=== PATIENT | male | born 1940 | race Caucasian/White ===

== ENCOUNTER → 2016-11-01 | Outpatient (CLI) | payer OTHER ==
[~2016-11-01] MED LIST: ALBUAER19 INH; ARC5 PO; CLON2TAB3 PO; DILT-115 PO; GLIM2TAB2 PO; LISI10TA PO; LPT/40 PO; OMEP20CA59 PO; VTMD PO
== END | disposition home or self-care (01) ==
LOC: C.RDSM 10:35
PROVIDERS: ATTEND Family Medicine Sports Medicine
DX: M25.561 Pain in right knee (principal)

== ENCOUNTER 2019-10-01 16:27 | Inpatient (IN) ==
[2019-10-01] MEDS ORDERED: OPTIRAY 320 125ml IV PRN (16:38)
--- NOTE | 2019-10-01 16:47 | CT Scan Report ---
CT head/brain wo con CT DOSE: HISTORY: Mental status change Stroke evaluation TECHNIQUE: Multiaxial CT images of the head were performed without the use of intravenous contrast. A dose lowering technique was utilized adhering to the principles of ALARA. Comparison: 01/19/2012 Findings: The paranasal sinuses and mastoid air cells are clear. The calvarium and skull base are int act. The ventricles and sulci are within normal limits. There is no mass, hematoma, midline shift, or acute infarct. Impression: No acute intracranial abnormality. Mild age-related atrophy and chronic small vessel change ACT 112: Negative or not required by law. The above report was generated using voice recognition software. It may contain grammatical, syntax or spelling errors. Electronically signed by: Carson Woody M.D. 10/01/2019 4:46 PM
[2019-10-01 16:52] LABS: Basophils # (auto) 0.02 K/uL (0-0.2); Basophils % (auto) 0.2 %; Eosinophils # (auto) 0.03 K/uL (0-0.5); Eosinophils % (auto) 0.3 %; Hematocrit (blood only) 35.5 % (42-52); Hemoglobin 11.4 g/dL (14.0-18.0); Immature Granulocytes # (auto) 0.04 K/uL (0.00-0.02); Immature Granulocytes % (auto) 0.4 %; Mean Corpuscular Hemoglobin 33.9 pg (25-34); Mean Corpuscular Hgb Conc 32.1 g/dL (32-36); Mean Corpuscular Volume 105.7 fL (80-100); Mean Platelet Volume 9.8 fL (7.4-10.4); Monocytes # (auto) 0.35 K/uL (0.11-0.59); Monocytes % (auto) 3.2 %; Neutrophils # (auto) 9.06 K/uL (1.4-6.5); Neutrophils % (auto) 83.9 %; Platelet Count 244 K/uL (130-400); RDW Standard Deviation 57.6 fL (36.4-46.3); Red Blood Count 3.36 M/uL (4.7-6.1)
--- NOTE | 2019-10-01 16:56 | CT Scan Report ---
CT angio neck with con HISTORY: R sided weakness and facial droop, slurred TECHNIQUE: Multiaxial CT angiography of the neck was performed IV contrast: 100 cc nonionic All genaro urements were calculated based on NASCET criteria. Maximum intensity projection images were also obt ained. A dose lowering technique was utilized adhering to the principles of ALARA. COMPARISON STUDY: None. FINDINGS: The aortic arch and proximal great vessels are widely patent. 50% narrowing right internal carotid artery at its origin. 30% narrowing left internal carotid artery at its origin. No evidence for high grade or critical stenosis. Minimal plaque formation at the carotid siphons. The vertebral basilar systems are unremarkable. IMPRESSION: 1. 50% narrowing right internal carotid artery at its origin. 2. 30% narrowing origin left internal carotid artery. 3. Normal vertebral basilar system. ACT 112: Negative or not required by law. The above report was generated using voice recognition software. It may contain grammatical, syntax or spelling errors. Electronically signed by: Carson Woody M.D. 10/01/2019 4:55 PM
--- NOTE | 2019-10-01 16:58 | CT Scan Report ---
CT angio head w con HISTORY: R sided weakness and facial droop, slurred TECHNIQUE: Multiaxial CT angiography of the head was performed IV contrast: 100 cc nonionic Maximu m intensity projection images were also obtained. A dose lowering technique was utilized adhering to the principles of ALARA. COMPARISON: None. FINDINGS: There is no mass, hematoma, midline shift, or acute infarct. Visualized intracranial management internship al carotid arteries, distal vertebral arteries, and basilar artery are widely patent. There is no sig nificant stenosis, occlusion, or aneurysm seen within the bilateral ACAs, MCAs, or wireless network engineer. Moderate trevor nosis at the carotid siphons IMPRESSION: Moderate stenosis at the carotid siphons. No significant intracranial arterial stenosis. ACT 112: Negative or not required by law. The above report was generated using voice recognition software. It may contain grammatical, syntax or spelling errors. Electronically signed by: Carson Woody M.D. 10/01/2019 4:56 PM
[2019-10-01 17:03] LABS: INR 1.1 (0.9-1.1); Partial Thromboplastin Ratio 0.9; Partial Thromboplastin Time 24.2 Seconds (21.0-31.0); Prothrombin Time 10.9 Seconds (9.0-12.0)
[2019-10-01 17:10] LABS: Alanine Aminotransferase 18 U/L (12-78); Albumin Level 3.5 gm/dl (3.4-5.0); Aspartate Aminotransferase 17 U/L (15-37); Bilirubin,Total 0.5 mg/dl (0.2-1); Blood Urea Nitrogen 26 mg/dl (7-18); Carbon Dioxide 21 mmol/L (21-32); Chloride 111 mmol/L (98-107); Est GFR (African American) 35.6; Est GFR (Non-African American) 30.7; Glucose 130 mg/dl (70-99); Magnesium 2.1 mg/dl (1.8-2.4); Potassium 4.9 mmol/L (3.5-5.1); Sodium 141 mmol/L (136-145)
[2019-10-01 17:13] LABS: Albumin Globulin Ratio 0.7 (0.9-2); Alkaline Phosphatase 95 U/L (45-117); Globulin 4.8 gm/dl (2.5-4.0); Total Protein 8.3 gm/dl (6.4-8.2); Troponin I 0.035 ng/ml (0-0.045)
[2019-10-01] MEDS ORDERED: ASPIRIN 81 MG CHEW ONE (17:29)
[2019-10-01] MEDS ORDERED: SODIUM CHLORIDE 0.9% 1000ML 1,000 ML IV ONE (17:49)
[2019-10-01] MEDS ORDERED: ASPIRIN CHEW 324 MG PO STA (19:28)
--- NOTE | 2019-10-01 19:44 | Magnetic Resonance Report ---
MR brain wo con HISTORY: Mental status change LUE weakness TECHNIQUE: Multiplanar multisequence MRI of the brain was performed without the use of contrast. COMPARISON STUDY: 09/05/2014 FINDINGS: Multiple foci of increased signal on diffusion images of the right periventricular and righ t peripheral cerebral hemisphere regions. This appears to represent a watershed type infarct scenario . Study otherwise shows moderate chronic small vessel change. Age-related atrophy is present. There is no deviation of the midline structures. IMPRESSION: 1. Multiple small punctate infarcts of the right cerebral hemisphere consistent with a watershed type scenario involving the internal cerebral arterial distribution. 2. Chronic and age-related change. 3. No midline shift or mass effect. ACT 112: Negative or not required by law. The above report was generated using voice recognition software. It may contain grammatical, syntax or spelling errors. Electronically signed by: Carson Woody M.D. 10/01/2019 7:43 PM
[2019-10-01] MEDS ORDERED: ASPIRIN CHEW 324 MG ONE (19:49)
--- NOTE | 2019-10-01 21:17 | History & Physical Report ---
Date of Service October 01, 2019 Assessment & Plan (1) Acute cardioembolic stroke: Stroke most likely caused by Lou [place]on's Patient was previously on warfarin which he stopped due to occasional bleeding mostly cutaneous. Admit to telemetry Follow-up stroke pathway without TPA Case discussed with at [facility] and he recommended to start aspirin 325 mg now And continue with 81 daily. He recommended to consult neurology at [facility] and follow patient closely next few days to determine when patient is going to be safe to start anticoagulation with possibly Eliquis. Physical and Occupational Therapy Monitor and replenish electrolytes DVT prophylaxis SCDs and teds TTE pending Neurology consult placed Full code Present on Admission?: Yes (2) TABATHA (acute kidney injury): Patient creatinine is 2.03. It is not clear if this is acute on chronic or chronic kidney insufficiency stage III. GFR is 30.7 Avoid nephrotoxic agents Gentle IV fluid hydration with normal saline. Monitor creatinine. Present on Admission?: Yes (3) Weakness of left upper extremity: Patient definitely needs to start in physical and Occupational Therapy. He lives by himself at home and we discussed with his ex- and son that patient will need placement in the future. Present on Admission?: Yes (4) Afib: Patient is not at this point on any anticoagulation even though previously he was on warfarin. Discussed with neurologist when would be appropriate time to start anticoagulation. Present on Admission?: Yes (5) Hypertension: Acute blood pressure with permissible hypertension. Continue home medicine furosemide 20 mg p.o. daily, diltiazem 240 mg p.o. daily, aspirin 81 mg p.o. daily, lisinopril 10 mg p.o. daily. Present on Admission?: Yes (6) Diabetes: Hold oral agents while patient is in the hospital to prevent hypoglycemia and possible kidney injury. Accu-Cheks before meals and at bedtime. Recommended sliding scale insulin while in the hospital. Glycemic control per pharmacy. Present on Admission?: Yes (7) Coronary artery disease: Continue aspirin 81 mg p.o. daily, continue diltiazem 240 mg p.o. daily, continue lisinopril 10 mg p.o. daily. Started atorvastatin 40 mg p.o. daily while lipid panel is pending. (8) Asthma: Asthma versus COPD. Patient does not appear to be in acute exacerbation. States that he smokes occasionally. He refused nicotine patch as not needed at this time. Continue Combivent Respimat 1 puff 4 times daily. Present on Admission?: Yes (9) Gout: Stable at this time. Continue allopurinol 100 mg p.o. twice daily as needed Present on Admission?: Yes (10) Hyperlipidemia: Lipid panel pending. Started atorvastatin 40mg nightly. Present on Admission?: Yes (11) Mood disorder: Continue escitalopram 10 mg p.o. daily. Present on Admission?: Yes History of Present Illness Chief Complaint: Left side weakness, left sided face droop Primary Care Provider: NO PCP Patient is a 79 years old male with past medical history of atrial fibrillation not on anticoagulation, asthma, depression, diabetes mellitus type 2, coronary artery disease, hypertension who was brought by EMS to the emergency room by his ex- and son who stated that they found patient on the floor this morning and he was not able to walk due to left-sided weakness. Patient said that last well was last night and that he started to have problems with ambulating around 4:30 AM this morning and that the time when he was not steady on his left leg, and noticed that his left arm is weaker than his right arm. Family noticed that patient has a left-sided face droop and that his speech is marbled. Patient social history includes drinking or more than several occasions per his family and also smoking on occasions. Patient denies alcohol abuse. EKG: Atrial fibrillation's with premature ventricular or aberrantly conducted complexes. Labs are reviewed: WBC is 10.8, hemoglobin 11.4, hematocrit 35.5, platelets 244, PT 10.9, INR 1.1, APTT 24.2, sodium 141, potassium 4.9, chloride 111, BUN 26, creatinine 2.03(we do not have another creatinine for comparison) GFR 30.7, magnesium 2.1, AST 17, ALT 18, troponin 0.[address] head without contrast CTA of head and neck were negative for stroke MRI of the brain showed multiple small punctuate infarcts of the right cerebral hemisphere consistent with a watershed type scenario involving the internal cerebral artery distribution. Chronic and age-related changes. No midline shift or mass affect. Decision was made to admit patient to telemetry for stroke without TPA and further management and treatment. Allergies Allergy/AdvReac Type Severity Reaction Status Date / Time Penicillins Allergy Unknown RASH Verified 10/01/19 20:15 Home Medications Home Medications Medication Instructions Recorded Confirmed Type allopurinol 100 mg PO BID PRN 10/01/19 10/01/19 History aspirin [Aspir-81] 81 mg PO DAILY 10/01/19 10/01/19 History diltiazem HCl 240 mg PO DAILY 10/01/19 10/01/19 History escitalopram oxalate [Lexapro] 10 mg PO DAILY 10/01/19 10/01/19 History furosemide [Lasix] 20 mg PO DAILY 10/01/19 10/01/19 History glimepiride [Amaryl] 2 mg PO QAM 10/01/19 10/01/19 History ipratropium-albuterol [Combivent 1 puff INHALATION QID 10/01/19 10/01/19 History Respimat] lisinopril 10 mg PO DAILY 10/01/19 10/01/19 History loperamide 2 mg PO Q3H PRN 10/01/19 10/01/19 History meloxicam [Mobic] 15 mg PO DAILY 10/01/19 10/01/19 History omeprazole 20 mg PO DAILY 10/01/19 10/01/19 History Past Med/Surg History Medical History Asthma (Chronic) Atrial fibrillation (Chronic) Coronary artery disease (Chronic) CVA (cerebral vascular accident) Diabetes (Chronic) Gout Heart disease (Chronic) Hypertension (Chronic) Mood disorder (Acute) Pneumonia (Acute) Surgical History History of hernia repair (Resolved) Social History Feels Safe at Home: Yes Smoking Status: Unknown if ever smoked Review of Systems Review of Systems: All systems reviewed & are unremarkable except as noted in HPI & below Physical Exam Constitutional: WD/WN, vitals as above well developed and + obese Eyes: PERRL, conjunctivae normal, anicteric sclerae ENMT: external ear and nose normal, oropharynx normal Left-sided face droop Neck: trachea midline, no thyromegaly Respiratory: normal respiratory effort, lungs clear to auscultation Cardiovascular: Rate/Rhythm: + irregularly irregular Heart Sounds: normal S1 and normal S2 Vessels: dorsalis pedis pulses present Gastrointestinal (Abdomen): normal bowel sounds, soft, nontender, no hepatosplenomegaly Musculoskeletal: no cyanosis or clubbing, extremities motor strength 5/5 Skin: no rashes, warm and dry Neurologic: Left-sided face droop, 3 of 5 weakness in the left upper extremity, 3 of 5 weakness and left lower extremity. Garbled speech. Ataxia, hemiparesis on the left. Psychiatric: A+Ox3, euthymic affect Lymphatic: no cervical or axillary lymphadenopathy Results & Data Vital Signs (Past 12 Hours) Vital Signs Temp Pulse Pulse Resp BP BP Pulse Ox 10/01/19 19:42 87 L 10/01/19 19:41 149/117 H 93 10/01/19 19:00 98 H 22 10/01/19 18:33 89 29 H 10/01/19 18:32 86 25 H 139/91 92 10/01/19 18:30 84 29 H 10/01/19 18:01 91 H 25 H 88 L 10/01/19 18:00 87 26 H 175/97 H 89 L 10/01/19 17:42 92 H 92 10/01/19 17:41 97 H 170/123 H 92 10/01/19 17:40 84 24 170/123 H 10/01/19 17:25 86 28 H 187/131 H 96 10/01/19 17:22 68 22 185/155 H 97 10/01/19 17:00 90 24 185/155 H 96 10/01/19 16:35 36.6 C 102 H 24 192/126 H 94 Code Status & VTE Plan Code Status Full code VTE Prophylaxis Plan VTE Prophylaxis will be ordered: Yes PG Care Time/CCT Total # of Minutes Spent Total Time Spent with Patient: Total time spent is greater than 50% in coordination of care (as documented) at patient's floor/unit and/or counseling patient:
[2019-10-01] MEDS ORDERED: MAGNESIUM HYDROXIDE SUSP 30 ML UDC PO PRN (22:12)
[2019-10-01] MEDS ORDERED: allopurinoL 100 MG TAB PO PRN (22:12)
[2019-10-01] MEDS ORDERED: CARBOHYDRATES FOR HYPOGLYCEMIA PO PRN (22:12)
[2019-10-01] MEDS ORDERED: PHARMACIST DISCHARGE MED REC CONSULT PRN (22:12)
[2019-10-01] MEDS ORDERED: DEXTROSE 50% 50 ML SYRINGE IV PRN (22:12)
[2019-10-01] MEDS ORDERED: POLYETHYLENE (MIRALAX) 17 GM PACK PO PRN (22:12)
[2019-10-01] MEDS ORDERED: GLUCOSE 10 TABS/TUBE PO PRN (22:12)
[2019-10-01] MEDS ORDERED: ATORVASTATIN 40 MG TAB PO SCH (22:12)
[2019-10-01] MEDS ORDERED: GLUCAGON FOR INJ 1 MG VIAL SQ PRN (22:12)
[2019-10-01] MEDS ORDERED: GLUCOSE 40% GEL 15 GM TUBE PO PRN (22:12)
[2019-10-01] MEDS ORDERED: ACETAMINOPHEN 325 MG TAB PO PRN (22:12)
[2019-10-01] MEDS ORDERED: ALUMINUM/MAGNESIUM SUSP 30 ML UDC PO PRN (22:12)
--- NOTE | 2019-10-01 22:22 | Emergency Department Note ---
Entered by Jami Joyner acting as a scribe for History of Present Illness General Chief complaint: Stroke Alert Stated complaint: STROKE ALERT Time Seen by Provider: 10/01/19 16:32 History of Present Illness Provider complaint: stroke-like symptoms Onset (ago): hour(s) (12) Pain Consistency: + constant Quality: + other (stroke-like symptoms) Relieved By: + none Associated symptoms: + other (pain and weakness all over but worse on the leftt, cannot move or walk, facial droop upon EMS arrival ) The patient is a 79 year old white male w/ PMHx of CVA, Afib, diabetes, CAD, HTN, and heart disease who presents to the ED w/ CC of constant stroke-like symptoms beginning 12 hours ago. The patient states that his symptoms started at 0430 this morning when he woke up to use the bathroom. The patient states that he has pain and weakness all over, but it is worse on the left. The patient states that it feels like he cannot move or walk. The patient states that nothing is helping to relieve him of these symptoms. Per EMS, the patient had facial droop upon arrival. Per EMS, the patient was found by his ex- who informed them that the patient takes Aspirin daily. Home Medications Home Medications Medication Instructions Recorded Confirmed Type allopurinol 100 mg PO BID PRN 10/01/19 10/01/19 History aspirin [Aspir-81] 81 mg PO DAILY 10/01/19 10/01/19 History diltiazem HCl 240 mg PO DAILY 10/01/19 10/01/19 History escitalopram oxalate [Lexapro] 10 mg PO DAILY 10/01/19 10/01/19 History furosemide [Lasix] 20 mg PO DAILY 10/01/19 10/01/19 History glimepiride [Amaryl] 2 mg PO QAM 10/01/19 10/01/19 History ipratropium-albuterol [Combivent 1 puff INHALATION QID 10/01/19 10/01/19 History Respimat] lisinopril 10 mg PO DAILY 10/01/19 10/01/19 History loperamide 2 mg PO Q3H PRN 10/01/19 10/01/19 History meloxicam [Mobic] 15 mg PO DAILY 01/07/20 01/07/20 History omeprazole 20 mg PO DAILY 10/01/19 10/01/19 History Allergies Allergy/AdvReac Type Severity Reaction Status Date / Time Penicillins Allergy Unknown RASH Verified 10/01/19 20:15 Past Med/Surg History Medical History Asthma (Chronic) Atrial fibrillation (Chronic) Coronary artery disease (Chronic) CVA (cerebral vascular accident) Diabetes (Chronic) Gout Heart disease (Chronic) Hypertension (Chronic) Mood disorder (Acute) Pneumonia (Acute) Surgical History History of hernia repair (Resolved) Social History Feels Safe at Home: Yes Smoking Status: Unknown if ever smoked Review of Systems See HPI for pertinent positives & negatives. and A total of 10 systems reviewed and were otherwise negative Physical Exam Vital Signs Vital Signs - 24 hr 10/01/19 16:35 10/01/19 17:00 10/01/19 17:22 Temperature 36.6 C Temperature Source Oral Pulse Rate 102 H Pulse Rate [Right Finger] 90 68 Pulse Rate from SpO2 Sensor Pulse Rhythm Regular Respiratory Rate 24 24 22 Respiratory Effort / Characteristics Non-Labored Respiratory Depth Normal Blood Pressure 192/126 H Blood Pressure [Right Arm] 185/155 H 185/155 H Blood Pressure Mean 148 Blood Pressure Mean [Right Arm] 165 165 Pulse Oximetry 94 96 97 Oxygen Delivery Method Room Air Room Air Room Air Sepsis Recent Fever Within 48 Hours No Sepsis Action Taken by Nursing No Action Required 10/01/19 17:25 10/01/19 17:40 10/01/19 17:41 Temperature Temperature Source Pulse Rate 97 H Pulse Rate [Right Finger] 86 84 Pulse Rate from SpO2 Sensor 99 H Pulse Rhythm Respiratory Rate 28 H 24 Respiratory Effort / Characteristics Respiratory Depth Blood Pressure 170/123 H Blood Pressure [Right Arm] 187/131 H 170/123 H Blood Pressure Mean 146 Blood Pressure Mean [Right Arm] 149 138 Pulse Oximetry 96 92 Oxygen Delivery Method Room Air Room Air Sepsis Recent Fever Within 48 Hours Sepsis Action Taken by Nursing 10/01/19 17:42 10/01/19 18:00 10/01/19 18:01 Temperature Temperature Source Pulse Rate 92 H 87 91 H Pulse Rate [Right Finger] Pulse Rate from SpO2 Sensor 90 135 H 98 H Pulse Rhythm Respiratory Rate 26 H 25 H Respiratory Effort / Characteristics Respiratory Depth Blood Pressure 175/97 H Blood Pressure [Right Arm] Blood Pressure Mean 102 Blood Pressure Mean [Right Arm] Pulse Oximetry 92 89 L 88 L Oxygen Delivery Method Sepsis Recent Fever Within 48 Hours Sepsis Action Taken by Nursing 10/01/19 18:30 10/01/19 18:32 10/01/19 18:33 Temperature Temperature Source Pulse Rate 84 86 89 Pulse Rate [Right Finger] Pulse Rate from SpO2 Sensor 84 Pulse Rhythm Respiratory Rate 29 H 25 H 29 H Respiratory Effort / Characteristics Respiratory Depth Blood Pressure 139/91 Blood Pressure [Right Arm] Blood Pressure Mean 121 Blood Pressure Mean [Right Arm] Pulse Oximetry 92 Oxygen Delivery Method Sepsis Recent Fever Within 48 Hours Sepsis Action Taken by Nursing 10/01/19 19:00 10/01/19 19:01 10/01/19 19:41 Temperature Temperature Source Pulse Rate 98 H Pulse Rate [Right Finger] Pulse Rate from SpO2 Sensor 99 H Pulse Rhythm Respiratory Rate 22 Respiratory Effort / Characteristics Respiratory Depth Blood Pressure 149/117 H Blood Pressure [Right Arm] Blood Pressure Mean 117 129 Blood Pressure Mean [Right Arm] Pulse Oximetry 93 Oxygen Delivery Method Sepsis Recent Fever Within 48 Hours Sepsis Action Taken by Nursing 10/01/19 19:42 Temperature Temperature Source Pulse Rate Pulse Rate [Right Finger] Pulse Rate from SpO2 Sensor 87 Pulse Rhythm Respiratory Rate Respiratory Effort / Characteristics Respiratory Depth Blood Pressure Blood Pressure [Right Arm] Blood Pressure Mean Blood Pressure Mean [Right Arm] Pulse Oximetry 87 L Oxygen Delivery Method Sepsis Recent Fever Within 48 Hours Sepsis Action Taken by Nursing GENERAL: Well nourished, non-toxic. EYE EXAM: Normal conjunctiva. PERRL, no anisocoria and EOM's grossly intact w/o pain. OROPHARYNX: Moist mucous membranes. Edentulous. NECK: Supple, no nuchal rigidity, no adenopathy, non-tender. No signs of meningismus. LUNGS: Clear to auscultation. Normal chest wall mechanics. HEART: Tachycardic rate, regular rhythm, no MRG. ABDOMEN: Abdomen soft, non-tender, normo-active bowel sounds, no masses, no rebound or guarding. BACK: No CVA TTP. SKIN: No rashes and no bruising. UPPER EXTREMITIES: Upper extremities are grossly normal. LOWER EXTREMITIES: No pitting edema. No calf pain. NEURO EXAM: Awake and alert, follow commands, decreased left upper extremity strength compared to the right, poor finger to nose left upper extremity, slurred speech, no sensory deficits. Course Course 1622: EMS called me at this time. They informed me that the patient has a history of stroke and currently has right sided arm and leg weakness as well as facial droop and slurred speech. Per EMS, the patient does not take blood thinners, but he does take Aspirin. The patient's last known well was 0430 this morning. The patient was found by his ex-. Per EMS, the patient's blood glucose was in the 170s. 1625: I paged [facility] at this time. 1632: I discussed the patient's case with Nenita Benson. He states that he will go over the case with me. He notes that the patient is not a TPA candidate given that his symptoms started 12 hours ago. We will call him back when we have results. 1638: I walked the patient to CT at this time. He got up to use the bathroom at 0430 this morning which is when he started to develop symptoms. The patient denies blood thinner use. 1649: Past medical records reviewed. The patient was evaluated in room B01. A complete history and physical exam was performed. 1651: Upon presentation, the spinner frame states that he meant to say the patient has left sided deficits, not right sided like he originally said. 1655: The patient was put on a desk monitor at this time. 1658: I discussed the patient's case with Nenita Benson. He states recommends getting an MRI and admitting the patient to medicine. He also states that there needs to be a discussion in regard to anticoagulation therapy given the patient's history of Afib. 1727 I updated the family at bedside and I explained the CT results to them. The patient will be getting a baby Aspirin now since he told me he did not take any today. 1757: I discussed the patient's case with Dr. Smith- [facility] Hospitalist. She will evaluate the patient for further management. Consultations Consultation #1: I discussed the patient's case with Nenita Benson. He states that he will go over the case with me. He notes that the patient is not a TPA candidate given that his symptoms started 12 hours ago. We will call him back when we have results. Time: 16:32 Consultation #2: I discussed the patient's case with Dr. Woods- [facility] [place]. He states recommends getting an MRI and admitting the patient to medicine. He also states that there needs to be a discussion in regard to anticoagulation therapy given the patient's history of Afib. Time: 16:58 Consultation #3: I discussed the patient's case with Dr. Smith- [facility] Hospitalist. She will evaluate the patient for further management. Time: 17:57 Administered Medications Discontinued Medications Aspirin (Aspirin Chew) Confirm Administered Dose 81 mg .ROUTE .STK-MED ONE Stop: 10/01/19 17:30 Last Admin: 10/01/19 17:31 Dose: 81 mg Documented by: [id number] Aspirin (Aspirin) Confirm Administered Dose 324 mg .ROUTE .STK-MED ONE Stop: 10/01/19 19:50 Last Admin: 10/01/19 19:51 Dose: 324 mg Documented by: [id number] Sodium Chloride (Nss 1000ml) 1,000 mls @ 999 mls/hr IV .Q1H1M ONE Stop: 10/01/19 18:49 Last Infusion: 10/01/19 18:53 Dose: 0 mls/hr Documented by: [id number] Admin: 10/01/19 17:57 Dose: 999 mls/hr Documented by: [id number] Ioversol (Optiray 320 125ml) 118 ml IV ONCE PRN PRN Reason: Interaction Checking Stop: 10/05/19 16:37 Last Admin: 10/01/19 16:48 Dose: 118 ml Documented by: [id number] Medical Decision Making Differential Diagnosis Differential Diagnosis includes but is not limited to ischemic Stroke, hemorrhagic stroke, bells palsy, mass, neoplasm, migraine headache, seizure, subarachnoid hemorrhage, TIA, and transient global amnesia. Medical Records Attestation: I reviewed the patient's medical records. Home Medications Current Medication List: was personally reviewed by me Laboratory Data Attestation: I reviewed the patient's lab results. Result diagrams: 10/01/19 16:12 10/01/19 16:12 Lab Results 01/07/20 01/07/20 01/07/20 Range/Units 16:12 16:12 16:12 WBC 10.80 (4.8-10.8) K/uL RBC 3.36 L (4.7-6.1) M/uL Hgb 11.4 L (14.0-18.0) g/dL Hct 35.5 L (42-52) % MCV 105.7 H (80-100) fL MCH 33.9 (25-34) pg MCHC 32.1 (32-36) g/dL RDW Std Deviation 57.6 H (36.4-46.3) fL RDW Coeff of Dwain 15.0 H (11.5-14.5) % Plt Count 244 (130-400) K/uL MPV 9.8 (7.4-10.4) fL Immature Gran % (Auto) 0.4 % Neut % (Auto) 83.9 % Lymph % (Auto) 12.0 % Ector % (Auto) 3.2 % Eos % (Auto) 0.3 % Baso % (Auto) 0.2 % Immature Gran # (Auto) 0.04 H (0.00-0.02) K/uL Neut # (Auto) 9.06 H (1.4-6.5) K/uL Lymph # (Auto) 1.30 (1.2-3.4) K/uL Ector # (Auto) 0.35 (0.11-0.59) K/uL Eos # (Auto) 0.03 (0-0.5) K/uL Baso # (Auto) 0.02 (0-0.2) K/uL PT 10.9 (9.0-12.0) Seconds INR 1.1 (0.9-1.1) APTT 24.2 (21.0-31.0) Seconds PTT Ratio 0.9 Sodium 141 (136-145) mmol/L Potassium 4.9 (3.5-5.1) mmol/L Chloride 111 H (98-107) mmol/L Carbon Dioxide 21 (21-32) mmol/L Anion Gap 9.0 (3-11) BUN 26 H (7-18) mg/dl Creatinine 2.03 H (0.6-1.4) mg/dl Est Cr Clr Drug Dosing Not Reportable Est GFR ( Amer) 35.6 Est GFR (Non-Af Amer) 30.7 BUN/Creatinine Ratio 13.0 (10-20) Glucose 130 H (70-99) mg/dl POC Glucose (70-99) Calcium 10.0 (8.5-10.1) mg/dl Magnesium 2.1 (1.8-2.4) mg/dl Total Bilirubin 0.5 (0.2-1) mg/dl AST 17 (15-37) U/L ALT 18 (12-78) U/L Alkaline Phosphatase 95 (45-117) U/L Troponin I 0.035 (0-0.045) ng/ml Total Protein 8.3 H (6.4-8.2) gm/dl Albumin 3.5 (3.4-5.0) gm/dl Globulin 4.8 H (2.5-4.0) gm/dl Albumin/Globulin Ratio 0.7 L (0.9-2) 10/01/19 Range/Units 16:52 WBC (4.8-10.8) K/uL RBC (4.7-6.1) M/uL Hgb (14.0-18.0) g/dL Hct (42-52) % MCV (80-100) fL MCH (25-34) pg MCHC (32-36) g/dL RDW Std Deviation (36.4-46.3) fL RDW Coeff of Dwain (11.5-14.5) % Plt Count (130-400) K/uL MPV (7.4-10.4) fL Immature Gran % (Auto) % Neut % (Auto) % Lymph % (Auto) % Ector % (Auto) % Eos % (Auto) % Baso % (Auto) % Immature Gran # (Auto) (0.00-0.02) K/uL Neut # (Auto) (1.4-6.5) K/uL Lymph # (Auto) (1.2-3.4) K/uL Ector # (Auto) (0.11-0.59) K/uL Eos # (Auto) (0-0.5) K/uL Baso # (Auto) (0-0.2) K/uL PT (9.0-12.0) Seconds INR (0.9-1.1) APTT (21.0-31.0) Seconds PTT Ratio Sodium (136-145) mmol/L Potassium (3.5-5.1) mmol/L Chloride (98-107) mmol/L Carbon Dioxide (21-32) mmol/L Anion Gap (3-11) BUN (7-18) mg/dl Creatinine (0.6-1.4) mg/dl Est Cr Clr Drug Dosing Est GFR ( Amer) Est GFR (Non-Af Amer) BUN/Creatinine Ratio (10-20) Glucose (70-99) mg/dl POC Glucose 138 H (70-99) Calcium (8.5-10.1) mg/dl Magnesium (1.8-2.4) mg/dl Total Bilirubin (0.2-1) mg/dl AST (15-37) U/L ALT (12-78) U/L Alkaline Phosphatase (45-117) U/L Troponin I (0-0.045) ng/ml Total Protein (6.4-8.2) gm/dl Albumin (3.4-5.0) gm/dl Globulin (2.5-4.0) gm/dl Albumin/Globulin Ratio (0.9-2) Imaging Data Radiologist's Impression: Radiology results as stated below per my review and the radiologist's interpretation: CT head/brain wo con CT DOSE: HISTORY: Mental status change Stroke evaluation TECHNIQUE: Multiaxial CT images of the head were performed without the use of intravenous contrast. A dose lowering technique was utilized adhering to the principles of ALARA. Comparison: 01/19/2012 Findings: The paranasal sinuses and mastoid air cells are clear. The calvarium and skull base are intact. The ventricles and sulci are within normal limits. There is no mass, hematoma, midline shift, or acute infarct. Impression: No acute intracranial abnormality. Mild age-related atrophy and chronic small vessel change ACT 112: Negative or not required by law. The above report was generated using voice recognition software. It may contain grammatical, syntax or spelling errors. Electronically signed by: Carson Woody M.D. 10/01/2019 4:[address] angio head w con HISTORY: R sided weakness and facial droop, slurred TECHNIQUE: Multiaxial CT angiography of the head was performed IV contrast: 100 cc nonionic Maximum intensity projection images were also obtained. A dose lowering technique was utilized adhering to the principles of ALARA. COMPARISON: None. FINDINGS: There is no mass, hematoma, midline shift, or acute infarct. Visualized intracranial internal carotid arteries, distal vertebral arteries, and basilar artery are widely patent. There is no significant stenosis, occlusion, or aneurysm seen within the bilateral ACAs, MCAs, or journalists and other writers. Moderate stenosis at the carotid siphons IMPRESSION: Moderate stenosis at the carotid siphons. No significant intracranial arterial stenosis. ACT 112: Negative or not required by law. The above report was generated using voice recognition software. It may contain grammatical, syntax or spelling errors. Electronically signed by: Carson Woody M.D. 10/01/2019 4:[address] angio neck with con HISTORY: R sided weakness and facial droop, slurred TECHNIQUE: Multiaxial CT angiography of the neck was performed IV contrast: 100 cc nonionic All measurements were calculated based on NASCET criteria. Maximum intensity projection images were also obtained. A dose lowering technique was utilized adhering to the principles of ALARA. COMPARISON STUDY: None. FINDINGS: The aortic arch and proximal great vessels are widely patent. 50% narrowing right internal carotid artery at its origin. 30% narrowing left internal carotid artery at its origin. No evidence for high grade or critical stenosis. Minimal plaque formation at the carotid siphons. The vertebral basilar systems are unremarkable. IMPRESSION: 1. 50% narrowing right internal carotid artery at its origin. 2. 30% narrowing origin left internal carotid artery. 3. Normal vertebral basilar system. ACT 112: Negative or not required by law. The above report was generated using voice recognition software. It may contain grammatical, syntax or spelling errors. Electronically signed by: Carson Woody M.D. 10/01/2019 4:55 PM MR brain wo con HISTORY: Mental status change LUE weakness TECHNIQUE: Multiplanar multisequence MRI of the brain was performed without the use of contrast. COMPARISON STUDY: 09/05/2014 FINDINGS: Multiple foci of increased signal on diffusion images of the right periventricular and right peripheral cerebral hemisphere regions. This appears to represent a watershed type infarct scenario. Study otherwise shows moderate chronic small vessel change. Age-related atrophy is present. There is no deviation of the midline structures. IMPRESSION: 1. Multiple small punctate infarcts of the right cerebral hemisphere consistent with a watershed type scenario involving the internal cerebral arterial distribution. 2. Chronic and age-related change. 3. No midline shift or mass effect. ACT 112: Negative or not required by law. ECG Data Attestation: I personally reviewed and interpreted this ECG as follows: Indication: + weakness Rate (beats per minute): 89 Rhythm: + atrial fibrillation ECG Intervals/blocks: + Normal QRS ECG [place]: + Normal ECG ST segments: no ST depression and no ST elevation ECG Findings: + PVCs Comparison ECG Date: from (12/07/2014) Change: the following changes noted (Afib is still present) Blood Pressure Blood Pressure Findings: Elevated blood pressure Blood Pressure Disposition: further management by hospitalist MDM Narrative The patient is a 79 year old white male w/ PMHx of CVA, Afib, diabetes, CAD, HTN, and heart disease who presents to the ED w/ CC of constant stroke-like symptoms beginning 12 hours ago. Patient was seen and evaluated the bedside. I did receive a medical command call due to concern for acute onset of strokelike symptoms. The patient's last known well was around 430 this morning. The patient had gotten up to use the restroom and had sudden onset of left-sided weakness. The patient does have a prior history of CVA as well as MN per the medic team. The patient does take a baby aspirin. The patient did immediately go to get a CT of the head and CT angios of the head and neck. I did initiate a code stroke given that the patient did have significant deficits per EMS. Upon my evaluation after CT scan the patient does have left upper extremity weakness but the bilateral lower extremities appear well. EMS does relate the patient has had improved speech in route. The patient did have a blood sugar in the 170s and was not overly hypertensive. The patient was reported to be somewhat hypoxic in the 80s and was started on oxygen but here in the resuscitation bay the patient has had normal saturations in the lower 90s. Given the patient's time course 12 stroke was not recommending TPA but did recommend further inpatient work-up and treatment. The patient was given a baby aspirin and I discussed that the patient may have an element of thromboembolic stroke given that the patient is currently not on any further blood thinning agent and does have a history of A. fib and is further confirmed on his EKG. MRI was ordered and the patient was subsequently admitted to the medicine service. Impression & Plan Stroke-like symptoms, Afib, Weakness of left upper extremity, TABATHA (acute kidney injury) Discharge Plan Visit Data Chief Complaint: Stroke Alert Stated Complaint: STROKE ALERT ED Provider: Charlie Dodge Discharge Problem: Stroke-like symptoms, Afib, Weakness of left upper extremity, TABATHA (acute kidney injury) Patient Disposition: Being Evaluated by Hospitalist Discharge Instructions Interventions: ED Discharge Assessment Last Done: 10/01/19 21:40 The scribe's documentation has been prepared under my direction and personally reviewed by me in its entirety. I confirm that the note above accurately reflects all work, treatment, procedures, and medical decision making performed by me.
[2019-10-01 22:54] LABS: INR 1.1 (0.9-1.1); Partial Thromboplastin Ratio 0.9; Partial Thromboplastin Time 24.2 Seconds (21.0-31.0); Prothrombin Time 10.9 Seconds (9.0-12.0)
[2019-10-01] MEDS ORDERED: LOPERAMIDE HCL 2 MG CAP PO PRN (23:14)
[2019-10-01] MEDS ORDERED: PHARMACY GLYCEMIC MGMT CONSULT PRN (23:15)
[2019-10-01] MEDS ORDERED: PATIENT'S HEIGHT AND/OR WEIGHT NEEDED SCH (23:45)
[2019-10-01] MEDS: IPRATROPIUM BROMIDE/ALBUTEROL respimat INH INH SCH (23:58)
[2019-10-01] MEDS: SODIUM CHLORIDE 0.9% 1000ML 1,000 ML IV SCH (23:58)
[2019-10-02 04:44] LABS: Basophils # (auto) 0.03 K/uL (0-0.2); Basophils % (auto) 0.4 %; Eosinophils # (auto) 0.09 K/uL (0-0.5); Eosinophils % (auto) 1.1 %; Hematocrit (blood only) 34.5 % (42-52); Hemoglobin 10.7 g/dL (14.0-18.0); Immature Granulocytes # (auto) 0.01 K/uL (0.00-0.02); Immature Granulocytes % (auto) 0.1 %; Lymphocytes # (auto) 1.71 K/uL (1.2-3.4); Lymphocytes % (auto) 20.1 %; Mean Corpuscular Volume 106.5 fL (80-100); Mean Platelet Volume 9.6 fL (7.4-10.4); Monocytes # (auto) 0.46 K/uL (0.11-0.59); Monocytes % (auto) 5.4 %; Neutrophils # (auto) 6.21 K/uL (1.4-6.5); Neutrophils % (auto) 72.9 %; Platelet Count 191 K/uL (130-400); RDW Coefficient of Variation 15.1 % (11.5-14.5); RDW Standard Deviation 58.6 fL (36.4-46.3); Red Blood Count 3.24 M/uL (4.7-6.1); White Blood Count 8.51 K/uL (4.8-10.8)
[2019-10-02 05:04] LABS: BUN Creatinine Ratio 14.8 (10-20); Calcium 9.4 mg/dl (8.5-10.1); Creatinine Clr Calc Pharmacy 35.8 ml/min; Est GFR (African American) 40.9; Est GFR (Non-African American) 35.3; Potassium 4.5 mmol/L (3.5-5.1)
[2019-10-02 05:28] LABS: Troponin I 0.057 ng/ml (0-0.045)
[2019-10-02] MEDS: IPRATROPIUM BROMIDE/ALBUTEROL respimat INH INH SCH (08:06)
[2019-10-02] MEDS: dilTIAZem HCL 240 MG CAPCR PO SCH (08:07)
[2019-10-02] MEDS: ASPIRIN 81 MG ECTAB PO SCH (08:08)
[2019-10-02] MEDS: FUROSEMIDE 20 MG TAB PO SCH (08:08)
[2019-10-02] MEDS: ESCITALOPRAM OXALATE 10 MG TAB PO SCH (08:09)
[2019-10-02] MEDS: PANTOprazole 40 MG TAB PO SCH (08:09)
[2019-10-02] MEDS ORDERED: Nursing to Pharmacy Communication ONE (08:12)
[2019-10-02 08:13] LABS: Estimated Average Glucose 148 mg/dl; Hemoglobin A1C 6.8 % (4.5-5.6)
[2019-10-02] MEDS ORDERED: ASPIRIN 81 MG ECTAB PO SCH (09:00)
[2019-10-02] MEDS ORDERED: MELOXICAM 7.5 MG TAB PO SCH (09:00)
[2019-10-02] MEDS ORDERED: lisinopriL 10 MG TAB PO SCH (09:00)
--- NOTE | 2019-10-02 09:10 | Hospitalist Progress Note ---
Date of Service October 02, 2019 Assessment & Plan (1) Acute cardioembolic stroke: #Acute cardioembolic stroke Etiology A. fib versus carotid artery, most recent carotid ultrasound demonstrated 50% narrowing of the right internal carotid artery, and 30% the left. Patient has a longstanding history of A. fib was previously anticoagulated with warfarin which was stopped due to occasionally cutaneous bleeding. He reports having history of a prior stroke however did not have a treated do not have records. Head CT was negative for acute process. Brain MRI from admission demonstrated multiple small punctate infarcts of the right cerebral hemisphere consistent with a watershed type scenario involving the internal cerebral artery distribution, neck CTA was consistent with prior ultrasound findings, head CTA demonstrated moderate stenosis of the carotid siphons. EKG on presentation demonstrated atrial fibrillation. The admitting physician discussed the case with at [facility], he recommended thoroughly 325 mg of aspirin to be administered stat, followed by 81 mg daily. Hospitalist service was consulted for admission for stroke pathway without TPA. -Holding home antihypertensives and Lasix, to allow for permissive hypertension -Neurology consulted following recommendations -Heparin GTT for intraluminal thrombus in right R ICA -Consulted vascular surgery -Increase atorvastatin 80 mg -BP parameters: SBP CAP 180, restart home anti-hypertensives with goal normotension over next 3-4 days -Follow-up in the neurology clinic in 6 to 8 weeks -PT OT consulted -Speech consulted -TTE pending -Patient currently lives alone, this is likely not the best living situation for him. Will need case management assistance on discharge #Weakness of the left upper and lower extremity Likely secondary to above. PT and OT consulted. Request case management assistance in discharge planning. #Atrial fibrillation Patient presented to the emergency department in atrial fibrillation this likely chronic in nature. This could be the source of his current presentation. Patient appears to be on diltiazem 240 mg daily at home for rate control. Patient was previously anticoagulated with warfarin, stopped secondary to cutaneous bleeding. Will need anticoagulation on discharge. -Appreciate neurology recommendations regarding resumption of anticoagulation -Continue diltiazem 240 mg daily #Carotid artery stenosis Patient with echo and CTA evidence of bilateral carotid artery stenosis, right 50%, left 30%. Given that the majority of his symptoms are on the left side involving the involving the right cerebellar hemisphere/internal capsule I am suspicious that his stroke may be secondary to carotid artery stenosis. -Started on atorvastatin 40 mg daily -To consider vascular evaluation while inpatient if not recommended as an outpatient #TABATHA Patient's creatinine on presentation was 2.13 GFR was 30.7, came down to 1.81 this morning. Unclear what the patient's baseline is per review of records, will attempt to obtain through conversation with the patient and family. Most recent creatinine per our records was 2016 and 1.3 -Trend daily BMP -Holding lisinopril in the setting of TABATHA -Holding furosemide in the setting of TABATHA -Holding meloxicam in the setting of TABATHA -Avoid nephrotoxic medications #Hypertension Holding home antihypertensives to allow for permissive hypertension in the setting of stroke. Holding furosemide 20 mg daily Holding lisinopril 20 mg daily #Diabetes Oral agents held on admission. Most recent A1c 6.8 indicating good blood sugar control. Glycemic consult placed Blood sugar checks before meals at bedtime #Coronary artery disease History of, continue home meds. Lipid panel consistent with hyperlipidemia, LDL on admission was 116, triglycerides 155, cholesterol 190. -Started on atorvastatin 40 mg daily #COPD Patient carries a diagnosis of asthma, this most likely represents COPD. Patient has a long smoking history, previously quit and is currently been smoking more than ever per report. -Continue home Combivent -DuoNebs every 4 times daily scheduled -Albuterol 2 puffs as needed every 6 hours for wheezing #Dementia Patient alert and oriented x4, per conversation with his daughter she reports increasing forgetfulness, not remembering to take medications, not keeping appointments, decreased social interactions. Collectively these likely represent the early stages of dementia. - precautions #Gout History of, stable at present -Continue allopurinol 100 mg p.o. twice daily #Depression Continue escitalopram 10 mg p.o. daily FENa: Heart healthy diabetic type II diet moist and minced until somebody brings his teeth Code Status: Full code DVT PPX: Contraindicated in the setting of recent stroke, SCDs PT/OT: Ordered Dispo: MedSurg with telemetry Anand Miller MD PGY 2, FCM This chart was completed utilizing [employer] voice recognition software. Grammatical errors, random word insertions, pronoun errors, and in complete sentences are an occasional consequence of the system. Any questions or concerns about the content, text, or information contained within the body of this dictation should be addressed directly to the physician for clarification. (2) Afib: (3) Weakness of left upper extremity: (4) Weakness of left lower extremity: (5) Mood disorder: (6) Hyperlipidemia: (7) Gout: (8) TABATHA (acute kidney injury): (9) Mood disorder: (10) Coronary artery disease: (11) Hypertension: Supervising Physician Co-Signing Physician Notes I personally examined the patient and verified all adams points of history and exam, discussed case, and agree with decision making with Dr Miller. Ongoing left-sided weakness. No new complaints otherwise. Electronic Equipment Installer input appreciated. Updated family and patient and answered questions to the best of my ability. Vitals noted, in general he is awake and alert no distress. HEENT normocephalic atraumatic mucous membranes moist. Breathing is unlabored no accessory muscle use good effort. Skin shows no rashes no pallor or icterus. Neuro shows very dense left-sided weakness of the arm with maybe 1 out of 5 strength but barely that, leg is probably 1+ out of 5 strength. Sensation seems reasonably intact to light touch CVAcarotid embolic versus less likely cardioembolic. Med management, secondary risk reduction, vascular surgery evaluation. Almost certainly will need rehab, discussed this with patient and family frankly. Elevated troponinmore than likely demand ischemia, await echo but without any regional wall motion abnormalities probably no further work-up would be needed at this time Bradycardiaseems to occur more when he is sleeping raising the concern of undia gnosed sleep apnea. At the same time he is on a reasonable dose of a cardiac calcium channel robel and it may simply be more than he needs, otherwise as above Subjective Patient lying in bed this morning in no acute distress. Patient reports difficulty breathing, physical exam his lungs sounded wheezy, will provide DuoNeb's. Otherwise patient is doing well, no complaints or concerns. This morning was alerted that he was choking on his food, speech and swallow evaluated however felt that secondary to him not having his teeth. Overall patient symptoms are resolving, left-sided weakness is improving. Acute concerns at present relate to PT/OT evaluation and subsequent placement. All questions answered. I was paged by nursing this morning and requested to contact the patient's daughter she can be reached at . She reports a complicated family history. Her father was previously to her mother who a number of years ago when the daughter was 5 years old. He subsequently remarried (Pushpa) and had a son through that marriage (brother). Per conversation with the daughter they are unsure of who is the medical power of criminal attorney, this will need to be clarified. Daughter was very frazzled, reporting her son is being deployed to [place], she has a number of other social issues going on, and her father is in the hospital. I reviewed the case with her, explained that he is very stable currently. Likely the most difficult aspect of this admission will be related to placement. I explained to her that we have case management social worker to assist with this, and that one should be in contact with her after reviewing the case with her father. Patient stated that if her brother asked for her phone number we can provide it. From what I was able to ascertain from this conversation it sounds as if there is a very complicated family situation which will need to be negotiated cautiously in preparation for discharge. Physical Exam Physical Exam: General: Elderly gentleman lying in bed in no acute distress HEENT: Normocephalic atraumatic Neck: Normal to visual inspection Cardiac: Irregularly irregular rhythm, regular rate, I did not appreciate significant murmurs rubs or gallops, normal S1, normal S2. Negative pedal edema, negative calf tenderness Respiratory: Wheezes throughout all lung leiva, otherwise clear to auscultation bilaterally without significant rales or rhonchi. Symmetrical chest expansion GI: Bowel sounds present, soft, nontender, nondistended Neuro: CN II through XII grossly intact, with the exception of the facial nerve and left-sided facial droop. Sensory function intact bilaterally, 3 out of 5 weakness in the left upper extremity, 3 out of 5 weakness of the left lower extremity. Strength intact in the right upper and lower extremity. Was unable to assess gait, or balance. Psych: Calm, cooperative, participated in the interview Results & Data Vital Signs (Past 12 Hours) Vital Signs Temp Pulse Pulse Resp BP BP Pulse Ox 10/02/19 07:22 93 10/02/19 07:18 36.8 C 83 18 175/86 H 10/02/19 03:33 36.8 C 75 22 127/83 95 10/02/19 02:29 86 10/02/19 00:00 36.9 C 52 L 22 198/68 H 96 10/01/19 22:37 36.9 C 84 16 190/82 H 94 10/01/19 21:40 72 20 141/109 H 94 Laboratory Results 10/02/19 10/02/19 10/02/19 Range/Units 07:53 04:15 04:15 WBC (4.8-10.8) K/uL RBC (4.7-6.1) M/uL Hgb (14.0-18.0) g/dL Hct (42-52) % MCV (80-100) fL MCH (25-34) pg MCHC (32-36) g/dL RDW Std Deviation (36.4-46.3) fL RDW Coeff of Dwain (11.5-14.5) % Plt Count (130-400) K/uL MPV (7.4-10.4) fL Immature Gran % (Auto) % Neut % (Auto) % Lymph % (Auto) % [place] % (Auto) % Eos % (Auto) % Baso % (Auto) % Immature Gran # (Auto) (0.00-0.02) K/uL Neut # (Auto) (1.4-6.5) K/uL Lymph # (Auto) (1.2-3.4) K/uL [place] # (Auto) (0.11-0.59) K/uL Eos # (Auto) (0-0.5) K/uL Baso # (Auto) (0-0.2) K/uL PT (9.0-12.0) Seconds INR (0.9-1.1) APTT (21.0-31.0) Seconds PTT Ratio Sodium 141 (136-145) mmol/L Potassium 4.5 (3.5-5.1) mmol/L Chloride 113 H (98-107) mmol/L Carbon Dioxide 24 (21-32) mmol/L Anion Gap 4.0 (3-11) BUN 27 H (7-18) mg/dl Creatinine 1.81 H (0.6-1.4) mg/dl Est Cr Clr Drug Dosing 35.8 Est GFR ( Amer) 40.9 Est GFR (Non-Af Amer) 35.3 BUN/Creatinine Ratio 14.8 (10-20) Glucose 107 H (70-99) mg/dl POC Glucose 114 H (70-99) Estimat Average Glucose 148 mg/dl Hemoglobin A1c 6.8 H (4.5-5.6) % Calcium 9.4 (8.5-10.1) mg/dl Magnesium (1.8-2.4) mg/dl Total Bilirubin (0.2-1) mg/dl AST (15-37) U/L ALT (12-78) U/L Alkaline Phosphatase (45-117) U/L Troponin I 0.057 H* (0-0.045) ng/ml Total Protein (6.4-8.2) gm/dl Albumin (3.4-5.0) gm/dl Globulin (2.5-4.0) gm/dl Albumin/Globulin Ratio (0.9-2) Triglycerides 155 H (0-150) mg/dl Cholesterol 190 (0-200) mg/dl LDL Cholesterol, Calc 116 mg/dl VLDL Cholesterol, Calc 31 mg/dl HDL Cholesterol 43 mg/dl Cholesterol/HDL Ratio 4 10/02/19 10/01/19 10/01/19 Range/Units 04:15 23:16 22:26 WBC 8.51 (4.8-10.8) K/uL RBC 3.24 L (4.7-6.1) M/uL Hgb 10.7 L (14.0-18.0) g/dL Hct 34.5 L (42-52) % MCV 106.5 H (80-100) fL MCH 33.0 (25-34) pg MCHC 31.0 L (32-36) g/dL RDW Std Deviation 58.6 H (36.4-46.3) fL RDW Coeff of Dwain 15.1 H (11.5-14.5) % Plt Count 191 (130-400) K/uL MPV 9.6 (7.4-10.4) fL Immature Gran % (Auto) 0.1 % Neut % (Auto) 72.9 % Lymph % (Auto) 20.1 % [place] % (Auto) 5.4 % Eos % (Auto) 1.1 % Baso % (Auto) 0.4 % Immature Gran # (Auto) 0.01 (0.00-0.02) K/uL Neut # (Auto) 6.21 (1.4-6.5) K/uL Lymph # (Auto) 1.71 (1.2-3.4) K/uL [place] # (Auto) 0.46 (0.11-0.59) K/uL Eos # (Auto) 0.09 (0-0.5) K/uL Baso # (Auto) 0.03 (0-0.2) K/uL PT 10.9 (9.0-12.0) Seconds INR 1.1 (0.9-1.1) APTT 24.2 (21.0-31.0) Seconds PTT Ratio 0.9 Sodium (136-145) mmol/L Potassium (3.5-5.1) mmol/L Chloride (98-107) mmol/L Carbon Dioxide (21-32) mmol/L Anion Gap (3-11) BUN (7-18) mg/dl Creatinine (0.6-1.4) mg/dl Est Cr Clr Drug Dosing Est GFR ( Amer) Est GFR (Non-Af Amer) BUN/Creatinine Ratio (10-20) Glucose (70-99) mg/dl POC Glucose (70-99) Estimat Average Glucose mg/dl Hemoglobin A1c (4.5-5.6) % Calcium (8.5-10.1) mg/dl Magnesium (1.8-2.4) mg/dl Total Bilirubin (0.2-1) mg/dl AST (15-37) U/L ALT (12-78) U/L Alkaline Phosphatase (45-117) U/L Troponin I 0.048 H* (0-0.045) ng/ml Total Protein (6.4-8.2) gm/dl Albumin (3.4-5.0) gm/dl Globulin (2.5-4.0) gm/dl Albumin/Globulin Ratio (0.9-2) Triglycerides (0-150) mg/dl Cholesterol (0-200) mg/dl LDL Cholesterol, Calc mg/dl VLDL Cholesterol, Calc mg/dl HDL Cholesterol mg/dl Cholesterol/HDL Ratio 10/01/19 10/01/19 10/01/19 Range/Units 16:52 16:12 16:12 WBC (4.8-10.8) K/uL RBC (4.7-6.1) M/uL Hgb (14.0-18.0) g/dL Hct (42-52) % MCV (80-100) fL MCH (25-34) pg MCHC (32-36) g/dL RDW Std Deviation (36.4-46.3) fL RDW Coeff of Dwain (11.5-14.5) % Plt Count (130-400) K/uL MPV (7.4-10.4) fL Immature Gran % (Auto) % Neut % (Auto) % Lymph % (Auto) % [place] % (Auto) % Eos % (Auto) % Baso % (Auto) % Immature Gran # (Auto) (0.00-0.02) K/uL Neut # (Auto) (1.4-6.5) K/uL Lymph # (Auto) (1.2-3.4) K/uL [place] # (Auto) (0.11-0.59) K/uL Eos # (Auto) (0-0.5) K/uL Baso # (Auto) (0-0.2) K/uL PT 10.9 (9.0-12.0) Seconds INR 1.1 (0.9-1.1) APTT 24.2 (21.0-31.0) Seconds PTT Ratio 0.9 Sodium 141 (136-145) mmol/L Potassium 4.9 (3.5-5.1) mmol/L Chloride 111 H (98-107) mmol/L Carbon Dioxide 21 (21-32) mmol/L Anion Gap 9.0 (3-11) BUN 26 H (7-18) mg/dl Creatinine 2.03 H (0.6-1.4) mg/dl Est Cr Clr Drug Dosing Not Reportable Est GFR ( Amer) 35.6 Est GFR (Non-Af Amer) 30.7 BUN/Creatinine Ratio 13.0 (10-20) Glucose 130 H (70-99) mg/dl POC Glucose 138 H (70-99) Estimat Average Glucose mg/dl Hemoglobin A1c (4.5-5.6) % Calcium 10.0 (8.5-10.1) mg/dl Magnesium 2.1 (1.8-2.4) mg/dl Total Bilirubin 0.5 (0.2-1) mg/dl AST 17 (15-37) U/L ALT 18 (12-78) U/L Alkaline Phosphatase 95 (45-117) U/L Troponin I 0.035 (0-0.045) ng/ml Total Protein 8.3 H (6.4-8.2) gm/dl Albumin 3.5 (3.4-5.0) gm/dl Globulin 4.8 H (2.5-4.0) gm/dl Albumin/Globulin Ratio 0.7 L (0.9-2) Triglycerides (0-150) mg/dl Cholesterol (0-200) mg/dl LDL Cholesterol, Calc mg/dl VLDL Cholesterol, Calc mg/dl HDL Cholesterol mg/dl Cholesterol/HDL Ratio 10/01/19 Range/Units 16:12 WBC 10.80 (4.8-10.8) K/uL RBC 3.36 L (4.7-6.1) M/uL Hgb 11.4 L (14.0-18.0) g/dL Hct 35.5 L (42-52) % MCV 105.7 H (80-100) fL MCH 33.9 (25-34) pg MCHC 32.1 (32-36) g/dL RDW Std Deviation 57.6 H (36.4-46.3) fL RDW Coeff of Dwain 15.0 H (11.5-14.5) % Plt Count 244 (130-400) K/uL MPV 9.8 (7.4-10.4) fL Immature Gran % (Auto) 0.4 % Neut % (Auto) 83.9 % Lymph % (Auto) 12.0 % [place] % (Auto) 3.2 % Eos % (Auto) 0.3 % Baso % (Auto) 0.2 % Immature Gran # (Auto) 0.04 H (0.00-0.02) K/uL Neut # (Auto) 9.06 H (1.4-6.5) K/uL Lymph # (Auto) 1.30 (1.2-3.4) K/uL [place] # (Auto) 0.35 (0.11-0.59) K/uL Eos # (Auto) 0.03 (0-0.5) K/uL Baso # (Auto) 0.02 (0-0.2) K/uL PT (9.0-12.0) Seconds INR (0.9-1.1) APTT (21.0-31.0) Seconds PTT Ratio Sodium (136-145) mmol/L Potassium (3.5-5.1) mmol/L Chloride (98-107) mmol/L Carbon Dioxide (21-32) mmol/L Anion Gap (3-11) BUN (7-18) mg/dl Creatinine (0.6-1.4) mg/dl Est Cr Clr Drug Dosing Est GFR ( Amer) Est GFR (Non-Af Amer) BUN/Creatinine Ratio (10-20) Glucose (70-99) mg/dl POC Glucose (70-99) Estimat Average Glucose mg/dl Hemoglobin A1c (4.5-5.6) % Calcium (8.5-10.1) mg/dl Magnesium (1.8-2.4) mg/dl Total Bilirubin (0.2-1) mg/dl AST (15-37) U/L ALT (12-78) U/L Alkaline Phosphatase (45-117) U/L Troponin I (0-0.045) ng/ml Total Protein (6.4-8.2) gm/dl Albumin (3.4-5.0) gm/dl Globulin (2.5-4.0) gm/dl Albumin/Globulin Ratio (0.9-2) Triglycerides (0-150) mg/dl Cholesterol (0-200) mg/dl LDL Cholesterol, Calc mg/dl VLDL Cholesterol, Calc mg/dl HDL Cholesterol mg/dl Cholesterol/HDL Ratio Medications Administered Current Inpatient Medications Acetaminophen (Tylenol) 650 mg PO Q4H PRN PRN Reason: Pain or Fever Stop: 10/31/19 22:11 Al Hydrox/Mg Hydrox/Simethicone (Maalox) 15 ml PO Q4H PRN PRN Reason: Dyspepsia Stop: 10/31/19 22:11 Albuterol (Combivent Respimat) 1 puffs INH QID [facility] Stop: 10/31/19 22:11 Last Admin: 10/02/19 08:06 Dose: 1 puffs Documented by: Allopurinol (Zyloprim) 100 mg PO BID PRN PRN Reason: gout Stop: 10/31/19 22:11 Aspirin (Ecotrin Ectab) 81 mg PO QAM [facility] Stop: 11/01/19 08:59 Last Admin: 10/02/19 08:08 Dose: 81 mg Documented by: Atorvastatin Calcium (Lipitor) 40 mg PO HS MARIA D Stop: 10/31/19 22:11 Last Admin: 10/01/19 23:59 Dose: 40 mg Documented by: Dextrose (Dextrose 50%) 25 - 50 ml IV UD PRN; Protocol PRN Reason: Hypoglycemia Protocol Stop: 10/31/19 22:11 Diltiazem HCl (Cardizem Cd) 240 mg PO DAILY MARIA D Stop: 11/01/19 08:59 Last Admin: 10/02/19 08:07 Dose: 240 mg Documented by: Escitalopram Oxalate (Lexapro Tab) 10 mg PO DAILY MARIA D Stop: 11/01/19 08:59 Last Admin: 10/02/19 08:09 Dose: 10 mg Documented by: Furosemide (Lasix) 20 mg PO DAILY MARIA D Stop: 11/01/19 08:59 Last Admin: 10/02/19 08:08 Dose: 20 mg Documented by: Glucagon (Glucagen) 1 mg SQ UD PRN; Protocol PRN Reason: Hypoglycemia Protocol Stop: 10/31/19 22:11 Glucose (Dex4 Glucose) 4 - 8 tabs PO UD PRN; Protocol PRN Reason: Hypoglycemia Protocol Stop: 10/31/19 22:11 Glucose (Glucose 40%) 15 - 30 gm PO UD PRN; Protocol PRN Reason: Hypoglycemia Protocol Stop: 10/31/19 22:11 Sodium Chloride (Nss 1000ml) 1,000 mls @ 80 mls/hr IV .[id number] MARIA D Stop: 10/31/19 22:11 Last Admin: 10/01/19 23:58 Dose: 80 mls/hr Documented by: Insulin Aspart (Novolog Flexpen) 0 units SC ACHS MARIA D Stop: 11/01/19 08:59 Lisinopril (Zestril) 10 mg PO DAILY MARIA D Stop: 11/01/19 08:59 Last Admin: 10/02/19 08:10 Dose: 10 mg Documented by: Loperamide HCl (Imodium) 2 mg PO Q3H PRN PRN Reason: Diarrhea Stop: 10/31/19 23:13 Magnesium Hydroxide (Milk Of Magnesia) 30 ml PO Q12H PRN PRN Reason: Constipation Stop: 10/31/19 22:11 Meloxicam (Mobic) 15 mg PO DAILY MARIA D Stop: 11/01/19 08:59 Last Admin: 10/02/19 08:09 Dose: 15 mg Documented by: Miscellaneous (Carbohydrates For Hypoglycemia) 15 - 30 gm PO UD PRN PRN Reason: Hypoglycemia Protocol Stop: 10/31/19 22:11 Miscellaneous Information (Consult Glycemic Management Pharmacy) 1 ea N/A UD PRN; Protocol PRN Reason: Consult Stop: 10/31/19 23:14 Miscellaneous Information (Pharmacist Discharge Med Rec Consult) 1 ea N/A UD PRN PRN Reason: Consult Stop: 10/31/19 22:11 Pantoprazole Sodium (Protonix) 40 mg PO DAILY MARIA D Stop: 11/01/19 08:59 Last Admin: 10/02/19 08:09 Dose: 40 mg Documented by: Polyethylene Glycol (Miralax Powder Packet) 17 gm PO DAILY PRN PRN Reason: Constipation Stop: 10/31/19 22:11 Resident Activity Tracking Resident Involvement: Resident Care Provided Care Provided: Adult Hospital Medicine
--- NOTE | 2019-10-02 09:15 | Pharmacy Report ---
Glycemic Control Consultation - Date of Service October 02, 2019 - Scope Scope: Glycemic Pharmacist consulted by Dr Smith on 10/01/2019 for glycemic control and to write orders per [facility] inpatient glycemic control protocol - Objective Weight: 82.3 kg Accuchecks BSG (last 24hrs): 10/01/19 10/01/19 10/02/19 16:12 16:52 04:15 Glucose 130 H 107 H POC Glucose 138 H 10/02/19 07:53 Glucose POC Glucose 114 H Laboratory Data (last 24hrs): 10/01/19 10/02/19 16:12 04:15 Potassium 4.9 4.5 Carbon Dioxide 21 24 Anion Gap 9.0 4.0 Creatinine 2.03 H 1.81 H Est Cr Clr Drug Dosing Not Reportable 35.8 HbA1c: Hemoglobin A1c 6.8 % (4.5-5.6) H 10/02/19 04:15 - Recent Pertinent Medications Outpatient Anti-diabetic Regimen: * Amaryl 2 mg PO qAM * A1c = 6.8 % 10/02/2019 Risk Factors for Insulin Resistance: * Diet: T2DM - Assessment & Plan Assessment & Plan: ASSESSMENT: * Mr Dunn is a 79 y/o M with a PMH of T2DM well controlled on one oral medication who presents with an acute stroke. * Fasting this morning was 107 mg/dL. Hold off on Lantus at this time. * For Novolog will utilize weight-based stress of 2. * Hold Amaryl at this time due to inpatient status. PLAN FOR INPATIENT GLYCEMIC CONTROL: * Holding outpatient oral diabetes medications * Bolus insulin * NovoLog per scale ACHS or Q6hrs while NPO * Goal Range: Low 110 mg/dL - High 140 mg/dL * Correction Factor: 30 mg/dL/unit * Nutritional / Prandial insulin per carb ratio of 1 unit per 10 grams CHO consumed Outpatient Recommendation * Patient on Amaryl as an outpatient. This is on the Beers Criteria as NOT preferred in the elderly; it is not preferred in renal dysfunction. * If patient must be discharged on oral option, could consider glipizide instead. A DDP-4 inhibitor such as Tradjenta may also work as patient's HbA1C is well controlled. * Since patient has a h/o ASCVD, strongly recommend an injectable GLP-1 Agonist such as Victoza , Ozempic, or Trulicity Thank you.
--- NOTE | 2019-10-02 10:06 | Electrocardiogram Report ---
Test Reason : Blood Pressure : / mmHG Vent. Rate : 089 BPM Atrial Rate : 094 BPM P-R Int : 000 ms QRS Dur : 082 ms QT Int : 348 ms P-R-T Axes : 000 074 047 degrees QTc Int : 423 ms Poor data quality, interpretation may be adversely affected Atrial fibrillation with premature ventricular or aberrantly conducted complexes Abnormal ECG When compared with ECG of 07-DEC-2014 00:13, Vent. rate has increased BY 29 BPM Confirmed by Geovani Wilson ([id number]) on 10/02/2019 10:05:48 AM Referred By: REFERRED SELF Confirmed By:Geovani Wilson
[2019-10-02] MEDS: INSULIN ASPART 100 UNITS/ML 3 ML PEN SC SCH ×4 (10:22→20:38)
[2019-10-02] MEDS: ALBUT/IPRATROP 3MG/0.5MG NEB 3 ML VIAL NEB SCH ×3 (11:21→19:17)
[2019-10-02] MEDS ORDERED: INSULIN ASPART 100 UNITS/ML 3 ML PEN SC SCH (12:00)
[2019-10-02] MEDS ORDERED: ALBUTEROL HFA 8 GM INHALER INH PRN (12:54)
[2019-10-02] MEDS: SODIUM CHLORIDE 0.9% 1000ML 1,000 ML IV SCH ×2 (13:07→23:46)
--- NOTE | 2019-10-02 15:14 | Neurology Consultation ---
Date of Consultation October 02, 2019 Assessment & Plan (1) Afib: (2) Stroke: Nathaniel Dunn is a 79 yo man w/ PMH of HTN, CAD, asthma, Afib on aspirin, DM, mood disorder, gout and prior stroke with no clear residual deficits who p/t [facility] after acute onset of L-sided weakness (face/arm/leg) and dysarthria Symptom localization: R MCA territory Stroke mechanism: vessel to vessel embolus vs cardioembolic Stroke WorkUp: - CT head: CTH shows generalized atrophy with ex vacuo dilation, hypodensities in the right parietal and left cerebellar lobes, no hemorrhage and SVID. - CTA head/neck: atherosclerosis of the aortic arch and common carotids, moderate stenosis at the R ICA bifurcation with ?filling defect in the proximal R ICA (appears to be a luminal thrombus associated with ulcerated plaque), mild stenosis of the L ICA, R INTERACTIVE ART DIRECTOR - MRI brain: acute infarcts in the watershed regions between the JESSICA/MCA and MCA/INTERACTIVE ART DIRECTOR, as well as the right insula and right anterior temporal lobe; there were chronic infarcts noted in the left cerebellum and right parietal lobe. - TTE: pending - Telemetry: Afib - A1c: 6.8 - FLP: 116 - Troponin, TSH: last troponin 0.057, TSH pending Stroke Management: - Acute treatment: ASA - Continuous cardiac monitoring - Vitals, Neurochecks, NIHSS per unit routine - BP parameters: SBP CAP 180, restart home anti-hypertensives with goal normotension over next 3-4 days - Complete ischemic stroke workup with TTE without bubble, TSH - Consult speech, PT, OT for supportive management - Will financial health counselor concerning stroke education, smoking cessation, healthy diet, physical activity, weight loss - Follow up with PCP for assistance with outpatient goals (BP <135/85, LDL <70, A1c <7) - Follow up in neurology clinic in 6-8 weeks Secondary Stroke Prevention: - Antiplatelet: ASA 81mg po daily - Anticoagulation: Recommend starting heparin gtt given intraluminal thrombus in R ICA, continue aspirin 81mg daily. Would also contact vascular surgery to consider possible early revascularization (CEA vs stent) given symptomatic carotid. Would strongly consider starting apixaban for stroke prevention prior to discharge to rehab. - Statin: Atorvastatin 80mg daily HTN: - BP parameters, as above - Restart home medications with goal of lowering BP to normotension over next 3- 4 days FEN/GI: - Diet: NPO until cleared by Speech evaluation - Monitor lytes and replete PRN Glucose Control: - Sliding scale insulin and accuchecks per primary team to avoid hyperglycemia Memory issues: suspect B12 +/- thiamine deficiency given h/o ethoh abuse and elevated MCV - would start thiamine/folate/MV (thiamine 500mg IV daily x5 days, then 250mg PO daily thereafter) - would send B12, thiamine, folate levels and replete B12 prn Thank you for this interesting consult. Plan of care was discussed with primary team. Please call with any questions. (3) Stenosis of right internal carotid artery with cerebral infarction: History of Present Illness Attending Physician: Ean Hernández, DO History of Present Illness Nathaniel Dunn is a 79 yo man w/ PMH of HTN, CAD, asthma, Afib on aspirin, DM, mood disorder, gout and prior stroke with no clear residual deficits who p/t [facility] after acute onset of L-sided weakness (face/arm/leg) and dysarthria. 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 Found by ex- and son on 10/01/19 on the ground with generalized weakness (worst on the left-side) and inability to ambulate. On arrival to the ED, he was afebrile, HR 102, RR 24, BP 192/126, 94% on room air. Labs showed WBC 10.8, Hb 11.4 with MCV 105.7, Plts 244, Na 141, K 4.9, BUN 26, Cr 2.03, glucose 130, INR 1.1, Ca 10.0, Mg 2.1, LFTs WNL. Initial troponin negative but subsequent trops have been mildly elevated. Independent review of CTH shows generalized atrophy with ex vacuo dilation, hypodensities in the right parietal and left cerebellar lobes, no hemorrhage and +SVID. CTA H&N showed athe rosclerosis of the aortic arch and common carotids, moderate stenosis at the R ICA bifurcation with ?filling defect in the proximal R ICA (appears to be a luminal thrombus associated with ulcerated plaque), mild stenosis of the L ICA, R INTERACTIVE ART DIRECTOR. MRI brain showed acute infarcts in the watershed regions between the JESSICA/MCA and MCA/INTERACTIVE ART DIRECTOR, as well as the right insula and right anterior temporal lobe; there were chronic infarcts noted in the left cerebellum and right parietal lobe. On examination today, he was unable to tell me why he was in the hospital. Is a poor historian and only able to tell me that his arm stopped working, he was eating dinner and he thought that we were still in his trailer at home. Stroke Workflow: Where patient arrived from: home CT ASPECT: 9 Time IV tpa is given: No tPA bolus: NA tPA dose: NA If tpa not given, why not: Outside of time window, Uncontrolled hypertension >185 systolic or >110 diastolic If delay >60min after hospital arrival, why: n/a If no IA therapy, why not: No LVO on CTA Patient Features: Admission NIHSS: 10 Admission Modified Pitt Scale: 1 Time patient last seen well: evening of 09/30/19 Wake up stroke: Yes Intubation status: Not intubated Stroke Risk Factors: Hypertension: Y Hyperlipidemia: N Atrial Fib: Y Tobacco: Y N Diabetes: Y Taking NOAC or warfarin: N Allergies Allergy/AdvReac Type Severity Reaction Status Date / Time Penicillins Allergy Unknown RASH Verified 10/01/19 20:15 Home Medications Home Medications Medication Instructions Recorded Confirmed Type allopurinol 100 mg PO BID PRN 10/01/19 10/01/19 History aspirin [Aspir-81] 81 mg PO DAILY 10/01/19 10/01/19 History diltiazem HCl 240 mg PO DAILY 10/01/19 10/01/19 History escitalopram oxalate [Lexapro] 10 mg PO DAILY 10/01/19 10/01/19 History furosemide [Lasix] 20 mg PO DAILY 10/01/19 10/01/19 History glimepiride [Amaryl] 2 mg PO QAM 10/01/19 10/01/19 History ipratropium-albuterol [Combivent 1 puff INHALATION QID 10/01/19 10/01/19 History Respimat] lisinopril 10 mg PO DAILY 10/01/19 10/01/19 History loperamide 2 mg PO Q3H PRN 10/01/19 10/01/19 History meloxicam [Mobic] 15 mg PO DAILY 10/01/19 10/01/19 History omeprazole 20 mg PO DAILY 10/01/19 10/01/19 History Patient History Medical History Asthma (Chronic) Atrial fibrillation (Chronic) Coronary artery disease (Chronic) CVA (cerebral vascular accident) Diabetes (Chronic) Gout Heart disease (Chronic) Hypertension (Chronic) Mood disorder (Acute) Pneumonia (Acute) Surgical History History of hernia repair (Resolved) Social History Preferred Language: Slovak 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: Effective Engineering Agent Required: No Beliefs That Will Affect Care: None Current Living Situation: Alone Feels Safe at Home: Yes Smoking Status: Current every day smoker Tobacco Type: cigarettes ; Cigarettes Per Day: 10 ; Hx Alcohol Use: Yes Alcohol type: beer Hx Substance Use: No Review of Systems Review of Systems: 14 point review of systems completed and negative except as in HPI. Physical Exam Physical Exam: General Exam: GEN: NAD, sitting/lying down in examination bed. CV: Irregularly irregular, no significant edema. PULM: Nonlabored respirations on room air. Neuro Exam: MS: Awake and Alert. Oriented to person but not place or date. Speech fluent and appropriate with mild dysarthria, no paraphasic errors. Language intact including naming, comprehension, repetition. Cognition and memory not intact. Inattentive. + neglect of left side. CN: Visual alejandra full, + blink to threat bilaterally. No extinction to double simultaneous stimuli. Would not participate in fundoscopic exam. PERRLA OU. EOMI without nystagmus. Facial sensation intact to LT. Left facial droop. Hearing intact to conversation. Uvula midline with symmetric palatal elevation. Shoulder shrug normal in the right, unable to elevate left shoulder. Tongue midline. MOTOR: Normal bulk and tone. No pronator drift in RUE. RUE strength 5/5 at deltoids, biceps, triceps, wrist flexors and extensors, and hand grasp. LUE flaccid with inability to hold antigravity and minimal movement of his hand/fingers. RLE strength 5/5 at iliopsoas, hamstrings, quadriceps, tibialis anterior, and gastrocnemius. LLE strength 4/5 at iliopsoas, 5-/5 hamstrings, 5- /5 quadriceps, 5/5 tibialis anterior, and 5/5 gastrocnemius. REFLEXES: Trace at biceps, triceps, brachioradialis, absent patella and absent Achilles bilaterally. Flexor plantar responses bilaterally. SENSORY: Intact to LT throughout, no extinction to double simultaneous stimuli. Intact to temperature and vibration throughout. COORDINATION: No dysmetria or ataxia on [id number] bilaterally. Normal Luiz bilaterally. GAIT: Deferred due to physical status. NIH STROKE SCALE 1A. Level of Consciousness (0-3) = 0 1B. LOC Questions (0-2) = 1 1C. LOC Commands (0-2) = 0 2. Best Horizontal Gaze (0-2) = 0 3. Visual Alejandra (0-3) = 0 4. Facial Palsy (0-3) = 2 5. Motor Arm Right (0-4) = 0 Left (0-4) = 4 6. Motor Leg Right (0-4) = 0 Left (0-4) = 1 7. Limb Ataxia (0-2) = 0 8. Sensory (0-2) = 0 9. Best Language (0-3) = 0 10. Dysarthria (0-2) = 1 11. Extinction and Inattention (0-2) = 1 NIHSS TOTAL = 10 Results & Data Vital Signs (Past 12 Hours) Vital Signs Temp Pulse Resp BP Pulse Ox 10/02/19 14:58 49 L 18 96 10/02/19 14:54 36.7 C 61 18 151/56 H 98 10/02/19 11:21 64 18 97 10/02/19 07:22 93 10/02/19 07:18 36.8 C 83 18 175/86 H 10/02/19 03:33 36.8 C 75 22 127/83 95 PG Care Time/CCT Total # of Minutes Spent Total Time Spent with Patient: Total time spent is greater than 50% in coordination of care (as documented) at patient's floor/unit and/or counseling patient:
[2019-10-02] MEDS ORDERED: Heparin IV Standard *NO* Bolus IV SCH (16:11)
[2019-10-02] MEDS: HEPARIN SODIUM/DEXTROSE 25,000 UNITS/500 ML BAG IV SCH (17:23)
[2019-10-02 17:25] LABS: Basophils # (auto) 0.02 K/uL (0-0.2); Basophils % (auto) 0.2 %; Eosinophils # (auto) 0.08 K/uL (0-0.5); Eosinophils % (auto) 0.9 %; Hematocrit (blood only) 33.9 % (42-52); Hemoglobin 10.7 g/dL (14.0-18.0); Immature Granulocytes # (auto) 0.02 K/uL (0.00-0.02); Immature Granulocytes % (auto) 0.2 %; Lymphocytes # (auto) 1.89 K/uL (1.2-3.4); Lymphocytes % (auto) 21.8 %; Mean Corpuscular Hemoglobin 33.1 pg (25-34); Mean Platelet Volume 9.5 fL (7.4-10.4); Monocytes # (auto) 0.38 K/uL (0.11-0.59); Monocytes % (auto) 4.4 %; Neutrophils # (auto) 6.28 K/uL (1.4-6.5); Neutrophils % (auto) 72.5 %; Platelet Count 192 K/uL (130-400); RDW Coefficient of Variation 15.2 % (11.5-14.5); RDW Standard Deviation 57.4 fL (36.4-46.3); Red Blood Count 3.23 M/uL (4.7-6.1); White Blood Count 8.67 K/uL (4.8-10.8)
[2019-10-02 17:33] LABS: Mean Corpuscular Hgb Conc 31.6 g/dL (32-36)
[2019-10-02 17:38] LABS: INR 1.1 (0.9-1.1); Partial Thromboplastin Time 27.6 Seconds (21.0-31.0); Prothrombin Time 11.3 Seconds (9.0-12.0)
--- NOTE | 2019-10-02 17:58 | Billing Data ---
Date of Service October 02, 2019 Coding Level of Care Code 73843 Subseq Hosp Care Lvl 3
[2019-10-02] MEDS: ATORVASTATIN 40 MG TAB PO SCH (19:57)
[2019-10-02 23:59] LABS: Partial Thromboplastin Ratio 1.4; Partial Thromboplastin Time 39.2 Seconds (21.0-31.0)
[2019-10-03] MEDS ORDERED: HEPARIN IV BOLUS 6,000 UNITS in SYRINGE 0 ML IV ONE (00:18)
[2019-10-03 07:02] LABS: Basophils # (auto) 0.01 K/uL (0-0.2); Basophils % (auto) 0.1 %; Eosinophils # (auto) 0.09 K/uL (0-0.5); Eosinophils % (auto) 1.3 %; Hematocrit (blood only) 32.2 % (42-52); Hemoglobin 10.2 g/dL (14.0-18.0); Immature Granulocytes # (auto) 0.02 K/uL (0.00-0.02); Immature Granulocytes % (auto) 0.3 %; Lymphocytes # (auto) 1.75 K/uL (1.2-3.4); Lymphocytes % (auto) 25.3 %; Mean Corpuscular Hgb Conc 31.7 g/dL (32-36); Mean Corpuscular Volume 104.2 fL (80-100); Mean Platelet Volume 9.4 fL (7.4-10.4); Monocytes # (auto) 0.33 K/uL (0.11-0.59); Monocytes % (auto) 4.8 %; Neutrophils # (auto) 4.72 K/uL (1.4-6.5); Neutrophils % (auto) 68.2 %; Platelet Count 150 K/uL (130-400); RDW Coefficient of Variation 15.4 % (11.5-14.5); RDW Standard Deviation 58.6 fL (36.4-46.3); Red Blood Count 3.09 M/uL (4.7-6.1); White Blood Count 6.92 K/uL (4.8-10.8)
[2019-10-03] MEDS: ALBUT/IPRATROP 3MG/0.5MG NEB 3 ML VIAL NEB SCH (07:05)
[2019-10-03 07:21] LABS: Partial Thromboplastin Ratio 4.2
[2019-10-03 07:29] LABS: Partial Thromboplastin Time 113.2 Seconds (21.0-31.0)
[2019-10-03 07:31] LABS: BUN Creatinine Ratio 13.8 (10-20); Calcium 8.9 mg/dl (8.5-10.1); Creatinine Clr Calc Pharmacy 30.2 ml/min; Est GFR (African American) 36.7; Est GFR (Non-African American) 31.6; Potassium 4.3 mmol/L (3.5-5.1)
[2019-10-03] MEDS: dilTIAZem HCL 240 MG CAPCR PO SCH (08:44)
[2019-10-03] MEDS: ESCITALOPRAM OXALATE 10 MG TAB PO SCH (08:44)
[2019-10-03] MEDS: ASPIRIN 81 MG ECTAB PO SCH (08:44)
[2019-10-03] MEDS: PANTOprazole 40 MG TAB PO SCH (08:45)
[2019-10-03] MEDS: INSULIN ASPART 100 UNITS/ML 3 ML PEN SC SCH ×4 (08:47→20:38)
[2019-10-03] MEDS ORDERED: HydrALAZINE HCL 20 MG/ML VIAL IV PRN (09:05)
--- NOTE | 2019-10-03 09:07 | Hospitalist Progress Note ---
Date of Service October 03, 2019 Assessment & Plan (1) Acute cardioembolic stroke: #Acute cardioembolic stroke Etiology A. fib versus carotid artery, most recent carotid ultrasound demonstrated 50% narrowing of the right internal carotid artery, and 30% the left. Patient has a longstanding history of A. fib was previously anticoagulated with warfarin which was stopped due to occasionally cutaneous bleeding. He reports having history of a prior stroke however did not have a treated do not have records. Head CT was negative for acute process. Brain MRI from admission demonstrated multiple small punctate infarcts of the right cerebral hemisphere consistent with a watershed type scenario involving the internal cerebral artery distribution, neck CTA was consistent with prior ultrasound findings, head CTA demonstrated moderate stenosis of the carotid siphons. EKG on presentation demonstrated atrial fibrillation. The admitting physician discussed the case with at [facility], he recommended thoroughly 325 mg of aspirin to be administered stat, followed by 81 mg daily. Neurology was consulted and recommended starting a heparin drip for intraluminal thrombus in the right RCA, vascular surgery was consulted, the patient was started on atorvastatin 80 mg, BP parameters with systolic BP At 180, with a goal to restart home antihypertensives. Patient is to follow-up in the neurology clinic in 6 to 8 weeks. Hospitalist service was consulted for admission for stroke pathway without TPA. -Holding home antihypertensives, to allow for permissive hypertension -Echo 10/02/2019: Normal LV systolic function, no regional wall motion abnormalities, mild concentric LVH, EF 55-60%, mild MR, negative for intra- atrial shunt -PT OT consulted -Recommend rehab on discharge -Speech consulted -Passed dysphagia screen -Minced diet until patient's obtains his dentures -Patient currently lives alone, this is likely not the best living situation for him. Will need case management assistance on discharge #Weakness of the left upper and lower extremity Likely secondary to above. PT and OT consulted. Request case management assistance in discharge planning. #Atrial fibrillation Patient presented to the emergency department in atrial fibrillation this likely chronic in nature. This could be the source of his current presentation. Patient appears to be on diltiazem 240 mg daily at home for rate control. Patient was previously anticoagulated with warfarin, stopped secondary to cutaneous bleeding. Will need anticoagulation on discharge. -Appreciate neurology recommendations regarding resumption of anticoagulation -Continue diltiazem 240 mg daily -DC'd heparin drip started #Carotid artery stenosis Patient with echo and CTA evidence of bilateral carotid artery stenosis, right 50%, left 30%. Given that the majority of his symptoms are on the left side involving the involving the right cerebellar hemisphere/internal capsule I am suspicious that his stroke may be secondary to carotid artery stenosis. -Started on atorvastatin 80 mg daily -Consulted vascular surgery appreciate recommendations #TABATHA Patient's creatinine on presentation was 2.13 GFR was 30.7, came down to 1.81 this morning. Unclear what the patient's baseline is per review of records, will attempt to obtain through conversation with the patient and family. Most recent creatinine per our records was 2016 and 1.3 -Trend daily BMP -CR:2.13->1.81->1.98 -Holding lisinopril in the setting of TABATHA -Holding meloxicam in the setting of TABATHA -holding allopurinol in the setting of TABATHA -Avoid nephrotoxic medications #Hypertension Systolic blood pressure goal less than 180 Holding lisinopril 20 mg daily PRN hydralazine for systolic greater than 180 #Diabetes Oral agents held on admission. Most recent A1c 6.8 indicating good blood sugar control. Glycemic consult placed Blood sugar checks before meals at bedtime #Coronary artery disease History of, continue home meds. Lipid panel consistent with hyperlipidemia, LDL on admission was 116, triglycerides 155, cholesterol 190. -Increase atorvastatin to 80 mg mg daily #COPD Patient carries a diagnosis of asthma, this most likely represents COPD. Patient has a long smoking history, previously quit and is currently been smoking more than ever per report. -Continue home Combivent -DuoNebs every 4 times daily scheduled -Albuterol 2 puffs as needed every 6 hours for wheezing #Dementia Patient alert and oriented x4, per conversation with his daughter she reports increasing forgetfulness, not remembering to take medications, not keeping appointments, decreased social interactions. Collectively these likely represent the early stages of dementia. - precautions #Gout History of, stable at present -holding allopurinol 100 mg p.o. twice daily #Depression Continue escitalopram 10 mg p.o. daily FENa: Heart healthy diabetic type II diet moist and minced until somebody brings his teeth Code Status: Full code DVT PPX: Contraindicated in the setting of recent stroke, SCDs PT/OT: Ordered recommend rehab on discharge Dispo: MedSurg with telemetry Anand Miller MD PGY 2, FCM This chart was completed utilizing [employer] voice recognition software. Grammatical errors, random word insertions, pronoun errors, and in complete sentences are an occasional consequence of the system. Any questions or concerns about the content, text, or information contained within the body of this dictation should be addressed directly to the physician for clarification. (2) Afib: (3) Weakness of left upper extremity: (4) Weakness of left lower extremity: (5) Mood disorder: (6) Hyperlipidemia: (7) Gout: (8) TABATHA (acute kidney injury): (9) Coronary artery disease: (10) Hypertension: Supervising Physician Co-Signing Physician Notes I personally examined the patient and verified all adams points of history and exam, discussed case, and agree with decision making with Dr Miller. Ongoing left-sided weakness. Extensive discussions with patient, updated the best my ability. Medical Oncologist input appreciated discussed with neurology [id number], input greatly appreciated. Vitals noted, in general he is awake and alert no distress. HEENT normocephalic atraumatic mucous membranes moist. Breathing is unlabored no accessory muscle use good effort. Skin shows no rashes no pallor or icterus. Left arm weakness seems a bit worse than yesterday. Otherwise exam as above CVAcarotid embolic versus less likely cardioembolic. Med management, secondary risk reduction, given the worsening of his neuro deficitsrepeat CT noncontrast obtainedfortunately no bleeding. Neurology commented that his neuro deficit actually appears larger than the compromised area of brain tissue and requested we order an EEG. Further as we were discussing the case, she felt that the patient would probably benefit from an endarterectomy. Vascular surgery locally did not feel this, and we have no other vascular surgery service line from which to seek a second opinion. Because of this, and because of the fact that a significant portion of the patient's wellbeing could be drastically affected by whether or not he would benefit from an endarterectomy (especially given that neurology noted the damaged area was not as big as his deficit, my thought being that this would be giving hope that with time he may be able to have a bit more of a functional recovery than his current exam would suggest) we felt it to the patient's benefit to get an opinion from a different vascular surgeonbecause of this case was discussed with [facility], and patient accepted in transfer. We had extensive discussions with the patient about this, and he was feeling like his options were a risky surgery or of the strokewe discussed that certainly he is not low risk for the surgery but in the context of who is a candidate for an endarterectomy generally the population is not well overall, and that it would actually be unlikely for him to acutely from his current situation, but rather have a more dense paralysis with less chance of recovery and a slow decline. He expressed understanding of this. Elevated troponinmore than likely demand ischemia, await echo but without any regional wall motion abnormalities probably no further work-up would be needed at this time Bradycardiaseems to occur more when he is sleeping raising the concern of undiagnosed sleep apnea. However he is dropping fairly low with some pauses while he is asleepbecause of this reduced calcium channel robel. Daniella will remain on med telemetry until he has bed available at [facility]. We discussions with him about decision making, especially given that his ex- is who is at the bedside the most, and he has 2 adult children that right now would legally have equal decision-making power should he lose capacity. Because of this we thought it prudent for him to consider having a designated power of literature professor. He will consider this, and we asked for service excellence to follow-up on helping him with paperwork should he make a decision. If he is transferred to [facility] before he is made any type of decision, we would ask that there appropriate department follow-up on him with this as well. Time in the room approximately 550, time out of room approximately 630, later time spent with Dr. Miller in coordinating transfer. At least 40 minutes [id number], additional time thereafter. Subjective Patient lying in bed this morning in no acute distress. It appears as if the patient has had a completed stroke at this point, he is endorsing left-sided weakness which is worse than yesterday. In fact his left upper extremity is completely flaccid. Patient also endorsing difficulty breathing saturating 96% on 2 L nasal cannula. Otherwise patient is tolerating his diet, voiding, stooling, sleeping. Acute concerns at present related to breathing all questions answered. Physical Exam Physical Exam: General: Elderly gentleman lying in bed in no acute distress HEENT: Normocephalic atraumatic Neck: Normal to visual inspection Cardiac: Irregularly irregular rhythm, regular rate, I did not appreciate significant murmurs rubs or gallops, normal S1, normal S2. Negative pedal edema, negative calf tenderness Respiratory: Bibasilar rales present, otherwise clear to auscultation without significant wheezes or rhonchi. Symmetrical chest expansion. GI: Bowel sounds present, soft, nontender, nondistended Neuro: CN II through XII grossly intact, with the exception of the facial nerve and left-sided facial droop. Sensory function intact bilaterally, 0 out of 5 weakness in the left upper extremity, 4 out of 5 weakness of the left lower extremity. Strength intact in the right upper and lower extremity. Was unable to assess gait, or balance. Psych: Calm, cooperative, participated in the interview Results & Data Vital Signs (Past 12 Hours) Vital Signs Temp Pulse Resp BP Pulse Ox 10/03/19 07:45 36.4 C L 69 18 177/95 H 98 10/03/19 07:05 42 L 18 97 10/03/19 04:16 36.5 C 80 20 161/79 H 94 10/02/19 23:26 36.4 C L 66 20 161/69 H 94 Resident Activity Tracking Resident Involvement: Resident Care Provided Care Provided: Adult Hospital Medicine
[2019-10-03] MEDS ORDERED: ALBUT/IPRATROP 3MG/0.5MG NEB 3 ML VIAL NEB PRN (09:43)
[2019-10-03] MEDS: HEPARIN SODIUM/DEXTROSE 25,000 UNITS/500 ML BAG IV SCH (11:02)
[2019-10-03] MEDS: SODIUM CHLORIDE 0.9% 1000ML 1,000 ML IV SCH (11:03)
[2019-10-03] MEDS: IPRATROPIUM BROMIDE/ALBUTEROL respimat INH INH SCH ×3 (12:21→20:26)
[2019-10-03] MEDS ORDERED: FUROSEMIDE 20 MG in SYRINGE 0 ML IV ONE (12:30)
--- NOTE | 2019-10-03 16:21 | Neurology Progress Note ---
Date of Service October 03, 2019 Assessment & Plan (1) Afib: (2) Stroke: Nathaniel Dunn is a 79 yo man w/ PMH of HTN, CAD, asthma, Afib on aspirin, DM, mood disorder, gout and prior stroke with no clear residual deficits who p/t [facility] after acute onset of L-sided weakness (face/arm/leg) and dysarthria Symptom localization: R MCA territory Stroke mechanism: vessel to vessel embolus vs cardioembolic Stroke WorkUp: - CT head: CTH shows generalized atrophy with ex vacuo dilation, hypodensities in the right parietal and left cerebellar lobes, no hemorrhage and SVID. - CTA head/neck: atherosclerosis of the aortic arch and common carotids, moderate stenosis at the R ICA bifurcation with ?filling defect in the proximal R ICA (appears to be a luminal thrombus associated with ulcerated plaque), mild stenosis of the L ICA, R [employer] - MRI brain: acute infarcts in the watershed regions between the JESSICA/MCA and MCA/MO[employer]LE [employer] ARCHITECT, as well as the right insula and right anterior temporal lobe; there were chronic infarcts noted in the left cerebellum and right parietal lobe. - TTE: EF55-60%, mild LVH, mild MR, no interatrial shunt - Telemetry: Afib - A1c: 6.8 - FLP: 116 - Troponin: 0.057-> 0.035 Stroke Management: - Acute treatment: ASA - Continuous cardiac monitoring - Vitals, Neurochecks, NIHSS per unit routine - BP parameters: SBP CAP 180, restart home anti-hypertensives with goal normotension over next 3-4 days - Consult speech, PT, OT for supportive management - Will crisis intervention counselor concerning stroke education, smoking cessation, healthy diet, physical activity, weight loss - Follow up with PCP for assistance with outpatient goals (BP <135/85, LDL <70, A1c <7) - Follow up in neurology clinic in 6-8 weeks - Repeat CTH w/o to r/o hemorrhagic conversion or new large territory stroke given worsening mental status and new left lower extremity flaccidity. If hemorrhagic conversion, BP CAP 140, d/c heparin gtt and aspirin, transfer to ICU for closer neurologic monitoring. Secondary Stroke Prevention: - Antiplatelet: ASA 81mg po daily - Anticoagulation: heparin high risk gtt. Would strongly consider starting apixaban for stroke prevention prior to discharge to rehab. - Statin: Atorvastatin 80mg daily HTN: - BP parameters, as above - Restart home medications with goal of lowering BP to normotension over next 3- 4 days FEN/GI: - Diet: NPO until cleared by Speech evaluation, then cardiac/diabetic diet - Monitor lytes and replete PRN Glucose Control: - Sliding scale insulin and accuchecks per primary team to avoid hyperglycemia Memory issues: suspect B12 +/- thiamine deficiency given h/o ethoh abuse and elevated MCV - would start thiamine/folate/MV (thiamine 500mg IV daily x5 days, then 250mg PO daily thereafter) - would send B12, thiamine, folate levels and replete B12 prn Thank you for this interesting consult. Plan of care was discussed with primary team. Please call or text with any questions. (3) Stenosis of right internal carotid artery with cerebral infarction: Subjective NAEs overnight. He reports that this morning he woke up and noted that he couldn't move his LLE which is new from last night. He also reports being extremely tired this afternoon. He denies any other new numbness, tingling, weakness or headaches. His ex- is in the room and is worried that his right upper extremity has been twitching intermittently throughout the day. She reports that she thinks he only drinks a few alcoholic beverages per week but does know that he is supposed to be on B12 supplementation which she is not sure if he is taking or not. Review of Systems Review of Systems: 14 point review of systems completed and negative except as in HPI. Physical Exam Physical Exam: General Exam: GEN: NAD, lying down in examination bed. CV: Irregularly irregular, no significant edema. PULM: Nonlabored respirations on 2L NC. Neuro Exam: MS: Drowsy but arousable. Oriented to person but not place or date. Speech fluent and appropriate with mild dysarthria, no paraphasic errors. Language intact including naming, comprehension, repetition. Cognition and memory not intact. Inattentive. + neglect of left side. CN: Visual leiva full, + blink to threat bilaterally. No extinction to double simultaneous stimuli. Unable to visualize fundi on fundoscopic exam. PERRLA OU. EOMI without nystagmus. Facial sensation intact to LT. Left facial droop. Hearing intact to conversation. Uvula midline with symmetric palatal elevation. Shoulder shrug normal in the right, unable to elevate left shoulder. Tongue midline. MOTOR: Normal bulk, increased tone noted in LUE/LLE. No pronator drift in RUE. RUE strength 5/5 at deltoids, biceps, triceps, wrist flexors and extensors, and hand grasp. LUE flaccid with inability to hold antigravity and minimal movement of his hand/fingers. RLE strength 5/5 at iliopsoas, hamstrings, quadriceps, tibialis anterior, and gastrocnemius. LLE with minimal antigravity with near immediate drift to bed and minimal movements noted in his toes. REFLEXES: Trace at biceps, triceps, brachioradialis, absent patella and absent Achilles bilaterally. Right toe downgoing, left toe mute. SENSORY: Intact to LT throughout, + extinction to double simultaneous stimuli. Intact to temperature and vibration throughout. COORDINATION: No dysmetria or ataxia on [id number] in the RUE. Would not participate in MARGARETH testing as he was tired. GAIT: Deferred due to physical status. NIH STROKE SCALE 1A. Level of Consciousness (0-3) = 1 1B. LOC Questions (0-2) = 1 1C. LOC Commands (0-2) = 0 2. Best Horizontal Gaze (0-2) = 0 3. Visual Leiva (0-3) = 0 4. Facial Palsy (0-3) = 2 5. Motor Arm Right (0-4) = 0 Left (0-4) = 4 6. Motor Leg Right (0-4) = 0 Left (0-4) = 4 7. Limb Ataxia (0-2) = 0 8. Sensory (0-2) = 0 9. Best Language (0-3) = 0 10. Dysarthria (0-2) = 1 11. Extinction and Inattention (0-2) = 1 NIHSS TOTAL = 14 Results & Data Vital Signs (Past 12 Hours) Vital Signs Temp Pulse Pulse Resp BP BP Pulse Ox 10/03/19 15:55 36.5 C 65 18 160/78 H 93 10/03/19 11:27 36.0 C L 68 22 174/94 H 96 10/03/19 07:49 44 L 10/03/19 07:45 36.4 C L 69 18 177/95 H 98 10/03/19 07:05 42 L 18 97 10/03/19 06:21 71 10/03/19 04:16 36.5 C 80 20 161/79 H 94 Laboratory Results Laboratory Results - last 24 hr 10/02/19 10/02/19 10/02/19 16:23 17:08 17:08 WBC 8.67 RBC 3.23 L Hgb 10.7 L Hct 33.9 L MCV 105.0 H MCH 33.1 MCHC 31.6 L RDW Std Deviation 57.4 H RDW Coeff of Dwain 15.2 H Plt Count 192 MPV 9.5 Immature Gran % (Auto) 0.2 Neut % (Auto) 72.5 Lymph % (Auto) 21.8 [place] % (Auto) 4.4 Eos % (Auto) 0.9 Baso % (Auto) 0.2 Immature Gran # (Auto) 0.02 Neut # (Auto) 6.28 Lymph # (Auto) 1.89 [place] # (Auto) 0.38 Eos # (Auto) 0.08 Baso # (Auto) 0.02 PT 11.3 INR 1.1 APTT 27.6 PTT Ratio 1.0 Sodium Potassium Chloride Carbon Dioxide Anion Gap BUN Creatinine Est Cr Clr Drug Dosing Est GFR ( Amer) Est GFR (Non-Af Amer) BUN/Creatinine Ratio Glucose POC Glucose 111 H Calcium NT-Pro-B Natriuret Pep 10/02/19 10/02/19 10/03/19 20:31 23:36 06:43 WBC 6.92 RBC 3.09 L Hgb 10.2 L Hct 32.2 L MCV 104.2 H MCH 33.0 MCHC 31.7 L RDW Std Deviation 58.6 H RDW Coeff of Dwain 15.4 H Plt Count 150 MPV 9.4 Immature Gran % (Auto) 0.3 Neut % (Auto) 68.2 Lymph % (Auto) 25.3 [place] % (Auto) 4.8 Eos % (Auto) 1.3 Baso % (Auto) 0.1 Immature Gran # (Auto) 0.02 Neut # (Auto) 4.72 Lymph # (Auto) 1.75 [place] # (Auto) 0.33 Eos # (Auto) 0.09 Baso # (Auto) 0.01 PT INR APTT 39.2 H PTT Ratio 1.4 Sodium Potassium Chloride Carbon Dioxide Anion Gap BUN Creatinine Est Cr Clr Drug Dosing Est GFR ( Amer) Est GFR (Non-Af Amer) BUN/Creatinine Ratio Glucose POC Glucose 112 H Calcium NT-Pro-B Natriuret Pep 10/03/19 10/03/19 10/03/19 06:43 06:43 06:43 WBC RBC Hgb Hct MCV MCH MCHC RDW Std Deviation RDW Coeff of Dwain Plt Count MPV Immature Gran % (Auto) Neut % (Auto) Lymph % (Auto) [place] % (Auto) Eos % (Auto) Baso % (Auto) Immature Gran # (Auto) Neut # (Auto) Lymph # (Auto) [place] # (Auto) Eos # (Auto) Baso # (Auto) PT INR APTT 113.2 H* PTT Ratio 4.2 Sodium 140 Potassium 4.3 Chloride 112 H Carbon Dioxide 21 Anion Gap 7.0 BUN 27 H Creatinine 1.98 H Est Cr Clr Drug Dosing 30.2 Est GFR ( Amer) 36.7 Est GFR (Non-Af Amer) 31.6 BUN/Creatinine Ratio 13.8 Glucose 119 H POC Glucose Calcium 8.9 NT-Pro-B Natriuret Pep 9541 H 10/03/19 10/03/19 07:36 12:14 WBC RBC Hgb Hct MCV MCH MCHC RDW Std Deviation RDW Coeff of Dwain Plt Count MPV Immature Gran % (Auto) Neut % (Auto) Lymph % (Auto) [place] % (Auto) Eos % (Auto) Baso % (Auto) Immature Gran # (Auto) Neut # (Auto) Lymph # (Auto) [place] # (Auto) Eos # (Auto) Baso # (Auto) PT INR APTT PTT Ratio Sodium Potassium Chloride Carbon Dioxide Anion Gap BUN Creatinine Est Cr Clr Drug Dosing Est GFR ( Amer) Est GFR (Non-Af Amer) BUN/Creatinine Ratio Glucose POC Glucose 131 H 129 H Calcium NT-Pro-B Natriuret Pep PG Care Time/CCT Total # of Minutes Spent Total Time Spent with Patient: Total time spent is greater than 50% in coordination of care (as documented) at patient's floor/unit and/or counseling patient:
--- NOTE | 2019-10-03 17:06 | CT Scan Report ---
CT OF THE HEAD WITHOUT CONTRAST CLINICAL HISTORY: Stroke symptoms. COMPARISON STUDY: Head CT, CTA of the head and MRI of the brain October 01, 2019. CT DOSE: 788.63 mGycm TECHNIQUE: Helical axial images of the head were obtained without IV contrast. Automated exposure con trol was utilized for the study. A dose lowering technique was utilized adhering to the principles o f ALARA. FINDINGS: No acute intracranial hemorrhage, midline shift or mass effect is present. The ventricular system is stable. Basilar cisterns are patent. There are no extra axial collections. Hypodensity with in the right insular cortex is similar to prior exam and corresponds to foci of restricted diffusion on MRI of October 01, 2019. This suggest acute infarct. Hypodensity within the right centrum semiovale ovale is more prominent than on prior exam. This may reflect acute infarct as well. This could refle ct slight increase in extent since prior MRI although suboptimally assessed by CT. Sinus mucosal thic kening is noted. There are no significant calvarial abnormalities. IMPRESSION: 1. No acute intracranial hemorrhage or mass effect. 2. Redemonstration of small acute infarcts, as shown on MRI October 01, 2019, most evident within the right insular cortex. Hypodensity within the right centrum semiovale ovale is more prominent than on prior exam. This is suboptimally assessed by CT but may reflect increase in extent of infarct since previous MRI. ACT 112: Negative or not required by law. Electronically signed by: Brant Stone M.D. 10/03/2019 5:04 PM
[2019-10-03] MEDS ORDERED: STROKE PATIENT DISCHARGE STA (20:03)
--- NOTE | 2019-10-03 20:18 | Billing Data ---
Date of Service October 03, 2019 Coding Level of Care Code 22380 Subseq Hosp Care Lvl 3
--- NOTE | 2019-10-03 20:19 | Billing Data ---
Date of Service October 03, 2019 Coding Level of Care Code 38392 Prolonged Care (int'l)
[2019-10-03] MEDS: ATORVASTATIN 40 MG TAB PO SCH (20:27)
[2019-10-03] MEDS ORDERED: APIXABAN 5 MG TABLET PO SCH (21:00)
[2019-10-04 00:17] LABS: Partial Thromboplastin Ratio 2.3; Partial Thromboplastin Time 61.7 Seconds (21.0-31.0)
[2019-10-04] MEDS: HEPARIN SODIUM/DEXTROSE 25,000 UNITS/500 ML BAG IV SCH (03:48)
--- NOTE | 2019-10-04 07:00 | Discharge Summary ---
Date of Service October 04, 2019 Admission HPI Per Admitting Provider Patient is a 79 years old male with past medical history of atrial fibrillation not on anticoagulation, asthma, depression, diabetes mellitus type 2, coronary artery disease, hypertension who was brought by EMS to the emergency room by his ex- and son who stated that they found patient on the floor this morning and he was not able to walk due to left-sided weakness. Patient said that last well was last night and that he started to have problems with ambulating around 4:30 AM this morning and that the time when he was not steady on his left leg, and noticed that his left arm is weaker than his right arm. Family noticed that patient has a left-sided face droop and that his speech is marbled. Patient social history includes drinking or more than several occasions per his family and also smoking on occasions. Patient denies alcohol abuse. EKG: Atrial fibrillation's with premature ventricular or aberrantly conducted complexes. Labs are reviewed: WBC is 10.8, hemoglobin 11.4, hematocrit 35.5, platelets 244, PT 10.9, INR 1.1, APTT 24.2, sodium 141, potassium 4.9, chloride 111, BUN 26, creatinine 2.03(we do not have another creatinine for comparison) GFR 30.7, magnesium 2.1, AST 17, ALT 18, troponin 0.[address] head without contrast CTA of head and neck were negative for stroke MRI of the brain showed multiple small punctuate infarcts of the right cerebral hemisphere consistent with a w atershed type scenario involving the internal cerebral artery distribution. Chronic and age-related changes. No midline shift or mass affect. Decision was made to admit patient to telemetry for stroke without TPA and further management and treatment. Admission Exam Per Admitting Provider Constitutional: WD/WN, vitals as above well developed and + obese Eyes: PERRL, conjunctivae normal, anicteric sclerae ENMT: external ear and nose normal, oropharynx normal Left-sided face droop Neck: trachea midline, no thyromegaly Respiratory: normal respiratory effort, lungs clear to auscultation Cardiovascular: Rate/Rhythm: + irregularly irregular Heart Sounds: normal S1 and normal S2 Vessels: dorsalis pedis pulses present Gastrointestinal (Abdomen): normal bowel sounds, soft, nontender, no hepatosplenomegaly Musculoskeletal: no cyanosis or clubbing, extremities motor strength 5/5 Skin: no rashes, warm and dry Neurologic: Left-sided face droop, 3 of 5 weakness in the left upper extremity, 3 of 5 weakness and left lower extremity. Garbled speech. Ataxia, hemiparesis on the left. Psychiatric: A+Ox3, euthymic affect Lymphatic: no cervical or axillary lymphadenopathy Principal Diagnosis CVA Discharge Exam Constitutional WD/WN, vitals as above Eyes PERRL, conjunctivae normal, anicteric sclerae ENMT external ear and nose normal, oropharynx normal Respiratory normal respiratory effort, lungs clear to auscultation Cardiovascular Rate/Rhythm: + irregularly irregular Heart Sounds: normal S1 and normal S2 Gastrointestinal (Abdomen) normal bowel sounds, soft, nontender, no hepatosplenomegaly Neurologic + confused Left upper and lower extremity flaccidity and weakness Discharge Data Allergies Allergy/AdvReac Type Severity Reaction Status Date / Time Penicillins Allergy Unknown RASH Verified 10/01/19 20:15 Consultations 10/01/19 17:52 ED Decision to Admit Stat 10/01/19 22:12 Consult Case Management - Discharge Planning Routine Consult Neurology Routine 10/03/19 19:12 Burn CD for patient Stat 10/03/19 19:42 Consult Patient Services Routine Ordered Studies 10/01/19 16:32 CT head/brain wo con Stat 10/01/19 16:33 CT angio head w con Stat CT angio neck with con Stat 10/01/19 18:33 MR brain wo con Stat 10/03/19 15:49 CT head/brain wo con Stat Hospital Course (1) Acute cardioembolic stroke: Mr. Dunn is a 79-year-old male with a past medical history of atrial fibrillation, asthma, depression, coronary artery disease, type 2 diabetes mellitus, hypertension, and alcohol abuse who presented to [facility] due to a CVA with resultant left-sided weakness. Acute CVA Etiology A. fib versus carotid artery, most recent carotid ultrasound demonstrated 50% narrowing of the right internal carotid artery, and 30% the left. Patient has a longstanding history of A. fib was previously anticoagulated with warfarin which was stopped due to occasional cutaneous bleeding. He reports having history of a prior stroke however we do not have records of this. Head CT was negative for acute process. Brain MRI from admission demonstrated multiple small punctate infarcts of the right cerebral hemisphere consistent with a watershed type scenario involving the internal cerebral artery distribution, neck CTA was consistent with prior ultrasound findings, head CTA demonstrated moderate stenosis of the carotid siphons. EKG on presentation demonstrated atrial fibrillation. The admitting physician discussed the case with at [facility], he recommended 325 mg of aspirin to be administered stat, followed by 81 mg daily. Neurology was consulted and recommended starting a heparin drip for intraluminal thrombus in the right RCA, vascular surgery was consulted, the patient was started on atorvastatin 80 mg, BP parameters with systolic BP At 180, with a goal to restart home antihypertensives. Patient is to follow-up in the neurology clinic in 6 to 8 weeks. -Holding home antihypertensives, to allow for permissive hypertension -Echo 10/02/2019: Normal LV systolic function, no regional wall motion abnormalities, mild concentric LVH, EF 55-60%, mild MR, negative for intra- atrial shunt -Speech consulted -Passed dysphagia screen -Minced diet until patient's obtains his dentures -Patient currently lives alone, this is likely not the best living situation for him. Weakness of the left upper and lower extremity -Likely secondary to above -PT/OT recommended rehab after hospitalization Atrial fibrillation Patient presented to the emergency department in atrial fibrillation, likely chronic in nature. Patient appears to be on diltiazem 240 mg daily at home for rate control. Patient was previously anticoagulated with warfarin, stopped secondary to cutaneous bleeding. -patient has had pauses of ~3 seconds in duration whilst hospitalization, and becomes significantly bradycardic overnight, with a HR as low as the 30s. His diltiazem was decreased from 240mg daily to 120mg daily. He likely has an element of SHILA contributing to this as well -continue heparin drip (both for afib and intraluminal thrombus in R ICA) -> consider transitioning to eliquis on d/c Carotid artery stenosis -Patient with CTA evidence of bilateral carotid artery stenosis, right 50%, left 30%. -Started on atorvastatin 80 mg daily -Consulted vascular surgery due to intraluminal thrombus in the right ICA -Neurology recommends early revascularization given symptomatic carotid patient will be transferred to [facility] for this procedure TABAHTA -Patient's creatinine on presentation was 2.13 -Unclear what the patient's baseline is per review of records. Most recent creatinine per our records was 2016 and 1.3 -Suspect his baseline is approximately 1.9, given creatinine has been fluctuating around this level the past few days -Holding lisinopril in the setting of TABATHA -Discontinue home meloxicam in the setting of coronary artery disease and TABATHA -holding allopurinol in the setting of TABATHA Hypertension -Systolic blood pressure goal less than 180 Holding lisinopril 20 mg daily Diabetes Mellitus Type 2 -Oral agents held on admission. Most recent A1c 6.8 indicating good blood sugar control. Glycemic consult was placed Coronary artery disease -History of, continue home meds. Lipid panel consistent with hyperlipidemia, LDL on admission was 116, triglycerides 155, cholesterol 190. -Increased atorvastatin from 40mg daily to 80 mg mg daily COPD -Patient carries a diagnosis of asthma, this most likely represents COPD. Patient has a long smoking history, previously quit and is currently been smoking more than ever per report. -Continue home Combivent -DuoNebs every 4 times daily scheduled -Albuterol 2 puffs as needed every 6 hours for wheezing Dementia -Patient alert and oriented x4, per conversation with his daughter she reports increasing forgetfulness, not remembering to take medications, not keeping appointments, decreased social interactions. Collectively these likely repres ent the early stages of dementia. -Suspect an element of B12/thiamine deficiency given patient's history of alcohol abuse and elevated MCV -per neuro recommendations, patient was given 500mg of IV thiamine on 10/04/2019, recommend 4 more days of this, and then 250mg PO daily afterwards -recommend checking thiamine, B12 and folate levels Gout -History of, stable at present -holding allopurinol 100 mg p.o. twice daily Depression -Continue escitalopram 10 mg p.o. daily FENa: Heart healthy diabetic type II diet, moist and minced as pt does not have his teeth Code Status: Full code DVT PPX: On heparin drip Disposition: Transferred to [facility] (2) Afib: (3) Weakness of left upper extremity: (4) Weakness of left lower extremity: (5) Mood disorder: (6) Hyperlipidemia: (7) Gout: (8) TABATHA (acute kidney injury): (9) Coronary artery disease: (10) Hypertension: Total Time Total Time Spent Total Time Spent (In Minutes): <30 Discharge Plan Discharge Items Patient Disposition: Transfer Acute Care Hospital Reason For Visit: WATERSHED STROKE Discharge Diagnosis: stroke - concern on carotid Activity: Per Instructions section Activity Comment: per tertiary care Non-emergency contact: Primary Care Provider, Surgeon and Neurologist Call non-emergency contact if: you have any medication questions and your symptoms worsen Follow-up/Referrals: PCP,NO [Primary Care Provider] - Diet: Regular Addtl Attending Provider Instructions: Please see hospital MAR for true reconciliation of medications. Med rec below is only truly reflective of what was reported as his home medications prior to admission. I apologize for any confusion, but the medical record system makes it extremely difficult to have an accurate med rec of ongoing inpatient medications/IV drips/etc. Reason for transfer is stroke in a right MCA distribution, with high suspicion that carotid plaque is culprit (less likely atrial fibrillation/cardioembolic) with lesion being just tight enough to warrant vascular surgeon evaluation; only 1 vascular service present at this facility, desire further opinions on risk/benefit of surgery. Pending Studies at Discharge: No Stand-Alone Forms: My [facility] Skilled Items Patient informed of condition?: Yes DNR: No Discharge Level of Care: Other Communicable Disease: No Discharge Prognosis: Other Lines: Peripheral IV Urinary Catheter: No Medications and DC Order Prescriptions: Continued diltiazem HCl 240 mg capsule,extended release 24hr 240 mg PO DAILY RF: 0 meloxicam [Mobic] 15 mg tablet 15 mg PO DAILY RF: 0 glimepiride [Amaryl] 2 mg tablet 2 mg PO QAM RF: 0 lisinopril 10 mg tablet 10 mg PO DAILY RF: 0 omeprazole 20 mg capsule,delayed release(DR/EC) 20 mg PO DAILY RF: 0 furosemide [Lasix] 20 mg tablet 20 mg PO DAILY RF: 0 escitalopram oxalate [Lexapro] 10 mg tablet 10 mg PO DAILY RF: 0 Combivent Respimat 20-100 mcg/actuation mist 1 puff INHALATION QID RF: 0 loperamide 2 mg Tablet 2 mg PO Q3H PRN (Reason: Diarrhea) RF: 0 allopurinol 100 mg Tablet 100 mg PO BID PRN (Reason: gout) RF: 0 aspirin [Aspir-81] 81 mg Tablet,Delayed Release (Dr/Ec) 81 mg PO DAILY RF: 0 Discharge Orders: Discharge Order (Routine); Ordered 10/03/19 Ordered By: Ean Hernández Admission Data Admit Date/Time: 10/01/19 21:08 Attending Provider: Ean Hernández Admit Provider: Dasha Smith Primary Care Provider: PCP,NO Other Providers: Dasha Smith ; Meseret Raya ; [facility] Other Interventions: Discharge Summary Assessment (RN) Last Done: 10/04/19 11:23 DC Date/Time DO NOT enter until pt leaves facility: 10/04/19 12:35 Supervising Physician Co-Signing Physician Notes I personally examined the patient and verified all adams points of history and exam, discussed case, and agree with decision making with Dr Junior. No new problems. Has bed at [facility]. Ready for transfer. No new complaints. He expresses understanding of the reason for his transfer. Vitals noted, in general he is awake and alert no distress. HEENT normocephalic atraumatic mucous membranes moist. Breathing is unlabored no accessory muscle use good effort. Skin shows no rashes no pallor or icterus. Left arm weakness seems a bit worse than yesterday. Otherwise exam as above CVAcarotid embolic versus less likely cardioembolic. Med management, secondary risk reduction. Neurology commented that his neuro deficit actually appears larger than the compromised area of brain tissue and requested we order an EEG this has been done, but is pending read. Further in discussion of the patient's case, she felt that the patient would probably benefit from an endarterectomy. Vascular surgery locally did not feel this, and we have no other vascular surgery service line from which to seek a second opinion. Because of this, and because of the fact that a significant portion of the patient's well-being could be drastically affected by whether or not he would benefit from an endarterectomy (especially given that neurology noted the damaged area was not as big as his deficit, my thought being that this would be giving hope that with time he may be able to have a bit more of a functional recovery than his current exam would suggest) we felt it to the patient's benefit to get an opinion from a different vascular surgeonbecause of this case was discussed with [facility], and patient accepted in transfer. Stable for transfer for further vascular and neuro evaluations Elevated troponinmore than likely demand ischemia, no regional wall motion abnormalities on echo, probably no further work-up would be needed at this time Bradycardiaseems to occur more when he is sleeping raising the concern of undiagnosed sleep apnea. However he is dropping fairly low with some pauses while he is asleepbecause of this reduced calcium channel robel further, will need ongoing follow-up, but I suspect that he will still have a degree of bradycardia until we get ahead of presumed sleep apnea Disposition[facility] to [facility] Resident Activity Tracking Resident Involvement: Resident Care Provided Care Provided: Adult Hospital Medicine
[2019-10-04 07:56] LABS: Basophils # (auto) 0.02 K/uL (0-0.2); Basophils % (auto) 0.3 %; Eosinophils % (auto) 1.7 %; Hematocrit (blood only) 33.3 % (42-52); Hemoglobin 10.5 g/dL (14.0-18.0); Immature Granulocytes # (auto) 0.01 K/uL (0.00-0.02); Immature Granulocytes % (auto) 0.2 %; Lymphocytes # (auto) 1.45 K/uL (1.2-3.4); Lymphocytes % (auto) 24.1 %; Mean Corpuscular Hemoglobin 33.1 pg (25-34); Mean Corpuscular Hgb Conc 31.5 g/dL (32-36); Mean Platelet Volume 9.8 fL (7.4-10.4); Monocytes # (auto) 0.35 K/uL (0.11-0.59); Monocytes % (auto) 5.8 %; Neutrophils # (auto) 4.08 K/uL (1.4-6.5); Neutrophils % (auto) 67.9 %; Platelet Count 163 K/uL (130-400); RDW Standard Deviation 57.7 fL (36.4-46.3); Red Blood Count 3.17 M/uL (4.7-6.1); White Blood Count 6.01 K/uL (4.8-10.8)
[2019-10-04 08:14] LABS: Partial Thromboplastin Ratio 2.3
[2019-10-04 08:19] LABS: Partial Thromboplastin Time 61.7 Seconds (21.0-31.0)
[2019-10-04 08:26] LABS: BUN Creatinine Ratio 12.2 (10-20); Calcium 9.4 mg/dl (8.5-10.1); Creatinine Clr Calc Pharmacy 30.9 ml/min; Est GFR (African American) 37.6; Est GFR (Non-African American) 32.4
[2019-10-04] MEDS: FUROSEMIDE 20 MG TAB PO SCH (08:39)
[2019-10-04] MEDS: IPRATROPIUM BROMIDE/ALBUTEROL respimat INH INH SCH (08:39)
[2019-10-04] MEDS: ASPIRIN 81 MG ECTAB PO SCH (08:39)
[2019-10-04] MEDS: ESCITALOPRAM OXALATE 10 MG TAB PO SCH (08:39)
[2019-10-04] MEDS: PANTOprazole 40 MG TAB PO SCH (08:40)
[2019-10-04] MEDS: INSULIN ASPART 100 UNITS/ML 3 ML PEN SC SCH (08:41)
[2019-10-04] MEDS ORDERED: dilTIAZem HCL 180 MG CAPCR PO SCH (09:00)
[2019-10-04] MEDS ORDERED: THIAMINE HCL 500 MG in SODIUM CHLORIDE 0.9% 50 ML IV SCH (10:30)
[2019-10-04] MEDS ORDERED: THIAMINE HCL 500 MG in 0.9 % SODIUM CHLORIDE 100 ML IV SCH (11:00)
--- NOTE | 2019-10-04 16:21 | Billing Data ---
Date of Service October 04, 2019 Coding Level of Care Code D/C Day Management <30 mins
[2019-10-05] MEDS ORDERED: dilTIAZem HCL 120 MG CAPCR PO SCH (09:00)
--- NOTE | 2019-10-24 14:10 | Consultation ---
Date of Consultation October 24, 2019 Assessment & Plan (1) Stenosis of right internal carotid artery with cerebral infarction: There was concern when examined this patient that according to the charting he only had a weakness of his left upper extremity versus a full flaccid arm.It was concerning that this was a progression of hisThis was discussed with the neurologist who at that time said he was flaccid from the day before upon presentation.There has therefore been no significant change in his stroke symptoms since admission.Reviewing the CT scan of his neckIt appears that he has a right internal carotid artery stenosis with intraplaque hemorrhage.I cannot appreciate any free-floating thrombus within the common or internal carotid artery. At this point we recommend conservative managemen due to his high stroke risk for an acute operation. Would recommend antiplatelets at this point. If his stroke symptoms worsen then an emergent endarterectomy of the right carotid would be indicated. If his symptoms stabilize no further progression is noted, then a early endarterectomy within the first 2 weeks would be a consideration. . Thank you very much for letting us participate in the care of this patient. History of Present Illness Reason for Consultation: right hemisphere stroke with carotid stenosis Attending Physician: Ean Hernández DO History of Present Illness This patient is a 79-year-old male who presented to the emergency department the day prior to this with a right hemisphere stroke.Work-up showed narrowing of his right internal carotid artery with a possible thrombus.On questioning the patient today he says there is been no improvement in his symptomatology.He has a history of hypertension coronary artery occlusive disease, asthma, atrial fibrillation on aspirin, diabetes, gout, prior stroke, and mood disorder.He presented yesterday with acute onset of left-sided weakness face arm leg and difficulty with speech.Early September he also had an episode of generalized weakness which he says was slightly worse on the left than the right and inability to ambulate. Allergies Allergy/AdvReac Type Severity Reaction Status Date / Time Penicillins Allergy Unknown RASH Verified 10/01/19 20:15 Home Medications Home Medications Medication Instructions Recorded Confirmed Type Combivent Respimat 1 puff INHALATION QID 10/01/19 10/01/19 History allopurinol 100 mg PO BID PRN 10/01/19 10/01/19 History aspirin [Aspir-81] 81 mg PO DAILY 10/01/19 10/01/19 History diltiazem HCl 240 mg PO DAILY 10/01/19 10/01/19 History escitalopram oxalate [Lexapro] 10 mg PO DAILY 10/01/19 10/01/19 History furosemide [Lasix] 20 mg PO DAILY 10/01/19 10/01/19 History glimepiride [Amaryl] 2 mg PO QAM 10/01/19 10/01/19 History lisinopril 10 mg PO DAILY 10/01/19 10/01/19 History loperamide 2 mg PO Q3H PRN 10/01/19 10/01/19 History meloxicam [Mobic] 15 mg PO DAILY 10/01/19 10/01/19 History omeprazole 20 mg PO DAILY 10/01/19 10/01/19 History Patient History Medical History Asthma (Chronic) Atrial fibrillation (Chronic) Coronary artery disease (Chronic) CVA (cerebral vascular accident) Diabetes (Chronic) Gout Heart disease (Chronic) Hypertension (Chronic) Mood disorder (Acute) Pneumonia (Acute) Surgical History History of hernia repair (Resolved) Social History Preferred Language: Chadian 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: Effective Satellite Technician Required: No Beliefs That Will Affect Care: None Current Living Situation: Alone Feels Safe at Home: Yes Smoking Status: Current every day smoker Tobacco Type: cigarettes ; Cigarettes Per Day: 10 ; Hx Alcohol Use: Yes Alcohol type: beer Hx Substance Use: No Review of Systems Review of Systems: All systems reviewed & are unremarkable except as noted in HPI & below Physical Exam Constitutional: WD/WN, vitals as above well developed and well nourished; no acute distress Respiratory: normal respiratory effort, lungs clear to auscultation Cardiovascular: Rate/Rhythm: + irregularly irregular Vessels: + carotid bruit and femoral pulses present Gastrointestinal (Abdomen): normal bowel sounds, soft, nontender, no hepatosplenomegaly Musculoskeletal: Extremities: extremities normal to inspection and + abnormal strength Neurologic: CN's II-XI intact bilaterally Speech / Cognition: + abnormal speech Motor/Sensory: no sensory deficit His strength on the right side of the body was 5/5.The arm was flaccid.The left leg was 4/5 strength. Psychiatric: Orientation: alert and oriented x 3
== END 2019-10-04 12:35 | disposition short-term general hospital (02) | DRG 65 ==
LOC: ED 16:27 → SUATTDRO 21:08 → 2N 21:08

== ENCOUNTER 2020-01-07 17:34 | Inpatient (IN) ==
[2020-01-07 18:02] LABS: Basophils # (auto) 0.03 K/uL (0-0.2); Basophils % (auto) 0.5 %; Eosinophils # (auto) 0.13 K/uL (0-0.5); Hematocrit (blood only) 32.9 % (42-52); Hemoglobin 10.3 g/dL (14.0-18.0); Immature Granulocytes # (auto) 0.01 K/uL (0.00-0.02); Immature Granulocytes % (auto) 0.2 %; Lymphocytes # (auto) 1.52 K/uL (1.2-3.4); Lymphocytes % (auto) 23.4 %; Mean Corpuscular Hemoglobin 32.3 pg (25-34); Mean Corpuscular Hgb Conc 31.3 g/dL (32-36); Mean Corpuscular Volume 103.1 fL (80-100); Mean Platelet Volume 10.3 fL (7.4-10.4); Monocytes # (auto) 0.38 K/uL (0.11-0.59); Monocytes % (auto) 5.8 %; Neutrophils # (auto) 4.43 K/uL (1.4-6.5); Neutrophils % (auto) 68.1 %; Platelet Count 163 K/uL (130-400); RDW Coefficient of Variation 16.1 % (11.5-14.5); RDW Standard Deviation 60.5 fL (36.4-46.3); Red Blood Count 3.19 M/uL (4.7-6.1)
[2020-01-07 18:13] LABS: INR 1.2 (0.9-1.1); Partial Thromboplastin Ratio 1.2; Prothrombin Time 12.7 Seconds (9.0-12.0)
[2020-01-07 18:18] LABS: Alanine Aminotransferase 27 U/L (12-78); Albumin Level 3.4 gm/dl (3.4-5.0); Aspartate Aminotransferase 21 U/L (15-37); BUN Creatinine Ratio 21.8 (10-20); Blood Urea Nitrogen 42 mg/dl (7-18); Calcium 9.2 mg/dl (8.5-10.1); Carbon Dioxide 24 mmol/L (21-32); Chloride 114 mmol/L (98-107); Creatinine Clr Calc Pharmacy 35.3 ml/min; Est GFR (African American) 38.1; Est GFR (Non-African American) 32.8; Glucose 136 mg/dl (70-99); Magnesium 2.1 mg/dl (1.8-2.4); Potassium 4.6 mmol/L (3.5-5.1); Sodium 142 mmol/L (136-145)
--- NOTE | 2020-01-07 18:26 | XRay Report ---
XR femur LT 2V routine CLINICAL HISTORY: Left femur pain status post trauma COMPARISON: None. DISCUSSION: No acute fractures or dislocations are visualized. IMPRESSION: No fractures or dislocations identified. ACT 112: Negative or not required by law. Electronically signed by: Felipe Rivero M.D. 01/07/2020 6:24 PM
--- NOTE | 2020-01-07 18:27 | XRay Report ---
XR femur RT 2V routine CLINICAL HISTORY: Right femur pain status post trauma COMPARISON: X-ray of the knee performed October 2016 DISCUSSION: No fractures or dislocations are visualized. There is a persistent cystic lesion involvin g the central tibial plateau. This was better demonstrated on the prior knee x-ray. IMPRESSION: No fractures or dislocations identified. ACT 112: Negative or not required by law. Electronically signed by: Felipe Rivero M.D. 01/07/2020 6:26 PM
--- NOTE | 2020-01-07 18:28 | XRay Report ---
XR chest 1V portable CLINICAL HISTORY: weakness COMPARISON STUDY: February 2014 FINDINGS: The heart is enlarged. There is mild vascular prominence without evidence of overt failure. There is no focal pulmonary consolidation.[No pleural effusions are visualized. IMPRESSION: Cardiomegaly with possible mild pulmonary venous hypertension.. No evidence of focal pulm onary consolidation. ACT 112: Negative or not required by law. Electronically signed by: Felipe Rivero M.D. 01/07/2020 6:27 PM
[2020-01-07 18:29] LABS: Albumin Globulin Ratio 0.7 (0.9-2); Alkaline Phosphatase 143 U/L (45-117); Bilirubin,Total 0.4 mg/dl (0.2-1); Creatine Kinase 96 U/L (39-308); Globulin 4.6 gm/dl (2.5-4.0); NT Pro B Type Natriuretic Pept 16544 pg/ml (0-1800); Troponin I < 0.015 ng/ml (0-0.045)
[2020-01-07 18:42] LABS: T4 Free Thyroxine 0.99 ng/dl (0.8-1.6)
--- NOTE | 2020-01-07 18:47 | Emergency Department Note ---
History of Present Illness General Chief complaint: Fall Stated complaint: GROIN & HIP PAIN Time Seen by Provider: 01/07/20 17:34 History of Present Illness Maximum Pain Intensity: 7 The patient is a 79-year-old male who has a history of atrial fibrillation as well as CVA in the past who fell last Monday and has been having difficulty ambulating with generalized weakness as well as pelvic pain. The patient describes bilateral lower extremity pain as well as hip pain he also describes pelvic pain. The patient denies striking his head. He denies having any headache or fever. He has noticed an increased swelling in his legs. The patient denies having any nausea or vomiting but has been describing worsening shortness of breath especially with exertion. The patient has not been seen by his primary care physician for these complaints. He arrived via ambulance. The patient describes no neck pain. He denies having any headaches or fevers. He is had no cough or exposures to anyone with febrile illnesses at this time. Home Medications Home Medications Medication Instructions Recorded Confirmed Type Combivent Respimat 1 puff INHALATION QID 10/01/19 01/07/20 History allopurinol 100 mg PO BID 10/01/19 01/07/20 History diltiazem HCl 240 mg PO DAILY 10/01/19 01/07/20 History escitalopram oxalate [Lexapro] 10 mg PO DAILY 10/01/19 01/07/20 History lisinopril 10 mg PO DAILY 10/01/19 01/07/20 History loperamide 2 mg PO QID PRN 10/01/19 01/07/20 History meloxicam [Mobic] 15 mg PO DAILY 10/01/19 01/07/20 History omeprazole 20 mg PO DAILY 10/01/19 01/07/20 History apixaban [Eliquis] 5 mg PO BID 01/07/20 01/07/20 History atorvastatin 40 mg PO DAILY 01/07/20 01/07/20 History glimepiride 2 mg PO QAM 01/07/20 01/07/20 History metoprolol succinate 25 mg PO DAILY 01/07/20 01/07/20 History Allergies Allergy/AdvReac Type Severity Reaction Status Date / Time Penicillins Allergy Unknown RASH Verified 01/07/20 19:40 Past Med/Surg History Medical History Asthma (Chronic) Atrial fibrillation (Chronic) Coronary artery disease (Chronic) CVA (cerebral vascular accident) Diabetes (Chronic) Gout Heart disease (Chronic) Hypertension (Chronic) Mood disorder (Acute) Pneumonia (Acute) Surgical History History of hernia repair (Resolved) Family History Mother No pertinent family history Social History Preferred Language: Sinhala 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: Effective Personnel Psychologist Required: No Beliefs That Will Affect Care: None Current Living Situation: Alone Current Living Situation Comment: lives in trailer, ex can help Feels Safe at Home: Yes Safety Concerns: Feels Safe At This Time Smoking Status: Former smoker Tobacco Type: cigarettes ; Cigarettes Per Day: 8/day. Quit in September ; Hx Alcohol Use: Yes Alcohol type: beer Hx Substance Use: No Review of Systems See HPI for pertinent positives & negatives. and A total of 10 systems reviewed and were otherwise negative Additional history was obtained from the prehospital personnel. Physical Exam Vital Signs Vital Signs - 24 hr 01/07/20 17:18 01/07/20 17:39 01/07/20 17:42 Temperature 36.5 C Temperature Source Oral Pulse Rate 60 58 L 53 L Pulse Rate [Finger] Pulse Rate from SpO2 Sensor 60 57 L Pulse Rhythm Regular Pulse Rhythm [Finger] Pulse Strength Normal Pulse Strength [Finger] Respiratory Rate 20 22 22 Respiratory Effort / Characteristics Non-Labored Spontaneous Respiratory Depth Normal Respiratory Pattern Regular Blood Pressure 160/90 H 160/90 H Blood Pressure [Right Arm] Blood Pressure Mean 113 116 Blood Pressure Mean [Right Arm] Blood Pressure Position Sitting Blood Pressure Position [Right Arm] Pulse Oximetry 96 93 97 Oxygen Delivery Method Room Air Oxygen Flow Rate Sepsis Recent Fever Within 48 Hours No Sepsis New/Unexplained Change in Mental Status No Sepsis Action Taken by Nursing No Action Required 01/07/20 17:50 01/07/20 18:00 01/07/20 18:10 Temperature Temperature Source Pulse Rate 53 L 48 L 46 L Pulse Rate [Finger] Pulse Rate from SpO2 Sensor 49 L Pulse Rhythm Pulse Rhythm [Finger] Pulse Strength Pulse Strength [Finger] Respiratory Rate 20 23 23 Respiratory Effort / Characteristics Respiratory Depth Respiratory Pattern Blood Pressure Blood Pressure [Right Arm] Blood Pressure Mean Blood Pressure Mean [Right Arm] Blood Pressure Position Blood Pressure Position [Right Arm] Pulse Oximetry 95 Oxygen Delivery Method Oxygen Flow Rate Sepsis Recent Fever Within 48 Hours Sepsis New/Unexplained Change in Mental Status Sepsis Action Taken by Nursing 01/07/20 18:20 01/07/20 18:21 01/07/20 18:30 Temperature Temperature Source Pulse Rate 49 L 41 L 38 L Pulse Rate [Finger] Pulse Rate from SpO2 Sensor 45 L 36 L Pulse Rhythm Pulse Rhythm [Finger] Pulse Strength Pulse Strength [Finger] Respiratory Rate 20 23 20 Respiratory Effort / Characteristics Respiratory Depth Respiratory Pattern Blood Pressure 146/65 H 151/73 H Blood Pressure [Right Arm] Blood Pressure Mean 95 103 Blood Pressure Mean [Right Arm] Blood Pressure Position Blood Pressure Position [Right Arm] Pulse Oximetry 98 98 Oxygen Delivery Method Oxygen Flow Rate Sepsis Recent Fever Within 48 Hours Sepsis New/Unexplained Change in Mental Status Sepsis Action Taken by Nursing 01/07/20 18:31 01/07/20 18:35 01/07/20 18:40 Temperature Temperature Source Pulse Rate 41 L 36 L Pulse Rate [Finger] Pulse Rate from SpO2 Sensor 38 L 36 L Pulse Rhythm Pulse Rhythm [Finger] Pulse Strength Pulse Strength [Finger] Respiratory Rate 22 17 Respiratory Effort / Characteristics Respiratory Depth Respiratory Pattern Blood Pressure Blood Pressure [Right Arm] Blood Pressure Mean Blood Pressure Mean [Right Arm] Blood Pressure Position Blood Pressure Position [Right Arm] Pulse Oximetry 97 96 96 Oxygen Delivery Method Nasal Cannula Oxygen Flow Rate 2 Sepsis Recent Fever Within 48 Hours Sepsis New/Unexplained Change in Mental Status Sepsis Action Taken by Nursing 01/07/20 19:37 01/07/20 20:17 01/07/20 20:23 Temperature Temperature Source Pulse Rate 48 L Pulse Rate [Finger] 42 L 47 L Pulse Rate from SpO2 Sensor Pulse Rhythm Pulse Rhythm [Finger] Regular Pulse Strength Pulse Strength [Finger] Normal Respiratory Rate 18 20 16 Respiratory Effort / Characteristics Non-Labored Spontaneous Non-Labored Spontaneous Respiratory Depth Normal Normal Respiratory Pattern Regular Regular Blood Pressure 146/76 H Blood Pressure [Right Arm] 149/73 H 146/76 H Blood Pressure Mean 109 Blood Pressure Mean [Right Arm] 98 99 Blood Pressure Position Blood Pressure Position [Right Arm] Lying Lying Pulse Oximetry 100 100 Oxygen Delivery Method Nasal Cannula Nasal Cannula Oxygen Flow Rate 2 2 Sepsis Recent Fever Within 48 Hours Sepsis New/Unexplained Change in Mental Status Sepsis Action Taken by Nursing GENERAL: The patient is awake and alert. He is somewhat anxious appearing but overall comfortable. EYES: The conjunctivae are clear. The pupils are round and reactive. EARS, NOSE, MOUTH AND THROAT: The nose is without any evidence of any deformity. Mucous membranes are moist. NECK: The neck is nontender and supple. There is no point tenderness. Range of motion appears intact without pain. RESPIRATORY: Shallow respirations were noted with diminished breath sounds noted throughout. There were rales at both bases. There was significant tachypnea as well as conversational dyspnea. CARDIOVASCULAR: Bradycardic rate with regular rhythm was noted. There was no definite murmur. GASTROINTESTINAL: The abdomen was moderately distended and nontender. There is no specific guarding rigidity. BACK: No midline tenderness or or step-off noted range of motion in flexion extension as well as rotation no signs of muscle spasm noted MUSCULOSKELETAL/EXTREMITIES: There were no deformities noted. Range of motion of both hips elicits pain. SKIN: Skin was warm and dry. There is pedal edema bilaterally. Pulses are symmetric in both feet. NEUROLOGIC: Patient is awake alert and oriented x3. Patient has left-sided weakness consistent with previous CVA. The patient follows commands well. Course Administered Medications Fentanyl Citrate (Fentanyl Citrate) 25 mcg IV Q15M PRN PRN Reason: Pain Stop: 01/21/20 19:41 Last Admin: 01/07/20 20:11 Dose: 25 mcg Documented by: [id number] Discontinued Medications Furosemide (Lasix) 20 mg IV NOW STA Stop: 01/07/20 21:07 Last Admin: 01/07/20 21:18 Dose: 20 mg Documented by: [id number] Ondansetron HCl (Zofran) 4 mg IV NOW STA Stop: 01/07/20 19:43 Last Admin: 01/07/20 20:11 Dose: 4 mg Documented by: [id number] Medical Decision Making Differential Diagnosis Infection, dehydration, metabolic abnormality, hypo/hyperglycemia, electrolyte disturbance, anemia, hypoxia, cardiac sources, intracerebral event, toxicologic, neurologic, as well as other pathologies. Medical Records Attestation: I reviewed the patient's medical records. Home Medications Current Medication List: was personally reviewed by me Laboratory Data Attestation: I reviewed the patient's lab results. Result diagrams: 01/07/20 17:50 01/07/20 17:50 Lab Results 01/07/20 01/07/20 01/07/20 Range/Units 17:50 17:50 17:50 WBC 6.50 (4.8-10.8) K/uL RBC 3.19 L (4.7-6.1) M/uL Hgb 10.3 L (14.0-18.0) g/dL Hct 32.9 L (42-52) % MCV 103.1 H (80-100) fL MCH 32.3 (25-34) pg MCHC 31.3 L (32-36) g/dL RDW Std Deviation 60.5 H (36.4-46.3) fL RDW Coeff of Dwain 16.1 H (11.5-14.5) % Plt Count 163 (130-400) K/uL MPV 10.3 (7.4-10.4) fL Immature Gran % (Auto) 0.2 % Neut % (Auto) 68.1 % Lymph % (Auto) 23.4 % Apache % (Auto) 5.8 % Eos % (Auto) 2.0 % Baso % (Auto) 0.5 % Immature Gran # (Auto) 0.01 (0.00-0.02) K/uL Neut # (Auto) 4.43 (1.4-6.5) K/uL Lymph # (Auto) 1.52 (1.2-3.4) K/uL [place] # (Auto) 0.38 (0.11-0.59) K/uL Eos # (Auto) 0.13 (0-0.5) K/uL Baso # (Auto) 0.03 (0-0.2) K/uL PT 12.7 H (9.0-12.0) Seconds INR 1.2 H (0.9-1.1) APTT 33.0 H (21.0-31.0) Seconds PTT Ratio 1.2 Sodium 142 (136-145) mmol/L Potassium 4.6 (3.5-5.1) mmol/L Chloride 114 H (98-107) mmol/L Carbon Dioxide 24 (21-32) mmol/L Anion Gap 4.0 (3-11) BUN 42 H (7-18) mg/dl Creatinine 1.92 H (0.6-1.4) mg/dl Est Cr Clr Drug Dosing 35.3 ml/min Est GFR ( Amer) 38.1 Est GFR (Non-Af Amer) 32.8 BUN/Creatinine Ratio 21.8 H (10-20) Glucose 136 H (70-99) mg/dl Calcium 9.2 (8.5-10.1) mg/dl Magnesium 2.1 (1.8-2.4) mg/dl Total Bilirubin 0.4 (0.2-1) mg/dl AST 21 (15-37) U/L ALT 27 (12-78) U/L Alkaline Phosphatase 143 H (45-117) U/L Total Creatine Kinase 96 (39-308) U/L Troponin I < 0.015 (0-0.045) ng/ml NT-Pro-B Natriuret Pep 16200 H (0-1800) pg/ml Total Protein 8.0 (6.4-8.2) gm/dl Albumin 3.4 (3.4-5.0) gm/dl Globulin 4.6 H (2.5-4.0) gm/dl Albumin/Globulin Ratio 0.7 L (0.9-2) TSH 5.580 H (0.300-4.500) uIu/ml Free T4 0.99 (0.8-1.6) ng/dl Hep Bs Antigen (Neg) 01/07/20 Range/Units 17:50 WBC (4.8-10.8) K/uL RBC (4.7-6.1) M/uL Hgb (14.0-18.0) g/dL Hct (42-52) % MCV (80-100) fL MCH (25-34) pg MCHC (32-36) g/dL RDW Std Deviation (36.4-46.3) fL RDW Coeff of Dwain (11.5-14.5) % Plt Count (130-400) K/uL MPV (7.4-10.4) fL Immature Gran % (Auto) % Neut % (Auto) % Lymph % (Auto) % [place] % (Auto) % Eos % (Auto) % Baso % (Auto) % Immature Gran # (Auto) (0.00-0.02) K/uL Neut # (Auto) (1.4-6.5) K/uL Lymph # (Auto) (1.2-3.4) K/uL [place] # (Auto) (0.11-0.59) K/uL Eos # (Auto) (0-0.5) K/uL Baso # (Auto) (0-0.2) K/uL PT (9.0-12.0) Seconds INR (0.9-1.1) APTT (21.0-31.0) Seconds PTT Ratio Sodium (136-145) mmol/L Potassium (3.5-5.1) mmol/L Chloride (98-107) mmol/L Carbon Dioxide (21-32) mmol/L Anion Gap (3-11) BUN (7-18) mg/dl Creatinine (0.6-1.4) mg/dl Est Cr Clr Drug Dosing ml/min Est GFR ( Amer) Est GFR (Non-Af Amer) BUN/Creatinine Ratio (10-20) Glucose (70-99) mg/dl Calcium (8.5-10.1) mg/dl Magnesium (1.8-2.4) mg/dl Total Bilirubin (0.2-1) mg/dl AST (15-37) U/L ALT (12-78) U/L Alkaline Phosphatase (45-117) U/L Total Creatine Kinase (39-308) U/L Troponin I (0-0.045) ng/ml NT-Pro-B Natriuret Pep (0-1800) pg/ml Total Protein (6.4-8.2) gm/dl Albumin (3.4-5.0) gm/dl Globulin (2.5-4.0) gm/dl Albumin/Globulin Ratio (0.9-2) TSH (0.300-4.500) uIu/ml Free T4 (0.8-1.6) ng/dl Hep Bs Antigen Neg (Neg) Imaging Data Radiologist's Impression: CT head/brain wo con CLINICAL HISTORY: Head pain and confusion status post trauma COMPARISON STUDY: 10/03/2019 TECHNIQUE: Axial CT of the brain is performed from the vertex to the skull base. IV contrast was not administered for this examination. A dose lowering te chnique was utilized adhering to the principles of ALARA. CT DOSE: FINDINGS: No intra or extra-axial mass lesions are visualized. There is no CT evidence of acute cortical infarction. There is no evidence of midline shift. There is no acute hemorrhage. No calvarial fractures are visualized. There are patchy white matter hypodensities likely on a small vessel basis. There is an old deep white matter infarct adjacent to the body of the right lateral ventricle. There is no evidence of pathologic ventricular dilatation. There is mild ethmoid sinus mucosal disease. There is shaped nasal septal deviation. IMPRESSION: No acute intracranial findings ACT 112: Negative or not required by law. Electronically signed by: Felipe Rivero M.D. 01/07/2020 7:17 PM Dictated: 01/07/201915 Transcribed: 01/07/201915 XR femur RT 2V routine CLINICAL HISTORY: Right femur pain status post trauma COMPARISON: X-ray of the knee performed October 2016 DISCUSSION: No fractures or dislocations are visualized. There is a persistent cystic lesion involving the central tibial plateau. This was better demonstrated on the prior knee x-ray. IMPRESSION: No fractures or dislocations identified. ACT 112: Negative or not required by law. Electronically signed by: Felipe Rivero M.D. 01/07/2020 6:26 PM Dictated: 01/07/201823 Transcribed: 01/07/201823 XR femur LT 2V routine CLINICAL HISTORY: Left femur pain status post trauma COMPARISON: None. DISCUSSION: No acute fractures or dislocations are visualized. IMPRESSION: No fractures or dislocations identified. ACT 112: Negative or not required by law. Electronically signed by: Felipe Rivero M.D. 01/07/2020 6:24 PM Dictated: 01/07/201822 Transcribed: 01/07/201822 XR chest 1V portable CLINICAL HISTORY: weakness COMPARISON STUDY: February 2014 FINDINGS: The heart is enlarged. There is mild vascular prominence without evidence of overt failure. There is no focal pulmonary consolidation.[No pleural effusions are visualized. IMPRESSION: Cardiomegaly with possible mild pulmonary venous hypertension.. No evidence of focal pulmonary consolidation. ACT 112: Negative or not required by law. Electronically signed by: Felipe Rivero M.D. 01/07/2020 6:27 PM Dictated: 01/07/201825 Transcribed: 01/07/201825 CT OF THE CERVICAL SPINE CLINICAL HISTORY: Neck pain status post trauma COMPARISON STUDY: No previous studies for comparison. CT DOSE: TECHNIQUE: CT scan of the cervical spine was performed from the skull base to the thoracic inlet. Images are reviewed in the axial, sagittal, and coronal planes. IV contrast was not administered for this examination. A dose lowering technique was utilized adhering to the principles of ALARA. FINDINGS: The visualized portions of the lung apices reveal no evidence of pneumothorax. The prevertebral soft tissues are normal. No fractures or traumatic subluxations are visualized. There is incomplete posterior C1 arch, a developmental finding. There are multilevel degenerative changes IMPRESSION: No evidence of acute fracture or traumatic subluxation. ACT 112: Negative or not required by law. Electronically signed by: Felipe Rivero M.D. 01/07/2020 7:21 PM Dictated: 01/07/201917 Transcribed: 01/07/201917 CT SCAN OF THE ABDOMEN AND PELVIS WITHOUT CONTRAST CLINICAL HISTORY: Abdominal pain status post trauma COMPARISON STUDY: No previous studies for comparison. TECHNIQUE: CT scan of the abdomen and pelvis was performed from the lung bases to the proximal femurs. Images are reviewed in the axial, sagittal, and coronal planes. IV contrast was not administered for this examination. A dose lowering technique was utilized adhering to the principles of ALARA. CT DOSE: 2607.40 mGy.cm FINDINGS: Lower chest: The heart is enlarged. There are small bilateral pleural effusions. There are dependent airspace opacities, likely atelectatic. No pneumothorax is visualized. Liver: The liver has a cirrhotic morphology. Gallbladder: There is hyperdense bile/milk of calcium. Spleen: The spleen is mildly enlarged measuring 13 cm. Pancreas: Unremarkable. Adrenal glands: There is mild bilateral low density adrenal gland thickening. Kidneys: In addition to bilateral renal cysts, there is a 4.5 cm exophytic right renal mass which exceeds water attenuation. A dedicated renal CT scan or MRI is recommended in follow-up for further evaluation. In addition there is a 1 cm hyperdense left renal cyst. Bowel: There are no transition zones indicate bowel obstruction. There is colonic diverticulosis. There are no acute peridiverticular inflammatory changes. There are no findings to indicate acute appendicitis. Peritoneum: There is no intraperitoneal free air or abdominal ascites. Vasculature: The abdominal aorta is normal in course and caliber. Adenopathy: None. Pelvic viscera: The bladder, and pelvic viscera are unremarkable. Skeletal structures: There is a nondisplaced fracture of the left inferior pubic ramus. There is a nondisplaced fracture involving the anterior lip of the left acetabulum. There is a 29 mm lytic lesion involving the medial left iliac bone. IMPRESSION: 1. Acute nondisplaced fracture involving the left acetabulum 2. Nondisplaced fracture of the left inferior pubic ramus 3. No evidence of solid organ injury given the limitations of a noncontrast study 4. 29 mm lytic lesion involving the medial left iliac bone 5. Indeterminate 4.5 cm right renal mass. A dedicated renal CT scan or MRI is recommended for further evaluation. 6. Cirrhotic morphology the liver. Mild splenomegaly 7. Small bilateral pleural effusions and dependent atelectasis 8. Hyperdense bile versus milk of calcium within the gallbladder 9. Trace ascites ACT 112: Negative or not required by law. Electronically signed by: Felipe Rivero M.D. 01/07/2020 7:30 PM ECG Data Attestation: I personally reviewed and interpreted this ECG as follows: Indication: + weakness Rate (beats per minute): 41 Additional Comments: EKG was obtained in the emergency department. My interpretation is junctional rhythm at 41 bpm. There was some widened QRS complexes noted in the inferior leads. There were no definite PVCs. This tracing was compared to one from October 01, 2019. The significant difference was a decrease rate otherwise no significant change. Blood Pressure Blood Pressure Findings: Elevated blood pressure Blood Pressure Disposition: further management by hospitalist DEXTER Nayak The patient is a 79-year-old male who presented to the emergency department by ambulance for an evaluation of lower extremity pain after a fall last week. The patient has a history of stroke in the past which left him with left-sided weakness. He also has a history of atrial fibrillation. He states that he had a fall last week where he landed on his left side. The patient has been complaining of bilateral hip pain bilateral thigh pain and difficulty ambulating. He has noticed some swelling in his legs. On evaluation he was found to have bradycardia as well as difficulty breathing. I do feel overall his physical exam is consistent with CHF. I discussed the patient's laboratory and radiographic studies with him. He was found to have signs of an acetabular as well as a pelvic fracture. He was also felt to be in CHF. He had multiple episodes of bradycardia which appears to be junctional but it could be slow atrial fibrillation given the patient's history. Given the patient's multiple issues I discussed his case with the on-call [facility] hospitalist group. They have agreed to evaluate the patient in the emergency department for further management disposition. The patient was treated with IV pain medication in the emergency department. Impression & Plan CHF (congestive heart failure), Bradycardia, Acetabulum fracture, left, Fracture of inferior pubic ramus, Fall Discharge Plan Visit Data *Final* Discharge Date/Time: 01/07/20 21:30 Chief Complaint: Fall Stated Complaint: GROIN & HIP PAIN ED Provider: Geovani Wilkinson Discharge Problem: CHF (congestive heart failure), Bradycardia, Acetabulum fracture, left, Fracture of inferior pubic ramus, Fall Patient Disposition: Admitted As Inpatient Condition: Good Discharge Instructions Interventions: ED Discharge Assessment Last Done: 01/07/20 21:30 Discharge Problem: CHF (congestive heart failure) Qualifiers: Heart failure type: unspecified Heart failure chronicity: acute Qualified Code(s): I50.9 - Heart failure, unspecified Acetabulum fracture, left Qualifiers: Encounter type: initial encounter Sublocation of acetabulum: unspecified portion of acetabulum Fracture type: closed Fracture alignment: nondisplaced Qualified Code(s): S32.402A - Unspecified fracture of left acetabulum, initial encounter for closed fracture Fracture of inferior pubic ramus Qualifiers: Encounter type: initial encounter Fracture type: closed Laterality: left Qualified Code(s): S32.592A - Other specified fracture of left pubis, initial encounter for closed fracture Fall Qualifiers: Encounter type: initial encounter Qualified Code(s): W19.XXXA - Unspecified fall, initial encounter
--- NOTE | 2020-01-07 19:19 | CT Scan Report ---
CT head/brain wo con CLINICAL HISTORY: Head pain and confusion status post trauma COMPARISON STUDY: 10/03/2019 TECHNIQUE: Axial CT of the brain is performed from the vertex to the skull base. IV contrast was not administered for this examination. A dose lowering technique was utilized adhering to the principles of ALARA. CT DOSE: FINDINGS: No intra or extra-axial mass lesions are visualized. There is no CT evidence of acute cortical infarc tion. There is no evidence of midline shift. There is no acute hemorrhage. No calvarial fractures ar e visualized. There are patchy white matter hypodensities likely on a small vessel basis. There is an old deep whit e matter infarct adjacent to the body of the right lateral ventricle. There is no evidence of pathologic ventricular dilatation. There is mild ethmoid sinus mucosal disease. There is shaped nasal septal deviation. IMPRESSION: No acute intracranial findings ACT 112: Negative or not required by law. Electronically signed by: Felipe Rivero M.D. 01/07/2020 7:17 PM
--- NOTE | 2020-01-07 19:22 | CT Scan Report ---
CT OF THE CERVICAL SPINE CLINICAL HISTORY: Neck pain status post trauma COMPARISON STUDY: No previous studies for comparison. CT DOSE: TECHNIQUE: CT scan of the cervical spine was performed from the skull base to the thoracic inlet. Brenna ges are reviewed in the axial, sagittal, and coronal planes. IV contrast was not administered for thi s examination. A dose lowering technique was utilized adhering to the principles of ALARA. FINDINGS: The visualized portions of the lung apices reveal no evidence of pneumothorax. The prevertebral soft tissues are normal. No fractures or traumatic subluxations are visualized. The re is incomplete posterior C1 arch, a developmental finding. There are multilevel degenerative changes IMPRESSION: No evidence of acute fracture or traumatic subluxation. ACT 112: Negative or not required by law. Electronically signed by: Felipe Rivero M.D. 01/07/2020 7:21 PM
--- NOTE | 2020-01-07 19:32 | CT Scan Report ---
CT SCAN OF THE ABDOMEN AND PELVIS WITHOUT CONTRAST CLINICAL HISTORY: Abdominal pain status post trauma COMPARISON STUDY: No previous studies for comparison. TECHNIQUE: CT scan of the abdomen and pelvis was performed from the lung bases to the proximal femurs . Images are reviewed in the axial, sagittal, and coronal planes. IV contrast was not administered fo r this examination. A dose lowering technique was utilized adhering to the principles of ALARA. CT DOSE: 2607.40 mGy.cm FINDINGS: Lower chest: The heart is enlarged. There are small bilateral pleural effusions. There are dependent airspace opacities, likely atelectatic. No pneumothorax is visualized. Liver: The liver has a cirrhotic morphology. Gallbladder: There is hyperdense bile/milk of calcium. Spleen: The spleen is mildly enlarged measuring 13 cm. Pancreas: Unremarkable. Adrenal glands: There is mild bilateral low density adrenal gland thickening. Kidneys: In addition to bilateral renal cysts, there is a 4.5 cm exophytic right renal mass which exc eeds water attenuation. A dedicated renal CT scan or MRI is recommended in follow-up for further eval uation. In addition there is a 1 cm hyperdense left renal cyst. Bowel: There are no transition zones indicate bowel obstruction. There is colonic diverticulosis. The re are no acute peridiverticular inflammatory changes. There are no findings to indicate acute append icitis. Peritoneum: There is no intraperitoneal free air or abdominal ascites. Vasculature: The abdominal aorta is normal in course and caliber. Adenopathy: None. Pelvic viscera: The bladder, and pelvic viscera are unremarkable. Skeletal structures: There is a nondisplaced fracture of the left inferior pubic ramus. There is a no ndisplaced fracture involving the anterior lip of the left acetabulum. There is a 29 mm lytic lesion involving the medial left iliac bone. IMPRESSION: 1. Acute nondisplaced fracture involving the left acetabulum 2. Nondisplaced fracture of the left inferior pubic ramus 3. No evidence of solid organ injury given the limitations of a noncontrast study 4. 29 mm lytic lesion involving the medial left iliac bone 5. Indeterminate 4.5 cm right renal mass. A dedicated renal CT scan or MRI is recommended for further evaluation. 6. Cirrhotic morphology the liver. Mild splenomegaly 7. Small bilateral pleural effusions and dependent atelectasis 8. Hyperdense bile versus milk of calcium within the gallbladder 9. Trace ascites ACT 112: Negative or not required by law. Electronically signed by: Felipe Rivero M.D. 01/07/2020 7:30 PM
[2020-01-07] MEDS ORDERED: ONDANSETRON INJ 2 MG/ML 2 ML VIAL IV STA (19:42)
[2020-01-07] MEDS ORDERED: fentaNYL citrate 100 MCG/2 ML VIAL IV PRN (19:42)
[2020-01-07] MEDS ORDERED: FUROSEMIDE 40 MG/4 ML VIAL IV STA (21:06)
--- NOTE | 2020-01-07 21:32 | History & Physical Report ---
Date of Service January 07, 2020 Assessment & Plan (1) Fall: Mr. Dunn is a medically complicated 79 yo M presenting for evaluation of pelvic pain after sustaining a fall, found to have multiple pelvic fractures. 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 Continue risk factor management with anti-hypertensives, anti-glycemics, and high-intensity statin. * Hx Depression - continue home dose lexapro Cardiac: * Bradycardia - heart rate 48 bpm on admission. Patient reports dizziness when going from a sitting to a standing position, which provoked his fall on 01/02. It is possible this episode represents underlying orthostatic bradycardia. Patient is currently on two chronotropic agents, Metoprolol succinate 25mg, daily and diltiazem 240mg qAM. We will hold metoprolol at this time. Patient admitted to telemetry. Cardiology consult placed. * Hx Atrial Fibrillation - on anticoagulation with Eliquis. Rate control with metoprolol and diltiazem. EKG on admission showed junctional rhythm. * Hx CHF - echo from 09/2019 showing normal LV systolic function, normal EF at 55-60%, mild concentric LVH, mild mitral regurg. Patient with elevated NT-Pro BNP to 16,544 on admission, small bilateral pleural effusions visualized on CT scan, pedal edema and rales on exam. May represent exacerbation. Not on any home diuretic therapy. Ordered 1 dose of IV lasix, 20mg. Gentle diuretic dosing in the setting of CKD * HTN - BP currently at 129/64. Continue home lisinopril, diltiazem. Holding home metoprolol in the setting of bradycardia. * CAD/Dyslipidemia - troponin undetectable on admission. continue atorvastatin 40mg. Respiratory: * Dyspnea on exertion: etiology unknown, may be secondary to volume overload with bilateral pleural effusions present on CT scan vs. symptomatic bradycardia vs. deconditioning vs. asthma exacerbation. Asthma exacerbation is less likely, as wheezing not appreciated on exam. Patient reports getting around well prior to past month, so deconditioning may be contributory but unlikely to be cause. IV lasix as above. Supplemental O2 as needed. * Hx Asthma - continue Combivent inhaler GI: * Cirrhosis - Liver with cirrhotic appearance on a/p CT scan. AST and ALT WNL. Patient currently does not drink; denies significant EtOH history. Ordered Hep B and C testing for work up of cirrhosis. * Mild Splenomegaly - noted on A/p CT scan. Etiology unknown. * Biliary sludge vs. milk of calcium in gallbladder without stones noted on A/p CT scan. patient does not seem to be having biliary-related pain, will hold off on further imaging at this point * GERD - continue home dose protonix RENAL/LYTES: * Hx Stage 3 CKD - Cr 1.92 on admission, which is his baseline. Renally dose meds as appropriate. * Renal Mass - 4.5cm mass of Right kidney noted on a/p CT scan on admission. Given lytic bone lesion, may represent renal cell carcinoma with bony metastasis, although would have expected significant lymphadenopathy and/or additional lytic lesions. Ordered renal MRI for further characterization; MRI favored over CT given hx CKD; GFR > 30 so contrast is acceptable. : * UA ordered. MSK: * Acute, non-displaced left acetabular fracture and left inferior pubic ramus fracture - secondary to fall as described above. patient received 25 mcg of fentanyl in ED. Pain control with Tylenol ordered prn. Avoid NSAIDs with known CKD. * 29mm lytic lesion of medial left iliac bone identified on A/P CT scan - concer krishna for metastatic lesion given 4.5 cm R renal mass (ie possible renal cell carcinoma). Further characterize renal mass, pain control as above. ENDO: * Hx Diabetes Mellitus - A1c at goal at 6.8 from 10/14. continue glimpiride 2mg, PO, qAM. Diabetic diet * Hx Hypothyroidism - TSH mildly elevated to 5.5 on admission. Patient currently not on replacement. HEME: * Macrocytic anemia - Hgb 10.3, MCV 103 on admission. possible source of SOB, although felt to be unlikely. Folate and B12 levels ordered. Transfuse if Hgb < 7. ID: * WBC normal on admission. No suspicion for infection at this time CODE STATUS: DNR/DNI DVT PROPHYLAXIS: on Eliquis FEN/GI: Heart Healthy, Diabetic Diet Dispo: Tele, PT ordered History of Present Illness Primary Care Provider: NO PCP Mr. Dunn is a 79 yo male with a PMHx of Atrial Fibrillation, on Eliquis who came to the ED for generalized weakness and pelvic pain that began after sustaining a fall on 01/02. Mr. Dunn reports a dizzy sensation after going from a sitting to a standing position which preceded his fall; he is unable to say whether he experienced associated palpations. He does report striking the left side of his head when he fell. Mr. Dunn is somewhat of a poor historian, but does remark the idea of a pacemaker being discussed with him in the past by a doctor. He is currently on two chronotropic agents, metoprolol succinate, 25mg daily and diltiazem 240mg, daily. 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 He also reports associated SOB with exertion and swelling of his bilateral lower extremities over the past 4 weeks. He denies PND or orthopnea. Admits to high sodium intake. He does have a history of CHF, although most recent echo from 09/2019 showed normal LV systolic function with an EF 55-60%. ED course: Patient afebrile, BP 146/76, HR 48, RR 16. WBC normal. Hgb 103, MCV 103. Electrolytes WNL. Cr 1.92, which appears to be at baseline. INR 1.2. AST and ALT WNL. TSH mildly elevated to 5.5. NT-Pro BNP elevated to 16,544. UA ordered, not yet collected. EKG showing junctional bradycardia at 41 bpm. CXR showing vascular prominence without overt failure. Abdominopelvic CT scan showing small, bilateral pleural effusions, acute non-displaced fracture of L acetabulum, non-displaced fracture of left inferior pubic ramus, a 29mm lytic lesion of medial left iliac bone, mild splenomegaly, a 4.5 cm right renal mass, liver with cirrhotic appearance, biliary sludge vs. milk of calcium in gallbladder without stones. Head CT without acute intracranial abnormality. C- Spine CT showing no fractures or subluxations. Bilateral femur Xrays showing no fractures. Administered 25mcg of fentanyl, which totally relieved his pelvic pain. Allergies Allergy/AdvReac Type Severity Reaction Status Date / Time Penicillins Allergy Unknown RASH Verified 01/07/20 19:40 Home Medications Home Medications Medication Instructions Recorded Confirmed Type Combivent Respimat 1 puff INHALATION QID 10/01/19 01/07/20 History allopurinol 100 mg PO BID 10/01/19 01/07/20 History diltiazem HCl 240 mg PO DAILY 10/01/19 01/07/20 History escitalopram oxalate [Lexapro] 10 mg PO DAILY 10/01/19 01/07/20 History lisinopril 10 mg PO DAILY 10/01/19 01/07/20 History loperamide 2 mg PO QID PRN 10/01/19 01/07/20 History meloxicam [Mobic] 15 mg PO DAILY 10/01/19 01/07/20 History omeprazole 20 mg PO DAILY 10/01/19 01/07/20 History apixaban [Eliquis] 5 mg PO BID 01/07/20 01/07/20 History atorvastatin 40 mg PO DAILY 01/07/20 01/07/20 History glimepiride 2 mg PO QAM 01/07/20 01/07/20 History metoprolol succinate 25 mg PO DAILY 01/07/20 01/07/20 History Past Med/Surg History Medical History Asthma (Chronic) Atrial fibrillation (Chronic) Coronary artery disease (Chronic) CVA (cerebral vascular accident) Diabetes (Chronic) Gout Heart disease (Chronic) Hypertension (Chronic) Mood disorder (Acute) Pneumonia (Acute) Surgical History History of hernia repair (Resolved) Family History Mother No pertinent family history Social History Preferred Language: Congolese 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: Effective Circuit Court Clerk Required: No Beliefs That Will Affect Care: None Current Living Situation: Alone Current Living Situation Comment: lives in trailer, ex can help Feels Safe at Home: Yes Safety Concerns: Feels Safe At This Time Smoking Status: Former smoker Tobacco Type: cigarettes ; Cigarettes Per Day: 8/day. Quit in September ; Hx Alcohol Use: Yes Alcohol type: beer Hx Substance Use: No Review of Systems Review of Systems: All systems reviewed & are unremarkable except as noted in HPI & below Physical Exam Constitutional: WD/WN, vitals as above cooperative Eyes: PERRL, conjunctivae normal, anicteric sclerae ENMT: external ear and nose normal, oropharynx normal Neck: normal visual inspection and trachea midline Respiratory: normal respiratory effort Auscultation: + diminished lung sounds and + rales (bilateral lung bases) Cardiovascular: Rate/Rhythm: + bradycardic; + abnormal rhythm Heart Sounds: normal S1 and normal S2; no murmur Extremities: + pedal edema (+1 bilateral pitting edema) Gastrointestinal (Abdomen): Inspection/Auscultation: + abdomen distended and normal bowel sounds Percussion/Palpation: + abdomen tender (mildy tender in left upper quadrant) and + abdomen firm; no guarding Musculoskeletal: + pain reported with internal and external rotation of bilateral hips Skin: no rashes, warm and dry Neurologic: + focal motor deficit (weakness of left upper and lower extremities) Speech / Cognition: + abnormal speech (mild dysarthria) Psychiatric: A+Ox3, euthymic affect Results & Data Results & Data ([facility]) Vital Signs (Past 12 Hours) Vital Signs Temp Pulse Pulse Resp BP BP Pulse Ox 01/07/20 20:23 48 L 16 146/76 H 01/07/20 20:17 47 L 20 146/76 H 100 01/07/20 19:37 42 L 18 149/73 H 100 01/07/20 18:40 36 L 17 96 01/07/20 18:35 96 01/07/20 18:31 41 L 22 97 01/07/20 18:30 38 L 20 151/73 H 98 01/07/20 18:21 41 L 23 146/65 H 98 01/07/20 18:20 49 L 20 01/07/20 18:10 46 L 23 01/07/20 18:00 48 L 23 95 01/07/20 17:50 53 L 20 01/07/20 17:42 53 L 22 97 01/07/20 17:39 58 L 22 160/90 H 93 01/07/20 17:18 36.5 C 60 20 160/90 H 96 Code Status & VTE Plan VTE Prophylaxis Plan VTE Prophylaxis will be ordered: Yes Supervising Physician Co-Signing Physician Notes Attending addendum: I have physically seen this patient, have supervised the medical residents activities, and agree with the H&P unless as otherwise noted. Assessment and Plan: Nondisplaced left acetabular and left inferior pubic ramus fractures- Status post fall. Not noted as pathologic fractures by radiology. Left medial iliac 29 mm lytic lesion. Pain control as noted. We will consult PT/OT. Noted to have previous issues with dizziness. Atrial fibrillation/admission bradycardia/hypertension/CAD/CHF- Hold Cardizem CD 240 mg daily and metoprolol succinate. Continue apixaban. Most recent echo 09/2019 with EF 55 to 60%. Consult cardiology. Remainder of orders and notations as noted. Resident Activity Tracking Resident Involvement: Resident Care Provided Care Provided: Adult Hospital Medicine (1) Fall Encounter type: initial encounter Qualified Code(s): W19.XXXA - Unspecified fall, initial encounter
[2020-01-07] MEDS ORDERED: LOPERAMIDE HCL 2 MG CAP PO PRN (22:18)
[2020-01-07] MEDS ORDERED: GLUCOSE 10 TABS/TUBE PO PRN (22:30)
[2020-01-07] MEDS ORDERED: DEXTROSE 50% 50 ML SYRINGE IV PRN (22:30)
[2020-01-07] MEDS ORDERED: GLUCAGON FOR INJ 1 MG VIAL IM PRN (22:30)
[2020-01-07] MEDS ORDERED: GLUCOSE 40% GEL 15 GM TUBE PO PRN (22:30)
[2020-01-07] MEDS ORDERED: OXYCODONE HCL IR 5 MG TAB (IMMEDIATE RELEASE) PO PRN (23:02)
[2020-01-07 23:27] LABS: Appearance Urine Cloudy (Clear); Bacteria Urine Automated Negative (Negative); Bilirubin Urine Negative (Negative); Blood Urine Negative (Negative); Color Urine Yellow; Glucose Urine UA Negative (Negative); Ketones Urine Negative (Negative); Leukocyte Esterase Urine Negative (Negative); Nitrite Urine Negative (Negative); Protein Urine 3+ (Negative); RBC Urine Automated 0-4 /hpf (0-4); Specific Gravity Urine 1.021 (1.000-1.030); Urobilinogen Urine Negative (Negative)
[2020-01-08 05:42] LABS: Basophils # (auto) 0.02 K/uL (0-0.2); Basophils % (auto) 0.4 %; Eosinophils # (auto) 0.13 K/uL (0-0.5); Eosinophils % (auto) 2.4 %; Hematocrit (blood only) 31.6 % (42-52); Immature Granulocytes # (auto) 0.01 K/uL (0.00-0.02); Immature Granulocytes % (auto) 0.2 %; Lymphocytes # (auto) 1.54 K/uL (1.2-3.4); Lymphocytes % (auto) 28.8 %; Mean Corpuscular Hemoglobin 32.4 pg (25-34); Mean Corpuscular Hgb Conc 31.6 g/dL (32-36); Mean Corpuscular Volume 102.3 fL (80-100); Mean Platelet Volume 9.8 fL (7.4-10.4); Monocytes # (auto) 0.29 K/uL (0.11-0.59); Monocytes % (auto) 5.4 %; Neutrophils # (auto) 3.36 K/uL (1.4-6.5); Neutrophils % (auto) 62.8 %; Platelet Count 144 K/uL (130-400); RDW Coefficient of Variation 16.2 % (11.5-14.5); RDW Standard Deviation 60.8 fL (36.4-46.3); Red Blood Count 3.09 M/uL (4.7-6.1); White Blood Count 5.35 K/uL (4.8-10.8)
--- NOTE | 2020-01-08 05:57 | Communication Note ---
Date of Service: January 08, 2020 Received notification that pt had new "Wet cough" with associated chest pain. EKG, trops and repeat chest XR ordered to determine whether increase in fluid in the lungs. All pending at the time of this writing. Of note, pt received dose of Lasix 20mg IV in the ED and has put out 500cc since being admitted. 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
[2020-01-08 06:20] LABS: BUN Creatinine Ratio 22.2 (10-20); Blood Urea Nitrogen 46 mg/dl (7-18); Calcium 8.9 mg/dl (8.5-10.1); Carbon Dioxide 24 mmol/L (21-32); Chloride 115 mmol/L (98-107); Est GFR (African American) 34.8; Glucose 73 mg/dl (70-99); Potassium 4.7 mmol/L (3.5-5.1); Sodium 143 mmol/L (136-145)
[2020-01-08 06:24] LABS: Troponin I < 0.015 ng/ml (0-0.045)
[2020-01-08 07:46] LABS: Folate (Folic Acid) 8.57 ng/ml (>5.38)
[2020-01-08] MEDS: GLIMEPIRIDE 2 MG TAB PO SCH (07:48)
--- NOTE | 2020-01-08 07:48 | XRay Report ---
XR chest 1V portable HISTORY: 79 years-old Male cough acute cough with congestion COMPARISON: Chest radiograph and CT abdomen and pelvis 01/07/2020 TECHNIQUE: Portable AP view the chest FINDINGS: Cardiac silhouette is enlarged, unchanged. Calcified plaque of the thoracic aortic arch. Trace pleura l effusions with minimal left basilar opacities. No pneumothorax, overt pulmonary edema or lobar airs pace consolidation. Degenerative changes of the shoulders and spine. IMPRESSION: 1. Cardiomegaly without overt pulmonary edema. 2. Trace pleural effusions with mild left basilar atelectasis. ACT 112: Negative or not required by law. The above report was generated using voice recognition software. It may contain grammatical, syntax o r spelling errors. Electronically signed by: Raffi Kingston M.D. 01/08/2020 7:46 AM
[2020-01-08] MEDS: IPRATROPIUM BROMIDE/ALBUTEROL respimat INH INH SCH ×4 (08:09→19:57)
[2020-01-08] MEDS: APIXABAN 5 MG TABLET PO SCH ×2 (08:10→19:56)
[2020-01-08] MEDS: allopurinoL 100 MG TAB PO SCH ×2 (08:11→19:56)
[2020-01-08] MEDS: lisinopriL 10 MG TAB PO SCH (08:11)
[2020-01-08] MEDS: ATORVASTATIN 40 MG TAB PO SCH (08:11)
[2020-01-08] MEDS: PANTOprazole 40 MG TAB PO SCH (08:11)
[2020-01-08] MEDS: MELOXICAM 7.5 MG TAB PO SCH (08:12)
[2020-01-08] MEDS: dilTIAZem HCL 240 MG CAPCR PO SCH (08:12)
[2020-01-08] MEDS: ESCITALOPRAM OXALATE 10 MG TAB PO SCH (08:12)
[2020-01-08] MEDS ORDERED: IPRATROPIUM BROMIDE/ALBUTEROL respimat INH INH SCH (09:00)
[2020-01-08] MEDS ORDERED: CARBOHYDRATES FOR HYPOGLYCEMIA PO PRN (09:45)
[2020-01-08] MEDS ORDERED: GLUCOSE 10 TABS/TUBE PO PRN (09:45)
[2020-01-08] MEDS ORDERED: GLUCOSE 40% GEL 15 GM TUBE PO PRN (09:45)
[2020-01-08] MEDS ORDERED: GLUCAGON FOR INJ 1 MG VIAL SQ PRN (09:45)
[2020-01-08] MEDS ORDERED: DEXTROSE 50% 50 ML SYRINGE IV PRN (09:45)
[2020-01-08] MEDS ORDERED: PHARMACY GLYCEMIC MGMT CONSULT PRN (09:58)
--- NOTE | 2020-01-08 09:59 | Hospitalist Progress Note ---
Date of Service January 08, 2020 Assessment & Plan (1) Fracture of inferior pubic ramus: Patient status post fall with a fracture of the inferior pubic ramus as well as the left acetabulum. I will consult orthopedics, suspect management will be nonoperative. Once cleared for weightbearing, will have PT/OT evaluate for further recommendations regarding therapy and possible discharge planning. (2) CHF (congestive heart failure): (3) CHF (congestive heart failure): Patient has a history of chronic diastolic dysfunction with normal LVEF. He does appear to be mildly fluid overloaded with hyponatremia, elevated BNP and vascular congestion with a small right pleural effusion. Patient is currently being diuresed with low doses of Lasix. He does appear to be mildly fluid overloaded will continue Lasix at 20 mg IV twice daily. Monitor electrolytes with this. (4) Bradycardia: Patient was on metoprolol and diltiazem for rate control his atrial fibrillation. Pulse is currently at 68 which is improved. Continue diltiazem as ordered, can decrease if patient continues to have bradycardia. (5) Atrial fibrillation: Patient does have a history of atrial fibrillation which is currently rate controlled. He is appropriately anticoagulated with Eliquis 5 mg twice daily. He is continued on diltiazem as noted above. (6) Dyslipidemia: Continue atorvastatin as ordered (7) Diabetes: Patient is on an ADA diet. Will start sliding scale and check hemoglobin A1c as it is been over 90 days since his last value. (8) Renal mass: There is a 4.5 cm renal mass in the right kidney with a small lytic lesion in the ileum. Patient is scheduled for an MRI of the abdomen today for further investigation, will follow. Admission and Anticipated Discharge Date Admission Date: January 07, 2020 Subjective Patient seen and examined today. Seems to be in good spirits. Tells me that his breathing is improved from presentation. Denies any pain in his back or pelvis. I do note that he is bradycardic his pulse is 68, continues on diltiazem but the metoprolol was held. Expresses no new complaints. Physical Exam Constitutional: cooperative; no acute distress Neck: trachea midline, no thyromegaly Respiratory: normal respiratory effort Auscultation: lungs clear to auscultation bilaterally and + rales (Bilateral bases); no crackles, no rhonchi and no wheezes Cardiovascular: Rate/Rhythm: regular rate and regular rhythm Heart Sounds: normal S1 and normal S2 Vessels: no JVD (Thick neck cannot be examined further) Gastrointestinal (Abdomen): Inspection/Auscultation: abdomen normal to inspection Percussion/Palpation: abdomen soft; abdomen nontender, no guarding, abdomen not rigid and no hepatosplenomegaly Musculoskeletal: Minimal lower extremity edema. Left upper extremity hemiparetic with increased edema. Skin: no rashes, warm and dry Results & Data Results & Data ([facility]) Vital Signs (Past 12 Hours) Vital Signs Temp Pulse Pulse Resp BP Pulse Ox 01/08/20 08:16 68 01/08/20 07:00 36.9 C 53 L 24 174/80 H 96 01/08/20 04:12 36.6 C 52 L 17 146/74 H 98 01/07/20 23:03 36.6 C 50 L 19 123/69 98 01/07/20 22:14 36.6 C 56 L 24 129/64 93 Diagnostic Findings XR chest 1V portable HISTORY: 79 years-old Male cough acute cough with congestion COMPARISON: Chest radiograph and CT abdomen and pelvis 01/07/2020 TECHNIQUE: Portable AP view the chest FINDINGS: Cardiac silhouette is enlarged, unchanged. Calcified plaque of the thoracic aortic arch. Trace pleural effusions with minimal left basilar opacities. No pneumothorax, overt pulmonary edema or lobar airspace consolidation. Degenerative changes of the shoulders and spine. IMPRESSION: 1. Cardiomegaly without overt pulmonary edema. 2. Trace pleural effusions with mild left basilar atelectasis. PG Care Time/CCT Total # of Minutes Spent Total Time Spent with Patient: Total time spent is greater than 50% in coordination of care (as documented) at patient's floor/unit and/or counseling patient: Coding Level of Care Code 57829 Subseq Hosp Care Lvl 2 Diagnoses Fracture of inferior pubic ramus S32.592A Encounter type: initial encounter Fracture type: closed Laterality: left CHF (congestive heart failure) I50.9 CHF (congestive heart failure) I50.9 Heart failure chronicity: acute Heart failure type: unspecified Bradycardia R00.1 Atrial fibrillation I48.91 Dyslipidemia E78.5 Diabetes E11.9 Renal mass N28.89 (1) Fracture of inferior pubic ramus Encounter type: initial encounter Fracture type: closed Laterality: left Qualified Code(s): S32.592A - Other specified fracture of left pubis, initial encounter for closed fracture (2) CHF (congestive heart failure) Heart failure chronicity: acute Heart failure type: unspecified Qualified Code(s): I50.9 - Heart failure, unspecified
--- NOTE | 2020-01-08 11:31 | Cardiology Consultation ---
Date of Consultation January 08, 2020 Assessment & Plan (1) Atrial fibrillation: (2) Bradycardia: (3) Edema: (4) Hypertension: ASSESSMENT/PLAN: 1. Atrial fibrillation with bradycardia: Beta-robel (metoprolol succinate 25 mg once daily) has been discontinued by the primary hospitalist service. If necessary, can reduce diltiazem as he has not demonstrated any tachycardic episodes. His heart rate was predominantly slower overnight, which as per records is not new as there has been concern in the past with sleep apnea. Continue telemetry. It is not clear if bradycardia played a role in his fall. No urgent indication for pacemaker as medications are being adjusted. On anticoagulation for stroke risk reduction. 2. Edema: Will give another dose of Lasix 40 mg IV x1 today. He received 20 mg IV x1 so far and has not had any significant output. BUN and creatinine are stable today compared to yesterday. Strict I&Os and daily weights recommended. Low-sodium diet. Consider discontinuation of meloxicam as well. 3. Hypertension: Blood pressure may improve with diuretic. Pain from his fracture may also be playing a role however he was hypertensive on prior hospitalization as well, similar to now. Will defer other antihypertensive agents to primary service. 4. Disposition: Cardiology will continue to follow. Thank you for allowing me to participate in the care of your patient. Please call for any other questions or concerns. Sincerely, Nahum Galindo M.D. History of Present Illness Reason for Consultation: "symptomatic bradycardia" Requesting Physician: Dr. Peña Attending Physician: Nathaniel Neff DO History of Present Illness Mr. Dunn is a pleasant 79-year-old gentleman with a history significant for stroke, chronic kidney disease, permanent atrial fibrillation on anticoagulation therapy, hypertension, and reported CAD however he declines ever having a cardiac catheterization. He was admitted to [facility] on 01/07/2020 due to generalized weakness and pelvic pain that began after falling on 01/03/2020. He was found to have a nondisplaced left acetabular fracture and left inferior pubic ramus fracture, thought to be secondary to the fall. When asked about the fall, he states that he did not have a syncopal event but did feel dizzy, falling shortly after standing and experiencing the symptoms. He states that this is not typical for him to experience such symptoms and typically denies positional lightheadedness or dizziness. He admits that he has shortness of breath but denies orthopnea or PND. He notices dyspnea with exertion such as going out to get the mail and walking up an incline. He admits to using a walker to help ambulate. He has lower extremity edema and admits to eating a lot of salty foods for which his ex- and caregiver, Pushpa, tries to remind him to avoid. He denies chest pain, palpitations, melena, hematochezia, hematuria, or other bleeding. He denies fevers or chills. When reviewing prior records, he has shown to have episodes of pauses of approximately 3 seconds while sleeping during previous hospitalization. During this hospitalization, metoprolol succinate 25 mg once daily has been discontinued while remaining on home dose of diltiazem. From his previous stroke, he has difficulty moving his left arm and also describes some issues with his throat. Review of systems: As above. Review of systems otherwise negative/unremarkable. Family history: He does not recall there is a family history of CAD but remembers that his brothers have with emphysema. He is the youngest sibling. Social history: He has smoked 1.5 packs per day for many years, quitting a few months ago. Occasional alcohol. He lives alone but states that his ex , Pushpa, cares for him and basically stays with him now. He has a son and a daughter from a previous relationship. He is unaccompanied in his hospital room. Allergies Allergy/AdvReac Type Severity Reaction Status Date / Time Penicillins Allergy Unknown RASH Verified 01/07/20 19:40 Home Medications Home Medications Medication Instructions Recorded Confirmed Type Combivent Respimat 1 puff INHALATION QID 10/01/19 01/07/20 History allopurinol 100 mg PO BID 10/01/19 01/07/20 History diltiazem HCl 240 mg PO DAILY 10/01/19 01/07/20 History escitalopram oxalate [Lexapro] 10 mg PO DAILY 10/01/19 01/07/20 History lisinopril 10 mg PO DAILY 10/01/19 01/07/20 History loperamide 2 mg PO QID PRN 10/01/19 01/07/20 History meloxicam [Mobic] 15 mg PO DAILY 10/01/19 01/07/20 History omeprazole 20 mg PO DAILY 10/01/19 01/07/20 History apixaban [Eliquis] 5 mg PO BID 01/07/20 01/07/20 History atorvastatin 40 mg PO DAILY 01/07/20 01/07/20 History glimepiride 2 mg PO QAM 01/07/20 01/07/20 History metoprolol succinate 25 mg PO DAILY 01/07/20 01/07/20 History Patient History Medical History Asthma (Chronic) Atrial fibrillation (Chronic) Coronary artery disease (Chronic) CVA (cerebral vascular accident) Diabetes (Chronic) Gout Heart disease (Chronic) Hypertension (Chronic) Mood disorder (Acute) Pneumonia (Acute) Surgical History History of hernia repair (Resolved) Family History Mother No pertinent family history Social History Preferred Language: Mosotho 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 Quit in September ; Hx Alcohol Use: Yes Alcohol type: beer Hx Substance Use: No Physical Exam Physical Exam: Gen.: No acute distress. Alert and oriented. HEENT: Anicteric sclera. Neck: No appreciable JVD, but thick neck. No bruits. Normal carotid upstrokes bilaterally. Cardiac: PMI was non palpable. No ventricular heave. Irregularly irregular with normal rate. Normal S1-S2. No murmurs, rubs, or gallops. Pulmonary: Clear to auscultation bilaterally without wheezes, rales, or rhonchi. Abdomen: Soft, nontender, nondistended, with normoactive bowel sounds. No bruits noted. Extremities: 2+ radial pulses bilaterally. 2+ posterior tibialis pulses bilaterally. 2+ left lower extremity pitting edema to the knee. One to 2+ right lower extremity edema to the knee. No cyanosis. Psychiatric: Affect appears appropriate. Results & Data ([facility]) Vital Signs (Past 12 Hours) Vital Signs Temp Pulse Pulse Resp BP Pulse Ox 01/08/20 08:16 68 01/08/20 07:00 36.9 C 53 L 24 174/80 H 96 01/08/20 04:12 36.6 C 52 L 17 146/74 H 98 Intake & Output 01/06/20 01/07/20 01/08/20 01/09/20 06:59 06:59 06:59 06:59 Intake Total 350 / 350 Output Total 350 / 350 Balance 0 / 0 Weight 86.5 kg 86.5 kg Laboratory Results Laboratory Results - last 24 hr 01/07/20 01/07/20 01/07/20 17:50 17:50 17:50 WBC 6.50 RBC 3.19 L Hgb 10.3 L Hct 32.9 L MCV 103.1 H MCH 32.3 MCHC 31.3 L RDW Std Deviation 60.5 H RDW Coeff of Dwain 16.1 H Plt Count 163 MPV 10.3 Immature Gran % (Auto) 0.2 Neut % (Auto) 68.1 Lymph % (Auto) 23.4 [place] % (Auto) 5.8 Eos % (Auto) 2.0 Baso % (Auto) 0.5 Immature Gran # (Auto) 0.01 Neut # (Auto) 4.43 Lymph # (Auto) 1.52 [place] # (Auto) 0.38 Eos # (Auto) 0.13 Baso # (Auto) 0.03 PT 12.7 H INR 1.2 H APTT 33.0 H PTT Ratio 1.2 Sodium 142 Potassium 4.6 Chloride 114 H Carbon Dioxide 24 Anion Gap 4.0 BUN 42 H Creatinine 1.92 H Est Cr Clr Drug Dosing 35.3 Est GFR ( Amer) 38.1 Est GFR (Non-Af Amer) 32.8 BUN/Creatinine Ratio 21.8 H Glucose 136 H Calcium 9.2 Magnesium 2.1 Total Bilirubin 0.4 AST 21 ALT 27 Alkaline Phosphatase 143 H Total Creatine Kinase 96 Troponin I < 0.015 NT-Pro-B Natriuret Pep 05211 H Total Protein 8.0 Albumin 3.4 Globulin 4.6 H Albumin/Globulin Ratio 0.7 L Vitamin B12 Folate TSH 5.580 H Free T4 0.99 Urine Color Urine Appearance Urine pH Ur Specific [place] Urine Protein Urine Glucose (UA) Urine Ketones Urine Blood Urine Nitrite Urine Bilirubin Urine Urobilinogen Ur Leukocyte Esterase Urine WBC (Auto) Urine RBC (Auto) U Hyaline Cast (Auto) U Epithel Cells (Auto) Urine Bacteria (Auto) Hep Bs Antigen Hep B Core IgM Ab Hepatitis C Antibody HCV RNA (PCR) IUs/ml HCV RNA PCR log IUs/ml 01/07/20 01/07/20 01/07/20 17:50 17:50 23:15 WBC RBC Hgb Hct MCV MCH MCHC RDW Std Deviation RDW Coeff of Dwain Plt Count MPV Immature Gran % (Auto) Neut % (Auto) Lymph % (Auto) [place] % (Auto) Eos % (Auto) Baso % (Auto) Immature Gran # (Auto) Neut # (Auto) Lymph # (Auto) [place] # (Auto) Eos # (Auto) Baso # (Auto) PT INR APTT PTT Ratio Sodium Potassium Chloride Carbon Dioxide Anion Gap BUN Creatinine Est Cr Clr Drug Dosing Est GFR ( Amer) Est GFR (Non-Af Amer) BUN/Creatinine Ratio Glucose Calcium Magnesium Total Bilirubin AST ALT Alkaline Phosphatase Total Creatine Kinase Troponin I NT-Pro-B Natriuret Pep Total Protein Albumin Globulin Albumin/Globulin Ratio Vitamin B12 Folate TSH Free T4 Urine Color Yellow Urine Appearance Cloudy A Urine pH 5.0 Ur Specific [place] 1.021 Urine Protein 3+ H Urine Glucose (UA) Negative Urine Ketones Negative Urine Blood Negative Urine Nitrite Negative Urine Bilirubin Negative Urine Urobilinogen Negative Ur Leukocyte Esterase Negative Urine WBC (Auto) 1-5 Urine RBC (Auto) 0-4 U Hyaline Cast (Auto) 1-5 U Epithel Cells (Auto) 10-20 H Urine Bacteria (Auto) Negative Hep Bs Antigen Neg Hep B Core IgM Ab Pending Hepatitis C Antibody HCV RNA (PCR) IUs/ml Pending HCV RNA PCR log IUs/ml Pending 01/08/20 01/08/20 01/08/20 05:34 05:34 05:34 WBC 5.35 RBC 3.09 L Hgb 10.0 L Hct 31.6 L MCV 102.3 H MCH 32.4 MCHC 31.6 L RDW Std Deviation 60.8 H RDW Coeff of Dwain 16.2 H Plt Count 144 MPV 9.8 Immature Gran % (Auto) 0.2 Neut % (Auto) 62.8 Lymph % (Auto) 28.8 [place] % (Auto) 5.4 Eos % (Auto) 2.4 Baso % (Auto) 0.4 Immature Gran # (Auto) 0.01 Neut # (Auto) 3.36 Lymph # (Auto) 1.54 [place] # (Auto) 0.29 Eos # (Auto) 0.13 Baso # (Auto) 0.02 PT INR APTT PTT Ratio Sodium Potassium Chloride Carbon Dioxide Anion Gap BUN Creatinine Est Cr Clr Drug Dosing Est GFR ( Amer) Est GFR (Non-Af Amer) BUN/Creatinine Ratio Glucose Calcium Magnesium Total Bilirubin AST ALT Alkaline Phosphatase Total Creatine Kinase Troponin I NT-Pro-B Natriuret Pep Total Protein Albumin Globulin Albumin/Globulin Ratio Vitamin B12 276 Folate 8.57 TSH Free T4 Urine Color Urine Appearance Urine pH Ur Specific [place] Urine Protein Urine Glucose (UA) Urine Ketones Urine Blood Urine Nitrite Urine Bilirubin Urine Urobilinogen Ur Leukocyte Esterase Urine WBC (Auto) Urine RBC (Auto) U Hyaline Cast (Auto) U Epithel Cells (Auto) Urine Bacteria (Auto) Hep Bs Antigen Hep B Core IgM Ab Hepatitis C Antibody Neg HCV RNA (PCR) IUs/ml HCV RNA PCR log IUs/ml 01/08/20 05:34 WBC RBC Hgb Hct MCV MCH MCHC RDW Std Deviation RDW Coeff of Dwain Plt Count MPV Immature Gran % (Auto) Neut % (Auto) Lymph % (Auto) [place] % (Auto) Eos % (Auto) Baso % (Auto) Immature Gran # (Auto) Neut # (Auto) Lymph # (Auto) [place] # (Auto) Eos # (Auto) Baso # (Auto) PT INR APTT PTT Ratio Sodium 143 Potassium 4.7 Chloride 115 H Carbon Dioxide 24 Anion Gap 4.0 BUN 46 H Creatinine 2.07 H Est Cr Clr Drug Dosing 32.0 Est GFR ( Amer) 34.8 Est GFR (Non-Af Amer) 30.0 BUN/Creatinine Ratio 22.2 H Glucose 73 Calcium 8.9 Magnesium Total Bilirubin AST ALT Alkaline Phosphatase Total Creatine Kinase Troponin I < 0.015 NT-Pro-B Natriuret Pep Total Protein Albumin Globulin Albumin/Globulin Ratio Vitamin B12 Folate TSH Free T4 Urine Color Urine Appearance Urine pH Ur Specific [place] Urine Protein Urine Glucose (UA) Urine Ketones Urine Blood Urine Nitrite Urine Bilirubin Urine Urobilinogen Ur Leukocyte Esterase Urine WBC (Auto) Urine RBC (Auto) U Hyaline Cast (Auto) U Epithel Cells (Auto) Urine Bacteria (Auto) Hep Bs Antigen Hep B Core IgM Ab Hepatitis C Antibody HCV RNA (PCR) IUs/ml HCV RNA PCR log IUs/ml Diagnostic Findings Telemetry personally reviewed: Atrial fibrillation. During overnight hours, he did have episodes of 3 second pauses, but heart rate was more appropriate this morning. ECG personally reviewed: ECG 01/08/2020: AFib 63 bpm with PVC versus aberrantly conducted complex. Nonspecific T-wave abnormality. ECG 01/07/2020: Atrial fibrillation 41 bpm with aberrantly conducted complexes. Nonspecific T-wave abnormality. Chest x-ray personally reviewed from 01/08/2020: No overt pulmonary edema as per Radiology. No obvious infiltrate on personal review. Trace pleural effusions. Abdomen/pelvis CT 01/07/2020: Nondisplaced fracture involving the left acetabulum, acute. Nondisplaced fracture of the left inferior pubic ramus. Medial left iliac bone lytic lesion of 29 mm. 4.5 cm right renal mass. Cirrhotic morphology of the liver. Small bilateral pleural effusions. Trace ascites. Echo 10/02/2019: Normal LV systolic function and wall motion. EF 55-60%. Mild MR. Medications Administered Albuterol (Combivent Respimat) 1 puffs INH QID MARIA D Stop: 02/07/20 08:59 Last Admin: 01/08/20 08:09 Dose: 1 puffs Documented by: [id number] Allopurinol (Zyloprim) 100 mg PO BID MARIA D Stop: 02/07/20 08:59 Last Admin: 01/08/20 08:11 Dose: 100 mg Documented by: [id number] Apixaban (Eliquis) 5 mg PO BID MARIA D Stop: 02/07/20 08:59 Last Admin: 01/08/20 08:10 Dose: 5 mg Documented by: [id number] Atorvastatin Calcium (Lipitor) 40 mg PO DAILY MARIA D Stop: 02/07/20 08:59 Last Admin: 01/08/20 08:11 Dose: 40 mg Documented by: [id number] Diltiazem HCl (Cardizem Cd) 240 mg PO DAILY MARIA D Stop: 02/07/20 08:59 Last Admin: 01/08/20 08:12 Dose: 240 mg Documented by: [id number] Escitalopram Oxalate (Lexapro Tab) 10 mg PO DAILY MARIA D Stop: 02/07/20 08:59 Last Admin: 01/08/20 08:12 Dose: 10 mg Documented by: [id number] Gadobutrol (Gadavist 65ml) 8 ml IV ONCE PRN PRN Reason: Interaction Checking Stop: 01/12/20 11:34 Last Admin: 01/08/20 11:35 Dose: 8 ml Documented by: [id number] Glimepiride (Amaryl) 2 mg PO QDB MARIA D Stop: 02/07/20 07:29 Last Admin: 01/08/20 07:48 Dose: 2 mg Documented by: [id number] Lisinopril (Zestril) 10 mg PO DAILY MARIA D Stop: 02/07/20 08:59 Last Admin: 01/08/20 08:11 Dose: 10 mg Documented by: [id number] Meloxicam (Mobic) 15 mg PO DAILY MARIA D Stop: 02/07/20 08:59 Last Admin: 01/08/20 08:12 Dose: 15 mg Documented by: [id number] Pantoprazole Sodium (Protonix) 40 mg PO DAILY MARIA D Stop: 02/07/20 08:59 Last Admin: 01/08/20 08:11 Dose: 40 mg Documented by: [id number] Discontinued Medications Fentanyl Citrate (Fentanyl Citrate) 25 mcg IV Q15M PRN PRN Reason: Pain Stop: 01/21/20 19:41 Last Admin: 01/07/20 20:11 Dose: 25 mcg Documented by: [id number] Furosemide (Lasix) 20 mg IV NOW STA Stop: 01/07/20 21:07 Last Admin: 01/07/20 21:18 Dose: 20 mg Documented by: [id number] Ondansetron HCl (Zofran) 4 mg IV NOW STA Stop: 01/07/20 19:43 Last Admin: 01/07/20 20:11 Dose: 4 mg Documented by: [id number] PG Care Time/CCT Total # of Minutes Spent Total Time Spent with Patient: Total time spent is greater than 50% in coordination of care (as documented) at patient's floor/unit and/or counseling patient: Coding Level of Care Code 01086 Initial Inpt Care Lvl 3 Diagnoses Atrial fibrillation I48.91 Bradycardia R00.1 Edema R60.9 Hypertension I10
[2020-01-08] MEDS ORDERED: GADOBUTROL 65ML VIAL IV PRN (11:35)
[2020-01-08] MEDS: INSULIN ASPART 100 UNITS/ML 3 ML PEN SC SCH ×3 (12:11→20:45)
[2020-01-08] MEDS: CALCIUM CARBONATE 500 MG CHEWABLE TAB PO PRN (12:15)
[2020-01-08] MEDS ORDERED: FUROSEMIDE 40 MG in SYRINGE 0 ML IV ONE (12:15)
--- NOTE | 2020-01-08 12:37 | Magnetic Resonance Report ---
MR abdomen wo/w con HISTORY: Right Renal mass noted on CT, further characterize TECHNIQUE: Multiplanar multisequence MRI of the abdomen was performed both before and after the intra venous administration of 8 cc of Gadavist contrast. COMPARISON STUDY: Abdomen and pelvis CT 01/07/2020. FINDINGS: There are multiple bilateral T2 hyperintense, T1 hypointense nonenhancing lesion seen throu ghout the kidneys. Dominant lesion within the upper pole of the right kidney measures 3.9 cm. These a re consistent with cysts. There is also an exophytic T2 hyperintense, T1 hyperintense exophytic lesio n within the lower pole the right kidney which measures 4.6 x 4.0 cm. This does not appear to demonst rate enhancement and therefore favors a hemorrhagic/proteinaceous cyst. There is a similar-appearing lesion within the upper pole of the left kidney measuring 11 mm. This also favors hemorrhagic/protein aceous cyst. Nodular contour to the liver consistent with cirrhosis. The spleen and pancreas are unre markable. Punctate stones and sludge noted within the gallbladder. No gallbladder wall thickening. Sm all amount of upper abdominal ascites is noted. No retroperitoneal lymphadenopathy. There is also mil d bilateral perinephric edema. There is extensive soft tissue edema seen within the bilateral flanks. Small bilateral pleural effusions. The heart is enlarged. No hydronephrosis. There is an indetermina te 2.7 cm nodule within the left upper quadrant posterior to the left adrenal gland and medial to the spleen. This does not demonstrate significant enhancement and demonstrates calcification centrally. Therefore, this favors a benign lesion. This could represent an infarcted accessory spleen, an exophy tic adrenal nodule, or less likely a thrombosed aneurysm. IMPRESSION: 1. Bilateral renal lesions as described above consistent with cysts. The dominant 4.6 x 4.0 cm exophy tic lesion within the lower pole the right kidney appears to represent a hemorrhagic/proteinaceous cy st. No solid enhancing renal masses identified. 2. Cholelithiasis. 3. Cirrhosis. 4. Small amount of ascites. 5. Small bilateral pleural effusions. 6. Extensive soft tissue edema within the bilateral flanks, unchanged. 7. There is an indeterminate 2.7 cm nodule within the left upper quadrant posterior to the left adren al gland and medial to the spleen. This does not demonstrate significant enhancement and demonstrates calcification centrally. Therefore, this favors a benign lesion. This could represent an infarcted a ccessory spleen, an exophytic adrenal nodule, or less likely a thrombosed aneurysm. ACT 112: Negative or not required by law. Electronically signed by: Isaias Fontaine M.D. 01/08/2020 12:35 PM
[2020-01-08] MEDS ORDERED: POLYETHYLENE (MIRALAX) 17 GM PACK PO ONE (12:50)
--- NOTE | 2020-01-08 13:59 | Pharmacy Report ---
Pharmacy Glycemic Short Note 2 - Date of Service January 08, 2020 - Glycemic Short BSG Results (Last 24 hours): 01/07/20 01/08/20 01/08/20 17:50 05:34 11:52 Glucose 136 H 73 POC Glucose 120 H OUTPATIENT ANTIDIABETIC REGIMEN: * Glimepiride 2mg PO qAM * HbA1c: 6.8% (10/02/19) -- updated A1c pending with tomorrow's AM labs ASSESSMENT: * Mr Dunn is a 79yo diabetic male admitted with a pelvic fracture after falling. * Patient uses only a single oral agent at home. BSGs have been well-control since admission last evening. * Novolog added to provide coverage in the event that patient becomes hy perglycemic. PLAN FOR INPATIENT GLYCEMIC CONTROL: * Glimepiride 2mg PO qAM * Basal insulin * none * Bolus insulin * NovoLog per scale ACHS or Q6hrs while NPO * Goal Range: Low 140 mg/dL - High 180 mg/dL * Correction Factor: 40 mg/dL/unit * Nutritional / Prandial insulin: none PLAN FOR DISCHARGE: * pending updated A1c
--- NOTE | 2020-01-08 14:22 | Electrocardiogram Report ---
Test Reason : Blood Pressure : / mmHG Vent. Rate : 041 BPM Atrial Rate : 021 BPM P-R Int : 000 ms QRS Dur : 084 ms QT Int : 482 ms P-R-T Axes : 000 086 200 degrees QTc Int : 397 ms Atrial fibrillation with premature ventricular or aberrantly conducted complexes Nonspecific T wave abnormality Abnormal ECG When compared with ECG of 01-OCT-2019 16:49, Vent. rate has decreased BY 48 BPM Nonspecific T wave abnormality now evident in Anterolateral leads Confirmed by Chase Galindo ([id number]) on 01/08/2020 2:22:10 PM Referred By: REFERRED SELF Confirmed By:Chase Galindo
--- NOTE | 2020-01-08 14:35 | Electrocardiogram Report ---
Test Reason : Blood Pressure : / mmHG Vent. Rate : 063 BPM Atrial Rate : 070 BPM P-R Int : 000 ms QRS Dur : 088 ms QT Int : 430 ms P-R-T Axes : 000 104 -53 degrees QTc Int : 440 ms Atrial fibrillation with premature ventricular or aberrantly conducted complexes Rightward axis Nonspecific T wave abnormality Abnormal ECG No previous ECGs available Confirmed by Chase Galindo ([id number]) on 01/08/2020 2:35:12 PM Referred By: REFERRED SELF Confirmed By:Chase Galindo
[2020-01-08] MEDS ORDERED: MAGNESIUM CITRATE 296 ML/BTL PO SCH (16:15)
[2020-01-08] MEDS: ACETAMINOPHEN 325 MG TAB PO PRN (23:46)
--- NOTE | 2020-01-09 03:01 | Billing Data ---
Date of Service January 09, 2020 Coding Level of Care Code 76541 Initial Inpt Care Lvl 3
[2020-01-09 06:24] LABS: Basophils # (auto) 0.01 K/uL (0-0.2); Basophils % (auto) 0.1 %; Eosinophils # (auto) 0.03 K/uL (0-0.5); Eosinophils % (auto) 0.4 %; Hematocrit (blood only) 29.9 % (42-52); Hemoglobin 9.7 g/dL (14.0-18.0); Immature Granulocytes # (auto) 0.02 K/uL (0.00-0.02); Immature Granulocytes % (auto) 0.3 %; Lymphocytes # (auto) 0.82 K/uL (1.2-3.4); Lymphocytes % (auto) 12.1 %; Mean Corpuscular Hemoglobin 33.1 pg (25-34); Mean Corpuscular Hgb Conc 32.4 g/dL (32-36); Mean Platelet Volume 10.1 fL (7.4-10.4); Monocytes # (auto) 0.39 K/uL (0.11-0.59); Monocytes % (auto) 5.8 %; Neutrophils # (auto) 5.48 K/uL (1.4-6.5); Neutrophils % (auto) 81.3 %; Platelet Count 119 K/uL (130-400); RDW Coefficient of Variation 15.8 % (11.5-14.5); RDW Standard Deviation 59.4 fL (36.4-46.3); Red Blood Count 2.93 M/uL (4.7-6.1); White Blood Count 6.75 K/uL (4.8-10.8)
[2020-01-09 06:59] LABS: BUN Creatinine Ratio 22.6 (10-20); Calcium 8.8 mg/dl (8.5-10.1); Creatinine Clr Calc Pharmacy 30.8 ml/min; Est GFR (African American) 33.6; Potassium 4.7 mmol/L (3.5-5.1)
[2020-01-09 07:14] LABS: Estimated Average Glucose 143 mg/dl; Hemoglobin A1C 6.6 % (4.5-5.6)
--- NOTE | 2020-01-09 08:30 | Orthopedic Consultation ---
Date of Consultation January 09, 2020 Assessment & Plan (1) Fracture of inferior pubic ramus: -year-old gentleman with multiple medical comorbidities with a stable left-sided pelvis fracture from a fall. There is a small crack in the anterior acetabulum but this is essentially a pelvis fracture and should be treated as such. This segment will heal. Does not need surgical intervention. He can weight-bear as tolerated. He can begin therapy please can be pretty sore for the next 2 weeks and it should get better. Likely need a walker for the next 6 weeks to ambulate and then may be progressed back to his cane. He was start therapy. I should check him back maybe in 4 to 6 weeks. Any orthopedic questions can be directed at [phone] Present on Admission?: Yes History of Present Illness Reason for Consultation: Left-sided pelvis fracture. Attending Physician: Ean Hernández DO History of Present Illness 89-year-old gentleman with multiple medical comorbidities who sustained an apparent fall about 6 days ago. He says he normally walks with use of the cane was doing pretty well. No pre-existing hip pain. He sustained a fall involving his left side. Has had increased pain discomfort in his left hip and groin area since then. He had more more difficulty ambulating. He was admitted for weakness and limited ambulatory ability. Denies any other injuries. Describes isolated groin and left-sided hip pain. X-rays of the left femur were essentially negative. He scan suggested of her pelvis fractures. Consulted for evaluation. Patient is denies any significant pain currently. That eating breakfast. Allergies Allergy/AdvReac Type Severity Reaction Status Date / Time Penicillins Allergy Unknown RASH Verified 01/07/20 19:40 Home Medications Home Medications Medication Instructions Recorded Confirmed Type Combivent Respimat 1 puff INHALATION QID 10/01/19 01/07/20 History allopurinol 100 mg PO BID 10/01/19 01/07/20 History diltiazem HCl 240 mg PO DAILY 10/01/19 01/07/20 History escitalopram oxalate [Lexapro] 10 mg PO DAILY 10/01/19 01/07/20 History lisinopril 10 mg PO DAILY 10/01/19 01/07/20 History loperamide 2 mg PO QID PRN 10/01/19 01/07/20 History meloxicam [Mobic] 15 mg PO DAILY 10/01/19 01/07/20 History omeprazole 20 mg PO DAILY 10/01/19 01/07/20 History apixaban [Eliquis] 5 mg PO BID 01/07/20 01/07/20 History atorvastatin 40 mg PO DAILY 01/07/20 01/07/20 History glimepiride 2 mg PO QAM 01/07/20 01/07/20 History metoprolol succinate 25 mg PO DAILY 01/07/20 01/07/20 History Patient History Medical History Asthma (Chronic) Atrial fibrillation (Chronic) Coronary artery disease (Chronic) CVA (cerebral vascular accident) Diabetes (Chronic) Gout Hypertension (Chronic) Mood disorder (Acute) Pneumonia (Acute) Surgical History History of hernia repair (Resolved) Family History Mother No pertinent family history Social History Preferred Language: Danish 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: Effective Director Of Development Required: No Beliefs That Will Affect Care: None Current Living Situation: Alone Current Living Situation Comment: lives in trailer, ex can help Feels Safe at Home: Yes Safety Concerns: Feels Safe At This Time Smoking Status: Former smoker Tobacco Type: cigarettes ; Cigarettes Per Day: 8/day. Quit in September ; Hx Alcohol Use: Yes Alcohol type: beer Hx Substance Use: No Review of Systems Review of Systems: All systems reviewed & are unremarkable except as noted in HPI & below Physical Exam Physical Exam: Patient reveals a pleasant obese elderly male. He sitting on bed and eating breakfast. Appears in fairly awake and alert and appropriate. Examination of the left hip reveals no visible deformity. He has difficulty doing a straight leg raise due to pain. He is got no pain with passive motion of his left hip. He has no knee effusion. He can dorsiflex and plantarflex his foot appropriately. Otherwise appears neurologically intact. Results & Data ([facility]) Vital Signs (Past 12 Hours) Vital Signs Temp Pulse Pulse Resp BP Pulse Ox 01/09/20 07:51 36.8 C 65 19 119/51 L 94 01/09/20 03:56 37.5 C 69 18 145/67 H 96 01/08/20 23:24 37.7 C H 69 20 159/83 H 94 Diagnostic Findings The fingers reveal no obvious pathology. No signs of obvious fracture little bit of chondrocalcinosis. CT scan shows an inferior pubic ramus fracture minimally displaced. There is also a small crack in the anterior aspect of the acetabulum consistent with a superior ramus fracture. Does not affect the weightbearing portion of the hip joint. PG Care Time/CCT Total # of Minutes Spent Total Time Spent with Patient: Total time spent is greater than 50% in coordination of care (as documented) at patient's floor/unit and/or counseling patient: Coding Level of Care Code 09721 Initial Inpt Care Lvl 3 Diagnoses Fracture of inferior pubic ramus S32.592A Encounter type: initial encounter Fracture type: closed Laterality: left (1) Fracture of inferior pubic ramus Encounter type: initial encounter Fracture type: closed Laterality: left Qualified Code(s): S32.592A - Other specified fracture of left pubis, initial encounter for closed fracture
[2020-01-09] MEDS: ACETAMINOPHEN 325 MG TAB PO PRN ×2 (08:46→17:23)
[2020-01-09] MEDS: INSULIN ASPART 100 UNITS/ML 3 ML PEN SC SCH ×4 (08:46→22:07)
[2020-01-09] MEDS: ESCITALOPRAM OXALATE 10 MG TAB PO SCH (08:47)
[2020-01-09] MEDS: GLIMEPIRIDE 2 MG TAB PO SCH (08:47)
[2020-01-09] MEDS: MELOXICAM 7.5 MG TAB PO SCH (08:47)
[2020-01-09] MEDS: dilTIAZem HCL 240 MG CAPCR PO SCH (08:47)
[2020-01-09] MEDS: ATORVASTATIN 40 MG TAB PO SCH (08:47)
[2020-01-09] MEDS: lisinopriL 10 MG TAB PO SCH (08:47)
[2020-01-09] MEDS: allopurinoL 100 MG TAB PO SCH ×2 (08:47→20:35)
[2020-01-09] MEDS: PANTOprazole 40 MG TAB PO SCH (08:47)
[2020-01-09] MEDS: IPRATROPIUM BROMIDE/ALBUTEROL respimat INH INH SCH ×4 (08:48→20:35)
[2020-01-09] MEDS: APIXABAN 5 MG TABLET PO SCH ×2 (08:48→20:35)
--- NOTE | 2020-01-09 11:05 | Cardiology Progress Note ---
Date of Service January 09, 2020 Assessment & Plan (1) Atrial fibrillation: (2) Bradycardia: (3) Edema: (4) Hypertension: ASSESSMENT/PLAN: 1. Atrial fibrillation with bradycardia: Beta-robel (metoprolol succinate 25 mg once daily) has been discontinued by the primary hospitalist service on presentation. Heart rate is now acceptable. If necessary in the future, can reduce diltiazem as he has not demonstrated any tachycardic episodes. His heart rate was predominantly slower overnight, which per records is not new as there has been concern in the past with sleep apnea. Continue telemetry. It is not clear if bradycardia played a role in his fall. No urgent indication for pac emaker as bradycardia has improved with discontinuation of beta-robel. On anticoagulation for stroke risk reduction. 2. Edema: He received Lasix 20 mg IV x1 in the ER and 40 mg IV x1 on 01/08/20. Volume status appears improved. He now denies shortness of breath. BUN and creatinine slowly trending upward. Will give Lasix 40 mg p.o. daily. Monitor labs periodically. Strict I&Os and daily weights recommended. Low- sodium diet. Consider discontinuation of meloxicam as well. 3. Hypertension: Blood pressure has improved. 4. Disposition: Please call with other questions or concerns. Admission and Anticipated Discharge Date Admission Date: January 07, 2020 Subjective He states that he feels better today. He denies shortness of breath. He denies lightheadedness, syncope, near-syncope, palpitations. He states that his edema has improved. He does have some pain in his pelvic area following the fracture. Today he states that he fell by tripping, which differs from what has been previously described. It is unclear exactly the events of his fall several days ago. He denies angina. He denies bleeding. Review of systems: As above. Physical Exam Physical Exam: Gen.: No acute distress. Alert. HEENT: Anicteric sclera. Neck: No appreciable JVD, but thick neck. No hepatic jugular reflux noted. Cardiac: PMI was non palpable. No ventricular heave. Irregularly irregular with normal rate. Normal S1-S2. No murmurs, rubs, or gallops. Pulmonary: Clear to auscultation bilaterally without wheezes, rales, or rhonchi. Abdomen: Soft, nontender, nondistended, with normoactive bowel sounds. No bruits noted. Extremities: 2+ radial pulses bilaterally. 2+ posterior tibialis pulses bilaterally. 1+ left lower extremity pitting edema to the knee. Trace right lower extremity edema to the knee. No cyanosis. Psychiatric: Affect appears appropriate. Results & Data ([facility]) Vital Signs (Past 12 Hours) Vital Signs Temp Pulse Pulse Resp BP Pulse Ox 01/09/20 07:51 36.8 C 65 19 119/51 L 94 01/09/20 03:56 37.5 C 69 18 145/67 H 96 01/08/20 23:24 37.7 C H 69 20 159/83 H 94 Intake & Output 01/07/20 01/08/20 01/09/20 01/10/20 06:59 06:59 06:59 06:59 Intake Total 350 / 350 830 / 830 Output Total 350 / 350 1850 / 1850 175 / 175 Balance 0 / 0 -1020 / -1020 -175 / -175 Weight 86.5 kg 84.8 kg Laboratory Results Laboratory Results - last 24 hr 01/08/20 01/08/20 01/08/20 11:52 16:20 20:19 WBC RBC Hgb Hct MCV MCH MCHC RDW Std Deviation RDW Coeff of Dwain Plt Count MPV Immature Gran % (Auto) Neut % (Auto) Lymph % (Auto) Winn % (Auto) Eos % (Auto) Baso % (Auto) Immature Gran # (Auto) Neut # (Auto) Lymph # (Auto) Winn # (Auto) Eos # (Auto) Baso # (Auto) Sodium Potassium Chloride Carbon Dioxide Anion Gap BUN Creatinine Est Cr Clr Drug Dosing Est GFR ( Amer) Est GFR (Non-Af Amer) BUN/Creatinine Ratio Glucose POC Glucose 120 H 192 H 178 H Estimat Average Glucose Hemoglobin A1c Calcium 01/09/20 01/09/20 01/09/20 06:15 06:15 06:16 WBC 6.75 RBC 2.93 L Hgb 9.7 L Hct 29.9 L MCV 102.0 H MCH 33.1 MCHC 32.4 RDW Std Deviation 59.4 H RDW Coeff of Dwain 15.8 H Plt Count 119 L MPV 10.1 Immature Gran % (Auto) 0.3 Neut % (Auto) 81.3 Lymph % (Auto) 12.1 Winn % (Auto) 5.8 Eos % (Auto) 0.4 Baso % (Auto) 0.1 Immature Gran # (Auto) 0.02 Neut # (Auto) 5.48 Lymph # (Auto) 0.82 L Winn # (Auto) 0.39 Eos # (Auto) 0.03 Baso # (Auto) 0.01 Sodium 140 Potassium 4.7 Chloride 111 H Carbon Dioxide 24 Anion Gap 5.0 BUN 48 H Creatinine 2.13 H Est Cr Clr Drug Dosing 30.8 Est GFR ( Amer) 33.6 Est GFR (Non-Af Amer) 29.0 BUN/Creatinine Ratio 22.6 H Glucose 96 POC Glucose Estimat Average Glucose 143 Hemoglobin A1c 6.6 H Calcium 8.8 01/09/20 07:32 WBC RBC Hgb Hct MCV MCH MCHC RDW Std Deviation RDW Coeff of Dwain Plt Count MPV Immature Gran % (Auto) Neut % (Auto) Lymph % (Auto) Winn % (Auto) Eos % (Auto) Baso % (Auto) Immature Gran # (Auto) Neut # (Auto) Lymph # (Auto) Winn # (Auto) Eos # (Auto) Baso # (Auto) Sodium Potassium Chloride Carbon Dioxide Anion Gap BUN Creatinine Est Cr Clr Drug Dosing Est GFR ( Amer) Est GFR (Non-Af Amer) BUN/Creatinine Ratio Glucose POC Glucose 98 Estimat Average Glucose Hemoglobin A1c Calcium Diagnostic Findings Telemetry personally reviewed: Atrial fibrillation with reasonable rate control. No significant pauses. Less bradycardia. Abdominal MRI 01/08/2020: Bilateral renal lesions, consistent with cysts per Radiology. 4.6 x 4 cm exophytic right renal lesion appears to represent hemorrhagic/proteinaceous cyst per report. Cirrhosis. Cholelithiasis. Small amount of ascites. Small bilateral pleural effusions. Soft tissue edema within bilateral flanks. Medications Administered Current Inpatient Medications Acetaminophen (Tylenol) 650 mg PO Q4H PRN PRN Reason: Pain Stop: 02/06/20 23:00 Last Admin: 01/09/20 08:46 Dose: 650 mg Documented by: Albuterol (Combivent Respimat) 1 puffs INH QID COUNT INCLUDES THE [facility] Stop: 02/07/20 08:59 Last Admin: 01/09/20 08:48 Dose: 1 puffs Documented by: Allopurinol (Zyloprim) 100 mg PO BID COUNT INCLUDES THE [facility] Stop: 02/07/20 08:59 Last Admin: 01/09/20 08:47 Dose: 100 mg Documented by: Apixaban (Eliquis) 5 mg PO BID MARIA D Stop: 02/07/20 08:59 Last Admin: 01/09/20 08:48 Dose: 5 mg Documented by: Atorvastatin Calcium (Lipitor) 40 mg PO DAILY MARIA D Stop: 02/07/20 08:59 Last Admin: 01/09/20 08:47 Dose: 40 mg Documented by: Calcium Carbonate (Tums) 500 mg PO Q4 PRN PRN Reason: Indigestion Stop: 02/07/20 11:52 Last Admin: 01/08/20 12:15 Dose: 500 mg Documented by: Dextrose (Dextrose 50%) 25 - 50 ml IV UD PRN; Protocol PRN Reason: Hypoglycemia Protocol Stop: 02/06/20 22:29 Dextrose (Dextrose 50%) 25 - 50 ml IV UD PRN; Protocol PRN Reason: Hypoglycemia Protocol Stop: 02/07/20 09:44 Diltiazem HCl (Cardizem Cd) 240 mg PO DAILY MARIA D Stop: 02/07/20 08:59 Last Admin: 01/09/20 08:47 Dose: 240 mg Documented by: Escitalopram Oxalate (Lexapro Tab) 10 mg PO DAILY COUNT INCLUDES THE [facility] Stop: 02/07/20 08:59 Last Admin: 01/09/20 08:47 Dose: 10 mg Documented by: Gadobutrol (Gadavist 65ml) 8 ml IV ONCE PRN PRN Reason: Interaction Checking Stop: 01/12/20 11:34 Last Admin: 01/08/20 11:35 Dose: 8 ml Documented by: Glucagon (Glucagen) 1 mg IM UD PRN; Protocol PRN Reason: Hypoglycemia Protocol Stop: 02/06/20 22:29 Glucagon (Glucagen) 1 mg SQ UD PRN; Protocol PRN Reason: Hypoglycemia Protocol Stop: 02/07/20 09:44 Glucose (Glucose 40%) 15 - 30 gm PO UD PRN; Protocol PRN Reason: Hypoglycemia Protocol Stop: 02/06/20 22:29 Glucose (Dex4 Glucose) 4 - 8 tabs PO UD PRN; Protocol PRN Reason: Hypoglycemia Protocol Stop: 02/06/20 22:29 Glucose (Dex4 Glucose) 4 - 8 tabs PO UD PRN; Protocol PRN Reason: Hypoglycemia Protocol Stop: 02/07/20 09:44 Glucose (Glucose 40%) 15 - 30 gm PO UD PRN; Protocol PRN Reason: Hypoglycemia Protocol Stop: 02/07/20 09:44 Insulin Aspart (Novolog Flexpen) 0 units SC ACHS COUNT INCLUDES THE [facility]; Protocol Stop: 02/07/20 11:29 Last Admin: 01/09/20 08:46 Dose: Not Given Documented by: Lisinopril (Zestril) 10 mg PO DAILY COUNT INCLUDES THE [facility] Stop: 02/07/20 08:59 Last Admin: 01/09/20 08:47 Dose: 10 mg Documented by: Loperamide HCl (Imodium) 2 mg PO QID PRN PRN Reason: Diarrhea Stop: 02/06/20 22:17 Miscellaneous (Carbohydrates For Hypoglycemia) 15 - 30 gm PO UD PRN PRN Reason: Hypoglycemia Treatment Stop: 02/06/20 22:29 Miscellaneous (Carbohydrates For Hypoglycemia) 15 - 30 gm PO UD PRN PRN Reason: Hypoglycemia Protocol Stop: 02/07/20 09:44 Miscellaneous Information (Consult Glycemic Management Pharmacy) 1 ea N/A UD PRN; Protocol PRN Reason: Consult Stop: 02/07/20 09:57 Oxycodone HCl (Roxicodone Immediate Rel) 5 mg PO Q4H PRN PRN Reason: Pain Stop: 01/21/20 23:01 Pantoprazole Sodium (Protonix) 40 mg PO DAILY COUNT INCLUDES THE [facility] Stop: 02/07/20 08:59 Last Admin: 01/09/20 08:47 Dose: 40 mg Documented by: PG Care Time/CCT Total # of Minutes Spent Total Time Spent with Patient: Total time spent is greater than 50% in coordination of care (as documented) at patient's floor/unit and/or counseling patient: Coding Level of Care Code 42579 Subseq Hosp Care Lvl 3 Diagnoses Atrial fibrillation I48.91 Bradycardia R00.1 Edema R60.9 Hypertension I10
[2020-01-09] MEDS: FUROSEMIDE 40 MG TAB PO SCH (12:24)
--- NOTE | 2020-01-09 12:33 | Hospitalist Progress Note ---
Date of Service January 09, 2020 Assessment & Plan (1) Acetabulum fracture, left: (2) Fall: notes simple trip and fall on shoelaces. while bradycardia could be of concern, he gives plausibility that it was simply a mechanical fall (3) Pulmonary edema: uncertain if represents HFpEF -- but seems to be improving. agree w cardiology - additional lasix, try to wean O2 (4) Atrial fibrillation: was somewhat liya - rate control is improving w less medications. continue on dilt alone and follow HR - but has been stable enough OK to move from telemetry (5) Coronary artery disease: clinically appears stable, no complaints today, continue current meds (6) Hypertension: BP reasonable continue current meds; stopping mobic as related to CKD --> so for now continue lisinopril and follow (7) TABATHA (acute kidney injury): Cr not too far from baseline but is up some - stop mobic indefinitely given CKD (8) Stage III chronic kidney disease: sl elevation from baseline - possible mild TABATHA on CKD - follow with diuresis (9) Hypothyroidism: unclear if this is actually a chronic dx or not - TSH on 01/06 5.85 but normal free T4; not on synthroid at home - at this point would look at current elevation as mild and probably circumstantial --> repeat TSH ~4-6wks as outpt (10) Diabetes: A1c 6.6 - stop sulfonylurea; sugars have been acceptable (11) DVT prophylaxis: anticoagulated for afib (12) Discharge planning issues: safe for medical PT/OT eval and treat -?home vs SNF depending on how he does with therapy/pain control Admission and Anticipated Discharge Date Admission Date: January 07, 2020 Subjective feeling better overall breathing ok no significant pelvic pain although hasn't really been up and around much no f/c/s reviewed telemetry - reg to mild liya, no pauses no significant liya, no blocks Review of Systems Review of Systems: All systems reviewed & are unremarkable except as noted in HPI & below Physical Exam Physical Exam: vitals noted nad. aao pleasant. heent nc at mmm. lungs diminished bibasilar maybe faint rales no r/r/w elsewhere good effort no accessory muscles. ext no cyanosis. neuro no focal deficits Results & Data Results & Data ([facility]) Vital Signs (Past 12 Hours) Vital Signs Temp Pulse Pulse Resp BP Pulse Ox 04/16/20 11:17 98.4 F 58 L 19 122/50 L 94 01/09/20 07:51 98.2 F 65 19 119/51 L 94 01/09/20 03:56 99.5 F 69 18 145/67 H 96 PG Care Time/CCT Total # of Minutes Spent Total Time Spent with Patient: Total time spent is greater than 50% in coordination of care (as documented) at patient's floor/unit and/or counseling patient: Coding Level of Care Code 04846 Subseq Hosp Care Lvl 3 Diagnoses Acetabulum fracture, left S32.402A Encounter type: initial encounter Fracture alignment: nondisplaced Fracture type: closed Sublocation of acetabulum: unspecified portion of acetabulum Fall W19.XXXA Encounter type: initial encounter Pulmonary edema J81.1 Atrial fibrillation I48.91 Coronary artery disease I25.10 Hypertension I10 TABATHA (acute kidney injury) N17.9 Stage III chronic kidney disease N18.3 Hypothyroidism E03.9 Diabetes E11.9 DVT prophylaxis Z29.9 Discharge planning issues Z02.9 (1) Acetabulum fracture, left Encounter type: initial encounter Fracture alignment: nondisplaced Fracture type: closed Sublocation of acetabulum: unspecified portion of acetabulum Qualified Code(s): S32.402A - Unspecified fracture of left acetabulum, initial encounter for closed fracture (2) Fall Encounter type: initial encounter Qualified Code(s): W19.XXXA - Unspecified fall, initial encounter
--- NOTE | 2020-01-09 14:42 | Pharmacy Report ---
Pharmacy Glycemic Short Note 2 - Date of Service January 09, 2020 - Glycemic Short BSG Results (Last 24 hours): 01/08/20 01/08/20 01/09/20 16:20 20:19 06:15 Glucose 96 POC Glucose 192 H 178 H 01/09/20 01/09/20 07:32 11:39 Glucose POC Glucose 98 135 H OUTPATIENT ANTIDIABETIC REGIMEN: * Glimepiride 2mg PO qAM * HbA1c: 6.6% (01/09/20) ASSESSMENT: 01/09/20: * Mr Dunn rec'd 2 units of insulin yesterday. BSGs have been reasonable, with some hyperglycemia yesterday evening. * Amaryl D/C'd this morning, per provider. * Carb ratio added to Novolog order to provide prandial coverage. 01/08/20 * Mr Dunn is a 79yo diabetic male admitted with a pelvic fracture after falling. * Patient uses only a single oral agent at home. BSGs have been well-control since admission last evening. * Novolog added to provide coverage in the event that patient becomes hyperglycemic. PLAN FOR INPATIENT GLYCEMIC CONTROL: * Glimepiride 2mg PO qAM -- STOP * Basal insulin * none * Bolus insulin * NovoLog per scale ACHS or Q6hrs while NPO * Goal Range: Low 140 mg/dL - High 180 mg/dL * Correction Factor: 40 mg/dL/unit * Nutritional / Prandial insulin: 1 unit per 15 gm CHO consumed PLAN FOR DISCHARGE: * Patient's current A1c (6.6%) indicates excellent glycemic control as an outpatient. * Expect that patient may resume home regimen on discharge.
[2020-01-09] MEDS: CARBOHYDRATES FOR HYPOGLYCEMIA PO PRN ×2 (17:15→20:48)
[2020-01-10] MEDS: CARBOHYDRATES FOR HYPOGLYCEMIA PO PRN ×4 (00:07→17:15)
[2020-01-10] MEDS ORDERED: DEXTROSE 50% 50 ML SYRINGE IV STA (00:35)
--- NOTE | 2020-01-10 06:31 | Communication Note ---
Date of Service: January 10, 2020 After multiple notifications of pt's BSG being less than 70, an amp of D50 was ordered overnight. Resident Activity Tracking Resident Involvement: Physician Scribe Coverage Note Care Provided: Adult Hospital Medicine
[2020-01-10] MEDS: dilTIAZem HCL 240 MG CAPCR PO SCH (08:27)
[2020-01-10] MEDS: lisinopriL 10 MG TAB PO SCH (08:28)
[2020-01-10] MEDS: allopurinoL 100 MG TAB PO SCH ×2 (08:28→21:51)
[2020-01-10] MEDS: PANTOprazole 40 MG TAB PO SCH (08:28)
[2020-01-10] MEDS: ATORVASTATIN 40 MG TAB PO SCH (08:28)
[2020-01-10] MEDS: APIXABAN 5 MG TABLET PO SCH ×2 (08:28→21:51)
[2020-01-10] MEDS: FUROSEMIDE 40 MG TAB PO SCH (08:28)
[2020-01-10] MEDS: ESCITALOPRAM OXALATE 10 MG TAB PO SCH (08:29)
[2020-01-10] MEDS: IPRATROPIUM BROMIDE/ALBUTEROL respimat INH INH SCH ×4 (08:29→21:49)
[2020-01-10] MEDS: INSULIN ASPART 100 UNITS/ML 3 ML PEN SC SCH ×2 (08:36→12:23)
[2020-01-10] MEDS: ACETAMINOPHEN 325 MG TAB PO PRN ×2 (10:38→20:24)
--- NOTE | 2020-01-10 15:04 | Pharmacy Report ---
Pharmacy Glycemic Short Note 2 - Date of Service January 10, 2020 - Glycemic Short BSG Results (Last 24 hours): 01/09/20 01/09/20 01/09/20 17:10 17:13 17:31 Glucose POC Glucose 53 L* 49 L* 80 01/09/20 01/09/20 01/09/20 20:42 20:44 21:08 Glucose POC Glucose 57 L* 57 L* 61 L* 01/09/20 01/09/20 01/09/20 21:26 21:39 21:50 Glucose POC Glucose 53 L* 51 L* 74 01/09/20 01/10/20 01/10/20 23:58 00:00 00:23 Glucose POC Glucose 51 L* 54 L* 60 L* 01/10/20 01/10/20 01/10/20 00:51 02:30 02:32 Glucose POC Glucose 77 335 H* 118 H 01/10/20 01/10/20 01/10/20 02:33 02:59 04:50 Glucose 60 L POC Glucose 84 90 01/10/20 01/10/20 07:56 11:48 Glucose POC Glucose 230 H 96 OUTPATIENT ANTIDIABETIC REGIMEN: * Glimepiride 2mg PO qAM * HbA1c: 6.6% (01/09/20) ASSESSMENT: 01/10/20: * Patient became hypoglycemic yesterday evening/overnight. * Suspect that this is due to carb coverage with Novolog overlapping with Amaryl yesterday. * Carb ratio loosened this morning. Due to renal impairment, may need to account for Amaryl dose rec'd 01/08 for another day or so. 01/09/20 * Mr Dunn rec'd 2 units of insulin yesterday. BSGs have been reasonable, with some hyperglycemia yesterday evening. * Amaryl D/C'd this morning, per provider. * Carb ratio added to Novolog order to provide prandial coverage. 01/08/20 * Mr Dunn is a 79yo diabetic male admitted with a pelvic fracture after falling. * Patient uses only a single oral agent at home. BSGs have been well-control since admission last evening. * Novolog added to provide coverage in the event that patient becomes hyperglycemic. PLAN FOR INPATIENT GLYCEMIC CONTROL: * Glimepiride 2mg PO qAM -- STOP * Basal insulin * none * Bolus insulin * NovoLog per scale ACHS or Q6hrs while NPO * Goal Range: Low 140 mg/dL - High 180 mg/dL * Correction Factor: 40 mg/dL/unit * Nutritional / Prandial insulin: 1 unit per 20 gm CHO consumed PLAN FOR DISCHARGE: * Patient's current A1c (6.6%) indicates excellent glycemic control as an outpatient. * Expect that patient may resume home regimen on discharge.
[2020-01-10] MEDS ORDERED: SODI CHLOR 2.5MEQ/ML 14.6% 77 MEQ in DEXTROSE 10% 1,000 ML IV SCH (18:00)
[2020-01-10] MEDS ORDERED: DEXTROSE 10% 1,000 ML BAG IV ONE (18:03)
--- NOTE | 2020-01-10 18:34 | Hospitalist Progress Note ---
Date of Service January 10, 2020 Assessment & Plan (1) Acetabulum fracture, left: (2) Fall: notes simple trip and fall on shoelaces. while bradycardia could be of concern, he gives plausibility that it was simply a mechanical fall and did not show worrisome degrees of liya when on monitor (3) Fever: whie consideration is given to a broad ddx including bacterial and viral etiologies, the fact that he did not feel it at all, and symptomatically feels better in every facet except for pelvic pain is quite reassuring. further he has pelvic fx and has been immobile, shows fairly poor proficiency w incentive spirometer even with coaching - highly likely temp is from atelectasis. continue to follow closely (4) Pulmonary edema: uncertain if represents HFpEF -- but seems to be improving. continue cur rent care and follow (5) Atrial fibrillation: was somewhat liya - rate control is improving w less medications. continue on dilt alone and follow HR - but has been stable enough OK to move from telemetry (6) Coronary artery disease: clinically appears stable, no angina (7) Hypertension: BP reasonable continue current meds; stopped mobic as related to CKD --> continue lisinopril and follow (8) TABATHA (acute kidney injury): Cr not too far from baseline but is up some - stopped mobic indefinitely given CKD - f/u BMP in AM (9) Stage III chronic kidney disease: sl elevation from baseline - possible mild TABATHA on CKD - follow with diuresis (10) Hypothyroidism: unclear if this is actually a chronic dx or not - TSH on 01/06 5.85 but normal free T4; not on synthroid at home - at this point would look at current elevation as mild and probably circumstantial --> repeat TSH ~4-6wks as outpt (11) Diabetes: A1c 6.6 -and sugars ahve been low most of the day - suspect long washout of sulfonylurea stopped yesterday - stop insulin. due to persistent lows have to give limited amount of D10 (12) DVT prophylaxis: anticoagulated for afib (13) Discharge planning issues: safe for medical PT/OT eval and treat -?home vs SNF depending on how he does with therapy/pain control - suspect needing SNF or rehab - but still waiting on him allowing PT to work with him Admission and Anticipated Discharge Date Admission Date: January 07, 2020 Subjective got out of bed but required a lot of help. has declined PT thus far - encouraged heavily to not continue to decline. had a low grade fever but did not feel feverish. no aches. does have a little bit of a cough but not often. no sob - breathing feels better than before. has pain from fractures asked to demonstrate incentive spirometry - mostly he blew into it in short bursts. sometimes blew in and sucked back alternately. took a lot of coaching to get him to truly use with any degree of proficiency - after, encouraged to keep using. Review of Systems Review of Systems: All systems reviewed & are unremarkable except as noted in HPI & below Physical Exam Physical Exam: gen aao pleasantly stubborn but nad. heent nc at mmm. breathing unlabored no accessory msucles good effort. skin no rashes no pallor or icterus. neuro no focal deficits Results & Data Results & Data ([facility]) Vital Signs (Past 12 Hours) Vital Signs Temp Pulse Resp BP Pulse Ox 01/10/20 15:23 98.8 F 72 18 130/69 94 01/10/20 11:34 99.5 F 01/10/20 07:14 99.9 F H 91 H 20 157/85 H 93 PG Care Time/CCT Total # of Minutes Spent Total Time Spent with Patient: Total time spent is greater than 50% in coordination of care (as documented) at patient's floor/unit and/or counseling patient: Coding Level of Care Code 57932 Subseq Hosp Care Lvl 3 Diagnoses Acetabulum fracture, left S32.402A Encounter type: initial encounter Fracture alignment: nondisplaced Fracture type: closed Sublocation of acetabulum: unspecified portion of acetabulum Fall W19.XXXA Encounter type: initial encounter Fever R50.9 Pulmonary edema J81.1 Atrial fibrillation I48.91 Coronary artery disease I25.10 Hypertension I10 TABATHA (acute kidney injury) N17.9 Stage III chronic kidney disease N18.3 Hypothyroidism E03.9 Diabetes E11.9 DVT prophylaxis Z29.9 Discharge planning issues Z02.9 (1) Acetabulum fracture, left Encounter type: initial encounter Fracture alignment: nondisplaced Fracture type: closed Sublocation of acetabulum: unspecified portion of acetabulum Qualified Code(s): S32.402A - Unspecified fracture of left acetabulum, initial encounter for closed fracture (2) Fall Encounter type: initial encounter Qualified Code(s): W19.XXXA - Unspecified fall, initial encounter
[2020-01-10] MEDS ORDERED: ONDANSETRON INJ 2 MG/ML 2 ML VIAL IV STA (21:53)
[2020-01-10] MEDS ORDERED: ONDANSETRON INJ 2 MG/ML 2 ML VIAL ONE (21:57)
--- NOTE | 2020-01-10 22:33 | XRay Report ---
XR chest 1V portable CLINICAL HISTORY: worsening oxygen requirement, new cough dyspnea COMPARISON STUDY: 01/08/2020 FINDINGS: Moderate interval increase in cardiac size as well as prominence of pulmonary vasculature. Interval development of a small left effusion. Overall findings are consistent with that of congestiv e heart failure IMPRESSION: Congestive heart failure progressive from the prior study. ACT 112: Negative or not required by law. The above report was generated using voice recognition software. It may contain grammatical, syntax or spelling errors. Electronically signed by: Carson Woody M.D. 01/10/2020 10:32 PM
[2020-01-10 23:27] LABS: Hematocrit (blood only) 29.3 % (42-52); Hemoglobin 9.6 g/dL (14.0-18.0); Mean Corpuscular Hemoglobin 32.2 pg (25-34); Mean Corpuscular Volume 98.3 fL (80-100); Mean Platelet Volume 10.6 fL (7.4-10.4); Platelet Count 113 K/uL (130-400); RDW Standard Deviation 57.8 fL (36.4-46.3); Red Blood Count 2.98 M/uL (4.7-6.1); White Blood Count 3.23 K/uL (4.8-10.8)
[2020-01-10 23:29] LABS: Allen Test POS (Pos); Base Excess ABG -2.1 mEq/L (-9-1.8); HCO3 ABG 21 mmol/L (19-24); Oxygen Saturation ABG 92.3 % (90-95); PCO2 ABG 30 mmHg (35-46); PO2 ABG 64 mmHg (80-95); pH ABG 7.47 (7.35-7.45)
[2020-01-10] MEDS ORDERED: FUROSEMIDE 40 MG in SYRINGE 0 ML IV ONE (23:45)
[2020-01-10 23:49] LABS: BUN Creatinine Ratio 22.4 (10-20); Calcium 8.6 mg/dl (8.5-10.1); Creatinine Clr Calc Pharmacy 26.7 ml/min; Est GFR (African American) 28.2; Est GFR (Non-African American) 24.3; Potassium 4.2 mmol/L (3.5-5.1)
[2020-01-10 23:56] LABS: ALC (manual) 0.11 K/uL (1.2-3.4); ANC (manual) 3.04 K/uL (1.4-6.5); Dohle Bodies 1+; Giant Platelets 1+; Lymphocytes # (manual) 0.11 K/uL (1.2-3.4); Lymphocytes % (manual) 3.4 %; Mean Corpuscular Hgb Conc 32.8 g/dL (32-36); Monocytes # (manual) 0.08 K/uL (0.11-0.59); Monocytes % (manual) 2.6 %; Neutrophils # (manual) 3.04 K/uL (1.4-6.5); Toxic Vacuolation 1+
[2020-01-11] MEDS ORDERED: LINEZOLID CONSULT ACTIVE PRN (00:36)
[2020-01-11] MEDS ORDERED: LINEZOLID 600 MG/300 ML D5W IV SCH (00:45)
[2020-01-11] MEDS: CEFEPIME 2,000 MG in SYRINGE 7.5 ML IV SCH (01:05)
[2020-01-11 03:01] LABS: Hematocrit (blood only) 29.1 % (42-52); Hemoglobin 9.5 g/dL (14.0-18.0); Mean Corpuscular Hemoglobin 32.3 pg (25-34); Mean Corpuscular Hgb Conc 32.6 g/dL (32-36); Red Blood Count 2.94 M/uL (4.7-6.1); White Blood Count 8.74 K/uL (4.8-10.8)
[2020-01-11 03:16] LABS: BUN Creatinine Ratio 21.3 (10-20); Calcium 8.7 mg/dl (8.5-10.1); Creatinine Clr Calc Pharmacy 24.1 ml/min; Est GFR (Non-African American) 21.6
[2020-01-11 03:21] LABS: Basophils # (auto) 0.01 K/uL (0-0.2); Basophils % (auto) 0.1 %; Dohle Bodies 1+; Immature Granulocytes # (auto) 0.18 K/uL (0.00-0.02); Immature Granulocytes % (auto) 2.1 %; Lymphocytes % (auto) 3.4 %; Mean Platelet Volume 10.8 fL (7.4-10.4); Monocytes # (auto) 0.46 K/uL (0.11-0.59); Monocytes % (auto) 5.3 %; Neutrophils # (auto) 7.79 K/uL (1.4-6.5); Neutrophils % (auto) 89.1 %; Platelet Count 96 K/uL (130-400); Platelet Estimate Decreased (Normal); Toxic Vacuolation 1+
--- NOTE | 2020-01-11 08:49 | Hospitalist Progress Note ---
Date of Service January 11, 2020 Assessment & Plan (1) Acetabulum fracture, left: (2) Fall: with stable pelvic fracture notes simple trip and fall on shoelaces. while bradycardia could be of concern, he gives plausibility that it was simply a mechanical fall and did not show worrisome degrees of liya when on monitor - ongoing PT/OT eval and treat, anticipate need for facility based ongoing therapy after medical stability outpatient osteoporosis w/u since pelvic fracture from standing height fall. (3) Fever: increased overnight, along w increased O2 requirement and worsening hypoxic respiratory failure; low WBC. suspect atelectasis and immobility led to HAP but COVID19 possible (less likely especially since blood cultures showing gram negative rods but also possible concomitant with HAP) and since he'll need to go to a facility, obligated to check -- sent and is pending in the meantime - treating sepsis and subsequent bacteremia w cefepime (since pneumonia is source and blood showing gram negatives, this should suffice well, further he appears to be stabilizing quite nicely) - see below otherwise under TABATHA as it's more likely worse creatinine relates to lasix than sepsis. continue to follow platelets and INR - no skin findings c/w DIC and drop in plt somewhat nonspecific - but in the face of new septic picture need to follow; hold off on further fluids right now - appears probably a little on the dry side but with good BP and HR -- and with having just had pulmonary edema/HFpEF picture - can give fluids if needed but would hold unless his hemodynamics show a need. (4) Pulmonary edema: uncertain if represents HFpEF --but overall clinically seems to have improved. CXR appearing wet and L effusion vs LLL infiltrate but extra lasix overnight did not appear to help oxygenation and creatinine lauri some - so suspect he is on the dry side; at the same time since his status is somewhat tenuous and his BP is good/HR not up - would hold on fluids as would normally be given with sepsis because of this -- just follow closely (5) Atrial fibrillation: rates good. anticoagulated (6) Coronary artery disease: clinically appears stable, no angina thus far during his stay (7) Hypertension: BP reasonable continue current meds (8) TABATHA (acute kidney injury): up some from baseline - but by cockroft gault actually even today GFR only about 6ml/min down from baseline -given good BP and HR doubt this is septic mediated - more than likely ties together w diuresis for HFpEF -but since balance between wet and dry somewhat tight and breathing is currently a bigger issue than circulation - will allow to remain in status quo - no further fluids but lasix on hold as well - follow closely. (9) Stage III chronic kidney disease: see above. (10) Hypothyroidism: unclear if this is actually a chronic dx or not - TSH on 01/06 5.85 but normal free T4; not on synthroid at home - at this point would look at current elevation as mild and probably circumstantial --> repeat TSH ~4-6wks as outpt (11) Diabetes: A1c 6.6 -sugars were low most of the day yesterday probably from slow washout of sulfonylurea - off insulin. sugars much more manageable and acceptable today. has SQ insulin but not to start unless sugars >180 (12) DVT prophylaxis: anticoagulated for afib (13) Discharge planning issues: continue on medical for now - despite septic deterioration he fortunately still has very stable vitals and is requiring oxymask but not higher levels of oxygenation PT/OT eval and treat ongoing -referral in for rehab - strongly suspect he'll need some form of inpatient therapy as he progresses towards discharge Admission and Anticipated Discharge Date Admission Date: January 07, 2020 Subjective fevers through the night, worsening hypoxia - appreciate night team management. discussed with nursing - not much cough or dyspnea just worse oxygen requirements. when seen notes no significant sob or cough at this time. generally feels surprisngly well. main complaint is wanting the TV remote. PT / OT and case management input noted - appears pt would benefit from ongoing therapy in a facility but he is ongoing willing to consider acute inpatient rehab at this time. only other new complaint is vague belly pain - had large BM this AM though. Review of Systems Review of Systems: All systems reviewed & are unremarkable except as noted in HPI & below Physical Exam Physical Exam: gen laying on side w oxymask on but otherwise no distress. heent nc at mmm breathing surprisingly unlabored no accessory muscles no conversational dyspnea no distress whatsoever. skin no rashes no pallor or icterus. neuro no focal deficits. Results & Data Results & Data ([facility]) Vital Signs (Past 12 Hours) Vital Signs Temp Pulse Resp BP Pulse Ox 01/11/20 07:27 98.6 F 87 20 163/80 H 92 01/11/20 03:14 98.1 F 91 H 20 96/58 L 94 01/11/20 00:06 100.6 F H 104 H 16 90/49 L 94 01/10/20 21:02 102.4 F H PG Care Time/CCT Total # of Minutes Spent Total Time Spent with Patient: Total time spent is greater than 50% in coordination of care (as documented) at patient's floor/unit and/or counseling patient: Coding Level of Care Code 19647 Subseq Hosp Care Lvl 3 Diagnoses Acetabulum fracture, left S32.402A Encounter type: initial encounter Fracture alignment: nondisplaced Fracture type: closed Sublocation of acetabulum: unspecified portion of acetabulum Fall W19.XXXA Encounter type: initial encounter Fever R50.9 Pulmonary edema J81.1 Atrial fibrillation I48.91 Coronary artery disease I25.10 Hypertension I10 TABATHA (acute kidney injury) N17.9 Stage III chronic kidney disease N18.3 Hypothyroidism E03.9 Diabetes E11.9 DVT prophylaxis Z29.9 Discharge planning issues Z02.9 (1) Acetabulum fracture, left Encounter type: initial encounter Fracture alignment: nondisplaced Fracture type: closed Sublocation of acetabulum: unspecified portion of acetabulum Qualified Code(s): S32.402A - Unspecified fracture of left acetabulum, initial encounter for closed fracture (2) Fall Encounter type: initial encounter Qualified Code(s): W19.XXXA - Unspecified fall, initial encounter
[2020-01-11 09:40] LABS: Albumin Level 2.3 gm/dl (3.4-5.0); Bilirubin Direct 0.4 mg/dl (0-0.2); Bilirubin,Total 0.7 mg/dl (0.2-1); Total Protein 6.5 gm/dl (6.4-8.2)
--- NOTE | 2020-01-11 09:56 | Pharmacy Report ---
Pharmacy Glycemic Short Note 2 - Date of Service January 11, 2020 - Glycemic Short BSG Results (Last 24 hours): 01/10/20 01/10/20 01/10/20 11:48 15:15 15:17 Glucose POC Glucose 96 40 L* 42 L* 01/10/20 01/10/20 01/10/20 15:20 15:48 17:08 Glucose POC Glucose 115 H 78 53 L* 01/10/20 01/10/20 01/10/20 17:10 17:31 20:25 Glucose POC Glucose 37 L* 88 44 L* 01/10/20 01/10/20 01/10/20 20:28 20:30 23:18 Glucose 48 L* POC Glucose 91 40 L* 01/11/20 01/11/20 02:46 07:36 Glucose 91 POC Glucose 128 H OUTPATIENT ANTIDIABETIC REGIMEN: * Glimepiride 2mg PO qAM * HbA1c: 6.6% (01/09/20) ASSESSMENT: 01/11/20: * hypo again last evening after receiving one unit of NovoLog at lunchtime. * Scr continues to rise - up to 2.72 mg/dl today. DEVI induce LONGSTANDING hypo with renal impairment. * Last dose of Amaryl was 01/08 AM - expect one more day w/o insulin coverage needed and possibly resume tomorrow. Will resume bolus insulin only (no basal) when BSG >180 01/10/20: * Patient became hypoglycemic yesterday evening/overnight. * Suspect that this is due to carb coverage with Novolog overlapping with Amaryl yesterday. * Carb ratio loosened this morning. Due to renal impairment, may need to account for Amaryl dose rec'd 01/08 for another day or so. 01/09/20 * Mr Dunn rec'd 2 units of insulin yesterday. BSGs have been reasonable, with some hyperglycemia yesterday evening. * Amaryl D/C'd this morning, per provider. * Carb ratio added to Novolog order to provide prandial coverage. 01/08/20 * Mr Dunn is a 79yo diabetic male admitted with a pelvic fracture after falling. * Patient uses only a single oral agent at home. BSGs have been well-control since admission last evening. * Novolog added to provide coverage in the event that patient becomes hyperglycemic. PLAN FOR INPATIENT GLYCEMIC CONTROL: * Glimepiride 2mg PO qAM -- STOP * Basal insulin * none * Bolus insulin: continue to hold. Will start this scale with BSG >180 * NovoLog per scale ACHS or Q6hrs while NPO * Goal Range: Low 140 mg/dL - High 180 mg/dL * Correction Factor: 40 mg/dL/unit * Nutritional / Prandial insulin: 1 unit per 20 gm CHO consumed PLAN FOR DISCHARGE: * Patient's current A1c (6.6%) indicates excellent glycemic control as an outpatient. Possibly too tight of glycemic control given hypo during inpatient stay. * Could consider decreasing Amaryl to 2mg every other day on dc vs changing to glipizide which is shorter acting and preferred in renal impairment.
[2020-01-11] MEDS: IPRATROPIUM BROMIDE/ALBUTEROL respimat INH INH SCH ×4 (10:22→20:44)
[2020-01-11] MEDS: allopurinoL 100 MG TAB PO SCH ×2 (10:23→20:43)
[2020-01-11] MEDS: APIXABAN 5 MG TABLET PO SCH ×2 (10:23→20:43)
[2020-01-11] MEDS: PANTOprazole 40 MG TAB PO SCH (10:23)
[2020-01-11] MEDS: ATORVASTATIN 40 MG TAB PO SCH (10:23)
[2020-01-11] MEDS: ESCITALOPRAM OXALATE 10 MG TAB PO SCH (10:23)
[2020-01-11] MEDS: dilTIAZem HCL 240 MG CAPCR PO SCH (10:24)
[2020-01-11] MEDS: guaiFENesin 600 MG TABCR PO SCH ×2 (10:24→20:43)
[2020-01-11 12:06] LABS: Hepatitis B Core Antibody IgM NON-REACTIVE (NON-REACTIVE); Hepatitis C Vira RNA (Log) PCR <1.18 NOT DETECTED Log IU/mL (NOT DETECTED); Hepatitis C Viral RNA by PCR <15 NOT DETECTED IU/mL (NOT DETECTED)
--- NOTE | 2020-01-11 13:30 | Electrocardiogram Report ---
Test Reason : Blood Pressure : / mmHG Vent. Rate : 094 BPM Atrial Rate : 088 BPM P-R Int : 000 ms QRS Dur : 082 ms QT Int : 352 ms P-R-T Axes : 000 117 073 degrees QTc Int : 440 ms Atrial fibrillation with premature ventricular or aberrantly conducted complexes Left posterior fascicular block Poor R wave progression, consider anterior KS vs. lead placement vs. LVH Diffuse Nonspecific T wave abnormality Abnormal ECG When compared with ECG of 08-JAN-2020 05:20, Vent. rate has increased BY 31 BPM Otherwise no significant change Confirmed by Albin Rojas ([id number]) on 01/11/2020 1:29:56 PM Referred By: REFERRED SELF Confirmed By:Albin Rojas
[2020-01-11] MEDS ORDERED: INSULIN ASPART 100 UNITS/ML 3 ML PEN SC SCH (16:30)
[2020-01-11] MEDS: INSULIN ASPART 100 UNITS/ML 3 ML PEN SC SCH ×3 (17:51→22:11)
[2020-01-11] MEDS: CALCIUM CARBONATE 500 MG CHEWABLE TAB PO PRN ×2 (18:38→21:22)
[2020-01-11] MEDS: ACETAMINOPHEN 325 MG TAB PO PRN (21:22)
[2020-01-11] MEDS: SIMETHICONE 80 MG CHEW PO PRN (21:52)
[2020-01-12] MEDS: CEFEPIME 2,000 MG in SYRINGE 7.5 ML IV SCH (01:30)
[2020-01-12 03:05] LABS: SARS CoV2 RNA (COVID-19) NOT DETECTED (NOT DETECTED)
[2020-01-12] MEDS: SIMETHICONE 80 MG CHEW PO PRN ×2 (05:25→19:12)
[2020-01-12 07:37] LABS: Basophils # (auto) 0.01 K/uL (0-0.2); Basophils % (auto) 0.1 %; Eosinophils # (auto) 0.02 K/uL (0-0.5); Eosinophils % (auto) 0.1 %; Hematocrit (blood only) 29.1 % (42-52); Hemoglobin 9.6 g/dL (14.0-18.0); Immature Granulocytes # (auto) 0.08 K/uL (0.00-0.02); Immature Granulocytes % (auto) 0.6 %; Lymphocytes % (auto) 4.3 %; Mean Platelet Volume 11.4 fL (7.4-10.4); Monocytes # (auto) 0.59 K/uL (0.11-0.59); Monocytes % (auto) 4.2 %; Neutrophils # (auto) 12.76 K/uL (1.4-6.5); Neutrophils % (auto) 90.7 %; Platelet Count 107 K/uL (130-400); RDW Coefficient of Variation 15.9 % (11.5-14.5); RDW Standard Deviation 56.3 fL (36.4-46.3); White Blood Count 14.06 K/uL (4.8-10.8)
[2020-01-12 07:53] LABS: INR 1.4 (0.9-1.1); Prothrombin Time 14.5 Seconds (9.0-12.0)
[2020-01-12 08:09] LABS: BUN Creatinine Ratio 26.3 (10-20); Calcium 8.7 mg/dl (8.5-10.1); Est GFR (African American) 21.2; Est GFR (Non-African American) 18.3; Potassium 4.8 mmol/L (3.5-5.1)
[2020-01-12] MEDS ORDERED: SODIUM CHLORIDE 0.9% 1000ML 1,000 ML IV SCH (08:15)
[2020-01-12] MEDS: APIXABAN 5 MG TABLET PO SCH ×2 (08:26→20:32)
[2020-01-12] MEDS: guaiFENesin 600 MG TABCR PO SCH ×2 (08:27→20:32)
[2020-01-12] MEDS: allopurinoL 100 MG TAB PO SCH ×2 (08:27→20:32)
[2020-01-12] MEDS: INSULIN ASPART 100 UNITS/ML 3 ML PEN SC SCH ×4 (08:59→20:52)
[2020-01-12] MEDS: ATORVASTATIN 40 MG TAB PO SCH (09:00)
[2020-01-12] MEDS: ESCITALOPRAM OXALATE 10 MG TAB PO SCH (09:00)
[2020-01-12] MEDS: dilTIAZem HCL 240 MG CAPCR PO SCH (09:00)
[2020-01-12] MEDS: IPRATROPIUM BROMIDE/ALBUTEROL respimat INH INH SCH ×4 (09:02→20:31)
--- NOTE | 2020-01-12 09:31 | Pharmacy Report ---
Pharmacy Glycemic Short Note 2 - Date of Service January 12, 2020 - Glycemic Short BSG Results (Last 24 hours): 01/11/20 01/11/20 01/11/20 10:22 11:54 17:27 Glucose POC Glucose 152 H 150 H 124 H 01/11/20 01/12/20 01/12/20 20:30 01:29 07:22 Glucose 135 H POC Glucose 115 H 111 H 01/12/20 07:57 Glucose POC Glucose 131 H OUTPATIENT ANTIDIABETIC REGIMEN: * Glimepiride 2mg PO qAM * HbA1c: 6.6% (01/09/20) ASSESSMENT: 01/12/20: * Pt has received 0 units of insulin over the past 24hrs * All BSGs in range - no hypo/hyperglycemia * CF insulin monotherapy ordered. * Scr continues to rise - up to 3.12 mg/dl today. Hesitant to start CR insulin as DEVI may still be on board with significant renal impairment. * Will start conservative CR when BSG > 180 01/11/20: * hypo again last evening after receiving one unit of NovoLog at lunchtime. * Scr continues to rise - up to 2.72 mg/dl today. DEVI induce LONGSTANDING hypo with renal impairment. * Last dose of Amaryl was 01/08 AM - expect one more day w/o insulin coverage needed and possibly resume tomorrow. Will resume bolus insulin only (no basal) when BSG >180 PLAN FOR INPATIENT GLYCEMIC CONTROL: * Continue to hold Glimepiride- not preferred for inpatient use. * Basal insulin * none * Bolus insulin: * NovoLog per scale ACHS or Q6hrs while NPO * Goal Range: Low 140 mg/dL - High 180 mg/dL * Correction Factor: 40 mg/dL/unit * Will start CR scale with BSG >180 Nutritional / Prandial insulin: 1 unit per 20 gm CHO consumed PLAN FOR DISCHARGE: * Patient's current A1c (6.6%) indicates excellent glycemic control as an outpatient. Possibly too tight of glycemic control given hypo during inpatient stay. * Could consider decreasing Amaryl to 2mg every other day on dc vs changing to glipizide which is shorter acting and preferred in renal impairment.
[2020-01-12] MEDS: POLYETHYLENE (MIRALAX) 17 GM PACK PO SCH (12:19)
[2020-01-12] MEDS: PANTOprazole 40 MG TAB PO SCH (12:20)
[2020-01-12 12:25] LABS: Appearance Urine Clear (Clear); Bacteria Urine Automated Negative (Negative); Bilirubin Urine Negative (Negative); Blood Urine Trace (Negative); Color Urine Yellow; Glucose Urine UA Negative (Negative); Ketones Urine Negative (Negative); Leukocyte Esterase Urine Negative (Negative); Nitrite Urine Negative (Negative); Protein Urine 2+ (Negative); Specific Gravity Urine 1.021 (1.000-1.030); Urobilinogen Urine Negative (Negative)
[2020-01-12 12:59] LABS: Creatinine Urine Random 98.6 mg/dl
--- NOTE | 2020-01-12 15:52 | Hospitalist Progress Note ---
Date of Service January 12, 2020 Assessment & Plan (1) Acetabulum fracture, left: (2) Fall: with stable pelvic fracture notes simple trip and fall on shoelaces. while bradycardia could be of concern, he gives plausibility that it was simply a mechanical fall and did not show worrisome degrees of liya when on monitor - ongoing PT/OT eval and treat, he would prefer rehab over SNF outpatient osteoporosis w/u since pelvic fracture from standing height fall. (3) Fever: after further review - nosocomial pneuomonia w sepsis and subsequent gram negative bacteremia. improving very quickly on cefepime - examines surprisingly well. awaiting full ID&S on blood cultures and then hopefully can streamline abx from there -> anticipate need for ~14 days total treatment (some studies would suggest maybe as short as 7 if he really continues to improve this quickly, but for now w age/frailty will presume longer); plt improving - may have had a low-grade degree of DIC particularly given gram negative bacteremia - but with prompt initiation of cefepime this is improving as well. see below otherwise under TABATHA as it's more likely worse creatinine relates to lasix than sepsis. SARS-Cov-2 swab negative, and given plausible alternate dx of pneumoni a/bacteremia causing symptoms - clinically this appears to be a true negative. (4) Pulmonary edema: uncertain if represents HFpEF --but overall clinically seems to have improved. now probably somewhat on the dry side (5) Atrial fibrillation: rates good. anticoagulated w eliquis (6) Coronary artery disease: clinically appears stable, no angina thus far during his stay (7) Hypertension: BP show acceptable control (8) TABATHA (acute kidney injury): up some from baseline -given good BP and HR doubt this is septic mediated - more than likely ties together w diuresis for HFpEF -FeNa 0.52% and UA sp grav 1.021 both corroborating a prerenal state, but balance between wet and dry somewhat tight given pulmonary edema earlier in hospital stay -- will give fluids slowly w 1L today, reassess BMP in AM -> continue to have slow/cautious fluids to correct. PO intake should help as well. lasix on hold. (9) Stage III chronic kidney disease: see above. (10) Hypothyroidism: unclear if this is actually a chronic dx or not - TSH on 01/06 5.85 but normal free T4; not on synthroid at home - at this point would look at current elevation as mild and probably circumstantial --> repeat TSH ~4-6wks as outpt (11) Diabetes: A1c 6.6 -sugars were low earlier in hospital stay - probably from slow washout of sulfonylurea - off insulin. sugars much more manageable and acceptable today. has SQ insulin but not to start unless sugars >180 when discharged would have no glimeperide (12) DVT prophylaxis: anticoagulated for afib (13) Discharge planning issues: continue on medical for now - showing improvement again PT/OT eval and treat ongoing -referral in for rehab - strongly suspect he'll need some form of inpatient therapy as he progresses towards discharge (main issues between now and discharge are improvement in renal function and finalizing regimen for pneumonia/bacteremia) Admission and Anticipated Discharge Date Admission Date: January 07, 2020 Subjective feeling better. breathing OK. pain reasonable extensive discussion on overall outlook - he feels comfortable with the thought of dying and is ok with this//often prays that God would take him in his sleep; yet at the same time notes there are plenty of days he'll go out on the porch and look at the world and be happy. after discussions of next steps (abx, PT/OT, probable need for rehab, but ultimately high likelihood of return home) he is generally happy with this plan. had BM today. Review of Systems Review of Systems: All systems reviewed & are unremarkable except as noted in HPI & below Physical Exam Physical Exam: gen aao pleasant nad. heent nc at mmm. cardio reg rate. lungs overall cta maybe faint diminished base L no r/r/w good effort no accessory muscles no tachypnea no conversational dyspnea. neuro shows cn 2-12 grossly intact gross motor intact. no edema. abd soft mod distended nontender Results & Data Results & Data ([facility]) Vital Signs (Past 12 Hours) Vital Signs Temp Pulse Pulse Resp BP Pulse Ox 01/12/20 15:09 98.4 F 85 16 125/68 96 01/12/20 07:06 97.9 F 84 89 20 134/78 95 01/12/20 05:24 90 93 01/12/20 04:41 132/87 01/12/20 04:17 99.0 F 01/12/20 04:11 89 20 93 PG Care Time/CCT Total # of Minutes Spent Total Time Spent with Patient: Total time spent is greater than 50% in coordination of care (as documented) at patient's floor/unit and/or counseling patient: Coding Level of Care Code 77935 Subseq Hosp Care Lvl 3 Diagnoses Acetabulum fracture, left S32.402A Encounter type: initial encounter Fracture alignment: nondisplaced Fracture type: closed Sublocation of acetabulum: unspecified portion of acetabulum Fall W19.XXXA Encounter type: initial encounter Fever R50.9 Pulmonary edema J81.1 Atrial fibrillation I48.91 Coronary artery disease I25.10 Hypertension I10 TABATHA (acute kidney injury) N17.9 Stage III chronic kidney disease N18.3 Hypothyroidism E03.9 Diabetes E11.9 DVT prophylaxis Z29.9 Discharge planning issues Z02.9 (1) Acetabulum fracture, left Encounter type: initial encounter Fracture alignment: nondisplaced Fracture type: closed Sublocation of acetabulum: unspecified portion of acetabulum Qualified Code(s): S32.402A - Unspecified fracture of left acetabulum, initial encounter for closed fracture (2) Fall Encounter type: initial encounter Qualified Code(s): W19.XXXA - Unspecified fall, initial encounter
[2020-01-12] MEDS: CALCIUM CARBONATE 500 MG CHEWABLE TAB PO PRN (17:32)
[2020-01-13] MEDS: CEFEPIME 2,000 MG in SYRINGE 7.5 ML IV SCH (01:29)
[2020-01-13 06:24] LABS: Eosinophils # (auto) 0.02 K/uL (0-0.5); Eosinophils % (auto) 0.2 %; Hematocrit (blood only) 29.7 % (42-52); Immature Granulocytes # (auto) 0.04 K/uL (0.00-0.02); Immature Granulocytes % (auto) 0.3 %; Lymphocytes # (auto) 0.64 K/uL (1.2-3.4); Lymphocytes % (auto) 5.1 %; Mean Corpuscular Hemoglobin 31.8 pg (25-34); Mean Corpuscular Hgb Conc 33.7 g/dL (32-36); Mean Corpuscular Volume 94.6 fL (80-100); Mean Platelet Volume 11.4 fL (7.4-10.4); Monocytes # (auto) 0.41 K/uL (0.11-0.59); Monocytes % (auto) 3.3 %; Neutrophils # (auto) 11.49 K/uL (1.4-6.5); Neutrophils % (auto) 91.1 %; Platelet Count 116 K/uL (130-400); RDW Coefficient of Variation 15.9 % (11.5-14.5); RDW Standard Deviation 54.6 fL (36.4-46.3); Red Blood Count 3.14 M/uL (4.7-6.1)
[2020-01-13 06:57] LABS: BUN Creatinine Ratio 30.1 (10-20); Calcium 8.9 mg/dl (8.5-10.1); Creatinine Clr Calc Pharmacy 23.9 ml/min; Est GFR (African American) 24.7; Est GFR (Non-African American) 21.3; Potassium 4.5 mmol/L (3.5-5.1)
--- NOTE | 2020-01-13 07:26 | Hospitalist Progress Note ---
Date of Service January 13, 2020 Assessment & Plan (1) Acetabulum fracture, left: (2) Fall: with stable pelvic fracture patient feels his pain is in reasonable control patient is agreeable to rehab notes simple trip and fall on shoelaces. while bradycardia could be of concern, he gives plausibility that it was simply a mechanical fall and did not show worrisome degrees of liya when on monitor - ongoing PT/OT outpatient osteoporosis w/u since pelvic fracture from standing height fall. (3) Fever: after further review - nosocomial pneumonia w sepsis and subsequent gram negative bacteremia. Patient is improved very well bacteremia found to be E. coli pansensitive will transition oral ciprofloxacin renal dose adjustment-> anticipate need for ~14 days total treatment SARS-Cov-2 swab negative, and given plausible alternate dx of pneumonia/ bacteremia causing symptoms - clinically this appears to be a true negative. (4) Pulmonary edema: uncertain if represents HFpEF --but overall clinically seems to have improved. Volume status is concerned given the patient's CKD stage IV (5) Atrial fibrillation: rates good with diltiazem, may have been on home metoprolol. anticoagulated w davina patient is near dose adjustment for renal dysfunction he is not quite yet met the age criteria and his body weight exceeds 60 kg but certainly he will likely benefit from close monitoring of his anticoagulation (6) Coronary artery disease: clinically appears stable, no angina thus far during his stay (7) Hypertension: BP show acceptable control with Diltiazem, lasix and lisinopril (8) TABATHA (acute kidney injury): up some from baseline -given good BP and HR doubt this is septic mediated - more than likely ties together w diuresis for HFpEF -FeNa 0.52% and UA sp grav 1.021 both corroborating a prerenal state, but balance between wet and dry somewhat tight given pulmonary edema earlier in hospital stay -- was given one liter offluids on 01/11. lasix on hold. (9) Stage III chronic kidney disease: see above patient is more near chronic kidney disease stage IV at this time continue to watch for dose medication adjustment. (10) Hypothyroidism: unclear if this is actually a chronic dx or not - TSH on 01/06 5.85 but normal free T4; not on synthroid at home - likely related to ill state--> repeat TSH ~4-6wks as outpt (11) Diabetes: A1c 6.6 -sugars were low earlier in hospital stay - probably from slow washout of sulfonylurea - off insulin. sugars much more manageable and acceptable today. has SQ insulin but not to start unless sugars >180 when discharged would have no glimeperide (12) DVT prophylaxis: anticoagulated for afib (13) Discharge planning issues: Dissipate discharge to rehab facility to complete 2-week course of antibiotics which will be approximately 11-12 more days of oral renal dose a djusted Cipro Admission and Anticipated Discharge Date Admission Date: January 07, 2020 Subjective This patient is in good spirits he is only minimal pain in his hip. He is reluctantly agreeable to getting rehab due to the challenges in providing hygiene and care to himself from his family. Case management feels he needs PT/OT update and may be available to go to rehab early this week. Patient has no other complaints or concerns. Review of Systems Review of Systems: Mild distress and moderate fatigue no headache, blurry or double vision no speech or swallowing issues no chest pain, pressure or palpitations no shortness of breath, cough or wheezes no abdominal pain, nausea or vomiting, diarrhea or constipation no dysuria, hematuria or frequency minor left hip pain but no swelling no back pain, CVA tenderness or radicular pain no bruising, bleeding or rashes no focal signs of weakness or numbness or altered sensation no complaints or anxiety or depression Physical Exam Physical Exam: The patient appeared well nourished and normally developed. Vital signs as documented. Head exam is unremarkable. No scleral icterus or corneal arcus noted. Neck is without JVD, thyromegaly, or carotid bruits. Lungs are clear to auscultation and percussion. Cardiac exam. Rhythm is regular.. No murmurs, rubs or gallops. Abdominal exam reveals normal bowel sounds, no masses, no organomegaly Extremities are nonedematous and both femoral and pedal pulses are normal. Neurologic exam is alert and oriented, no focal loss of strength or sensation Skin is without bruises or rashes Psychologically is without concerns for anxiety or depression Results & Data Results & Data ([facility]) Vital Signs (Past 12 Hours) Vital Signs Temp Pulse Resp BP Pulse Ox 01/12/20 22:53 99.0 F 87 18 139/81 95 PG Care Time/CCT Total # of Minutes Spent Total Time Spent with Patient: Total time spent is greater than 50% in coordination of care (as documented) at patient's floor/unit and/or counseling patient: Coding Level of Care Code 89977 Subseq Hosp Care Lvl 3 Diagnoses Acetabulum fracture, left S32.402A Encounter type: initial encounter Fracture alignment: nondisplaced Fracture type: closed Sublocation of acetabulum: unspecified portion of acetabulum Fall W19.XXXA Encounter type: initial encounter Fever R50.9 Pulmonary edema J81.1 Atrial fibrillation I48.91 Coronary artery disease I25.10 Hypertension I10 TABATHA (acute kidney injury) N17.9 Stage III chronic kidney disease N18.3 Hypothyroidism E03.9 Diabetes E11.9 DVT prophylaxis Z29.9 Discharge planning issues Z02.9 (1) Acetabulum fracture, left Encounter type: initial encounter Fracture alignment: nondisplaced Fracture type: closed Sublocation of acetabulum: unspecified portion of acetabulum Qualified Code(s): S32.402A - Unspecified fracture of left acetabulum, initial encounter for closed fracture (2) Fall Encounter type: initial encounter Qualified Code(s): W19.XXXA - Unspecified fall, initial encounter
[2020-01-13] MEDS: INSULIN ASPART 100 UNITS/ML 3 ML PEN SC SCH ×4 (08:23→21:29)
[2020-01-13] MEDS: IPRATROPIUM BROMIDE/ALBUTEROL respimat INH INH SCH ×4 (08:26→21:12)
[2020-01-13] MEDS: POLYETHYLENE (MIRALAX) 17 GM PACK PO SCH (08:30)
[2020-01-13] MEDS: ATORVASTATIN 40 MG TAB PO SCH (08:30)
[2020-01-13] MEDS: PANTOprazole 40 MG TAB PO SCH (08:30)
[2020-01-13] MEDS: allopurinoL 100 MG TAB PO SCH ×2 (08:31→21:12)
[2020-01-13] MEDS: ESCITALOPRAM OXALATE 10 MG TAB PO SCH (08:31)
[2020-01-13] MEDS: guaiFENesin 600 MG TABCR PO SCH ×2 (08:31→21:12)
[2020-01-13] MEDS: dilTIAZem HCL 240 MG CAPCR PO SCH (08:31)
[2020-01-13] MEDS: APIXABAN 5 MG TABLET PO SCH ×2 (08:31→21:12)
[2020-01-13] MEDS ORDERED: CIPROFLOXACIN 500 MG TAB PO SCH (21:00)
[2020-01-13] MEDS: ACETAMINOPHEN 325 MG TAB PO PRN (21:13)
[2020-01-14] MEDS: APIXABAN 5 MG TABLET PO SCH (09:21)
[2020-01-14] MEDS: ATORVASTATIN 40 MG TAB PO SCH (09:21)
[2020-01-14] MEDS: guaiFENesin 600 MG TABCR PO SCH (09:21)
[2020-01-14] MEDS: POLYETHYLENE (MIRALAX) 17 GM PACK PO SCH (09:21)
[2020-01-14] MEDS: PANTOprazole 40 MG TAB PO SCH (09:22)
[2020-01-14] MEDS: allopurinoL 100 MG TAB PO SCH (09:22)
[2020-01-14] MEDS: dilTIAZem HCL 240 MG CAPCR PO SCH (09:23)
[2020-01-14] MEDS: IPRATROPIUM BROMIDE/ALBUTEROL respimat INH INH SCH ×2 (09:23→12:33)
[2020-01-14] MEDS: INSULIN ASPART 100 UNITS/ML 3 ML PEN SC SCH ×2 (09:24→12:34)
[2020-01-14] MEDS: ESCITALOPRAM OXALATE 10 MG TAB PO SCH (09:26)
--- NOTE | 2020-01-14 11:38 | Discharge Summary ---
Date of Service January 14, 2020 Admission HPI Per Admitting Provider Mr. Dunn is a 79 yo male with a PMHx of Atrial Fibrillation, on Eliquis who came to the ED for generalized weakness and pelvic pain that began after sustaining a fall on 01/02. Mr. Dunn reports a dizzy sensation after going from a sitting to a standing position which preceded his fall; he is unable to say whether he experienced associated palpations. He does report striking the left side of his head when he fell. Mr. Dunn is somewhat of a poor historian, but does remark the idea of a pacemaker being discussed with him in the past by a doctor. He is currently on two chronotropic agents, metoprolol succinate, 25mg daily and diltiazem 240mg, daily. 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 He also reports associated SOB with exertion and swelling of his bilateral lower extremities over the past 4 weeks. He denies PND or orthopnea. Admits to high sodium intake. He does have a history of CHF, although most recent echo from 09/2019 showed normal LV systolic function with an EF 55-60%. ED course: Patient afebrile, BP 146/76, HR 48, RR 16. WBC normal. Hgb 103, MCV 103. Electrolytes WNL. Cr 1.92, which appears to be at baseline. INR 1.2. AST and ALT WNL. TSH mildly elevated to 5.5. NT-Pro BNP elevated to 16,544. UA ordered, not yet collected. EKG showing junctional bradycardia at 41 bpm. CXR showing vascular prominence without overt failure. Abdominopelvic CT scan showing small, bilateral pleural effusions, acute non-displaced fracture of L acetabulum, non-displaced fracture of left inferior pubic ramus, a 29mm lytic lesion of medial left iliac bone, mild splenomegaly, a 4.5 cm right renal mass, liver with cirrhotic appearance, biliary sludge vs. milk of calcium in gallbladder without stones. Head CT without acute intracranial abnormality. C- Spine CT showing no fractures or subluxations. Bilateral femur Xrays showing no fractures. Administered 25mcg of fentanyl, which totally relieved his pelvic pain. Principal Diagnosis left acetabulum and pubic pelvic fracture, lytic bone lesion also commented. Renal mass also commented gram negative pneumonia with blood cultures showing e coli prior history of afib and CAD Diabetes ckd stage 4 Discharge Exam The patient appeared well nourished and normally developed. Vital signs as documented. Head exam is unremarkable. No scleral icterus Neck is without JVD, thyromegaly, or carotid bruits. Lungs are clear to auscultation and percussion. Cardiac exam, Rhythm is rate controlled but irregular. Abdominal exam reveals normal bowel sounds, no masses, no organomegaly and no aortic enlargement Extremities are nonedematous and both pedal pulses are normal. Neurologic exam is alert and oriented, no focal loss of strength or sensation Skin is without bruises or rashes Psychologically is without concerns for anxiety or depression Discharge Data Allergies Allergy/AdvReac Type Severity Reaction Status Date / Time Penicillins Allergy Unknown RASH Verified 01/07/20 19:40 Consultations 01/07/20 19:42 ED Decision to Admit Stat 01/07/20 21:02 Consult Cardiology Routine 01/08/20 09:45 Consult Orthopedic Surgery Routine 01/08/20 20:54 Consult [facility] drip pumper Routine Ordered Studies 01/07/20 17:43 CT abd pelvis wo con Stat CT cervical spine wo con Stat CT head/brain wo con Stat 01/08/20 22:46 MR abdomen wo/w con Routine Hospital Course (1) Acetabulum fracture, left: It was felt this patient did not require surgical intervention but required pain control and rehabilitation for which he sent to [facility]. Scans below are involving the fracture s CT Scan abdmen and pelvis IMPRESSION: 1. Acute nondisplaced fracture involving the left acetabulum 2. Nondisplaced fracture of the left inferior pubic ramus 3. No evidence of solid organ injury given the limitations of a noncontrast study 4. 29 mm lytic lesion involving the medial left iliac bone 5. Indeterminate 4.5 cm right renal mass. A dedicated renal CT scan or MRI is recommended for further evaluation. 6. Cirrhotic morphology the liver. Mild splenomegaly 7. Small bilateral pleural effusions and dependent atelectasis 8. Hyperdense bile versus milk of calcium within the gallbladder 9. Trace ascites MRI of abdomen to eval possible renal lesion did not suggest suspicion IMPRESSION: 1. Bilateral renal lesions as described above consistent with cysts. The dominant 4.6 x 4.0 cm exophytic lesion within the lower pole the right kidney appears to represent a hemorrhagic/proteinaceous cyst. No solid enhancing renal masses identified. 2. Cholelithiasis. 3. Cirrhosis. 4. Small amount of ascites. 5. Small bilateral pleural effusions. 6. Extensive soft tissue edema within the bilateral flanks, unchanged. 7. There is an indeterminate 2.7 cm nodule within the left upper quadrant posterior to the left adrenal gland and medial to the spleen. This does not demonstrate significant enhancement and demonstrates calcification centrally. Therefore, this favors a benign lesion. This could represent an infarcted accessory spleen, an exophytic adrenal nodule, or less likely a thrombosed aneurysm. (2) Fall: with stable pelvic fracture patient feels his pain is in reasonable control patient is agreeable to rehab notes simple trip and fall on shoelaces. while bradycardia could be of concern, he gives plausibility that it was simply a mechanical fall and did not show worrisome degrees of liya when on monitor - ongoing PT/OT outpatient osteoporosis w/u since pelvic fracture from standing height fall. (3) Fever: after further review - nosocomial pneumonia w sepsis and subsequent gram negative bacteremia. Patient is improved very well bacteremia found to be E. coli pansensitive will transition oral ciprofloxacin renal dose adjustment-> anticipate need for ~14 days total treatment SARS-Cov-2 swab negative, and given plausible alternate dx of pneumonia/bacteremia causing symptoms - clinically this appears to be a true negative. (4) Pulmonary edema: resolved if represents HFpEF. Volume status is concerned given the patient's CKD stage IV (5) Atrial fibrillation: rates good with diltiazem, may have been on home metoprolol. anticoagulated w davina patient is near dose adjustment for renal dysfunction he is not quite yet met the age criteria and his body weight exceeds 60 kg but certainly he will likely benefit from close monitoring of his anticoagulation (6) Coronary artery disease: clinically appears stable, no angina thus far during his stay (7) Hypertension: BP show acceptable control with Diltiazem, lasix and lisinopril (8) TABATHA (acute kidney injury): up some from baseline -given good BP and HR doubt this is septic mediated - more than likely ties together w diuresis for HFpEF -FeNa 0.52% and UA sp grav 1.021 both corroborating a prerenal state, but balance between wet and dry somewhat tight given pulmonary edema earlier in hospital stay -- was given one liter offluids on 01/11. lasix resumes at discharge (9) Stage III chronic kidney disease: see above patient is more near chronic kidney disease stage IV at this time continue to watch for dose medication adjustment. (10) Hypothyroidism: unclear if this is actually a chronic dx or not - TSH on 01/06 5.85 but normal free T4; not on synthroid at home - likely related to ill state--> repeat TSH ~4-6wks as outpt (11) Diabetes: A1c 6.6 -sugars were low earlier in hospital stay - probably from slow washout of sulfonylurea - off insulin. sugars much more manageable and acceptable today. has SQ insulin but not to start unless sugars >180 when discharged would have no glimeperide, may need to work on insulin teaching or even once a day dosing of lantus etc, could consider returing to po meds but renal funciton may make these meds unpredictable Total Time Total Time Spent Total Time Spent (In Minutes): It required greater than 30 minutes to prepare this patient for discharge Discharge Plan Discharge Items Patient Disposition: Transfer Inpatient Rehab Fac Reason For Visit: FALL Discharge Diagnosis: Stable Pelvis Fracture gram negative bacteremia Condition on Discharge: Good Activity: Per Instructions section Activity Comment: May fully weightbear as tolerated. Weightbearing: Full weightbearing Non-emergency contact: Primary Care Provider Call non-emergency contact if: you have any medication questions Follow-up/Referrals: Wayne Miller MD [Physician] - (Orthopedic follow-up in 4-6 weeks.) Julia Peña MD [Primary Care Provider] - 02/26/20 12:45 pm (Please, follow up at [facility] with Dr. Julia Peña on MondayFebruary 25 at 12:45 pm. *She will be your new primary care provider. The office is located in [address] of [facility], next to the hospital. If you need to change this appointment, call the office at [phone].) Diet: Carb Consistent or DM2 Addtl Attending Provider Instructions: this pt has been taken off glimeparide due to renal function and taken off metoprolol due to bradycardia, it may be a challenge to keep him on home insulin sc ssi, so may consder monitoring his renal funtion and restarting an oral regiment or maybe comprimising with a once a day regimen Pending Studies at Discharge: No Stand-Alone Forms: My [facility] Skilled Items Patient informed of condition?: Yes DNR: Yes Discharge Level of Care: Acute rehab Communicable Disease: No Discharge Prognosis: Stable Lines: None Urinary Catheter: No Medications and DC Order Prescriptions: New oxycodone 5 mg Tablet 5 mg PO Q4H PRN (Reason: pain) Qty: 20 RF: 0 insulin aspart U-100 [Novolog Flexpen U-100 Insulin] 100 unit/mL (3 mL) Insulin Pen 1 units SC ACHS Qty: 3 RF: 0 ciprofloxacin HCl 500 mg Tablet 500 mg PO Q24H Qty: 7 RF: 0 Continued diltiazem HCl 240 mg capsule,extended release 24hr 240 mg PO DAILY RF: 0 lisinopril 10 mg tablet 10 mg PO DAILY RF: 0 omeprazole 20 mg capsule,delayed release(DR/EC) 20 mg PO DAILY RF: 0 escitalopram oxalate [Lexapro] 10 mg tablet 10 mg PO DAILY RF: 0 Combivent Respimat 20-100 mcg/actuation mist 1 puff INHALATION QID RF: 0 loperamide 2 mg Tablet 2 mg PO QID PRN (Reason: Diarrhea) RF: 0 allopurinol 100 mg Tablet 100 mg PO BID RF: 0 atorvastatin 40 mg tablet 40 mg PO DAILY RF: 0 Eliquis 5 mg tablet 5 mg PO BID RF: 0 Discontinued meloxicam [Mobic] 15 mg tablet 15 mg PO DAILY RF: 0 glimepiride 2 mg tablet 2 mg PO QAM RF: 0 metoprolol succinate 25 mg tablet extended release 24 hr 25 mg PO DAILY RF: 0 Discharge Orders: Discharge Order (Routine); Ordered 01/14/20 Ordered By: Mehrdad Aponte/Other Patient Handouts: Hyperglycemia, Hypoglycemia, Diabetes Type 2 Managing Admission Data Admit Date/Time: 01/07/20 20:56 Attending Provider: Mehrdad Walters Admit Provider: Julia Peña Primary Care Provider: Julia Peña Other Providers: Nathaniel Neff ; Phani Francisco ; Chase Galindo ; Wayne Miller ; [facility] Coding Level of Care Code D/C Day Management >30 mins Diagnoses Acetabulum fracture, left S32.402A Encounter type: initial encounter Fracture alignment: nondisplaced Fracture type: closed Sublocation of acetabulum: unspecified portion of acetabulum Fall W19.XXXA Encounter type: initial encounter Fever R50.9 Pulmonary edema J81.1 Atrial fibrillation I48.91 Coronary artery disease I25.10 Hypertension I10 TABATHA (acute kidney injury) N17.9 Stage III chronic kidney disease N18.3 Hypothyroidism E03.9 Diabetes E11.9
== END 2020-01-14 13:12 | DRG 535 ==
LOC: ED 17:34 → SUATTDRO 20:56 → 2S 20:56 → 3E 01-09 14:15

== ENCOUNTER 2020-01-17 17:13 | Inpatient (IN) ==
[2020-01-17] MEDS ORDERED: ACETAMINOPHEN 1,000 MG/100 ML VIAL IV STA (17:29)
[2020-01-17] MEDS ORDERED: SODIUM CHLORIDE 0.9% 500 ML IV ONE (17:29)
[2020-01-17] MEDS ORDERED: PROCHLORPERAZINE 1 ML IV ONE (17:29)
[2020-01-17] MEDS ORDERED: FAMOTIDINE 20MG IV PUSH 20 MG/5 ML SYR IV STA (17:31)
[2020-01-17] MEDS ORDERED: MoRPHine SULFATE 10 MG/ML CARP/VIAL IV STA (17:31)
--- NOTE | 2020-01-17 17:34 | Emergency Department Note ---
Impression & Plan Hemoperitoneum, Atrial fibrillation, Leukocytosis, Elevated troponin, Hypotension, Subcapsular hematoma of liver, Abdominal pain, acute, Elevated lactic acid level, On rivaroxaban therapy, On apixaban therapy ED Provider Note NAME: FARSHAD PIZANO AGE: 79 SEX: M ARRIVES VIA: Ambulance INFORMANT: Patient, ED PROVIDER(S): Paolo Dobbs MD CHIEF COMPLAINT: Abdominal pain PLAN: Disposition: Admit MEDICAL DECISION MAKING: The patient is a pleasant 79-year-old gentleman with a past medical history of A. 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 The patient reports he had a normal bowel movement yesterday. Denies fevers, chills, cough, congestion. Denies any similar episodes in the past. The patient was seen in this emergency department on 01/06 with a nondisplaced left acetabular fracture and a nondisplaced left inferior pubic ramus fracture. Given the stable pelvic fracture patient was discharged to rehab for conservative management per orthopedic recommendations.. Of note, during that hospitalization he had a negative COVID-19 swab. On arrival the patient is uncomfortable but no acute distress, afebrile with stable vital signs. On exam the patient has a distended, hard and tender abdomen. No guarding or rebound at this time. EKG demonstrates atrial fibrillation without overt acute ischemia. Chest x-ray was negative for acute process trace pleural effusions again present. WBC 18.9K, H/H 11.1/33.4 improved from prior values. Lactate was 3.5 though chemistry with normal anion gap and bicarb of 20. Creatinine 2.2, approximate 2 prior values. Bilirubin 1.9 with direct bilirubin 1.4 she is increased from normal values on recent admission. AST elevated at 97 new from prior. Alk phos 383 additionally elevated from prior. Troponin 0.197 likely demand in the setting of the patient's critical illness. Lipase within normal limits. Patient returned from CT scan and became acutely minimally responsive with blood pressure with a systolic in the 60s. Upon Trendelenburg positioning and additional IV fluids his blood pressure did improve to the 90s with return of his mental status. CT scan demonstrates new hemoperitoneum with suspicious source of liver with evidence of subcapsular liver hematoma. The gallbladder is again seen with distention and contains layering of hyperdense intraluminal material could be consistent with hemobilia or gallstones which has increased from his CT on 01/06. The patient denies any recent falls other than his fall 10 days ago which led to his admission and subsequent discharge to [facility]. Patient was consented and transfused 1 unit of uncrossed PRBCs due to his hypotension in the setting of acute hemorrhage. Additional 2 units of PRBCs were crossed and on hold. Of note, the patient's hemoglobin is improved from prior but may represent a degree of hemoconcentration given his clinically dry appearance and likely may decline given evidence of hemorrhage. Additionally during the patient's evaluation he did have episode of dark emesis which was Hemoccult positive per nursing. He was ordered for IV Protonix. Blood cultures empiric ceftriaxone were ordered for possible infectious etiology to the patient's presentation. I did discuss the case with our general surgeon on-call, Dr. Avila, who recommended transfer to tertiary care center given his critical illness and medical comorbidities. I did review this recommendation with the patient and he reported that he did not want to be transferred and was "not afraid of dying. I did ask for clarification on what he meant by this and he did communicate that he recognizes by not being transferred he could risk a worse condition and . For now he is okay with receiving his blood transfusion and antibiotics. Patient's ex- was contacted and did arrive to the bedside and we further confirmed the patient's wishes with her present. Did ask the patient if he had anyone designated as his decision maker should he become unable to make his own decisions and he expressed that he would want his ex- to make decisions. He did confirm that does not want CPR or intubation if needed and again expressed that he did not want to be transferred for any additional aggressive treatment. He was agreeable for admission here for further management as has been initiated and again understood the limitations of care if he is not transferred in the risks associated with this that could lead to . Case was discussed with Dr. Miller, [facility] hospitalist, who will evaluate the patient for admission. Triage Nursing notes reviewed and agree them. Additional history obtained from EMS Prior medical records reviewed Vital Signs: reviewed and remarkable for hypotension. Differential diagnosis: Appendicitis, testicular torsion, infections, diverticulitis, UTI, obstruction, mesenteric ischemia, aortic pathology, inflammatory bowel disease, renal colic, PUD, pancreatitis, biliary pathology, hernia, volvulus, constipation, as well as other pathologies. ER treatment provided: See below. Diagnostics interpreted by me: ECG: Atrial fibrillation, with RVR, 101 bpm, right axis deviation, PVC, no overt ST elevation or depression. QTc 420, QRS 88. Cardiac Monitoring: An order for continuous cardiac monitoring was placed and demonstrated atrial fibrillation, 100 bpm, intermittent PVCs. Laboratory studies: See below Imaging studies: CT SCAN OF THE ABDOMEN AND PELVIS WITHOUT IV CONTRAST CLINICAL HISTORY: Generalized abdominal pain. COMPARISON STUDY: Abdominal CT dated 01/07/2020. Abdominal MRI dated 01/08/2020. TECHNIQUE: CT scan of the abdomen and pelvis is performed from the lung bases to the proximal femora. Images are reviewed in the axial, sagittal, and coronal planes. IV contrast was not administered for this examination as per the referring clinician. Note that the examination was performed in suboptimal fashion without oral and IV contrast. The examination is also degraded by motion, and by streak artifact from the left arm which could not be elevated above the abdomen. A dose lowering technique was utilized adhering to the principles of ALARA. CT DOSE: 828.59 mGy.cm FINDINGS: Lung bases: The heart is mildly enlarged and without pericardial effusion. The coronary arteries are densely calcified. There are small pleural effusions with bibasilar atelectasis. Fluid-filled distal esophagus. Liver: The unenhanced liver is cirrhotic in morphology and heterogeneous in attenuation. There is hypertrophy of the left lobe and nodularity of the hepatic surface contour. There is trace subcapsular fluid identified along the anterior surface of the liver. This is typical with subcapsular hemorrhage. There is no intrahepatic biliary ductal dilatation. Gallbladder: The gallbladder is distended. There is layering hyperdense intraluminal material which is increased from previous. Spleen: Normal in size and attenuation. Pancreas: The unenhanced pancreas is moderately atrophic and grossly unremarkable. Adrenal glands: Adrenal glands are grossly unremarkable. A 2.9 cm calcification containing nodule is again seen in the left superior to peritoneal space adjacent to the adrenal gland on image #100. Kidneys: The unenhanced kidneys are atrophic and without hydronephrosis. There are no renal calculi identified. Bilateral simple renal cysts are again noted and measure up to 3.5 cm. a 4.4 cm complex cyst is again seen arising from the right lower pole. Abdominal vasculature: The abdominal aorta is normal in course and caliber noting advanced atherosclerotic calcification. Bowel: There is moderate colonic diverticulosis without CT evidence of acute diverticulitis. No bowel obstruction is seen. The appendix is not visualized. Peritoneum: There is a small volume of abdominopelvic ascites. This has increas ed from previous, and blood around the liver and spleen appears complex/hyperdense. This is consistent with hemoperitoneum. No intraperitoneal free air is seen. Lymphadenopathy: None. Pelvic viscera: The bladder, prostate, and seminal vesicles are normal as imaged. There are bilateral fat-containing inguinal hernias. Trace fluid is noted in the right inguinal hernia. Skeletal structures: The skeletal structures are osteopenic. Fractures of the left acetabulum and left inferior pubic ring are again noted. There are healed right-sided rib fractures. There is moderate to advanced lumbosacral s pondylosis. No lytic or blastic lesions are seen. A benign-appearing fat attenuation lucency is again seen in the medial left iliac bone. Soft tissues: There is body wall edema. IMPRESSION: 1. Suboptimal examination without oral and IV contrast. The examination is also compromised by streak and motion. 2. The liver is cirrhotic in morphology. There is trace subcapsular fluid which is new from 01/07/2020, and likely represents subcapsular hematoma. 3. Free fluid in the abdomen and pelvis has increased from 01/07/2020. Fluid around the liver and spleen is complex and this is consistent with hemoperitoneum. The liver is the most likely source given associated subcapsular hemorrhage. No definite laceration is identified but this is not well evaluated. 4. The gallbladder is distended and contains layering hyperdense intraluminal material. This has increased from 01/07/2020 and may represent hemobilia and/or gallstones. If there is clinical concern for acute cholecystitis a right upper q uadrant ultrasound or hepatobiliary scan should be considered. 5. Cardiomegaly and small pleural effusions. 6. Fractures of the left acetabulum and the left inferior pubic ring are again noted. 7. Moderate colonic diverticulosis without CT evidence of acute diverticulitis. 8. Additional findings as above. -- SINGLE VIEW CHEST CLINICAL HISTORY: Atypical chest pain. FINDINGS: An AP, portable, upright chest radiograph is compared to study dated 01/10/2020. The examination is degraded by portable technique and patient rotation. The heart is enlarged noting atherosclerotic calcification of the thoracic aorta. The pulmonary vasculature is noncongested. There are trace pleural effusions with bibasilar atelectasis. No pneumothorax is seen. The skeletal structures are osteopenic. The bony thorax is grossly intact. IMPRESSION: 1. Cardiomegaly without radiographic evidence of congestive failure. 2. Trace pleural effusions with bibasilar atelectasis. Consultation(s): Dr. Avila, General surgery on-call Dr. Miller, [facility] hospitalist, who will evaluate the patient for admission. HPI: The patient is a pleasant 79-year-old gentleman with a past medical history of A. 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 The patient reports he had a normal bowel movement yesterday. Denies fevers, chills, cough, congestion. Denies any similar episodes in the past. The patient was seen in this emergency department on 01/06 with a nondisplaced left acetabular fracture and a nondisplaced left inferior pubic ramus fracture. Given the stable pelvic fracture patient was discharged to rehab per ortho recommendatiosn. Of note, during that hospitalization he had a negative COVID-19 swab. ROS: See above HPI for pertinent positives & negatives. A total of 10 systems reviewed and were otherwise negative. PAST MEDICAL HISTORY:See Below PAST SURGICAL HISTORY:See Below FAMILY HISTORY:See Below SOCIAL HISTORY:See Below HOME MEDICATIONS:See Below ALLERGIES:See Below VITALS:See Below PHYSICAL EXAMINATION: GENERAL: Awake, alert, uncomfortable-appearing, in no distress HENT: Normocephalic, atraumatic. Oropharynx with dry mucous membranes and otherwise unremarkable EYES: Normal conjunctiva. Sclera non-icteric. NECK: Supple. No nuchal rigidity. FROM. No JVD. RESPIRATORY: Clear to auscultation. CARDIAC: Regular rate, normal rhythm. Extremities warm and well perfused. Pulses equal. ABDOMEN: Distended, hard abdomen with moderate tenderness. No rebound or guarding. No masses. RECTAL: Deferred. MUSCULOSKELETAL: Chest examination reveals no tenderness. The back is symmetrical on inspection without obvious abnormality. There is no CVA tenderness to palpation. No joint edema. LOWER EXTREMITIES: Calves are equal size bilaterally and non-tender. No edema. No discoloration. NEURO: Normal sensorium. No sensory or motor deficits from his baseline status post CVA are noted. He has residual left-sided weakness and aphasia/dysarthria. SKIN: No rash or jaundice noted. ED COURSE: Critical Care: I have personally spent greater than 95 minutes of critical care time in the direct management of this patient. This includes bedside care, interpretation of diagnostic studies, and testing, discussion with consultants, patient, and family members, and other required patient management activities. This 95 minutes is in excess of all separately billable procedures. 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 Beliefs That Will Affect Care: None Current Living Situation: Rehab Current Living Situation Comment: originally from home but was recently DC'd from here to [place] Feels Safe at Home: Yes Smoking Status: Former smoker Tobacco Type: cigarettes ; Cigarettes Per Day: 8 ; Hx Alcohol Use: Yes Alcohol type: beer Hx Substance Use: No Allergies Allergies Allergy/AdvReac Type Severity Reaction Status Date / Time Penicillins Allergy Unknown RASH Verified 01/17/20 18:31 Home Meds Home Medications Medication Instructions Recorded Confirmed Combivent Respimat 1 puff INHALATION QID 10/01/19 01/17/20 allopurinol [Zyloprim] 100 mg PO Q12H 10/01/19 01/17/20 diltiazem HCl [Cardizem CD] 240 mg PO DAILY 10/01/19 01/17/20 escitalopram oxalate [Lexapro] 10 mg PO DAILY 10/01/19 01/17/20 lisinopril [Zestril] 10 mg PO DAILY 10/01/19 01/17/20 loperamide [Imodium A-D] 2 mg PO QID PRN 10/01/19 01/17/20 Eliquis 5 mg PO Q12H 01/07/20 01/17/20 atorvastatin [Lipitor] 40 mg PO DAILY 01/07/20 01/17/20 acetaminophen [Tylenol] 650 mg PO Q4H PRN 01/17/20 01/17/20 bisacodyl [Dulcolax (bisacodyl)] 10 mg GA DAILY PRN 01/17/20 01/17/20 ciprofloxacin HCl [Cipro] 500 mg PO HS 01/17/20 01/17/20 oxycodone [Roxicodone] 5 mg PO Q4H PRN 01/17/20 01/17/20 pantoprazole [Protonix] 40 mg PO DAILYBB 01/17/20 01/17/20 polyethylene glycol 3350 [Miralax] 17 g PO QDL PRN 01/17/20 01/17/20 sodium phosphates [Enema] 133 ml GA DAILY PRN 01/17/20 01/17/20 Results & Data (ED) Vital Signs Vital Signs - 24 hr 01/17/20 17:17 01/17/20 17:18 01/17/20 17:20 Temperature Temperature Source Pulse Rate 104 H 106 H 102 H Pulse Rate from SpO2 Sensor 90 94 H 95 H Respiratory Rate 24 29 H 25 H Blood Pressure 105/72 Blood Pressure Mean 75 Pulse Oximetry 91 90 92 Oxygen Delivery Method Oxygen Flow Rate Sepsis Recent Fever Within 48 Hours Sepsis New/Unexplained Change in Mental Status Sepsis Action Taken by Nursing 01/17/20 17:25 01/17/20 17:30 01/17/20 17:33 Temperature 36.6 C Temperature Source Oral Pulse Rate 101 H 95 H Pulse Rate from SpO2 Sensor Respiratory Rate 26 H 23 Blood Pressure 105/72 Blood Pressure Mean 83 Pulse Oximetry 91 91 Oxygen Delivery Method Room Air Room Air Oxygen Flow Rate Sepsis Recent Fever Within 48 Hours No Sepsis New/Unexplained Change in Mental Status No Sepsis Action Taken by Nursing No Action Required 01/17/20 17:40 01/17/20 18:02 01/17/20 18:03 Temperature Temperature Source Pulse Rate 93 H 99 H 98 H Pulse Rate from SpO2 Sensor 96 H 98 H Respiratory Rate 22 24 21 Blood Pressure 97/55 L 97/55 L Blood Pressure Mean 69 72 Pulse Oximetry 95 95 Oxygen Delivery Method Oxygen Flow Rate 2 Sepsis Recent Fever Within 48 Hours Sepsis New/Unexplained Change in Mental Status Sepsis Action Taken by Nursing 01/17/20 18:10 01/17/20 18:31 01/17/20 18:34 Temperature Temperature Source Pulse Rate 81 82 84 Pulse Rate from SpO2 Sensor 78 79 80 Respiratory Rate 17 15 23 Blood Pressure 63/45 L 73/51 L Blood Pressure Mean 50 68 Pulse Oximetry 96 97 97 Oxygen Delivery Method Nasal Cannula Nasal Cannula Oxygen Flow Rate 2 2 Sepsis Recent Fever Within 48 Hours Sepsis New/Unexplained Change in Mental Status Sepsis Action Taken by Nursing 01/17/20 18:39 01/17/20 18:40 01/17/20 18:45 Temperature Temperature Source Pulse Rate 84 88 88 Pulse Rate from SpO2 Sensor 84 81 86 Respiratory Rate 20 16 17 Blood Pressure 98/63 L 97/60 L 107/59 L Blood Pressure Mean 84 65 77 Pulse Oximetry 96 96 97 Oxygen Delivery Method Nasal Cannula Nasal Cannula Nasal Cannula Oxygen Flow Rate 2 2 2 Sepsis Recent Fever Within 48 Hours Sepsis New/Unexplained Change in Mental Status Sepsis Action Taken by Nursing 01/17/20 18:55 01/17/20 18:59 01/17/20 19:00 Temperature 37.6 C H 36.7 C Temperature Source Oral Oral Pulse Rate 87 86 Pulse Rate from SpO2 Sensor 88 Respiratory Rate 22 22 Blood Pressure 120/73 120/73 Blood Pressure Mean 93 88 Pulse Oximetry 95 98 Oxygen Delivery Method Nasal Cannula Oxygen Flow Rate 2 Sepsis Recent Fever Within 48 Hours Sepsis New/Unexplained Change in Mental Status Sepsis Action Taken by Nursing 01/17/20 19:15 01/17/20 19:25 01/17/20 19:30 Temperature 37.1 C 37.2 C Temperature Source Oral Oral Pulse Rate 80 80 80 Pulse Rate from SpO2 Sensor 80 Respiratory Rate 18 18 17 Blood Pressure 118/82 123/62 90/77 L Blood Pressure Mean 94 97 81 Pulse Oximetry 98 98 98 Oxygen Delivery Method Nasal Cannula Oxygen Flow Rate 2 Sepsis Recent Fever Within 48 Hours Sepsis New/Unexplained Change in Mental Status Sepsis Action Taken by Nursing 01/17/20 19:36 01/17/20 19:42 01/17/20 19:46 Temperature Temperature Source Pulse Rate 83 85 86 Pulse Rate from SpO2 Sensor 85 83 87 Respiratory Rate 23 22 21 Blood Pressure 148/77 H 95/58 L 122/74 Blood Pressure Mean 98 66 91 Pulse Oximetry 97 97 96 Oxygen Delivery Method Nasal Cannula Nasal Cannula Nasal Cannula Oxygen Flow Rate 2 2 2 Sepsis Recent Fever Within 48 Hours Sepsis New/Unexplained Change in Mental Status Sepsis Action Taken by Nursing 01/17/20 19:50 01/17/20 19:56 01/17/20 20:00 Temperature 37.3 C Temperature Source Oral Pulse Rate 88 87 91 H Pulse Rate from SpO2 Sensor 87 85 Respiratory Rate 22 21 20 Blood Pressure 127/67 113/65 116/62 Blood Pressure Mean 119 73 80 Pulse Oximetry 97 96 97 Oxygen Delivery Method Nasal Cannula Nasal Cannula Oxygen Flow Rate 2 2 Sepsis Recent Fever Within 48 Hours Sepsis New/Unexplained Change in Mental Status Sepsis Action Taken by Nursing 01/17/20 20:05 01/17/20 20:10 01/17/20 20:15 Temperature Temperature Source Pulse Rate 84 81 80 Pulse Rate from SpO2 Sensor 84 81 80 Respiratory Rate 18 20 17 Blood Pressure 91/45 L 113/58 L 103/65 Blood Pressure Mean 58 75 82 Pulse Oximetry 97 96 97 Oxygen Delivery Method Nasal Cannula Nasal Cannula Nasal Cannula Oxygen Flow Rate 2 2 2 Sepsis Recent Fever Within 48 Hours Sepsis New/Unexplained Change in Mental Status Sepsis Action Taken by Nursing 01/17/20 20:20 01/17/20 20:25 01/17/20 20:30 Temperature Temperature Source Pulse Rate 82 83 87 Pulse Rate from SpO2 Sensor 81 78 84 Respiratory Rate 16 17 15 Blood Pressure 112/55 L 95/65 L 95/63 L Blood Pressure Mean 84 80 75 Pulse Oximetry 96 96 96 Oxygen Delivery Method Nasal Cannula Nasal Cannula Nasal Cannula Oxygen Flow Rate 2 2 2 Sepsis Recent Fever Within 48 Hours Sepsis New/Unexplained Change in Mental Status Sepsis Action Taken by Nursing 01/17/20 20:35 01/17/20 20:40 01/17/20 20:46 Temperature 37.1 C Temperature Source Pulse Rate 91 H 80 83 Pulse Rate from SpO2 Sensor 93 H 84 81 Respiratory Rate 26 H 19 16 Blood Pressure 105/67 129/64 107/82 Blood Pressure Mean 83 85 87 Pulse Oximetry 97 96 97 Oxygen Delivery Method Nasal Cannula Nasal Cannula Nasal Cannula Oxygen Flow Rate 2 2 2 Sepsis Recent Fever Within 48 Hours Sepsis New/Unexplained Change in Mental Status Sepsis Action Taken by Nursing 01/17/20 20:50 01/17/20 20:55 Temperature Temperature Source Pulse Rate 76 89 Pulse Rate from SpO2 Sensor 78 90 Respiratory Rate 18 21 Blood Pressure 108/53 L 101/63 Blood Pressure Mean 69 86 Pulse Oximetry 97 97 Oxygen Delivery Method Nasal Cannula Nasal Cannula Oxygen Flow Rate 2 2 Sepsis Recent Fever Within 48 Hours Sepsis New/Unexplained Change in Mental Status Sepsis Action Taken by Nursing Laboratory Data Attestation: I reviewed the patient's lab results. Result diagrams: 01/17/20 17:40 01/17/20 17:40 Lab Results 01/17/20 01/17/20 01/17/20 Range/Units 17:40 17:40 17:40 WBC 18.96 H (4.8-10.8) K/uL RBC 3.46 L (4.7-6.1) M/uL Hgb 11.1 L (14.0-18.0) g/dL Hct 33.4 L (42-52) % MCV 96.5 (80-100) fL MCH 32.1 (25-34) pg MCHC 33.2 (32-36) g/dL RDW Std Deviation 56.8 H (36.4-46.3) fL RDW Coeff of Dwain 16.3 H (11.5-14.5) % Plt Count 428 H (130-400) K/uL MPV 11.4 H (7.4-10.4) fL Immature Gran % (Auto) 0.9 % Neut % (Auto) 92.4 % Lymph % (Auto) 4.7 % [place] % (Auto) 1.7 % Eos % (Auto) 0.1 % Baso % (Auto) 0.2 % Immature Gran # (Auto) 0.17 H (0.00-0.02) K/uL Neut # (Auto) 17.53 H (1.4-6.5) K/uL Lymph # (Auto) 0.89 L (1.2-3.4) K/uL [place] # (Auto) 0.33 (0.11-0.59) K/uL Eos # (Auto) 0.01 (0-0.5) K/uL Baso # (Auto) 0.03 (0-0.2) K/uL PT 14.0 H (9.0-12.0) Seconds INR 1.3 H (0.9-1.1) APTT 33.2 H (21.0-31.0) Seconds PTT Ratio 1.2 Sodium 136 (136-145) mmol/L Potassium 4.5 (3.5-5.1) mmol/L Chloride 107 (98-107) mmol/L Carbon Dioxide 20 L (21-32) mmol/L Anion Gap 9.0 (3-11) BUN 57 H (7-18) mg/dl Creatinine 2.29 H (0.6-1.4) mg/dl Est Cr Clr Drug Dosing 28.9 ml/min Est GFR ( Amer) 30.8 Est GFR (Non-Af Amer) 26.5 BUN/Creatinine Ratio 25.0 H (10-20) Glucose 206 H (70-99) mg/dl Lactate (0.4-2.0) mmol/L Calcium 8.5 (8.5-10.1) mg/dl Phosphorus 3.7 (2.5-4.9) mg/dl Magnesium 2.2 (1.8-2.4) mg/dl Total Bilirubin 1.9 H (0.2-1) mg/dl Direct Bilirubin 1.4 H (0-0.2) mg/dl AST 97 H (15-37) U/L ALT 68 (12-78) U/L Alkaline Phosphatase 383 H (45-117) U/L Troponin I 0.197 H* (0-0.045) ng/ml Total Protein 7.0 (6.4-8.2) gm/dl Albumin 2.0 L (3.4-5.0) gm/dl Globulin 5.0 H (2.5-4.0) gm/dl Albumin/Globulin Ratio 0.4 L (0.9-2) Lipase 215 (73-393) U/L Procalcitonin (0-0.5) ng/ml Urine Color Urine Appearance (Clear) Urine pH (4.5-7.5) Ur Specific [place] (1.000-1.030) Urine Protein (Negative) Urine Glucose (UA) (Negative) Urine Ketones (Negative) Urine Blood (Negative) Urine Nitrite (Negative) Urine Bilirubin (Negative) Urine Urobilinogen (Negative) Ur Leukocyte Esterase (Negative) Urine WBC (Auto) (0-5) /hpf Urine RBC (Auto) (0-4) /hpf U Hyaline Cast (Auto) (0-5) /lpf U Epithel Cells (Auto) (0-5) /lpf Urine Bacteria (Auto) (Negative) Ur Renal Epithelial Cell (0-5) /lpf Amorphous Sediment (None Prsent) Granular Casts (0) /lpf Urine Yeast Blood Type Blood Type Recheck Antibody Screen Crossmatch 01/17/20 01/17/20 01/17/20 Range/Units 17:40 18:40 18:40 WBC (4.8-10.8) K/uL RBC (4.7-6.1) M/uL Hgb (14.0-18.0) g/dL Hct (42-52) % MCV (80-100) fL MCH (25-34) pg MCHC (32-36) g/dL RDW Std Deviation (36.4-46.3) fL RDW Coeff of Dwain (11.5-14.5) % Plt Count (130-400) K/uL MPV (7.4-10.4) fL Immature Gran % (Auto) % Neut % (Auto) % Lymph % (Auto) % [place] % (Auto) % Eos % (Auto) % Baso % (Auto) % Immature Gran # (Auto) (0.00-0.02) K/uL Neut # (Auto) (1.4-6.5) K/uL Lymph # (Auto) (1.2-3.4) K/uL [place] # (Auto) (0.11-0.59) K/uL Eos # (Auto) (0-0.5) K/uL Baso # (Auto) (0-0.2) K/uL PT (9.0-12.0) Seconds INR (0.9-1.1) APTT (21.0-31.0) Seconds PTT Ratio Sodium (136-145) mmol/L Potassium (3.5-5.1) mmol/L Chloride (98-107) mmol/L Carbon Dioxide (21-32) mmol/L Anion Gap (3-11) BUN (7-18) mg/dl Creatinine (0.6-1.4) mg/dl Est Cr Clr Drug Dosing ml/min Est GFR ( Amer) Est GFR (Non-Af Amer) BUN/Creatinine Ratio (10-20) Glucose (70-99) mg/dl Lactate (0.4-2.0) mmol/L Calcium (8.5-10.1) mg/dl Phosphorus (2.5-4.9) mg/dl Magnesium (1.8-2.4) mg/dl Total Bilirubin (0.2-1) mg/dl Direct Bilirubin (0-0.2) mg/dl AST (15-37) U/L ALT (12-78) U/L Alkaline Phosphatase (45-117) U/L Troponin I (0-0.045) ng/ml Total Protein (6.4-8.2) gm/dl Albumin (3.4-5.0) gm/dl Globulin (2.5-4.0) gm/dl Albumin/Globulin Ratio (0.9-2) Lipase (73-393) U/L Procalcitonin 7.00 H (0-0.5) ng/ml Urine Color Urine Appearance (Clear) Urine pH (4.5-7.5) Ur Specific [place] (1.000-1.030) Urine Protein (Negative) Urine Glucose (UA) (Negative) Urine Ketones (Negative) Urine Blood (Negative) Urine Nitrite (Negative) Urine Bilirubin (Negative) Urine Urobilinogen (Negative) Ur Leukocyte Esterase (Negative) Urine WBC (Auto) (0-5) /hpf Urine RBC (Auto) (0-4) /hpf U Hyaline Cast (Auto) (0-5) /lpf U Epithel Cells (Auto) (0-5) /lpf Urine Bacteria (Auto) (Negative) Ur Renal Epithelial Cell (0-5) /lpf Amorphous Sediment (None Prsent) Granular Casts (0) /lpf Urine Yeast Blood Type O Positive O Positive Blood Type Recheck Antibody Screen NEGATIVE NEGATIVE Crossmatch See Detail See Detail 01/17/20 01/17/20 01/17/20 Range/Units 18:45 19:19 19:48 WBC (4.8-10.8) K/uL RBC (4.7-6.1) M/uL Hgb (14.0-18.0) g/dL Hct (42-52) % MCV (80-100) fL MCH (25-34) pg MCHC (32-36) g/dL RDW Std Deviation (36.4-46.3) fL RDW Coeff of Dwain (11.5-14.5) % Plt Count (130-400) K/uL MPV (7.4-10.4) fL Immature Gran % (Auto) % Neut % (Auto) % Lymph % (Auto) % [place] % (Auto) % Eos % (Auto) % Baso % (Auto) % Immature Gran # (Auto) (0.00-0.02) K/uL Neut # (Auto) (1.4-6.5) K/uL Lymph # (Auto) (1.2-3.4) K/uL [place] # (Auto) (0.11-0.59) K/uL Eos # (Auto) (0-0.5) K/uL Baso # (Auto) (0-0.2) K/uL PT (9.0-12.0) Seconds INR (0.9-1.1) APTT (21.0-31.0) Seconds PTT Ratio Sodium (136-145) mmol/L Potassium (3.5-5.1) mmol/L Chloride (98-107) mmol/L Carbon Dioxide (21-32) mmol/L Anion Gap (3-11) BUN (7-18) mg/dl Creatinine (0.6-1.4) mg/dl Est Cr Clr Drug Dosing ml/min Est GFR ( Amer) Est GFR (Non-Af Amer) BUN/Creatinine Ratio (10-20) Glucose (70-99) mg/dl Lactate 3.5 H* (0.4-2.0) mmol/L Calcium (8.5-10.1) mg/dl Phosphorus (2.5-4.9) mg/dl Magnesium (1.8-2.4) mg/dl Total Bilirubin (0.2-1) mg/dl Direct Bilirubin (0-0.2) mg/dl AST (15-37) U/L ALT (12-78) U/L Alkaline Phosphatase (45-117) U/L Troponin I (0-0.045) ng/ml Total Protein (6.4-8.2) gm/dl Albumin (3.4-5.0) gm/dl Globulin (2.5-4.0) gm/dl Albumin/Globulin Ratio (0.9-2) Lipase (73-393) U/L Procalcitonin (0-0.5) ng/ml Urine Color Dark Yellow Urine Appearance Turbid A (Clear) Urine pH 5.0 (4.5-7.5) Ur Specific [place] 1.023 (1.000-1.030) Urine Protein 3+ H (Negative) Urine Glucose (UA) Negative (Negative) Urine Ketones Negative (Negative) Urine Blood 1+ H (Negative) Urine Nitrite Negative (Negative) Urine Bilirubin Negative (Negative) Urine Urobilinogen Negative (Negative) Ur Leukocyte Esterase Trace H (Negative) Urine WBC (Auto) 1-5 (0-5) /hpf Urine RBC (Auto) 5-10 H (0-4) /hpf U Hyaline Cast (Auto) 1-5 (0-5) /lpf U Epithel Cells (Auto) >30 H (0-5) /lpf Urine Bacteria (Auto) Negative (Negative) Ur Renal Epithelial Cell 0-5 (0-5) /lpf Amorphous Sediment Present A (None Prsent) Granular Casts 1-5 H (0) /lpf Urine Yeast Not Reportable Blood Type Blood Type Recheck O Positive Antibody Screen Crossmatch Administered Medications Pantoprazole Sodium 40 mg/ (Dextrose) 100 mls @ 20 mls/hr IV Q5H MARIA D Stop: 02/16/20 19:29 Last Admin: 01/17/20 19:57 Dose: 8 mg/hr, 20 mls/hr Documented by: [id number] Morphine Sulfate (Morphine Sulfate) 2 mg IV Q2H PRN PRN Reason: Pain Stop: 01/31/20 22:53 Last Admin: 01/18/20 00:07 Dose: 2 mg Documented by: [id number] Discontinued Medications Sodium Chloride (Nss) 500 mls @ 999 mls/hr IV .Q31M ONE Stop: 01/17/20 17:59 Last Infusion: 01/17/20 18:10 Dose: 0 mls/hr Documented by: [id number] Admin: 01/17/20 17:39 Dose: 999 mls/hr Documented by: [id number] Prochlorperazine (Compazine) 1 mls @ 1 mls/min IV ONE ONE Stop: 01/17/20 17:30 Last Admin: 01/17/20 17:37 Dose: 1 mls/min Documented by: [id number] Acetaminophen (Ofirmev) 1,000 mg in 100 mls @ 400 mls/hr IV NOW STA Stop: 01/17/20 17:43 Last Infusion: 01/17/20 18:02 Dose: 0 mls/hr Documented by: [id number] Admin: 01/17/20 17:37 Dose: 400 mls/hr Documented by: [id number] Famotidine (Pepcid 20mg Iv Push) 20 mg in 5 mls @ 2.5 mls/min IV NOW STA Stop: 01/17/20 17:32 Last Admin: 01/17/20 17:37 Dose: 2.5 mls/min Documented by: [id number] Prothrombin Complex Concent ( (Human) 2,000 units/ Syringe) 80 mls @ 10 mls/min IV TODAY@1854 [facility]; Protocol Stop: 01/17/20 20:00 Last Admin: 01/17/20 19:03 Dose: 10 mls/min Documented by: [id number] Pantoprazole Sodium 80 mg/ (Dextrose) 120 mls @ 480 mls/hr IV NOW ONE Stop: 01/17/20 19:29 Last Infusion: 01/17/20 19:57 Dose: 0 mls/hr Documented by: [id number] Admin: 01/17/20 19:34 Dose: 480 mls/hr Documented by: [id number] Ceftriaxone Sodium (Rocephin) 2,000 mg in 70 mls @ 140 mls/hr IV NOW STA Stop: 01/17/20 19:50 Last Infusion: 01/17/20 21:54 Dose: 0 mls/hr Documented by: [id number] Admin: 01/17/20 21:22 Dose: 140 mls/hr Documented by: [id number] Morphine Sulfate (Morphine Sulfate) 6 mg IV NOW STA Stop: 01/17/20 17:32 Last Admin: 01/17/20 17:37 Dose: 6 mg Documented by: [id number] Morphine Sulfate (Morphine Sulfate) 2 mg IV NOW STA Stop: 01/17/20 21:04 Last Admin: 01/17/20 21:22 Dose: Not Given Documented by: [id number] Morphine Sulfate (Morphine Sulfate) Confirm Administered Dose 2 mg .ROUTE .STK- MED ONE Stop: 01/17/20 21:07 Last Admin: 01/17/20 21:08 Dose: 2 mg Documented by: [id number] Blood Pressure Blood Pressure Findings: Low blood pressure Discharge Plan Visit Data *Final* Discharge Date/Time: 01/17/20 21:56 Chief Complaint: Abdominal Pain Stated Complaint: ABD/FLANK PAIN ED Provider: Paolo Dobbs Discharge Problem: Hemoperitoneum, Atrial fibrillation, Leukocytosis, Elevated troponin, Hypotension, Subcapsular hematoma of liver, Abdominal pain, acute, Elevated l actic acid level, On rivaroxaban therapy, On apixaban therapy Patient Disposition: Admitted As Inpatient Discharge Instructions Interventions: ED Discharge Assessment Last Done: 01/17/20 21:56 Discharge Problem: Atrial fibrillation Qualifiers: Atrial fibrillation type: unspecified Qualified Code(s): I48.91 - Unspecified atrial fibrillation Leukocytosis Qualifiers: Leukocytosis type: bandemia Qualified Code(s): D72.825 - Bandemia Hypotension Qualifiers: Hypotension type: unspecified hypotension type Qualified Code(s): I95.9 - Hypotension, unspecified
[2020-01-17 18:04] LABS: Hematocrit (blood only) 33.4 % (42-52); Hemoglobin 11.1 g/dL (14.0-18.0); Mean Corpuscular Hemoglobin 32.1 pg (25-34); Mean Corpuscular Hgb Conc 33.2 g/dL (32-36); Mean Corpuscular Volume 96.5 fL (80-100); Mean Platelet Volume 11.4 fL (7.4-10.4); Platelet Count 428 K/uL (130-400); RDW Coefficient of Variation 16.3 % (11.5-14.5); RDW Standard Deviation 56.8 fL (36.4-46.3); Red Blood Count 3.46 M/uL (4.7-6.1); White Blood Count 18.96 K/uL (4.8-10.8)
[2020-01-17 18:07] LABS: INR 1.3 (0.9-1.1); Partial Thromboplastin Ratio 1.2; Partial Thromboplastin Time 33.2 Seconds (21.0-31.0)
[2020-01-17 18:17] LABS: Bilirubin Direct 1.4 mg/dl (0-0.2); Calcium 8.5 mg/dl (8.5-10.1); Creatinine Clr Calc Pharmacy 28.9 ml/min; Est GFR (African American) 30.8; Est GFR (Non-African American) 26.5; Magnesium 2.2 mg/dl (1.8-2.4); Potassium 4.5 mmol/L (3.5-5.1)
[2020-01-17 18:27] LABS: Albumin Globulin Ratio 0.4 (0.9-2); Bilirubin,Total 1.9 mg/dl (0.2-1); Phosphorus 3.7 mg/dl (2.5-4.9); Troponin I 0.197 ng/ml (0-0.045)
--- NOTE | 2020-01-17 18:35 | CT Scan Report ---
CT SCAN OF THE ABDOMEN AND PELVIS WITHOUT IV CONTRAST CLINICAL HISTORY: Generalized abdominal pain. COMPARISON STUDY: Abdominal CT dated 01/07/2020. Abdominal MRI dated 01/08/2020. TECHNIQUE: CT scan of the abdomen and pelvis is performed from the lung bases to the proximal femora. Images are reviewed in the axial, sagittal, and coronal planes. IV contrast was not administered for this examination as per the referring clinician. Note that the examination was performed in suboptim al fashion without oral and IV contrast. The examination is also degraded by motion, and by streak ar tifact from the left arm which could not be elevated above the abdomen. A dose lowering technique was utilized adhering to the principles of ALARA. CT DOSE: 828.59 mGy.cm FINDINGS: Lung bases: The heart is mildly enlarged and without pericardial effusion. The coronary arteries are densely calcified. There are small pleural effusions with bibasilar atelectasis. Fluid-filled distal esophagus. Liver: The unenhanced liver is cirrhotic in morphology and heterogeneous in attenuation. There is hyp ertrophy of the left lobe and nodularity of the hepatic surface contour. There is trace subcapsular f luid identified along the anterior surface of the liver. This is typical with subcapsular hemorrhage. There is no intrahepatic biliary ductal dilatation. Gallbladder: The gallbladder is distended. There is layering hyperdense intraluminal material which i s increased from previous. Spleen: Normal in size and attenuation. Pancreas: The unenhanced pancreas is moderately atrophic and grossly unremarkable. Adrenal glands: Adrenal glands are grossly unremarkable. A 2.9 cm calcification containing nodule is again seen in the left superior to peritoneal space adjacent to the adrenal gland on image #100. Kidneys: The unenhanced kidneys are atrophic and without hydronephrosis. There are no renal calculi i dentified. Bilateral simple renal cysts are again noted and measure up to 3.5 cm. a 4.[address] is again seen arising from the right lower pole. Abdominal vasculature: The abdominal aorta is normal in course and caliber noting advanced atheroscle rotic calcification. Bowel: There is moderate colonic diverticulosis without CT evidence of acute diverticulitis. No bowel obstruction is seen. The appendix is not visualized. Peritoneum: There is a small volume of abdominopelvic ascites. This has increased from previous, and blood around the liver and spleen appears complex/hyperdense. This is consistent with hemoperitoneum. No intraperitoneal free air is seen. Lymphadenopathy: None. Pelvic viscera: The bladder, prostate, and seminal vesicles are normal as imaged. There are bilateral fat-containing inguinal hernias. Trace fluid is noted in the right inguinal hernia. Skeletal structures: The skeletal structures are osteopenic. Fractures of the left acetabulum and lef t inferior pubic ring are again noted. There are healed right-sided rib fractures. There is moderate to advanced lumbosacral spondylosis. No lytic or blastic lesions are seen. A benign-appearing fat att enuation lucency is again seen in the medial left iliac bone. Soft tissues: There is body wall edema. IMPRESSION: 1. Suboptimal examination without oral and IV contrast. The examination is also compromised by streak and motion. 2. The liver is cirrhotic in morphology. There is trace subcapsular fluid which is new from 01/07/2020 , and likely represents subcapsular hematoma. 3. Free fluid in the abdomen and pelvis has increased from 01/07/2020. Fluid around the liver and sple en is complex and this is consistent with hemoperitoneum. The liver is the most likely source given a ssociated subcapsular hemorrhage. No definite laceration is identified but this is not well evaluated . 4. The gallbladder is distended and contains layering hyperdense intraluminal material. This has incr eased from 01/07/2020 and may represent hemobilia and/or gallstones. If there is clinical concern for acute cholecystitis a right upper quadrant ultrasound or hepatobiliary scan should be considered. 5. Cardiomegaly and small pleural effusions. 6. Fractures of the left acetabulum and the left inferior pubic ring are again noted. 7. Moderate colonic diverticulosis without CT evidence of acute diverticulitis. 8. Additional findings as above. ACT 112: Negative or not required by law. Electronically signed by: Evans Brewer M.D. 01/17/2020 6:34 PM
--- NOTE | 2020-01-17 18:39 | XRay Report ---
SINGLE VIEW CHEST CLINICAL HISTORY: Atypical chest pain. FINDINGS: An AP, portable, upright chest radiograph is compared to study dated 01/10/2020. The examina tion is degraded by portable technique and patient rotation. The heart is enlarged noting atheroscl erotic calcification of the thoracic aorta. The pulmonary vasculature is noncongested. There are trac e pleural effusions with bibasilar atelectasis. No pneumothorax is seen. The skeletal structures are osteopenic. The bony thorax is grossly intact. IMPRESSION: 1. Cardiomegaly without radiographic evidence of congestive failure. 2. Trace pleural effusions with bibasilar atelectasis. ACT 112: Negative or not required by law. Electronically signed by: Evans Brewer M.D. 01/17/2020 6:37 PM
[2020-01-17] MEDS ORDERED: SODIUM CHLORIDE 0.9% 250 ML IV PRN (18:42)
[2020-01-17] MEDS ORDERED: PROTHROMBIN COMP CONC- KCENTRA 2,000 UNITS in SYRINGE 0 ML IV SCH (18:54)
[2020-01-17 19:03] LABS: Basophils # (auto) 0.03 K/uL (0-0.2); Basophils % (auto) 0.2 %; Eosinophils # (auto) 0.01 K/uL (0-0.5); Eosinophils % (auto) 0.1 %; Immature Granulocytes # (auto) 0.17 K/uL (0.00-0.02); Immature Granulocytes % (auto) 0.9 %; Lymphocytes # (auto) 0.89 K/uL (1.2-3.4); Lymphocytes % (auto) 4.7 %; Monocytes # (auto) 0.33 K/uL (0.11-0.59); Monocytes % (auto) 1.7 %; Neutrophils # (auto) 17.53 K/uL (1.4-6.5); Neutrophils % (auto) 92.4 %
[2020-01-17] MEDS ORDERED: PANTOprazole 80 MG in DEXTROSE 5% 100 ML IV ONE (19:15)
[2020-01-17] MEDS ORDERED: cefTRIAXone SODIUM 2,000 MG/70 ML BAG IV STA (19:21)
[2020-01-17 19:51] LABS: Appearance Urine Turbid (Clear); Bacteria Urine Automated Negative (Negative); Blood Urine 1+ (Negative); Color Urine Dark Yellow; Epithelial Cell Urine Auto >30 /lpf (0-5); Glucose Urine UA Negative (Negative); Ketones Urine Negative (Negative); Leukocyte Esterase Urine Trace (Negative); Nitrite Urine Negative (Negative); Protein Urine 3+ (Negative); Specific Gravity Urine 1.023 (1.000-1.030); Urobilinogen Urine Negative (Negative)
[2020-01-17] MEDS: PANTOprazole 40 MG in DEXTROSE 5% 100 ML IV SCH (19:57)
[2020-01-17 19:59] LABS: Bilirubin Urine Negative (Negative); Ictotest Urine Negative (Negative)
[2020-01-17 20:00] LABS: Amorphous Sediment Urine Present (None Prsent); Renal Epithelial Cells Urine 0-5 /lpf (0-5)
[2020-01-17] MEDS ORDERED: MoRPHine SULFATE 2 MG/ML CARP IV STA (21:03)
[2020-01-17] MEDS ORDERED: MoRPHine SULFATE 2 MG/ML CARP ONE (21:06)
--- NOTE | 2020-01-17 21:09 | History & Physical Report ---
Date of Service January 17, 2020 Assessment & Plan (1) Hypotension: Patient with episode of hypotension in the ER which has improved with IVF and blood. Etiology uncertain at this time. Possible sepsis as patient with leukocytosis, elevated procalcitonin. ?Intra-abdominal origin - acute cho lecystitis, cholangitis - elevated AP/Tbili and Dbili from prior as well as rigid abdomen. ?Hemorrhagic shock in setting of hemoperitoneum, subcapsular liver hematoma. Patient on Eliquis anticoagulation for chronic AF. He was administered KCentra for partial reversal, transfused 1u PRBCs. H/H = 11.1 and 33.4 currently. Limited options as patient does not wish to proceed with surgical intervention or aggressive treatments at this time. -Check RUQUS for possible cholecystitis, cholangitis -H/H q 6 hours, Transfuse for active bleed, H/H < 8/24 -NSS at 100mL/hr -Zosyn 3.375gm IV q 8hours -Morphine as needed for pain -Zofran as needed for nausea -General Surgery consultation appreciated -Hold Eliquis, Lisinopril, Diltiazem Present on Admission?: Yes (2) Hemoperitoneum: CT abdomen with hemoperitoneum, subcapsular liver hematoma, no definite laceration noted although study is limited. Patient denies fall or trauma other than the fall on 01/02. He is on Eliquis for AF. -KCentra administered -Iu PRBCs administered -Hold Eliquis -Clinical exam consistent with an acute surgical abdomen - firm, distended and markedly tender with minimal bowel sounds. CT with hemoperitoneum and possible cholecystitis. Patient does not wish to proceed with surgery. He is aware that he may from his underlying medical conditions and does not wish to proceed with transfer, surgery or aggressive treatments. Present on Admission?: Yes (3) Abnormal LFTs: ?Acute cholecystitis/cholangitis -Repeat LFTs in AM -Zosyn 3.375gm IV q 8 Present on Admission?: Yes (4) Asthma: Chronic. No cough/SOB/wheeze. Adequate oxygenation on room air -Continue Combivent Present on Admission?: Yes (5) Atrial fibrillation: Chronic. Rate controlled -Hold Eliquis in setting of intraabdominal bleeding -Hold Diltiazem in setting of hypotension -KCentra given Present on Admission?: Yes (6) Coronary artery disease: Chronic. Patient with elevated troponin in setting of acute illness, hypotension and worsening renal function. No EKG evidence of acute ischemia -Trend troponin -Continue Atorvastatin -Hold Lisinopril Present on Admission?: Yes (7) Diabetes: Elevated blood sugar -ISS -Continue to monitor Present on Admission?: Yes (8) Hypertension: Patient presently hypotensive as above. Sepsis vs hemorrhagic shock -Hold antihypertensive agents -Continue to monitor Present on Admission?: Yes (9) TABATHA (acute kidney injury): TABATHA on CKD in setting of critical illness. BUN=57, Cr=2.29 -Avoid nephrotoxic agents -Renal dosing where needed -IVF, NSS at 100mL/hr Present on Admission?: Yes (10) Gout: Chronic. Well controlled -Continue Allopurinol 100mg po BID Present on Admission?: Yes (11) Stroke: Remote history of CVA, left sided deficit. -Continue Atorvastatin -Hold ASA Present on Admission?: Yes (12) Dyslipidemia: Chronic -Continue Atorvastatin Present on Admission?: Yes (13) Depression with anxiety: Chronic -Continue Escitalopram F/E/N - NSS at 100mL/hr, monitor electrolytes and correct as needed, NPO for now Ppx - SCDs Code - DNR/DNI per discussion with patient Disposition - Admit to medical floor with telemetry monitoring. Patient does not wish to have aggressive therapies or surgery for his underlying medical conditions. He is aware that he may without more aggressive treatment. Patient is AA&O x 4 and is capable of making his own decisions at this time. As patient is clinically improved at the moment will admit to medical floor with telemetry monitoring. Will continue to treat conservatively with IVF, transfusions, antibiotics. Pain and nausea control. If patient's clinical condition declines despite these medical interventions will proceed to comfort care only. Plan discussed with patient and family and all are in agreement. Should patient decompensate will notify patient's son, David and his friend, Pushpa Present on Admission?: Yes Admission and Anticipated Discharge Date Admission Date: 01/17/20 History of Present Illness Chief Complaint: Abdominal pain Primary Care Provider: Julia Peña MD Nathaniel Dunn is a 79yo C male with multiple medical problems to include AF on Eliquis anticoagulation, prior CVA with left sided deficit, DM/HTN/CAD. Patient was recently admitted to the hospital from 01/06 - 01/13 with an acute non- displaced fracture of the left acetabulum and left inferior pubic ramus pelvic fracture after a mechanical fall at home on 01/02. Patient was managed conservatively and discharged to [facility] for rehabilitation on 01/14/20. He returns to the ER today with complaint of acute severe abdominal pain with nausea and vomiting. No additional complaints. Specifically no mention of fever /chills/cough/SOB/diarrhea ER Course: On arrival patient found to be afebrile, HD stable. Noted to have a hard, distended and tender abdomen. After he returned from CT he became minimally responsive and hypotensive with SBP in the 60's. He was administered IVF with improvement in BP and was transfused with 1 unit of uncrossed blood with two additional units on hold. CT Abdomen without contrast revealed cirrhotic liver, subcapsular fluid new from 01/07/20 which may represent subcapsular hematoma. Free fluid in the abdomen and pelvis increased from 01/06 with complex fluid around the liver and spleen consistent with hemoperitoneum. No definite laceration identified. Gallbladder is distended possibly hemobilia and/or gallstones. Dr. Dobbs (ER attending) contacted Dr. Avila re: results of CT. Due to the patient's multiple medical comorbidities and tenuous status Dr. Avila recommended transfer to a tertiary care facility. Dr. Dobbs discussed this with the patient who was adamantly against transfer. ER Medications Administered: KCentra, 1uPRBCs, Acetaminophen 1gm, Ceftriaxone 2gm, Famotidine, Morphine 2mg, 2mg, 6mg, Protonix 40mg, Prochlorperazine During my evaluation the patient was somnolent but arousable. He is answering questions and following commands. He is alert and oriented to self, location, day of the week and situation. He is acutely aware of his severity of illness as well as the possibility of if he does not undergo surgical intervention. Patient voices understanding of the situation. He again states that he does not wish to transfer to a tertiary care facility. He states that he does not wish to have surgery or aggressive treatments. He is aware that he may without it and says that he is ok with that. Family is at bedside to include patient's son, David and [id number] as well as patient's ex- and decision maker Pushpa and her daughter. Family voices understanding of the situation as well. They understand that patient may if not treated surgically and are in agreement with respecting his wishes. Allergies Allergy/AdvReac Type Severity Reaction Status Date / Time Penicillins Allergy Unknown RASH Verified 01/17/20 18:31 Home Medications Home Medications Medication Instructions Recorded Confirmed Type Combivent Respimat 1 puff INHALATION QID 10/01/19 01/17/20 History allopurinol [Zyloprim] 100 mg PO Q12H 10/01/19 01/17/20 History diltiazem HCl [Cardizem CD] 240 mg PO DAILY 10/01/19 01/17/20 History escitalopram oxalate [Lexapro] 10 mg PO DAILY 10/01/19 01/17/20 History lisinopril [Zestril] 10 mg PO DAILY 10/01/19 01/17/20 History loperamide [Imodium A-D] 2 mg PO QID PRN 10/01/19 01/17/20 History Eliquis 5 mg PO Q12H 01/07/20 01/17/20 History atorvastatin [Lipitor] 40 mg PO DAILY 01/07/20 01/17/20 History acetaminophen [Tylenol] 650 mg PO Q4H PRN 01/17/20 01/17/20 History bisacodyl [Dulcolax (bisacodyl)] 10 mg GA DAILY PRN 01/17/20 01/17/20 History ciprofloxacin HCl [Cipro] 500 mg PO HS 01/17/20 01/17/20 History oxycodone [Roxicodone] 5 mg PO Q4H PRN 01/17/20 01/17/20 History pantoprazole [Protonix] 40 mg PO DAILYBB 01/17/20 01/17/20 History polyethylene glycol 3350 [Miralax] 17 g PO QDL PRN 01/17/20 01/17/20 History sodium phosphates [Enema] 133 ml GA DAILY PRN 01/17/20 01/17/20 History Past Med/Surg History Social History Preferred Language: Lithuanian 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: Effective Quality Officer Required: No Beliefs That Will Affect Care: None Current Living Situation: Alone Current Living Situation Comment: lives in trailer, ex can help Feels Safe at Home: Yes Smoking Status: Former smoker Tobacco Type: cigarettes ; Cigarettes Per Day: 8/day. Quit in September ; Hx Alcohol Use: Yes Alcohol type: beer Hx Substance Use: No Review of Systems Review of Systems: All systems reviewed & are unremarkable except as noted in HPI & below Physical Exam Physical Exam: General: patient ill in appearance, somnolent but arousable, answering some questions and following commands, AA&O to person/place/day/situation Skin: warm, dry, intact, no rashes or lesions HEENT: NC/AT, PERRL, anicteric sclera, conjunctiva without injection, external ear normal to inspection and nontender, nares patent, dry mucus membranes, no oropharyngeal lesions, neck supple, trachea midline, no LAD, no thyromegaly, no JVD Heart: +S1/S2, regular, no m/r/g Lungs: equal air entry bilaterally, no rales/rhonchi/wheezes Abd: abdomen distended, firm, tender with guarding, bowel sounds minimal Ext: warm, 2+ pulses in UE/LE bilaterally, no clubbing/cyanosis or edema Neuro: AA&O x 4, LUE motor deficit from previous stroke, LLE mild weakness Results & Data Results & Data ([facility]) Vital Signs (Past 12 Hours) Vital Signs Temp Pulse Resp BP Pulse Ox 01/17/20 20:35 37.1 C 91 H 26 H 105/67 97 01/17/20 20:30 87 15 95/63 L 96 01/17/20 20:25 83 17 95/65 L 96 01/17/20 20:20 82 16 112/55 L 96 01/17/20 20:15 80 17 103/65 97 01/17/20 20:10 81 20 113/58 L 96 01/17/20 20:05 84 18 91/45 L 97 01/17/20 20:00 37.3 C 91 H 20 116/62 97 01/17/20 19:56 87 21 113/65 96 01/17/20 19:50 88 22 127/67 97 01/17/20 19:46 86 21 122/74 96 01/17/20 19:42 85 22 95/58 L 97 01/17/20 19:36 83 23 148/77 H 97 01/17/20 19:30 37.2 C 80 17 90/77 L 98 01/17/20 19:25 80 18 123/62 98 01/17/20 19:15 37.1 C 80 18 118/82 98 01/17/20 19:00 36.7 C 01/17/20 18:59 37.6 C H 86 22 120/73 98 01/17/20 18:55 87 22 120/73 95 01/17/20 18:45 88 17 107/59 L 97 01/17/20 18:40 88 16 97/60 L 96 01/17/20 18:39 84 20 98/63 L 96 01/17/20 18:34 84 23 73/51 L 97 01/17/20 18:31 82 15 63/45 L 97 01/17/20 18:10 81 17 96 01/17/20 18:03 98 H 21 97/55 L 95 01/17/20 18:02 99 H 24 97/55 L 95 01/17/20 17:40 93 H 22 01/17/20 17:33 91 01/17/20 17:30 95 H 23 01/17/20 17:25 36.6 C 101 H 26 H 105/72 91 01/17/20 17:20 102 H 25 H 92 01/17/20 17:18 106 H 29 H 90 01/17/20 17:17 104 H 24 105/72 91 Laboratory Results Lab Results 01/17/20 01/17/20 01/17/20 Range/Units 17:40 17:40 17:40 WBC 18.96 H (4.8-10.8) K/uL RBC 3.46 L (4.7-6.1) M/uL Hgb 11.1 L (14.0-18.0) g/dL Hct 33.4 L (42-52) % MCV 96.5 (80-100) fL MCH 32.1 (25-34) pg MCHC 33.2 (32-36) g/dL RDW Std Deviation 56.8 H (36.4-46.3) fL RDW Coeff of Dwain 16.3 H (11.5-14.5) % Plt Count 428 H (130-400) K/uL MPV 11.4 H (7.4-10.4) fL Immature Gran % (Auto) 0.9 % Neut % (Auto) 92.4 % Lymph % (Auto) 4.7 % [place] % (Auto) 1.7 % Eos % (Auto) 0.1 % Baso % (Auto) 0.2 % Immature Gran # (Auto) 0.17 H (0.00-0.02) K/uL Neut # (Auto) 17.53 H (1.4-6.5) K/uL Lymph # (Auto) 0.89 L (1.2-3.4) K/uL [place] # (Auto) 0.33 (0.11-0.59) K/uL Eos # (Auto) 0.01 (0-0.5) K/uL Baso # (Auto) 0.03 (0-0.2) K/uL PT 14.0 H (9.0-12.0) Seconds INR 1.3 H (0.9-1.1) APTT 33.2 H (21.0-31.0) Seconds PTT Ratio 1.2 Sodium 136 (136-145) mmol/L Potassium 4.5 (3.5-5.1) mmol/L Chloride 107 (98-107) mmol/L Carbon Dioxide 20 L (21-32) mmol/L Anion Gap 9.0 (3-11) BUN 57 H (7-18) mg/dl Creatinine 2.29 H (0.6-1.4) mg/dl Est Cr Clr Drug Dosing 28.9 ml/min Est GFR ( Amer) 30.8 Est GFR (Non-Af Amer) 26.5 BUN/Creatinine Ratio 25.0 H (10-20) Glucose 206 H (70-99) mg/dl Lactate (0.4-2.0) mmol/L Calcium 8.5 (8.5-10.1) mg/dl Phosphorus 3.7 (2.5-4.9) mg/dl Magnesium 2.2 (1.8-2.4) mg/dl Total Bilirubin 1.9 H (0.2-1) mg/dl Direct Bilirubin 1.4 H (0-0.2) mg/dl AST 97 H (15-37) U/L ALT 68 (12-78) U/L Alkaline Phosphatase 383 H (45-117) U/L Troponin I 0.197 H* (0-0.045) ng/ml Total Protein 7.0 (6.4-8.2) gm/dl Albumin 2.0 L (3.4-5.0) gm/dl Globulin 5.0 H (2.5-4.0) gm/dl Albumin/Globulin Ratio 0.4 L (0.9-2) Lipase 215 (73-393) U/L Procalcitonin (0-0.5) ng/ml Urine Color Urine Appearance (Clear) Urine pH (4.5-7.5) Ur Specific [place] (1.000-1.030) Urine Protein (Negative) Urine Glucose (UA) (Negative) Urine Ketones (Negative) Urine Blood (Negative) Urine Nitrite (Negative) Urine Bilirubin (Negative) Urine Urobilinogen (Negative) Ur Leukocyte Esterase (Negative) Urine WBC (Auto) (0-5) /hpf Urine RBC (Auto) (0-4) /hpf U Hyaline Cast (Auto) (0-5) /lpf U Epithel Cells (Auto) (0-5) /lpf Urine Bacteria (Auto) (Negative) Ur Renal Epithelial Cell (0-5) /lpf Amorphous Sediment (None Prsent) Granular Casts (0) /lpf Urine Yeast Blood Type Blood Type Recheck Antibody Screen Crossmatch 01/17/20 01/17/20 01/17/20 Range/Units 17:40 18:40 18:40 WBC (4.8-10.8) K/uL RBC (4.7-6.1) M/uL Hgb (14.0-18.0) g/dL Hct (42-52) % MCV (80-100) fL MCH (25-34) pg MCHC (32-36) g/dL RDW Std Deviation (36.4-46.3) fL RDW Coeff of Dwain (11.5-14.5) % Plt Count (130-400) K/uL MPV (7.4-10.4) fL Immature Gran % (Auto) % Neut % (Auto) % Lymph % (Auto) % [place] % (Auto) % Eos % (Auto) % Baso % (Auto) % Immature Gran # (Auto) (0.00-0.02) K/uL Neut # (Auto) (1.4-6.5) K/uL Lymph # (Auto) (1.2-3.4) K/uL [place] # (Auto) (0.11-0.59) K/uL Eos # (Auto) (0-0.5) K/uL Baso # (Auto) (0-0.2) K/uL PT (9.0-12.0) Seconds INR (0.9-1.1) APTT (21.0-31.0) Seconds PTT Ratio Sodium (136-145) mmol/L Potassium (3.5-5.1) mmol/L Chloride (98-107) mmol/L Carbon Dioxide (21-32) mmol/L Anion Gap (3-11) BUN (7-18) mg/dl Creatinine (0.6-1.4) mg/dl Est Cr Clr Drug Dosing ml/min Est GFR ( Amer) Est GFR (Non-Af Amer) BUN/Creatinine Ratio (10-20) Glucose (70-99) mg/dl Lactate (0.4-2.0) mmol/L Calcium (8.5-10.1) mg/dl Phosphorus (2.5-4.9) mg/dl Magnesium (1.8-2.4) mg/dl Total Bilirubin (0.2-1) mg/dl Direct Bilirubin (0-0.2) mg/dl AST (15-37) U/L ALT (12-78) U/L Alkaline Phosphatase (45-117) U/L Troponin I (0-0.045) ng/ml Total Protein (6.4-8.2) gm/dl Albumin (3.4-5.0) gm/dl Globulin (2.5-4.0) gm/dl Albumin/Globulin Ratio (0.9-2) Lipase (73-393) U/L Procalcitonin 7.00 H (0-0.5) ng/ml Urine Color Urine Appearance (Clear) Urine pH (4.5-7.5) Ur Specific [place] (1.000-1.030) Urine Protein (Negative) Urine Glucose (UA) (Negative) Urine Ketones (Negative) Urine Blood (Negative) Urine Nitrite (Negative) Urine Bilirubin (Negative) Urine Urobilinogen (Negative) Ur Leukocyte Esterase (Negative) Urine WBC (Auto) (0-5) /hpf Urine RBC (Auto) (0-4) /hpf U Hyaline Cast (Auto) (0-5) /lpf U Epithel Cells (Auto) (0-5) /lpf Urine Bacteria (Auto) (Negative) Ur Renal Epithelial Cell (0-5) /lpf Amorphous Sediment (None Prsent) Granular Casts (0) /lpf Urine Yeast Blood Type O Positive O Positive Blood Type Recheck Antibody Screen NEGATIVE NEGATIVE Crossmatch See Detail See Detail 01/17/20 01/17/20 01/17/20 Range/Units 18:45 19:19 19:48 WBC (4.8-10.8) K/uL RBC (4.7-6.1) M/uL Hgb (14.0-18.0) g/dL Hct (42-52) % MCV (80-100) fL MCH (25-34) pg MCHC (32-36) g/dL RDW Std Deviation (36.4-46.3) fL RDW Coeff of Dwain (11.5-14.5) % Plt Count (130-400) K/uL MPV (7.4-10.4) fL Immature Gran % (Auto) % Neut % (Auto) % Lymph % (Auto) % [place] % (Auto) % Eos % (Auto) % Baso % (Auto) % Immature Gran # (Auto) (0.00-0.02) K/uL Neut # (Auto) (1.4-6.5) K/uL Lymph # (Auto) (1.2-3.4) K/uL [place] # (Auto) (0.11-0.59) K/uL Eos # (Auto) (0-0.5) K/uL Baso # (Auto) (0-0.2) K/uL PT (9.0-12.0) Seconds INR (0.9-1.1) APTT (21.0-31.0) Seconds PTT Ratio Sodium (136-145) mmol/L Potassium (3.5-5.1) mmol/L Chloride (98-107) mmol/L Carbon Dioxide (21-32) mmol/L Anion Gap (3-11) BUN (7-18) mg/dl Creatinine (0.6-1.4) mg/dl Est Cr Clr Drug Dosing ml/min Est GFR ( Amer) Est GFR (Non-Af Amer) BUN/Creatinine Ratio (10-20) Glucose (70-99) mg/dl Lactate 3.5 H* (0.4-2.0) mmol/L Calcium (8.5-10.1) mg/dl Phosphorus (2.5-4.9) mg/dl Magnesium (1.8-2.4) mg/dl Total Bilirubin (0.2-1) mg/dl Direct Bilirubin (0-0.2) mg/dl AST (15-37) U/L ALT (12-78) U/L Alkaline Phosphatase (45-117) U/L Troponin I (0-0.045) ng/ml Total Protein (6.4-8.2) gm/dl Albumin (3.4-5.0) gm/dl Globulin (2.5-4.0) gm/dl Albumin/Globulin Ratio (0.9-2) Lipase (73-393) U/L Procalcitonin (0-0.5) ng/ml Urine Color Dark Yellow Urine Appearance Turbid A (Clear) Urine pH 5.0 (4.5-7.5) Ur Specific [place] 1.023 (1.000-1.030) Urine Protein 3+ H (Negative) Urine Glucose (UA) Negative (Negative) Urine Ketones Negative (Negative) Urine Blood 1+ H (Negative) Urine Nitrite Negative (Negative) Urine Bilirubin Negative (Negative) Urine Urobilinogen Negative (Negative) Ur Leukocyte Esterase Trace H (Negative) Urine WBC (Auto) 1-5 (0-5) /hpf Urine RBC (Auto) 5-10 H (0-4) /hpf U Hyaline Cast (Auto) 1-5 (0-5) /lpf U Epithel Cells (Auto) >30 H (0-5) /lpf Urine Bacteria (Auto) Negative (Negative) Ur Renal Epithelial Cell 0-5 (0-5) /lpf Amorphous Sediment Present A (None Prsent) Granular Casts 1-5 H (0) /lpf Urine Yeast Not Reportable Blood Type Blood Type Recheck O Positive Antibody Screen Crossmatch Diagnostic Findings SINGLE VIEW CHEST CLINICAL HISTORY: Atypical chest pain. FINDINGS: An AP, portable, upright chest radiograph is compared to study dated 01/10/2020. The examination is degraded by portable technique and patient rotation. The heart is enlarged noting atherosclerotic calcification of the thoracic aorta. The pulmonary vasculature is noncongested. There are trace pleural effusions with bibasilar atelectasis. No pneumothorax is seen. The skeletal structures are osteopenic. The bony thorax is grossly intact. IMPRESSION: 1. Cardiomegaly without radiographic evidence of congestive failure. 2. Trace pleural effusions with bibasilar atelectasis. ACT 112: Negative or not required by law. Electronically signed by: Evans Brewer M.D. 01/17/2020 6:37 PM Dictated: 01/17/201835 Transcribed: 01/17/201835 CT SCAN OF THE ABDOMEN AND PELVIS WITHOUT IV CONTRAST CLINICAL HISTORY: Generalized abdominal pain. COMPARISON STUDY: Abdominal CT dated 01/07/2020. Abdominal MRI dated 01/08/2020. TECHNIQUE: CT scan of the abdomen and pelvis is performed from the lung bases to the proximal femora. Images are reviewed in the axial, sagittal, and coronal planes. IV contrast was not administered for this examination as per the referring clinician. Note that the examination was performed in suboptimal fashion without oral and IV contrast. The examination is also degraded by motion, and by streak artifact from the left arm which could not be elevated above the abdomen. A dose lowering technique was utilized adhering to the principles of ALARA. CT DOSE: 828.59 mGy.cm FINDINGS: Lung bases: The heart is mildly enlarged and without pericardial effusion. The coronary arteries are densely calcified. There are small pleural effusions with bibasilar atelectasis. Fluid-filled distal esophagus. Liver: The unenhanced liver is cirrhotic in morphology and heterogeneous in attenuation. There is hypertrophy of the left lobe and nodularity of the hepatic surface contour. There is trace subcapsular fluid identified along the anterior surface of the liver. This is typical with subcapsular hemorrhage. There is no intrahepatic biliary ductal dilatation. Gallbladder: The gallbladder is distended. There is layering hyperdense intraluminal material which is increased from previous. Spleen: Normal in size and attenuation. Pancreas: The unenhanced pancreas is moderately atrophic and grossly unremarkable. Adrenal glands: Adrenal glands are grossly unremarkable. A 2.9 cm calcification containing nodule is again seen in the left superior to peritoneal space adjacent to the adrenal gland on image #100. Kidneys: The unenhanced kidneys are atrophic and without hydronephrosis. There are no renal calculi identified. Bilateral simple renal cysts are again noted and measure up to 3.5 cm. a 4.4 cm complex cyst is again seen arising from the right lower pole. Abdominal vasculature: The abdominal aorta is normal in course and caliber noting advanced atherosclerotic calcification. Bowel: There is moderate colonic diverticulosis without CT evidence of acute diverticulitis. No bowel obstruction is seen. The appendix is not visualized. Peritoneum: There is a small volume of abdominopelvic ascites. This has increased from previous, and blood around the liver and spleen appears complex/hyperdense. This is consistent with hemoperitoneum. No intraperitoneal free air is seen. Lymphadenopathy: None. Pelvic viscera: The bladder, prostate, and seminal vesicles are normal as imaged. There are bilateral fat-containing inguinal hernias. Trace fluid is noted in the right inguinal hernia. Skeletal structures: The skeletal structures are osteopenic. Fractures of the left acetabulum and left inferior pubic ring are again noted. There are healed right-sided rib fractures. There is moderate to advanced lumbosacral spon dylosis. No lytic or blastic lesions are seen. A benign-appearing fat attenuation lucency is again seen in the medial left iliac bone. Soft tissues: There is body wall edema. IMPRESSION: 1. Suboptimal examination without oral and IV contrast. The examination is also compromised by streak and motion. 2. The liver is cirrhotic in morphology. There is trace subcapsular fluid which is new from 01/07/2020, and likely represents subcapsular hematoma. 3. Free fluid in the abdomen and pelvis has increased from 01/07/2020. Fluid around the liver and spleen is complex and this is consistent with hemoperitoneum. The liver is the most likely source given associated subcapsular hemorrhage. No definite laceration is identified but this is not well evaluated. 4. The gallbladder is distended and contains layering hyperdense intraluminal material. This has increased from 01/07/2020 and may represent hemobilia and/or gallstones. If there is clinical concern for acute cholecystitis a right upper quadrant ultrasound or hepatobiliary scan should be considered. 5. Cardiomegaly and small pleural effusions. 6. Fractures of the left acetabulum and the left inferior pubic ring are again n oted. 7. Moderate colonic diverticulosis without CT evidence of acute diverticulitis. 8. Additional findings as above. ACT 112: Negative or not required by law. ECG Additional Comments: The study shows AF at 101bpm, right axis deviation, PVCs, QRS=88, DId=[id number], no acute ischemic changes Code Status & VTE Plan Code Status DNR/DNI VTE Prophylaxis Plan VTE Prophylaxis will be ordered: Yes PG Care Time/CCT Total # of Minutes Spent Total Time Spent with Patient: Total time spent is greater than 50% in coordination of care (as documented) at patient's floor/unit and/or counseling patient: Coding Level of Care Code 12991 Initial Inpt Care Lvl 3 Diagnoses Hypotension I95.9 Hypotension type: unspecified hypotension type Hemoperitoneum K66.1 Abnormal LFTs R94.5 Asthma J45.909 Asthma severity: unspecified severity Asthma persistence: unspecified Asthma complication type: uncomplicated Atrial fibrillation I48.21 Atrial fibrillation type: permanent Coronary artery disease I25.10 Coronary Disease-Associated Artery/Lesion type: [place] artery [place] vs. 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 insulin use: without half-way use Diabetes mellitus complication status: without complication Hypertension I10 Hypertension type: essential hypertension TABATHA (acute kidney injury) N17.9 Gout M10.9 Gout site: unspecified site Gout etiology: unspecified cause Chronicity: unspecified Stroke I63.9 CVA mechanism: unspecified Dyslipidemia E78.5 Depression with anxiety F41.8 (1) Asthma Asthma severity: unspecified severity Asthma persistence: unspecified Asthma complication type: uncomplicated Qualified Code(s): J45.909 - Unspecified asthma, uncomplicated (2) Atrial fibrillation Atrial fibrillation type: permanent Qualified Code(s): I48.21 - Permanent atrial fibrillation (3) Coronary artery disease Coronary Disease-Associated Artery/Lesion type: [place] artery [place] vs. transplanted heart: [place] heart Associated angina: without angina Qualified Code(s): I25.10 - Atherosclerotic heart disease of [place] coronary artery w ithout angina pectoris (4) Diabetes Diabetes mellitus type: type 2 Diabetes mellitus half-way insulin use: without half-way use Diabetes mellitus complication status: without complication Qualified Code(s): E11.9 - Type 2 diabetes mellitus without complications (5) Hypertension Hypertension type: essential hypertension Qualified Code(s): I10 - Essential (primary) hypertension (6) Gout Gout site: unspecified site Gout etiology: unspecified cause Chronicity: unspecified Qualified Code(s): M10.9 - Gout, unspecified (7) Stroke CVA mechanism: unspecified Qualified Code(s): I63.9 - Cerebral infarction, unspecified (8) Hypotension Hypotension type: unspecified hypotension type Qualified Code(s): I95.9 - Hypotension, unspecified
[2020-01-17] MEDS ORDERED: POLYETHYLENE (MIRALAX) 17 GM PACK PO PRN (22:54)
[2020-01-17] MEDS ORDERED: DEXTROSE 50% 50 ML SYRINGE IV PRN (22:54)
[2020-01-17] MEDS ORDERED: GLUCAGON FOR INJ 1 MG VIAL SQ PRN (22:54)
[2020-01-17] MEDS ORDERED: CARBOHYDRATES FOR HYPOGLYCEMIA PO PRN (22:54)
[2020-01-17] MEDS ORDERED: ONDANSETRON INJ 2 MG/ML 2 ML VIAL IV PRN (22:54)
[2020-01-17] MEDS ORDERED: LOPERAMIDE HCL 2 MG CAP PO PRN (22:54)
[2020-01-17] MEDS ORDERED: bisacodyL 10 MG SUPP PR PRN (22:54)
[2020-01-17] MEDS ORDERED: SODIUM CHLORIDE 0.9% 1000ML 1,000 ML IV SCH (22:54)
[2020-01-17] MEDS ORDERED: GLUCOSE 10 TABS/TUBE PO PRN (22:54)
[2020-01-17] MEDS ORDERED: SOD PHOSPHATE/SOD BIPHOSPHATE ENEMA 132 ML BTL PR PRN (22:54)
[2020-01-17] MEDS ORDERED: ACETAMINOPHEN 325 MG TAB PO PRN (22:54)
[2020-01-17] MEDS ORDERED: PIPERACILL/TAZOBAC CONSULT ACTIVE PRN (22:54)
[2020-01-17] MEDS ORDERED: GLUCOSE 40% GEL 15 GM TUBE PO PRN (22:54)
[2020-01-18] MEDS: MoRPHine SULFATE 2 MG/ML CARP IV PRN ×4 (00:07→16:15)
[2020-01-18] MEDS: PIPERACILLIN/TAZOBACTAM 3.375 GM in DEXTROSE 5% 100 ML IV SCH ×4 (01:13→22:02)
[2020-01-18] MEDS: INSULIN ASPART 100 UNITS/ML 3 ML PEN SC SCH ×4 (01:14→19:08)
[2020-01-18] MEDS: allopurinoL 100 MG TAB PO SCH ×3 (01:21→22:05)
[2020-01-18] MEDS: PANTOprazole 40 MG in DEXTROSE 5% 100 ML IV SCH ×5 (01:49→22:01)
[2020-01-18 01:55] LABS: Hematocrit (blood only) 33.3 % (42-52); Mean Corpuscular Hemoglobin 30.7 pg (25-34); Mean Platelet Volume 10.9 fL (7.4-10.4); Platelet Count 322 K/uL (130-400); RDW Coefficient of Variation 17.1 % (11.5-14.5); RDW Standard Deviation 58.5 fL (36.4-46.3); Red Blood Count 3.58 M/uL (4.7-6.1); White Blood Count 17.97 K/uL (4.8-10.8)
[2020-01-18 02:15] LABS: BUN Creatinine Ratio 23.6 (10-20); Calcium 8.1 mg/dl (8.5-10.1); Creatinine Clr Calc Pharmacy 25.7 ml/min; Est GFR (African American) 26.8; Est GFR (Non-African American) 23.1; Potassium 4.7 mmol/L (3.5-5.1)
[2020-01-18 02:22] LABS: Basophils # (auto) 0.02 K/uL (0-0.2); Basophils % (auto) 0.1 %; Dohle Bodies 1+; Echinocytes 2+; Immature Granulocytes # (auto) 0.13 K/uL (0.00-0.02); Immature Granulocytes % (auto) 0.7 %; Lymphocytes # (auto) 1.13 K/uL (1.2-3.4); Lymphocytes % (auto) 6.3 %; Monocytes % (auto) 2.8 %; Neutrophils # (auto) 16.19 K/uL (1.4-6.5); Neutrophils % (auto) 90.1 %; Schistocytes Occasional; Spherocytes Occasional; Toxic Vacuolation 1+
[2020-01-18 02:23] LABS: Troponin I 0.249 ng/ml (0-0.045)
[2020-01-18 05:55] LABS: Hematocrit (blood only) 31.3 % (42-52); Hemoglobin 10.6 g/dL (14.0-18.0); Mean Corpuscular Hemoglobin 31.4 pg (25-34); Mean Corpuscular Hgb Conc 33.9 g/dL (32-36); Mean Corpuscular Volume 92.6 fL (80-100); Mean Platelet Volume 11.1 fL (7.4-10.4); Platelet Count 335 K/uL (130-400); RDW Coefficient of Variation 17.6 % (11.5-14.5); RDW Standard Deviation 58.9 fL (36.4-46.3); Red Blood Count 3.38 M/uL (4.7-6.1); White Blood Count 17.52 K/uL (4.8-10.8)
[2020-01-18 06:23] LABS: Basophils # (auto) 0.02 K/uL (0-0.2); Basophils % (auto) 0.1 %; Echinocytes 2+; Eosinophils # (auto) 0.01 K/uL (0-0.5); Eosinophils % (auto) 0.1 %; Immature Granulocytes # (auto) 0.16 K/uL (0.00-0.02); Immature Granulocytes % (auto) 0.9 %; Lymphocytes # (auto) 1.38 K/uL (1.2-3.4); Lymphocytes % (auto) 7.9 %; Monocytes # (auto) 0.44 K/uL (0.11-0.59); Monocytes % (auto) 2.5 %; Neutrophils # (auto) 15.51 K/uL (1.4-6.5); Neutrophils % (auto) 88.5 %; Ovalocytes 1+; Schistocytes Occasional; Spherocytes Occasional; Target Cells 1+
[2020-01-18 06:47] LABS: Albumin Level 1.5 gm/dl (3.4-5.0); BUN Creatinine Ratio 22.2 (10-20); Bilirubin Direct 4.4 mg/dl (0-0.2); Bilirubin,Total 4.6 mg/dl (0.2-1); Calcium 7.8 mg/dl (8.5-10.1); Creatinine Clr Calc Pharmacy 23.8 ml/min; Est GFR (African American) 24.3; Potassium 4.8 mmol/L (3.5-5.1)
--- NOTE | 2020-01-18 06:47 | Ultrasound Report ---
US liver CLINICAL HISTORY: ?Acute cholecystitis COMPARISON STUDY: CT of the abdomen and pelvis January 17, 2020. MRI of the abdomen January 08, 2020. FINDINGS: The liver is cirrhotic. The complex perihepatic/subcapsular fluid shown by CT is not well v isualized by sonography. There is no biliary ductal dilatation. Common bile duct measures 6 mm in leni iber. The pancreas is obscured. There are stones and sludge within the gallbladder which is mildly di stended. There is mild gallbladder wall thickening. The wall measures 5 mm in thickness. Sonographic Stone sign could not be assessed for in this patient. There is no right hydronephrosis. Note is made of a 4.5 cm right renal cyst. IMPRESSION: 1. Sludge and stones within the gallbladder. Mild gallbladder distention. Sonographic Stone sign cou ld not be assessed for this patient. Acute cholecystitis cannot be excluded. 2. Cirrhotic liver. 3. Complex perihepatic fluid shown by CT is not well visualized by sonography. By CT, this suggests h emoperitoneum. ACT 112: Negative or not required by law. Electronically signed by: Brant Stone M.D. 01/18/2020 6:46 AM
--- NOTE | 2020-01-18 07:19 | Hospitalist Progress Note ---
Date of Service January 18, 2020 Assessment & Plan (1) Hypotension: Patient admitted with sepsis due to cholecystitis and cholangitis. Patient on Eliquis anticoagulation for chronic AF. He was administered KCentra for partial reversal, transfused 1u PRBCs. Surgery evaluate the patient for surgery however the patient does not wish to proceed with surgical intervention or aggressive treatments at this time, Dr. Avila phoned me personally and was concern for common bile duct stone recommen ding urgent GI consultation. I phone gastroenterology on-call who reviewed the films and felt he needed an urgent endoscopy and ERCP. This was performed in the morning of 01/17. During that procedure it was felt the patient had a perforated gallbladder. The common bile duct was swept clear and stent was placed with the hopes that draining the infection possibly could encourage the peripheral gallbladder to heal without surgical intervention although there is still a significant risk to this patient at this time -Zosyn 3.375gm IV q 8hours -Morphine as needed for pain -Zofran as needed for nausea -General Surgery consultation appreciated and hopefully will continue to follow GI medicine likewise we will continue to follow -Hold Eliquis, Lisinopril, Diltiazem (2) Hemoperitoneum: hemoperitoneum. Secondary to sepsis from cholangitis He is on Eliquis for AF. -KCentra administered -1u PRBCs administered -Hold Eliquis CT abdomen/Pelvis 01/17/20 IMPRESSION:. The liver is cirrhotic in morphology. There is trace subcapsular fluid which is new from 01/07/2020, and likely represents subcapsular hematoma. Free fluid in the abdomen and pelvis has increased from 01/07/2020. Fluid around the liver and spleen is complex and this is consistent with hemoperitoneum. The liver is the most likely source given associated subcapsular hemorrhage. No de finite laceration is identified but this is not well evaluated. The gallbladder is distended and contains layering hyperdense intraluminal material. This has increased from 01/07/2020 and may represent hemobilia and/or gallstones. If there is clinical concern for acute cholecystitis a right upper quadrant ultrasound or hepatobiliary scan should be considered. Fractures of the left acetabulum and the left inferior pubic ring are again noted. Moderate colonic diverticulosis without CT evidence of acute diverticulitis. ERCP performed 01/17. Impressionlikely a bile leak from a spontaneous perfora loni gallbladder was found, given hemoperitoneum and use of anticoagulants, likely has hemorrhagic cholecystitis. A biliary sphincterotomy was performed and 1 plastic biliary stent was placed into the common bile duct. (3) Abnormal LFTs: ?Acute cholecystitis/cholangitis -Repeat LFTs are all worsening General surgery feels that there maybe a common bile duct stone, and recommeds consulting GI medicine -Zosyn 3.375gm IV q 8 (4) Asthma: Chronic. No cough/SOB/wheeze. Adequate oxygenation on room air -Continue Combivent (5) Atrial fibrillation: Chronic. Rate controlled -Hold Eliquis in setting of intraabdominal bleeding -Hold Diltiazem in setting of hypotension -KCentra given (6) Coronary artery disease: Chronic. Patient with elevated troponin in setting of acute illness, hypotension and worsening renal function. No EKG evidence of acute ischemia -Trend troponin -Continue Atorvastatin -Hold Lisinopril (7) Diabetes: Elevated blood sugar -ISS -Continue to monitor (8) Hypertension: Patient presently hypotensive as above. Sepsis vs hemorrhagic shock -Hold antihypertensive agents -Continue to monitor (9) TABATHA (acute kidney injury): TABATHA on CKD in setting of critical illness. BUN=57, Cr=2.29 -Avoid nephrotoxic agents -Renal dosing where needed -IVF, NSS at 100mL/hr (10) Gout: Chronic. Well controlled -Continue Allopurinol 100mg po BID (11) Stroke: Remote history of CVA, left sided deficit. -Continue Atorvastatin -Hold ASA (12) Dyslipidemia: Chronic -Continue Atorvastatin (13) Depression with anxiety: Chronic -Continue Escitalopram F/E/N - NSS at 100mL/hr, monitor electrolytes and correct as needed, NPO for now Ppx - SCDs Code - DNR/DNI per discussion with patient Disposition - Admit to medical floor with telemetry monitoring. Patient does not wish to have aggressive therapies or surgery for his underlying medical conditions. He is aware that he may without more aggressive treatment. Patient is AA&O x 4 and is capable of making his own decisions at this time. As patient is clinically improved at the moment will admit to medical floor with telemetry monitoring. Will continue to treat conservatively with IVF, transfusions, antibiotics. Pain and nausea control. If patient's clinical condition declines despite these medical interventions will proceed to comfort care only. Plan discussed with patient and family and all are in agreement. Should patient decompensate will notify patient's son, David and his friend, Pushpa Admission and Anticipated Discharge Date Admission Date: January 17, 2020 Subjective Patient was seen with his family in the room he was able to be awake and conversant. He understands the gravity of the situation he has significant abdominal pain particularly in the right upper quadrant Review of Systems Review of Systems: Moderate distress and fatigue no headache, blurry or double vision no speech or swallowing issues no chest pain, pressure or palpitations no shortness of breath, cough or wheezes Diffuse abdominal pain, mild nausea but no vomiting, loss of appetite no dysuria, hematuria or frequency no focal joint pain or swelling Central and low back pain, but no CVA tenderness or radicular pain no bruising, bleeding or rashes no focal signs of weakness or numbness or altered sensation overall feels very weak no complaints or anxiety or depression Physical Exam Physical Exam: The patient appeared significantly impaired and in discomfort Vital signs as documented. Lungs are clear to auscultation but diminished at bases. Cardiac exam, Rhythm is regular.. No murmurs, rubs or gallops. Abdominal exam reveals normal bowel sounds, tender and rigid focally tender in the right upper quadrant Extremities are mildly edematous and both pedal pulses are normal. Neurologic exam is alert and oriented x2, no focal loss of strength or sensation is very weak Skin is without bruises or rashes no jaundice at this time Results & Data Results & Data ([facility]) Vital Signs (Past 12 Hours) Vital Signs Temp Pulse Pulse Resp BP BP Pulse Ox 01/18/20 04:45 98.4 F 60 20 100/61 94 01/18/20 00:47 97.9 F 72 18 99/57 L 93 01/17/20 23:40 97.7 F 73 18 91/53 L 96 01/17/20 22:50 97.7 F 77 20 107/67 95 01/17/20 22:30 97.9 F 69 18 123/72 96 01/17/20 21:50 98.1 F 81 13 97/53 L 98 01/17/20 21:45 73 14 100/53 L 96 01/17/20 21:35 98.1 F 77 13 102/54 L 97 01/17/20 21:25 78 13 84/52 L 97 01/17/20 21:20 77 13 82/59 L 96 01/17/20 21:15 98.1 F 85 14 81/51 L 97 01/17/20 21:05 82 15 95/51 L 96 01/17/20 20:55 89 21 101/63 97 01/17/20 20:50 76 18 108/53 L 97 01/17/20 20:46 83 16 107/82 97 01/17/20 20:40 80 19 129/64 96 01/17/20 20:35 98.8 F 91 H 26 H 105/67 97 01/17/20 20:30 87 15 95/63 L 96 01/17/20 20:25 83 17 95/65 L 96 01/17/20 20:20 82 16 112/55 L 96 01/17/20 20:15 80 17 103/65 97 01/17/20 20:10 81 20 113/58 L 96 01/17/20 20:05 84 18 91/45 L 97 01/17/20 20:00 99.1 F 91 H 20 116/62 97 01/17/20 19:56 87 21 113/65 96 01/17/20 19:50 88 22 127/67 97 01/17/20 19:46 86 21 122/74 96 01/17/20 19:42 85 22 95/58 L 97 01/17/20 19:36 83 23 148/77 H 97 01/17/20 19:30 99.0 F 80 17 90/77 L 98 01/17/20 19:25 80 18 123/62 98 PG Care Time/CCT Total # of Minutes Spent Total Time Spent with Patient: Total time spent is greater than 50% in coordination of care (as documented) at patient's floor/unit and/or counseling patient: Coding Level of Care Code 92509 Subseq Hosp Care Lvl 3 Diagnoses Hypotension I95.9 Hypotension type: unspecified hypotension type Hemoperitoneum K66.1 Abnormal LFTs R94.5 Asthma J45.909 Asthma complication type: uncomplicated Asthma persistence: unspecified Asthma severity: unspecified severity Atrial fibrillation I48.21 Atrial fibrillation type: permanent Coronary artery disease I25.10 Associated angina: without angina Coronary Disease-Associated Artery/Lesion type: [place] artery [place] vs. transplanted heart: [place] heart Diabetes E11.9 Diabetes mellitus complication status: without complication Diabetes mellitus superintendent terminal insulin use: without superintendent terminal use Diabetes mellitus type: type 2 Hypertension I10 Hypertension type: essential hypertension TABATHA (acute kidney injury) N17.9 Gout M10.9 Chronicity: unspecified Gout etiology: unspecified cause Gout site: unspecified site Stroke I63.9 CVA mechanism: unspecified Dyslipidemia E78.5 Depression with anxiety F41.8 (1) Diabetes Diabetes mellitus complication status: without complication Diabetes mellitus snf insulin use: without superintendent terminal use Diabetes mellitus type: type 2 Qualified Code(s): E11.9 - Type 2 diabetes mellitus without complications (2) Gout Chronicity: unspecified Gout etiology: unspecified cause Gout site: unspecified site Qualified Code(s): M10.9 - Gout, unspecified (3) Coronary artery disease Associated angina: without angina Coronary Disease-Associated Artery/Lesion type: [place] artery [place] vs. transplanted heart: [place] heart Qualified Code(s): I25.10 - Atherosclerotic heart disease of [place] coronary artery without angina pectoris (4) Atrial fibrillation Atrial fibrillation type: permanent Qualified Code(s): I48.21 - Permanent atrial fibrillation (5) Hypertension Hypertension type: essential hypertension Qualified Code(s): I10 - Essential (primary) hypertension (6) Hypotension Hypotension type: unspecified hypotension type Qualified Code(s): I95.9 - Hypotension, unspecified (7) Stroke CVA mechanism: unspecified Qualified Code(s): I63.9 - Cerebral infarction, unspecified (8) Asthma Asthma complication type: uncomplicated Asthma persistence: unspecified Asthma severity: unspecified severity Qualified Code(s): J45.909 - Unspecified asthma, uncomplicated
--- NOTE | 2020-01-18 07:43 | Surgery Consultation ---
Date of Consultation January 18, 2020 Assessment & Plan (1) Hemoperitoneum: pt is a 79 year-old male who was admitted to hospital for abdominal pain, (T) bilirubin 4.6, LFTs abnormal, IMP: Cholanggitis, cholelithiasis, subcapsular hematoma of liver Re: consult GI doctor for ERCP, D/W pt and his ex- and hospitalist who agree with the plan, will F/U (2) Cholangitis: (3) Cholelithiasis: History of Present Illness Attending Physician: Mehrdad Walters MD Chief Complaint: Abdominal pain Primary Care Provider: Julia Peña MD Nathaniel Dunn is a 79yo C male with multiple medical problems to include AF on Eliquis anticoagulation, prior CVA with left sided deficit, DM/HTN/CAD. Patient was recently admitted to the hospital from 01/06 - 01/13 with an acute non- displaced fracture of the left acetabulum and left inferior pubic ramus pelvic fracture after a mechanical fall at home on 01/02. Patient was managed conservatively and discharged to [facility] for rehabilitation on 01/14/20. He returns to the ER today with complaint of acute severe abdominal pain with nausea and vomiting. No additional complaints. Specifically no mention of fever/chills/cough/SOB/diarrhea ER Course: On arrival patient found to be afebrile, HD stable. Noted to have a hard, distended and tender abdomen. After he returned from CT he became minimally responsive and hypotensive with SBP in the 60's. He was administered IVF with improvement in BP and was transfused with 1 unit of uncrossed blood with two additional units on hold. CT Abdomen without contrast revealed cirrhotic liver, subcapsular fluid new from 01/07/20 which may represent subcapsular hematoma. Free fluid in the abdomen and pelvis increased from 01/06 with complex fluid around the liver and spleen consistent with hemoperitoneum. No definite laceration identified. Gallbladder is distended possibly hemobilia and/or gallstones. Dr. Dobbs (ER attending) contacted Dr. Avila re: results of CT. Due to the patient's multiple medical comorbidities and tenuous status Dr. Avila recommended transfer to a tertiary care facility. Dr. Dobbs discussed this with the patient who was adamantly against transfer. ER Medications Administered: KCentra, 1uPRBCs, Acetaminophen 1gm, Ceftriaxone 2gm, Famotidine, Morphine 2mg, 2mg, 6mg, Protonix 40mg, Prochlorperazine During my evaluation the patient was somnolent but arousable. He is answering questions and following commands. He is alert and oriented to self, location, day of the week and situation. He is acutely aware of his severity of illness as well as the possibility of if he does not undergo surgical intervention. Patient voices understanding of the situation. He again states that he does not wish to transfer to a tertiary care facility. He states that he does not wish to have surgery or aggressive treatments. He is aware that he may without it and says that he is ok with that. Family is at bedside to include patient's son, David and [id number] as well as patient's ex- and decision maker Pushpa and her daughter. Family voices understanding of the situation as well. They understand that patient may if not treated surgically and are in agreement with respecting his wishes. I ( Kristen Avila MD ) got a call for consult cholecystitis, I reviewed pt's H/P, labs, CT scan and U/S study with pt and his ex- at bedside, pt is still have some RUQ pain, Allergies Allergy/AdvReac Type Severity Reaction Status Date / Time Penicillins Allergy Unknown RASH Verified 01/17/20 18:31 Home Medications Home Medications Medication Instructions Recorded Confirmed Type Combivent Respimat 1 puff INHALATION QID 10/01/19 01/17/20 History allopurinol [Zyloprim] 100 mg PO Q12H 10/01/19 01/17/20 History diltiazem HCl [Cardizem CD] 240 mg PO DAILY 10/01/19 01/17/20 History escitalopram oxalate [Lexapro] 10 mg PO DAILY 10/01/19 01/17/20 History lisinopril [Zestril] 10 mg PO DAILY 10/01/19 01/17/20 History loperamide [Imodium A-D] 2 mg PO QID PRN 10/01/19 01/17/20 History Eliquis 5 mg PO Q12H 01/07/20 01/17/20 History atorvastatin [Lipitor] 40 mg PO DAILY 01/07/20 01/17/20 History acetaminophen [Tylenol] 650 mg PO Q4H PRN 01/17/20 01/17/20 History bisacodyl [Dulcolax (bisacodyl)] 10 mg IN DAILY PRN 01/17/20 01/17/20 History ciprofloxacin HCl [Cipro] 500 mg PO HS 01/17/20 01/17/20 History oxycodone [Roxicodone] 5 mg PO Q4H PRN 01/17/20 01/17/20 History pantoprazole [Protonix] 40 mg PO DAILYBB 01/17/20 01/17/20 History polyethylene glycol 3350 [Miralax] 17 g PO QDL PRN 01/17/20 01/17/20 History sodium phosphates [Enema] 133 ml IN DAILY PRN 01/17/20 01/17/20 History Past Med/Surg History Social History Preferred Language: Kiswahili 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 Quit in September ; Hx Alcohol Use: Yes Alcohol type: beer Hx Substance Use: No Review of Systems Review of Systems: All systems reviewed & are unremarkable except as noted in HPI & below Allergies Allergy/AdvReac Type Severity Reaction Status Date / Time Penicillins Allergy Unknown RASH Verified 01/17/20 18:31 Home Medications Home Medications Medication Instructions Recorded Confirmed Type Combivent Respimat 1 puff INHALATION QID 10/01/19 01/17/20 History allopurinol [Zyloprim] 100 mg PO Q12H 10/01/19 01/17/20 History diltiazem HCl [Cardizem CD] 240 mg PO DAILY 10/01/19 01/17/20 History escitalopram oxalate [Lexapro] 10 mg PO DAILY 10/01/19 01/17/20 History lisinopril [Zestril] 10 mg PO DAILY 10/01/19 01/17/20 History loperamide [Imodium A-D] 2 mg PO QID PRN 10/01/19 01/17/20 History Eliquis 5 mg PO Q12H 01/07/20 01/17/20 History atorvastatin [Lipitor] 40 mg PO DAILY 01/07/20 01/17/20 History acetaminophen [Tylenol] 650 mg PO Q4H PRN 01/17/20 01/17/20 History bisacodyl [Dulcolax (bisacodyl)] 10 mg IN DAILY PRN 01/17/20 01/17/20 History ciprofloxacin HCl [Cipro] 500 mg PO HS 01/17/20 01/17/20 History oxycodone [Roxicodone] 5 mg PO Q4H PRN 01/17/20 01/17/20 History pantoprazole [Protonix] 40 mg PO DAILYBB 01/17/20 01/17/20 History polyethylene glycol 3350 [Miralax] 17 g PO QDL PRN 01/17/20 01/17/20 History sodium phosphates [Enema] 133 ml IN DAILY PRN 01/17/20 01/17/20 History Patient History Medical History Asthma (Chronic) Atrial fibrillation (Chronic) Coronary artery disease (Chronic) CVA (cerebral vascular accident) Diabetes (Chronic) Gout Hypertension (Chronic) Mood disorder (Acute) Pneumonia (Acute) Surgical History History of hernia repair (Resolved) Family History Mother No pertinent family history Social History Preferred Language: Kiswahili 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: 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 Beliefs That Will Affect Care: None Current Living Situation: Rehab Current Living Situation Comment: originally from home but was recently DC'd from here to [place] Feels Safe at Home: Yes Smoking Status: Former smoker Tobacco Type: cigarettes ; Cigarettes Per Day: 8 ; Hx Alcohol Use: Yes Alcohol type: beer Hx Substance Use: No Review of Systems Review of Systems: All systems reviewed & are unremarkable except as noted in HPI & below Constitutional: as per Subjective / HPI Eyes: as per Subjective / HPI Ear, Nose, Mouth, Throat: as per Subjective / HPI Respiratory: as per Subjective / HPI Cardiovascular: as per Subjective / HPI Additional Comments: A-fib Gastrointestinal: as per Subjective / HPI Genitourinary: + as per Subjective / HPI and + problem reported (renal mass) Musculoskeletal: as per Subjective / HPI Neurologic: as per Subjective / HPI CVA Psychiatric: as per Subjective / HPI Endocrine: as per Subjective / HPI Hematologic / Lymphatic: as per Subjective / HPI Allergy / Immunological: as per Subjective / HPI Physical Exam Constitutional: WD/WN, vitals as above well developed and well nourished Eyes: PERRL, conjunctivae normal, anicteric sclerae jaundice ENMT: external ear and nose normal, oropharynx normal Neck: trachea midline, no thyromegaly Respiratory: normal respiratory effort, lungs clear to auscultation Cardiovascular: A-Fib Gastrointestinal (Abdomen): normal bowel sounds, soft, nontender, no hepatosplenomegaly Percussion/Palpation: abdomen soft mild tenderness at RUQ, no rebound pain, no distend, BS + Musculoskeletal: weakness at left arm, Skin: + jaundice Neurologic: patellar DTR's 2+ bilat, sensation intact Psychiatric: Orientation: alert Results & Data Vital Signs (Past 12 Hours) Vital Signs Temp Pulse Pulse Resp BP BP Pulse Ox 01/18/20 07:28 36.7 C 75 20 117/73 93 01/18/20 04:45 36.9 C 60 20 100/61 94 01/18/20 00:47 36.6 C 72 18 99/57 L 93 01/17/20 23:40 36.5 C 73 18 91/53 L 96 01/17/20 22:50 36.5 C 77 20 107/67 95 01/17/20 22:30 36.6 C 69 18 123/72 96 01/17/20 21:50 36.7 C 81 13 97/53 L 98 01/17/20 21:45 73 14 100/53 L 96 01/17/20 21:35 36.7 C 77 13 102/54 L 97 01/17/20 21:25 78 13 84/52 L 97 01/17/20 21:20 77 13 82/59 L 96 01/17/20 21:15 36.7 C 85 14 81/51 L 97 01/17/20 21:05 82 15 95/51 L 96 01/17/20 20:55 89 21 101/63 97 01/17/20 20:50 76 18 108/53 L 97 01/17/20 20:46 83 16 107/82 97 01/17/20 20:40 80 19 129/64 96 01/17/20 20:35 37.1 C 91 H 26 H 105/67 97 01/17/20 20:30 87 15 95/63 L 96 01/17/20 20:25 83 17 95/65 L 96 01/17/20 20:20 82 16 112/55 L 96 01/17/20 20:15 80 17 103/65 97 01/17/20 20:10 81 20 113/58 L 96 01/17/20 20:05 84 18 91/45 L 97 01/17/20 20:00 37.3 C 91 H 20 116/62 97 01/17/20 19:56 87 21 113/65 96 01/17/20 19:50 88 22 127/67 97 01/17/20 19:46 86 21 122/74 96 01/17/20 19:42 85 22 95/58 L 97 Laboratory Results Abnormal lab results 01/17/20 01/17/20 01/17/20 Range/Units 17:40 17:40 17:40 WBC 18.96 H (4.8-10.8) K/uL RBC 3.46 L (4.7-6.1) M/uL Hgb 11.1 L (14.0-18.0) g/dL Hct 33.4 L (42-52) % RDW Std Deviation 56.8 H (36.4-46.3) fL RDW Coeff of Dwain 16.3 H (11.5-14.5) % Plt Count 428 H (130-400) K/uL MPV 11.4 H (7.4-10.4) fL Immature Gran # (Auto) 0.17 H (0.00-0.02) K/uL Neut # (Auto) 17.53 H (1.4-6.5) K/uL Lymph # (Auto) 0.89 L (1.2-3.4) K/uL PT 14.0 H (9.0-12.0) Seconds INR 1.3 H (0.9-1.1) APTT 33.2 H (21.0-31.0) Seconds Chloride (98-107) mmol/L Carbon Dioxide 20 L (21-32) mmol/L BUN 57 H (7-18) mg/dl Creatinine 2.29 H (0.6-1.4) mg/dl BUN/Creatinine Ratio 25.0 H (10-20) Glucose 206 H (70-99) mg/dl POC Glucose (70-99) mg/dl Lactate (0.4-2.0) mmol/L Calcium (8.5-10.1) mg/dl Total Bilirubin 1.9 H (0.2-1) mg/dl Direct Bilirubin 1.4 H (0-0.2) mg/dl AST 97 H (15-37) U/L ALT (12-78) U/L Alkaline Phosphatase 383 H (45-117) U/L Troponin I 0.197 H* (0-0.045) ng/ml Total Protein (6.4-8.2) gm/dl Albumin 2.0 L (3.4-5.0) gm/dl Globulin 5.0 H (2.5-4.0) gm/dl Albumin/Globulin Ratio 0.4 L (0.9-2) Procalcitonin (0-0.5) ng/ml Urine Appearance (Clear) Urine Protein (Negative) Urine Blood (Negative) Ur Leukocyte Esterase (Negative) Urine RBC (Auto) (0-4) /hpf U Epithel Cells (Auto) (0-5) /lpf Amorphous Sediment (None Prsent) Granular Casts (0) /lpf Crossmatch 01/17/20 01/17/20 01/17/20 Range/Units 17:40 18:40 18:40 WBC (4.8-10.8) K/uL RBC (4.7-6.1) M/uL Hgb (14.0-18.0) g/dL Hct (42-52) % RDW Std Deviation (36.4-46.3) fL RDW Coeff of Dwain (11.5-14.5) % Plt Count (130-400) K/uL MPV (7.4-10.4) fL Immature Gran # (Auto) (0.00-0.02) K/uL Neut # (Auto) (1.4-6.5) K/uL Lymph # (Auto) (1.2-3.4) K/uL PT (9.0-12.0) Seconds INR (0.9-1.1) APTT (21.0-31.0) Seconds Chloride (98-107) mmol/L Carbon Dioxide (21-32) mmol/L BUN (7-18) mg/dl Creatinine (0.6-1.4) mg/dl BUN/Creatinine Ratio (10-20) Glucose (70-99) mg/dl POC Glucose (70-99) mg/dl Lactate (0.4-2.0) mmol/L Calcium (8.5-10.1) mg/dl Total Bilirubin (0.2-1) mg/dl Direct Bilirubin (0-0.2) mg/dl AST (15-37) U/L ALT (12-78) U/L Alkaline Phosphatase (45-117) U/L Troponin I (0-0.045) ng/ml Total Protein (6.4-8.2) gm/dl Albumin (3.4-5.0) gm/dl Globulin (2.5-4.0) gm/dl Albumin/Globulin Ratio (0.9-2) Procalcitonin 7.00 H (0-0.5) ng/ml Urine Appearance (Clear) Urine Protein (Negative) Urine Blood (Negative) Ur Leukocyte Esterase (Negative) Urine RBC (Auto) (0-4) /hpf U Epithel Cells (Auto) (0-5) /lpf Amorphous Sediment (None Prsent) Granular Casts (0) /lpf Crossmatch See Detail See Detail 01/17/20 01/17/20 01/18/20 Range/Units 18:45 19:19 00:45 WBC (4.8-10.8) K/uL RBC (4.7-6.1) M/uL Hgb (14.0-18.0) g/dL Hct (42-52) % RDW Std Deviation (36.4-46.3) fL RDW Coeff of Dwain (11.5-14.5) % Plt Count (130-400) K/uL MPV (7.4-10.4) fL Immature Gran # (Auto) (0.00-0.02) K/uL Neut # (Auto) (1.4-6.5) K/uL Lymph # (Auto) (1.2-3.4) K/uL PT (9.0-12.0) Seconds INR (0.9-1.1) APTT (21.0-31.0) Seconds Chloride (98-107) mmol/L Carbon Dioxide (21-32) mmol/L BUN (7-18) mg/dl Creatinine (0.6-1.4) mg/dl BUN/Creatinine Ratio (10-20) Glucose (70-99) mg/dl POC Glucose 194 H (70-99) mg/dl Lactate 3.5 H* (0.4-2.0) mmol/L Calcium (8.5-10.1) mg/dl Total Bilirubin (0.2-1) mg/dl Direct Bilirubin (0-0.2) mg/dl AST (15-37) U/L ALT (12-78) U/L Alkaline Phosphatase (45-117) U/L Troponin I (0-0.045) ng/ml Total Protein (6.4-8.2) gm/dl Albumin (3.4-5.0) gm/dl Globulin (2.5-4.0) gm/dl Albumin/Globulin Ratio (0.9-2) Procalcitonin (0-0.5) ng/ml Urine Appearance Turbid A (Clear) Urine Protein 3+ H (Negative) Urine Blood 1+ H (Negative) Ur Leukocyte Esterase Trace H (Negative) Urine RBC (Auto) 5-10 H (0-4) /hpf U Epithel Cells (Auto) >30 H (0-5) /lpf Amorphous Sediment Present A (None Prsent) Granular Casts 1-5 H (0) /lpf Crossmatch 01/18/20 01/18/20 01/18/20 Range/Units 01:44 01:44 05:20 WBC 17.97 H (4.8-10.8) K/uL RBC 3.58 L (4.7-6.1) M/uL Hgb 11.0 L (14.0-18.0) g/dL Hct 33.3 L (42-52) % RDW Std Deviation 58.5 H (36.4-46.3) fL RDW Coeff of Dwain 17.1 H (11.5-14.5) % Plt Count (130-400) K/uL MPV 10.9 H (7.4-10.4) fL Immature Gran # (Auto) 0.13 H (0.00-0.02) K/uL Neut # (Auto) 16.19 H (1.4-6.5) K/uL Lymph # (Auto) 1.13 L (1.2-3.4) K/uL PT (9.0-12.0) Seconds INR (0.9-1.1) APTT (21.0-31.0) Seconds Chloride 112 H 113 H (98-107) mmol/L Carbon Dioxide 20 L 17 L (21-32) mmol/L BUN 61 H 62 H (7-18) mg/dl Creatinine 2.57 H 2.78 H (0.6-1.4) mg/dl BUN/Creatinine Ratio 23.6 H 22.2 H (10-20) Glucose 199 H 171 H (70-99) mg/dl POC Glucose (70-99) mg/dl Lactate (0.4-2.0) mmol/L Calcium 8.1 L 7.8 L (8.5-10.1) mg/dl Total Bilirubin 4.6 H D (0.2-1) mg/dl Direct Bilirubin 4.4 H D (0-0.2) mg/dl AST 1016 H (15-37) U/L ALT 384 H (12-78) U/L Alkaline Phosphatase 792 H D (45-117) U/L Troponin I 0.249 H* (0-0.045) ng/ml Total Protein 6.0 L (6.4-8.2) gm/dl Albumin 1.5 L (3.4-5.0) gm/dl Globulin (2.5-4.0) gm/dl Albumin/Globulin Ratio (0.9-2) Procalcitonin (0-0.5) ng/ml Urine Appearance (Clear) Urine Protein (Negative) Urine Blood (Negative) Ur Leukocyte Esterase (Negative) Urine RBC (Auto) (0-4) /hpf U Epithel Cells (Auto) (0-5) /lpf Amorphous Sediment (None Prsent) Granular Casts (0) /lpf Crossmatch 01/18/20 01/18/20 Range/Units 05:20 06:22 WBC 17.52 H (4.8-10.8) K/uL RBC 3.38 L (4.7-6.1) M/uL Hgb 10.6 L (14.0-18.0) g/dL Hct 31.3 L (42-52) % RDW Std Deviation 58.9 H (36.4-46.3) fL RDW Coeff of Dwain 17.6 H (11.5-14.5) % Plt Count (130-400) K/uL MPV 11.1 H (7.4-10.4) fL Immature Gran # (Auto) 0.16 H (0.00-0.02) K/uL Neut # (Auto) 15.51 H (1.4-6.5) K/uL Lymph # (Auto) (1.2-3.4) K/uL PT (9.0-12.0) Seconds INR (0.9-1.1) APTT (21.0-31.0) Seconds Chloride (98-107) mmol/L Carbon Dioxide (21-32) mmol/L BUN (7-18) mg/dl Creatinine (0.6-1.4) mg/dl BUN/Creatinine Ratio (10-20) Glucose (70-99) mg/dl POC Glucose 161 H (70-99) mg/dl Lactate (0.4-2.0) mmol/L Calcium (8.5-10.1) mg/dl Total Bilirubin (0.2-1) mg/dl Direct Bilirubin (0-0.2) mg/dl AST (15-37) U/L ALT (12-78) U/L Alkaline Phosphatase (45-117) U/L Troponin I (0-0.045) ng/ml Total Protein (6.4-8.2) gm/dl Albumin (3.4-5.0) gm/dl Globulin (2.5-4.0) gm/dl Albumin/Globulin Ratio (0.9-2) Procalcitonin (0-0.5) ng/ml Urine Appearance (Clear) Urine Protein (Negative) Urine Blood (Negative) Ur Leukocyte Esterase (Negative) Urine RBC (Auto) (0-4) /hpf U Epithel Cells (Auto) (0-5) /lpf Amorphous Sediment (None Prsent) Granular Casts (0) /lpf Crossmatch Diagnostic Findings US liver CLINICAL HISTORY: ?Acute cholecystitis COMPARISON STUDY: CT of the abdomen and pelvis January 17, 2020. MRI of the abdomen January 08, 2020. FINDINGS: The liver is cirrhotic. The complex perihepatic/subcapsular fluid shown by CT is not well visualized by sonography. There is no biliary ductal dil atation. Common bile duct measures 6 mm in caliber. The pancreas is obscured. There are stones and sludge within the gallbladder which is mildly distended. There is mild gallbladder wall thickening. The wall measures 5 mm in thickness. Sonographic Stone sign could not be assessed for in this patient. There is no right hydronephrosis. Note is made of a 4.5 cm right renal cyst. IMPRESSION: 1. Sludge and stones within the gallbladder. Mild gallbladder distention. Sonographic Stone sign could not be assessed for this patient. Acute cholecystitis cannot be excluded. 2. Cirrhotic liver. 3. Complex perihepatic fluid shown by CT is not well visualized by sonography. By CT, this suggests hemoperitoneum. CT SCAN OF THE ABDOMEN AND PELVIS WITHOUT IV CONTRAST CLINICAL HISTORY: Generalized abdominal pain. COMPARISON STUDY: Abdominal CT dated 01/07/2020. Abdominal MRI dated 01/08/2020. TECHNIQUE: CT scan of the abdomen and pelvis is performed from the lung bases to the proximal femora. Images are reviewed in the axial, sagittal, and coronal planes. IV contrast was not administered for this examination as per the referring clinician. Note that the examination was performed in suboptimal fashion without oral and IV contrast. The examination is also degraded by motion, and by streak artifact from the left arm which could not be elevated above the abdomen. A dose lowering technique was utilized adhering to the principles of ALARA. CT DOSE: 828.59 mGy.cm FINDINGS: Lung bases: The heart is mildly enlarged and without pericardial effusion. The coronary arteries are densely calcified. There are small pleural effusions with bibasilar atelectasis. Fluid-filled distal esophagus. Liver: The unenhanced liver is cirrhotic in morphology and heterogeneous in attenuation. There is hypertrophy of the left lobe and nodularity of the hepatic surface contour. There is trace subcapsular fluid identified along the anterior surface of the liver. This is typical with subcapsular hemorrhage. There is no intrahepatic biliary ductal dilatation. Gallbladder: The gallbladder is distended. There is layering hyperdense intraluminal material which is increased from previous. Spleen: Normal in size and attenuation. Pancreas: The unenhanced pancreas is moderately atrophic and grossly unremarkable. Adrenal glands: Adrenal glands are grossly unremarkable. A 2.9 cm calcification containing nodule is again seen in the left superior to peritoneal space adjacent to the adrenal gland on image #100. Kidneys: The unenhanced kidneys are atrophic and without hydronephrosis. There are no renal calculi identified. Bilateral simple renal cysts are again noted and measure up to 3.5 cm. a 4.4 cm complex cyst is again seen arising from the right lower pole. Abdominal vasculature: The abdominal aorta is normal in course and caliber noting advanced atherosclerotic calcification. Bowel: There is moderate colonic diverticulosis without CT evidence of acute diverticulitis. No bowel obstruction is seen. The appendix is not visualized. Peritoneum: There is a small volume of abdominopelvic ascites. This has increased from previous, and blood around the liver and spleen appears complex/hyperdense. This is consistent with hemoperitoneum. No intraperitoneal free air is seen. Lymphadenopathy: None. Pelvic viscera: The bladder, prostate, and seminal vesicles are normal as imaged. There are bilateral fat-containing inguinal hernias. Trace fluid is noted in the right inguinal hernia. Skeletal structures: The skeletal structures are osteopenic. Fractures of the left acetabulum and left inferior pubic ring are again noted. There are healed right-sided rib fractures. There is moderate to advanced lumbosacral spondylosis. No lytic or blastic lesions are seen. A benign-appearing fat att enuation lucency is again seen in the medial left iliac bone. Soft tissues: There is body wall edema. IMPRESSION: 1. Suboptimal examination without oral and IV contrast. The examination is also compromised by streak and motion. 2. The liver is cirrhotic in morphology. There is trace subcapsular fluid which is new from 01/07/2020, and likely represents subcapsular hematoma. 3. Free fluid in the abdomen and pelvis has increased from 01/07/2020. Fluid around the liver and spleen is complex and this is consistent with hemoperitoneum. The liver is the most likely source given associated subcapsular hemorrhage. No definite laceration is identified but this is not well evaluated. 4. The gallbladder is distended and contains layering hyperdense intraluminal material. This has increased from 01/07/2020 and may represent hemobilia and/or gallstones. If there is clinical concern for acute cholecystitis a right upper quadrant ultrasound or hepatobiliary scan should be considered. 5. Cardiomegaly and small pleural effusions. 6. Fractures of the left acetabulum and the left inferior pubic ring are again noted. 7. Moderate colonic diverticulosis without CT evidence of acute diverticulitis. 8. Additional findings as above.
[2020-01-18] MEDS: ESCITALOPRAM OXALATE 10 MG TAB PO SCH (07:57)
[2020-01-18] MEDS: ATORVASTATIN 40 MG TAB PO SCH (07:57)
--- NOTE | 2020-01-18 09:15 | Anesthesiology Consultation ---
Date of Service January 18, 2020 Assessment & Plan (1) Encounter for pre-operative examination: Chart Review Chart Review: Acceptable Risk for Surgery and Patient NOT seen in Pre Admission Testing SPOKE AT LENGTH WITH THIS PATIENT REGARDING RISKS AND BENEFITS OF GENERAL ANESTHESIA. HE IS AWARE HE WILL BE UNDER GENERAL ANESTHESIA AND WILL REQUIRE AN ENDOTRACHEAL TUBE FOR THE PROCEDURE. HE IS ALSO AWARE HE IS CONSIDERED HIGH RISK FOR [place] AND POSTOPERATIVE COMPLICATIONS INCLUDING BUT NOT LIMITED TO STROKE, HEART ATTACK AND . HE IS AWARE THAT HE MAY NOT BE EXTUBATED AT THE END OF THE PROCEDURE AND WILL NEED TO GO TO THE ER WITH A BREATHING TUBE AND WILL NEED TO BE VENTILATED. I STATED THE DNR/DNI ORDER WOULD BE SUSPENDED FOR THE PERIOPERATIVE PORTION AND HE IS OK WITH THIS. I STATED IF HE WOULD GO TO THE ICU INTUBATED HIS FAMILY MEMBERS COULD LATER DECIDE COURSE OF ACTION TO TAKE. I OFFERED TO SPEAK TO HIS SON ABOUT THESE ISSUES BUT HE DID NOT WANT ME TO CONTACT HIM AT THIS TIME. HE DID SAY I COULD HAVE PERMISSION TO SPEAK WITH DARRYL, WHO HAD LEFT THE HOSPITAL AND WAS NOT ANSWERING THE PROVIDED PHONE NUMBER. I WILL TRY AGAIN BEFORE AND AGAIN AFTER THE PROCEDURE. ALL QUESTIONS WERE ANSWERED AND HE WAS CONSENT FOR GENERAL ANESTHESIA. PATIENT DEEMED AN ASA4E HE IS HIGH RISK, SIGNIFICANT COMORBID HEALTH CONDITIONS IN NEED OF EMERGENT PROCEDURE TO PREVENT FURTHER DECLINE IN HIS HEALTH. Patient to receive preop duoneb for audible wheezing heard on exam. Consults Requested none Teaching & Discussion Should patient decompensate will notify patient's son, David and his friend, Darryl History Surgery Operation Date: 01/18/20 09:30 Proposed Procedures p Endoscopic Retrograde Cholangiopancreato - Jeni Nuñez MD Height/Weight Height: 5 ft 8 in Weight: 86.2 kg Allergies Allergy/AdvReac Type Severity Reaction Status Date / Time Penicillins Allergy Unknown RASH Verified 01/17/20 18:31 Medications Home Medications Medication Instructions Recorded Confirmed Last Taken Combivent Respimat 1 puff INHALATION QID 10/01/19 01/17/20 Unknown allopurinol [Zyloprim] 100 mg PO Q12H 10/01/19 01/17/20 Unknown diltiazem HCl [Cardizem CD] 240 mg PO DAILY 10/01/19 01/17/20 Unknown escitalopram oxalate [Lexapro] 10 mg PO DAILY 10/01/19 01/17/20 Unknown lisinopril [Zestril] 10 mg PO DAILY 10/01/19 01/17/20 Unknown loperamide [Imodium A-D] 2 mg PO QID PRN 10/01/19 01/17/20 Unknown Eliquis 5 mg PO Q12H 01/07/20 01/17/20 Unknown atorvastatin [Lipitor] 40 mg PO DAILY 01/07/20 01/17/20 Unknown acetaminophen [Tylenol] 650 mg PO Q4H PRN 01/17/20 01/17/20 Unknown bisacodyl [Dulcolax (bisacodyl)] 10 mg TN DAILY PRN 01/17/20 01/17/20 Unknown ciprofloxacin HCl [Cipro] 500 mg PO HS 01/17/20 01/17/20 Unknown oxycodone [Roxicodone] 5 mg PO Q4H PRN 01/17/20 01/17/20 Unknown pantoprazole [Protonix] 40 mg PO DAILYBB 01/17/20 01/17/20 Unknown polyethylene glycol 3350 [Miralax] 17 g PO QDL PRN 01/17/20 01/17/20 Unknown sodium phosphates [Enema] 133 ml TN DAILY PRN 01/17/20 01/17/20 Unknown Active Medications Generic Name Dose Route Start Last Admin Trade Name Freq PRN Reason Stop Dose Admin Allopurinol 100 mg 01/17/20 22:54 01/18/20 07:57 Zyloprim PO 02/16/20 22:53 100 mg BID MARIA D Administration Atorvastatin Calcium 40 mg 01/18/20 09:00 01/18/20 07:57 Lipitor PO 02/17/20 08:59 40 mg DAILY MARIA D Administration Escitalopram Oxalate 10 mg 01/18/20 09:00 01/18/20 07:57 Lexapro Tab PO 02/17/20 08:59 10 mg DAILY MARIA D Administration Pantoprazole Sodium 40 mg/ 100 mls @ 20 mls/hr 01/17/20 19:30 01/18/20 06:24 Dextrose IV 02/16/20 19:29 8 mg/hr Q5H MARIA D 20 mls/hr Administration 8 MG/HR Piperacillin Sod/Tazobactam 115 mls @ 28.75 mls/hr 01/17/20 23:00 01/18/20 06:23 Sod 3.375 gm/ Dextrose IV 01/27/20 22:59 28.8 mls/hr Q8H MARIA D Administration Protocol Insulin Aspart 0 units 01/18/20 00:00 01/18/20 06:30 Novolog Flexpen SC 02/17/20 00:00 1 units Q6 MARIA D Administration Morphine Sulfate 2 mg 01/17/20 22:54 01/18/20 07:55 Morphine Sulfate IV 01/31/20 22:53 2 mg Q2H PRN Administration Pain Past Medical History Medical History TABATHA (acute kidney injury) (Inactive) Asthma (Chronic) Atrial fibrillation (Chronic) Cholangitis Cholelithiasis Cognitive impairment (Inactive) Coronary artery disease (Chronic) Patient with elevated troponin in setting of acute illness, hypotension and worsening renal function. No EKG evidence of acute ischemia per primary team. CVA (cerebral vascular accident) Diabetes (Chronic) Elevated troponin (Inactive) Gout Hemoperitoneum (Inactive) Hypertension (Chronic) Hypothyroidism (Inactive) Mood disorder (Acute) Pneumonia (Acute) Stage III chronic kidney disease (Inactive) Stenosis of right internal carotid artery with cerebral infarction Subcapsular hematoma of liver (Inactive) Weakness of left lower extremity Exercise / Class Metabolic Activity III < 4 Walking/Shop/Light housework Past Family History Family History Mother No pertinent family history Past Surgical History Surgical History History of hernia repair (Resolved) Past Anesthesia History No Hx of Anesthesia Complications and No Family Hx of Anesthesia Complications History of PONV No Hx of PONV and No Hx of Motion Sickness Social History Smoking Status: Former smoker tobacco type: cigarettes Smoking cigarettes per day: 8 Do You Dip or Chew Tobacco: No Smoking End Date: September Hx Alcohol Use: Yes Alcohol type: beer alcohol intake frequency: holidays/special occasions only Alcohol Intake Frequency Comment: last drink when have stroke Hx Substance Use: No Physical Exam Vital Signs Last Vital Signs Temp 36.4 C L 01/18/20 09:34 Pulse 77 01/18/20 09:34 Resp 24 04/25/20 09:34 BP 104/66 01/18/20 09:34 Pulse Ox 96 01/18/20 09:34 Testing Laboratory Results 01/18/20 05:20 01/18/20 05:20 PT 14.0 Seconds (9.0-12.0) H 01/17/20 17:40 INR 1.3 (0.9-1.1) H 01/17/20 17:40 APTT 33.2 Seconds (21.0-31.0) H 01/17/20 17:40 Urine Color Dark Yellow 01/17/20 19:19 Urine Appearance Turbid (Clear) A 01/17/20 19:19 Urine pH 5.0 (4.5-7.5) 01/17/20 19:19 Ur Specific [place] 1.023 (1.000-1.030) 01/17/20 19:19 Urine Protein 3+ (Negative) H 01/17/20 19:19 Urine Glucose (UA) Negative (Negative) 01/17/20 19:19 Urine Ketones Negative (Negative) 01/17/20 19:19 Urine Nitrite Negative (Negative) 01/17/20 19:19 Ur Leukocyte Esterase Trace (Negative) H 01/17/20 19:19 Urine WBC (Auto) 1-5 /hpf (0-5) 01/17/20 19:19 Urine RBC (Auto) 5-10 /hpf (0-4) H 01/17/20 19:19 U Hyaline Cast (Auto) 1-5 /lpf (0-5) 01/17/20 19:19 U Epithel Cells (Auto) >30 /lpf (0-5) H 01/17/20 19:19 Urine Bacteria (Auto) Negative (Negative) 01/17/20 19:19 Blood Type Cancelled 01/17/20 18:40 Blood Type O Positive 01/17/20 18:40 Rho(D) Type Cancelled 01/17/20 18:40 Antibody Screen Cancelled 01/17/20 18:40 Antibody Screen NEGATIVE 01/17/20 18:40 01/18/20 01/18/20 01/18/20 09:28 06:22 00:45 POC Glucose 169 H 161 H 194 H Electrocardiogram Date: 01/17/20 HR 101. Atrial fibrillation with rapid ventricular response with premature ventricular or aberrantly conducted complexes Right axis deviation Pulmonary disease pattern Abnormal ECG When compared with ECG of 11-JAN-2020 03:21, Nonspecific T wave abnormality no longer evident in Lateral leads Chest X-Ray Date: 01/17/20 SINGLE VIEW CHEST CLINICAL HISTORY: Atypical chest pain. FINDINGS: An AP, portable, upright chest radiograph is compared to study dated 01/10/2020. The examination is degraded by portable technique and patient rotation. The heart is enlarged noting atherosclerotic calcification of the thoracic aorta. The pulmonary vasculature is noncongested. There are trace pleural effusions with bibasilar atelectasis. No pneumothorax is seen. The skeletal structures are osteopenic. The bony thorax is grossly intact. IMPRESSION: 1. Cardiomegaly without radiographic evidence of congestive failure. 2. Trace pleural effusions with bibasilar atelectasis. Echocardiogram Date: 10/02/19 LV systolic function is normal. No RWMA noted. Mild LVH. EF 55-60%. Mild MR. Other Testing Liver ultrasound 01/17/2020: US liver CLINICAL HISTORY: ?Acute cholecystitis COMPARISON STUDY: CT of the abdomen and pelvis January 17, 2020. MRI of the abdomen January 08, 2020. FINDINGS: The liver is cirrhotic. The complex perihepatic/subcapsular fluid shown by CT is not well visualized by sonography. There is no biliary ductal dilatation. Common bile duct measures 6 mm in caliber. The pancreas is obscured. There are stones and sludge within the gallbladder which is mildly distended. There is mild gallbladder wall thickening. The wall measures 5 mm in thickness. Sonographic Stone sign could not be assessed for in this patient. There is no right hydronephrosis. Note is made of a 4.5 cm right renal cyst. IMPRESSION: 1. Sludge and stones within the gallbladder. Mild gallbladder distention. Sonographic Stone sign could not be assessed for this patient. Acute cholecystitis cannot be excluded. 2. Cirrhotic liver. 3. Complex perihepatic fluid shown by CT is not well visualized by sonography. By CT, this suggests hemoperitoneum. CT scan abdomen 01/17/2020: IMPRESSION: 1. Suboptimal examination without oral and IV contrast. The examination is also compromised by streak and motion. 2. The liver is cirrhotic in morphology. There is trace subcapsular fluid which is new from 01/07/2020, and likely represents subcapsular hematoma. 3. Free fluid in the abdomen and pelvis has increased from 01/07/2020. Fluid around the liver and spleen is complex and this is consistent with hemope ritoneum. The liver is the most likely source given associated subcapsular hemorrhage. No definite laceration is identified but this is not well evaluated. 4. The gallbladder is distended and contains layering hyperdense intraluminal material. This has increased from 01/07/2020 and may represent hemobilia and/or gallstones. If there is clinical concern for acute cholecystitis a right upper quadrant ultrasound or hepatobiliary scan should be considered. 5. Cardiomegaly and small pleural effusions. 6. Fractures of the left acetabulum and the left inferior pubic ring are again noted. 7. Moderate colonic diverticulosis without CT evidence of acute diverticulitis.
[2020-01-18] MEDS ORDERED: fentaNYL citrate 100 MCG/2 ML VIAL ONE (09:19)
[2020-01-18] MEDS ORDERED: INDOMETHACIN 50 MG SUPP PR ONE (09:20)
[2020-01-18] MEDS ORDERED: ONDANSETRON INJ 2 MG/ML 2 ML VIAL ONE (09:22)
[2020-01-18] MEDS ORDERED: LIDOCAINE HCL 2% 2 ML VIAL/AMP(20MG/ML) INFIL ONE (09:22)
[2020-01-18] MEDS ORDERED: ROCURONIUM BROMIDE 10 MG/ML 5 ML VIAL ONE (09:22)
[2020-01-18] MEDS ORDERED: PROPOFOL IV EMULSION 10 MG/ML 20 ML VIAL IV ONE (09:22)
[2020-01-18] MEDS ORDERED: ALBUT/IPRATROP 3MG/0.5MG NEB 3 ML VIAL INH STA (09:28)
--- NOTE | 2020-01-18 09:40 | Gastrointestinal Consultation ---
Date of Consultation January 18, 2020 Assessment & Plan (1) Cholangitis: In view of fever, leukocytosis, elevated bilirubin and gallstones, he is high probability for Choledocholithiasis with cholangitis, will proceed with emergent ERCP today and decompression of his bile duct. Needs paracentesis with fluid analysis. Hold AC for now. High risk procedure, discussed in details with the patient and he consented. Tried calling Pushpa his ex- and David his son but no answer. (2) Cholelithiasis: (3) Abnormal LFTs: History of Present Illness Attending Physician: Mehrdad Walters MD 79 years old male patient with medical comorbids of liver cirrhosis, A-FIB on Eliquis, HTN, DM, DLP, presented with hypotension and abdominal pain, found to have leukocytosis and suspected cholecystitis with elevated bilirubin >4 suspicious for cholangitis hence GI is consulted. CT incidentally noted small subcapsular hematoma and ascites with suspected hemoperitoneum. Seen by surgery consult and patient declined cholecystectomy or transfer to tertiary hospital. He feels better now, pain is better, denies any nausea or vomiting. Allergies Allergy/AdvReac Type Severity Reaction Status Date / Time Penicillins Allergy Unknown RASH Verified 01/17/20 18:31 Home Medications Home Medications Medication Instructions Recorded Confirmed Type Combivent Respimat 1 puff INHALATION QID 10/01/19 01/17/20 History allopurinol [Zyloprim] 100 mg PO Q12H 10/01/19 01/17/20 History diltiazem HCl [Cardizem CD] 240 mg PO DAILY 10/01/19 01/17/20 History escitalopram oxalate [Lexapro] 10 mg PO DAILY 10/01/19 01/17/20 History lisinopril [Zestril] 10 mg PO DAILY 10/01/19 01/17/20 History loperamide [Imodium A-D] 2 mg PO QID PRN 10/01/19 01/17/20 History Eliquis 5 mg PO Q12H 01/07/20 01/17/20 History atorvastatin [Lipitor] 40 mg PO DAILY 01/07/20 01/17/20 History acetaminophen [Tylenol] 650 mg PO Q4H PRN 01/17/20 01/17/20 History bisacodyl [Dulcolax (bisacodyl)] [address] DAILY PRN 01/17/20 01/17/20 History ciprofloxacin HCl [Cipro] 500 mg PO HS 01/17/20 01/17/20 History oxycodone [Roxicodone] 5 mg PO Q4H PRN 01/17/20 01/17/20 History pantoprazole [Protonix] 40 mg PO DAILYBB 01/17/20 01/17/20 History polyethylene glycol 3350 [Miralax] 17 g PO QDL PRN 01/17/20 01/17/20 History sodium phosphates [Enema] [address] DAILY PRN 01/17/20 01/17/20 History Patient History Medical History (Updated 01/18/20 @ 09:37 by Jeni Nuñez MD) TABATHA (acute kidney injury) (Inactive) Asthma (Chronic) Atrial fibrillation (Chronic) Cholangitis Cholelithiasis Cognitive impairment (Inactive) Coronary artery disease (Chronic) Patient with elevated troponin in setting of acute illness, hypotension and worsening renal function. No EKG evidence of acute ischemia per primary team. CVA (cerebral vascular accident) Diabetes (Chronic) Elevated troponin (Inactive) Gout Hemoperitoneum (Inactive) Hypertension (Chronic) Hypothyroidism (Inactive) Mood disorder (Acute) Pneumonia (Acute) Stage III chronic kidney disease (Inactive) Stenosis of right internal carotid artery with cerebral infarction Subcapsular hematoma of liver (Inactive) Weakness of left lower extremity Surgical History History of hernia repair (Resolved) Family History Mother No pertinent family history Social History Preferred Language: Turkish 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: Effective Race Steward Required: No Beliefs That Will Affect Care: None Current Living Situation: Rehab Current Living Situation Comment: originally from home but was recently DC'd from here to [facility] Feels Safe at Home: Yes Smoking Status: Former smoker Tobacco Type: cigarettes ; Cigarettes Per Day: 8 ; Hx Alcohol Use: Yes Alcohol type: beer Hx Substance Use: No Review of Systems Constitutional: + chills; no fever, no fatigue and no weight loss Eyes: no eye pain and no worsening vision Ear, Nose, Mouth, Throat: no tinnitus, no dizziness, no nasal discharge and no epistaxis Respiratory: no cough, no dyspnea, no dyspnea on exertion and no wheezing Cardiovascular: no chest pain, no orthopnea, no palpitations and no edema Gastrointestinal: as per Subjective / HPI Musculoskeletal: no stiffness and no myalgia Neurologic: no localized weakness, no paralysis, no tremor(s) and no headache(s) Endocrine: no polydipsia and no polyuria Hematologic / Lymphatic: no easy bleeding and no night sweats Physical Exam Constitutional: comfortable; no acute distress Respiratory: normal respiratory effort, lungs clear to auscultation Cardiovascular: RRR, no murmur, no edema Gastrointestinal (Abdomen): Percussion/Palpation: abdomen soft; no guarding and abdomen not rigid Results & Data ([facility]) Vital Signs (Past 12 Hours) Vital Signs Temp Pulse Pulse Resp BP BP Pulse Ox 01/18/20 07:28 36.7 C 75 20 117/73 93 01/18/20 04:45 36.9 C 60 20 100/61 94 01/18/20 00:47 36.6 C 72 18 99/57 L 93 01/17/20 23:40 36.5 C 73 18 91/53 L 96 01/17/20 22:50 36.5 C 77 20 107/67 95 01/17/20 22:30 36.6 C 69 18 123/72 96 01/17/20 21:50 36.7 C 81 13 97/53 L 98 01/17/20 21:45 73 14 100/53 L 96 01/17/20 21:35 36.7 C 77 13 102/54 L 97 Laboratory Results Laboratory Results - last 24 hr 01/17/20 01/17/20 01/17/20 17:40 17:40 17:40 WBC 18.96 H RBC 3.46 L Hgb 11.1 L Hct 33.4 L MCV 96.5 MCH 32.1 MCHC 33.2 RDW Std Deviation 56.8 H RDW Coeff of Dwain 16.3 H Plt Count 428 H MPV 11.4 H Immature Gran % (Auto) 0.9 Neut % (Auto) 92.4 Lymph % (Auto) 4.7 [place] % (Auto) 1.7 Eos % (Auto) 0.1 Baso % (Auto) 0.2 Immature Gran # (Auto) 0.17 H Neut # (Auto) 17.53 H Lymph # (Auto) 0.89 L [place] # (Auto) 0.33 Eos # (Auto) 0.01 Baso # (Auto) 0.03 Toxic Vacuolation Dohle Bodies Spherocytes Target Cells Ovalocytes Echinocytes Schistocytes PT 14.0 H INR 1.3 H APTT 33.2 H PTT Ratio 1.2 Sodium 136 Potassium 4.5 Chloride 107 Carbon Dioxide 20 L Anion Gap 9.0 BUN 57 H Creatinine 2.29 H Est Cr Clr Drug Dosing 28.9 Est GFR ( Amer) 30.8 Est GFR (Non-Af Amer) 26.5 BUN/Creatinine Ratio 25.0 H Glucose 206 H POC Glucose Lactate Calcium 8.5 Phosphorus 3.7 Magnesium 2.2 Total Bilirubin 1.9 H Direct Bilirubin 1.4 H AST 97 H ALT 68 Alkaline Phosphatase 383 H Troponin I 0.197 H* Total Protein 7.0 Albumin 2.0 L Globulin 5.0 H Albumin/Globulin Ratio 0.4 L Lipase 215 Procalcitonin Urine Color Urine Appearance Urine pH Ur Specific [place] Urine Protein Urine Glucose (UA) Urine Ketones Urine Blood Urine Nitrite Urine Bilirubin Urine Urobilinogen Ur Leukocyte Esterase Urine WBC (Auto) Urine RBC (Auto) U Hyaline Cast (Auto) U Epithel Cells (Auto) Urine Bacteria (Auto) Ur Renal Epithelial Cell Amorphous Sediment Granular Casts Urine Yeast Blood Type Blood Type Recheck Rho(D) Type Antibody Screen Crossmatch 01/17/20 01/17/20 01/17/20 17:40 18:40 18:40 WBC RBC Hgb Hct MCV MCH MCHC RDW Std Deviation RDW Coeff of Dwain Plt Count MPV Immature Gran % (Auto) Neut % (Auto) Lymph % (Auto) [place] % (Auto) Eos % (Auto) Baso % (Auto) Immature Gran # (Auto) Neut # (Auto) Lymph # (Auto) [place] # (Auto) Eos # (Auto) Baso # (Auto) Toxic Vacuolation Dohle Bodies Spherocytes Target Cells Ovalocytes Echinocytes Schistocytes PT INR APTT PTT Ratio Sodium Potassium Chloride Carbon Dioxide Anion Gap BUN Creatinine Est Cr Clr Drug Dosing Est GFR ( Amer) Est GFR (Non-Af Amer) BUN/Creatinine Ratio Glucose POC Glucose Lactate Calcium Phosphorus Magnesium Total Bilirubin Direct Bilirubin AST ALT Alkaline Phosphatase Troponin I Total Protein Albumin Globulin Albumin/Globulin Ratio Lipase Procalcitonin 7.00 H Urine Color Urine Appearance Urine pH Ur Specific [place] Urine Protein Urine Glucose (UA) Urine Ketones Urine Blood Urine Nitrite Urine Bilirubin Urine Urobilinogen Ur Leukocyte Esterase Urine WBC (Auto) Urine RBC (Auto) U Hyaline Cast (Auto) U Epithel Cells (Auto) Urine Bacteria (Auto) Ur Renal Epithelial Cell Amorphous Sediment Granular Casts Urine Yeast Blood Type O Positive Cancelled Blood Type Recheck Rho(D) Type Cancelled Antibody Screen NEGATIVE Cancelled Crossmatch See Detail See Detail 01/17/20 01/17/20 01/17/20 18:45 19:19 19:48 WBC RBC Hgb Hct MCV MCH MCHC RDW Std Deviation RDW Coeff of Dwain Plt Count MPV Immature Gran % (Auto) Neut % (Auto) Lymph % (Auto) [place] % (Auto) Eos % (Auto) Baso % (Auto) Immature Gran # (Auto) Neut # (Auto) Lymph # (Auto) [place] # (Auto) Eos # (Auto) Baso # (Auto) Toxic Vacuolation Dohle Bodies Spherocytes Target Cells Ovalocytes Echinocytes Schistocytes PT INR APTT PTT Ratio Sodium Potassium Chloride Carbon Dioxide Anion Gap BUN Creatinine Est Cr Clr Drug Dosing Est GFR ( Amer) Est GFR (Non-Af Amer) BUN/Creatinine Ratio Glucose POC Glucose Lactate 3.5 H* Calcium Phosphorus Magnesium Total Bilirubin Direct Bilirubin AST ALT Alkaline Phosphatase Troponin I Total Protein Albumin Globulin Albumin/Globulin Ratio Lipase Procalcitonin Urine Color Dark Yellow Urine Appearance Turbid A Urine pH 5.0 Ur Specific [place] 1.023 Urine Protein 3+ H Urine Glucose (UA) Negative Urine Ketones Negative Urine Blood 1+ H Urine Nitrite Negative Urine Bilirubin Negative Urine Urobilinogen Negative Ur Leukocyte Esterase Trace H Urine WBC (Auto) 1-5 Urine RBC (Auto) 5-10 H U Hyaline Cast (Auto) 1-5 U Epithel Cells (Auto) >30 H Urine Bacteria (Auto) Negative Ur Renal Epithelial Cell 0-5 Amorphous Sediment Present A Granular Casts 1-5 H Urine Yeast Not Reportable Blood Type Blood Type Recheck O Positive Rho(D) Type Antibody Screen Crossmatch 01/18/20 01/18/20 01/18/20 00:45 01:44 01:44 WBC 17.97 H RBC 3.58 L Hgb 11.0 L Hct 33.3 L MCV 93.0 MCH 30.7 MCHC 33.0 RDW Std Deviation 58.5 H RDW Coeff of Dwain 17.1 H Plt Count 322 MPV 10.9 H Immature Gran % (Auto) 0.7 Neut % (Auto) 90.1 Lymph % (Auto) 6.3 [place] % (Auto) 2.8 Eos % (Auto) 0.0 Baso % (Auto) 0.1 Immature Gran # (Auto) 0.13 H Neut # (Auto) 16.19 H Lymph # (Auto) 1.13 L [place] # (Auto) 0.50 Eos # (Auto) 0.00 Baso # (Auto) 0.02 Toxic Vacuolation 1+ Dohle Bodies 1+ Spherocytes Occasional Target Cells Ovalocytes Echinocytes 2+ Schistocytes Occasional PT INR APTT PTT Ratio Sodium 138 Potassium 4.7 Chloride 112 H Carbon Dioxide 20 L Anion Gap 6.0 BUN 61 H Creatinine 2.57 H Est Cr Clr Drug Dosing 25.7 Est GFR ( Amer) 26.8 Est GFR (Non-Af Amer) 23.1 BUN/Creatinine Ratio 23.6 H Glucose 199 H POC Glucose 194 H Lactate Calcium 8.1 L Phosphorus Magnesium Total Bilirubin Direct Bilirubin AST ALT Alkaline Phosphatase Troponin I 0.249 H* Total Protein Albumin Globulin Albumin/Globulin Ratio Lipase Procalcitonin Urine Color Urine Appearance Urine pH Ur Specific [place] Urine Protein Urine Glucose (UA) Urine Ketones Urine Blood Urine Nitrite Urine Bilirubin Urine Urobilinogen Ur Leukocyte Esterase Urine WBC (Auto) Urine RBC (Auto) U Hyaline Cast (Auto) U Epithel Cells (Auto) Urine Bacteria (Auto) Ur Renal Epithelial Cell Amorphous Sediment Granular Casts Urine Yeast Blood Type Blood Type Recheck Rho(D) Type Antibody Screen Crossmatch 01/18/20 01/18/20 01/18/20 05:20 05:20 06:22 WBC 17.52 H RBC 3.38 L Hgb 10.6 L Hct 31.3 L MCV 92.6 MCH 31.4 MCHC 33.9 RDW Std Deviation 58.9 H RDW Coeff of Dwain 17.6 H Plt Count 335 MPV 11.1 H Immature Gran % (Auto) 0.9 Neut % (Auto) 88.5 Lymph % (Auto) 7.9 [place] % (Auto) 2.5 Eos % (Auto) 0.1 Baso % (Auto) 0.1 Immature Gran # (Auto) 0.16 H Neut # (Auto) 15.51 H Lymph # (Auto) 1.38 [place] # (Auto) 0.44 Eos # (Auto) 0.01 Baso # (Auto) 0.02 Toxic Vacuolation Dohle Bodies Spherocytes Occasional Target Cells 1+ Ovalocytes 1+ Echinocytes 2+ Schistocytes Occasional PT INR APTT PTT Ratio Sodium 138 Potassium 4.8 Chloride 113 H Carbon Dioxide 17 L Anion Gap 8.0 BUN 62 H Creatinine 2.78 H Est Cr Clr Drug Dosing 23.8 Est GFR ( Amer) 24.3 Est GFR (Non-Af Amer) 21.0 BUN/Creatinine Ratio 22.2 H Glucose 171 H POC Glucose 161 H Lactate Calcium 7.8 L Phosphorus Magnesium Total Bilirubin 4.6 H D Direct Bilirubin 4.4 H D AST 1016 H ALT 384 H Alkaline Phosphatase 792 H D Troponin I Total Protein 6.0 L Albumin 1.5 L Globulin Albumin/Globulin Ratio Lipase Procalcitonin Urine Color Urine Appearance Urine pH Ur Specific [place] Urine Protein Urine Glucose (UA) Urine Ketones Urine Blood Urine Nitrite Urine Bilirubin Urine Urobilinogen Ur Leukocyte Esterase Urine WBC (Auto) Urine RBC (Auto) U Hyaline Cast (Auto) U Epithel Cells (Auto) Urine Bacteria (Auto) Ur Renal Epithelial Cell Amorphous Sediment Granular Casts Urine Yeast Blood Type Blood Type Recheck Rho(D) Type Antibody Screen Crossmatch 01/18/20 09:28 WBC RBC Hgb Hct MCV MCH MCHC RDW Std Deviation RDW Coeff of Dwain Plt Count MPV Immature Gran % (Auto) Neut % (Auto) Lymph % (Auto) [place] % (Auto) Eos % (Auto) Baso % (Auto) Immature Gran # (Auto) Neut # (Auto) Lymph # (Auto) [place] # (Auto) Eos # (Auto) Baso # (Auto) Toxic Vacuolation Dohle Bodies Spherocytes Target Cells Ovalocytes Echinocytes Schistocytes PT INR APTT PTT Ratio Sodium Potassium Chloride Carbon Dioxide Anion Gap BUN Creatinine Est Cr Clr Drug Dosing Est GFR ( Amer) Est GFR (Non-Af Amer) BUN/Creatinine Ratio Glucose POC Glucose 169 H Lactate Calcium Phosphorus Magnesium Total Bilirubin Direct Bilirubin AST ALT Alkaline Phosphatase Troponin I Total Protein Albumin Globulin Albumin/Globulin Ratio Lipase Procalcitonin Urine Color Urine Appearance Urine pH Ur Specific [place] Urine Protein Urine Glucose (UA) Urine Ketones Urine Blood Urine Nitrite Urine Bilirubin Urine Urobilinogen Ur Leukocyte Esterase Urine WBC (Auto) Urine RBC (Auto) U Hyaline Cast (Auto) U Epithel Cells (Auto) Urine Bacteria (Auto) Ur Renal Epithelial Cell Amorphous Sediment Granular Casts Urine Yeast Blood Type Blood Type Recheck Rho(D) Type Antibody Screen Crossmatch
[2020-01-18] MEDS ORDERED: ONDANSETRON INJ 2 MG/ML 2 ML VIAL IV PRN (09:46)
[2020-01-18] MEDS ORDERED: ePHEDrine sulfate 50 MG/ML AMP IV PRN (09:46)
[2020-01-18] MEDS ORDERED: ATROPINE SULFATE 0.1 MG/ML 10ML SYR IV PRN (09:46)
[2020-01-18] MEDS ORDERED: fentaNYL citrate 100 MCG/2 ML VIAL IV PRN (09:46)
--- NOTE | 2020-01-18 10:27 | Operative Report ---
Post Operative Report Pre & Post Diagnosis Operation Date: 01/18/20 09:30 Pre-Op Diagnosis: Cholelithiasis Post-Op Diagnosis: Cholangitis, Perforated Gall Bladder I identified the patient and participated in the time-out.: Yes Procedure Operation Date: 01/18/20 09:30 Actual Procedures p Endoscopic Retrograde Cholangiopancreatography, Sphincterotomy, Stent Placement(Not Applicable) - Jeni Nuñez MD Surgeon Jeni Nuñez MD Clerical Support None Estimated Blood Loss 0 Findings See Below (Perforated gallbladder with contrast spillage, no choledocholithiasis, CBD stent placed .) Specimens None Description of Procedure ERCP I attest to the content of the Intraoperative Record and any orders documented therein. Any exceptions are noted below.
--- NOTE | 2020-01-18 10:57 | Fluoroscopy Report ---
[place] ERCP biliary ductal CLINICAL HISTORY: ERCP COMPARISON STUDY: CT of the abdomen and pelvis January 17, 2020. FLUOROSCOPY TIME: 56 seconds. FLUOROSCOPIC IMAGES: 12 FINDINGS: Fluoroscopy was provided for ERCP. These images demonstrate cannulation of the common bile duct. There is no biliary ductal dilatation. Irregular appearance of the gallbladder is noted. An sylvia arent filling defect is noted within the gallbladder as well as suspected extraluminal contrast which suggests a gallbladder perforation. Subsequent image demonstrates placement of a biliary stent which is appropriately positioned. IMPRESSION: Fluoroscopy provided for ERCP with placement of a common bile duct stent. Filling defect s within the gallbladder with irregularity of the gallbladder wall and suspected extraluminal contras t which suggests gallbladder perforation. When correlating with prior CT, the findings favor perforat ed hemorrhagic cholecystitis. Findings discussed with Dr. Nuñez at time of dictation. ACT 112: Negative or not required by law. Electronically signed by: Brant Stone M.D. 01/18/2020 10:55 AM
--- NOTE | 2020-01-18 11:12 | Anesthesiology Progress Note ---
Date of Service January 18, 2020 Anesthesia Post Procedure Vital Signs Vital Signs: Temp Pulse Pulse Resp BP BP Pulse Ox 01/18/20 09:36 83 18 96 01/18/20 09:34 36.4 C L 77 24 104/66 96 01/18/20 07:28 36.7 C 75 20 117/73 93 01/18/20 04:45 36.9 C 60 20 100/61 94 01/18/20 00:47 36.6 C 72 18 99/57 L 93 01/17/20 23:40 36.5 C 73 18 91/53 L 96 01/17/20 22:50 36.5 C 77 20 107/67 95 01/17/20 22:30 36.6 C 69 18 123/72 96 01/17/20 21:50 36.7 C 81 13 97/53 L 98 01/17/20 21:45 73 14 100/53 L 96 01/17/20 21:35 36.7 C 77 13 102/54 L 97 01/17/20 21:25 78 13 84/52 L 97 01/17/20 21:20 77 13 82/59 L 96 01/17/20 21:15 36.7 C 85 14 81/51 L 97 01/17/20 21:05 82 15 95/51 L 96 01/17/20 20:55 89 21 101/63 97 01/17/20 20:50 76 18 108/53 L 97 01/17/20 20:46 83 16 107/82 97 01/17/20 20:40 80 19 129/64 96 01/17/20 20:35 37.1 C 91 H 26 H 105/67 97 01/17/20 20:30 87 15 95/63 L 96 01/17/20 20:25 83 17 95/65 L 96 01/17/20 20:20 82 16 112/55 L 96 01/17/20 20:15 80 17 103/65 97 01/17/20 20:10 81 20 113/58 L 96 01/17/20 20:05 84 18 91/45 L 97 01/17/20 20:00 37.3 C 91 H 20 116/62 97 01/17/20 19:56 87 21 113/65 96 01/17/20 19:50 88 22 127/67 97 01/17/20 19:46 86 21 122/74 96 04/24/20 19:42 85 22 95/58 L 97 01/17/20 19:36 83 23 148/77 H 97 01/17/20 19:30 37.2 C 80 17 90/77 L 98 01/17/20 19:25 80 18 123/62 98 01/17/20 19:15 37.1 C 80 18 118/82 98 01/17/20 19:00 36.7 C 01/17/20 18:59 37.6 C H 86 22 120/73 98 01/17/20 18:55 87 22 120/73 95 01/17/20 18:45 88 17 107/59 L 97 01/17/20 18:40 88 16 97/60 L 96 01/17/20 18:39 84 20 98/63 L 96 01/17/20 18:34 84 23 73/51 L 97 01/17/20 18:31 82 15 63/45 L 97 01/17/20 18:10 81 17 96 01/17/20 18:03 98 H 21 97/55 L 95 01/17/20 18:02 99 H 24 97/55 L 95 01/17/20 17:40 93 H 22 01/17/20 17:33 91 01/17/20 17:30 95 H 23 01/17/20 17:25 36.6 C 101 H 26 H 105/72 91 01/17/20 17:20 102 H 25 H 92 01/17/20 17:18 106 H 29 H 90 01/17/20 17:17 104 H 24 105/72 91 Pain Intensity Abdomen: Pain Intensity: 8 Transfer of Care Handoff Completed per policy Notes Mental Status: alert / awake / arousable and participated in evaluation Patient Amnestic to Procedure: Yes Nausea / Vomiting: adequately controlled Pain: adequately controlled Airway Patency, RR, SpO2: stable & adequate BP & HR: stable & adequate Hydration State: stable & adequate Anesthetic Complications: no major complications apparent and Pt Satisfied with anesthetic care
--- NOTE | 2020-01-18 11:19 | GI REPORT ---
Patient Name: Nathaniel Dunn Procedure Date: 01/18/2020 9:39 AM Date of : 1940 Admit Type: Inpatient Age: 79 Gender: Male Attending MD: Jeni Nuñez MD Procedure: ERCP Providers: Jeni Nuñez MD Referring MD: Mehrdad Walters, Julia Peña, Cely Green Md, Akash Hwang MD Indications: Abdominal pain of suspected biliary origin, Suspected ascending cholangitis, Elevated liver enzymes Medicines: General Anesthesia Complications: No immediate complications. Estimated Blood Loss: Estimated blood loss: none. Procedure: Pre-Anesthesia Assessment: - Prior to the procedure, a History and Physical was performed, and patient medications, allergies and sensitivities were reviewed. The patient's tolerance of previous anesthesia was reviewed. - The risks and benefits of the procedure and the sedation options and risks were discussed with the patient. All questions were answered and informed consent was obtained. - Patient identification and proposed procedure were verified prior to the procedure by the physician and the nurse. The procedure was verified in the procedure room. - Pre-procedure physical examination revealed no contraindications to sedation. After obtaining informed consent, the scope was passed under direct vision. Throughout the procedure, the patient's blood pressure, pulse, and oxygen saturations were monitored continuously. The Scope was introduced through the mouth, and advanced to the duodenum and used to inject contrast into the bile duct. The ERCP was accomplished without difficulty. The patient tolerated the procedure well. Findings: The spinning room worker film was normal. The esophagus was successfully intubated under direct vision. The scope was advanced to a normal major papilla in the descending duodenum without detailed examination of the pharynx, larynx and associated structures, and upper GI tract. The upper GI tract was grossly normal. A 0.035 inch straight standard wire was passed into the biliary tree. The Fusion OMNI sphincterotome was passed over the guidewire and the bile duct was then deeply cannulated. Contrast was injected. I personally interpreted the bile duct images. Ductal flow of contrast was adequate. Image quality was adequate. Contrast extended to the main bile duct, cystic duct and to the gallbladder. Opacification of the gallbladder and entire biliary tree was successful. The maximum diameter of the common bile duct was 7 mm. There is filling defect in the gallbladder and extravasation of contrast originating from the gallbladder was observed suggestive of perforated gallbladder. Biliary sphincterotomy was made with a monofilament traction (standard) sphincterotome using ERBE electrocautery. There was no post-sphincterotomy bleeding. The biliary tree was swept with an 11.5 mm balloon starting at the bifurcation. Sludge was swept from the duct. No stones seen. One 10 Fr by 9 cm plastic biliary stent with a single external flap and a single internal flap was placed into the common bile duct. Bile flowed through the stent. The stent was in good position. PD was not cannulated. Impression: - Likely a bile leak from a spontaneously perforated gallbladder was found, given hemoperitonium and use of anticoagulants, likely has hemorrhagic cholecystitis. - A biliary sphincterotomy was performed and one plastic biliary stent was placed into the common bile duct. Recommendation: - Return patient to hospital [facility] for ongoing care. - Avoid aspirin and nonsteroidal anti-inflammatory medicines for 5 days. - Continue IV ABx. - Correct coagulopathy. - Surgery for cholecystectomy if patient agrees. - If patient improves without surgical intervention, will plan for repeat ERCP with stent removal + EUS guided cholecystoduodenostomy for endoscopic GB drainage in 3 months. COMMENT: I reviewed the CT scan images with the radiologist and there is evidence of blood in the gallbladder on CT scan. The findings of hemoperitoneum and bile leak from the gallbladder on cholangiogram suggests spontaneous hemorrhagic gallbladder perforation. This should be treated surgically however the patient declined surgery or transfer to a tertiary care center. The CBD stent may help with the leak with hope that his GB perforation may seal itself. Jeni Nuñez MD 01/18/2020 11:18:58 AM This report has been signed electronically. Note Initiated On: 01/18/2020 9:39 AM Number of Addenda: 0 I attest to the content of the Intraoperative Record and orders documented therein, exceptions below {[id number]}
[2020-01-18] MEDS: ALBUTEROL HFA 8 GM INHALER INH SCH ×3 (11:54→19:22)
[2020-01-18] MEDS: IPRATROPIUM BROMIDE HFA INHALER INH SCH ×3 (11:54→19:22)
[2020-01-18] MEDS: ALBUMIN 25% 50 ML IV SCH ×4 (12:12→14:42)
--- NOTE | 2020-01-18 12:47 | Electrocardiogram Report ---
Test Reason : Blood Pressure : / mmHG Vent. Rate : 101 BPM Atrial Rate : 100 BPM P-R Int : 000 ms QRS Dur : 088 ms QT Int : 324 ms P-R-T Axes : 000 161 033 degrees QTc Int : 420 ms Atrial fibrillation with rapid ventricular response with premature ventricular or aberrantly conducte d complexes Right axis deviation Abnormal ECG When compared with ECG of 11-JAN-2020 03:21, Nonspecific T wave abnormality no longer evident in Lateral leads Confirmed by Geovani Wilson ([id number]) on 01/18/2020 12:46:53 PM Referred By: [facility] Confirmed By:Geovani Wilson
[2020-01-18 14:35] LABS: Hematocrit (blood only) 28.3 % (42-52); Hemoglobin 9.5 g/dL (14.0-18.0); Mean Corpuscular Hemoglobin 30.7 pg (25-34); Mean Corpuscular Hgb Conc 33.6 g/dL (32-36); Mean Corpuscular Volume 91.6 fL (80-100); Mean Platelet Volume 11.2 fL (7.4-10.4); Platelet Count 340 K/uL (130-400); RDW Coefficient of Variation 17.8 % (11.5-14.5); RDW Standard Deviation 59.4 fL (36.4-46.3); Red Blood Count 3.09 M/uL (4.7-6.1); White Blood Count 19.93 K/uL (4.8-10.8)
[2020-01-18 15:12] LABS: Basophils # (auto) 0.04 K/uL (0-0.2); Basophils % (auto) 0.2 %; Eosinophils # (auto) 0.01 K/uL (0-0.5); Eosinophils % (auto) 0.1 %; Immature Granulocytes # (auto) 0.18 K/uL (0.00-0.02); Immature Granulocytes % (auto) 0.9 %; Lymphocytes # (auto) 1.09 K/uL (1.2-3.4); Lymphocytes % (auto) 5.5 %; Monocytes # (auto) 0.45 K/uL (0.11-0.59); Monocytes % (auto) 2.3 %; Neutrophils # (auto) 18.16 K/uL (1.4-6.5)
[2020-01-19] MEDS: INSULIN ASPART 100 UNITS/ML 3 ML PEN SC SCH ×5 (00:22→21:59)
[2020-01-19] MEDS: IPRATROPIUM BROMIDE HFA INHALER INH SCH ×6 (01:11→18:52)
[2020-01-19] MEDS: ALBUTEROL HFA 8 GM INHALER INH SCH ×6 (01:12→18:53)
[2020-01-19] MEDS: PANTOprazole 40 MG in DEXTROSE 5% 100 ML IV SCH ×3 (01:41→10:58)
[2020-01-19] MEDS: PIPERACILLIN/TAZOBACTAM 3.375 GM in DEXTROSE 5% 100 ML IV SCH (06:03)
[2020-01-19] MEDS: ATORVASTATIN 40 MG TAB PO SCH ×2 (07:43→09:42)
[2020-01-19] MEDS: allopurinoL 100 MG TAB PO SCH ×2 (07:43→09:42)
[2020-01-19] MEDS: ESCITALOPRAM OXALATE 10 MG TAB PO SCH ×2 (07:43→09:41)
[2020-01-19 08:15] LABS: Basophils # (auto) 0.01 K/uL (0-0.2); Hematocrit (blood only) 27.7 % (42-52); Hemoglobin 9.3 g/dL (14.0-18.0); Immature Granulocytes # (auto) 0.12 K/uL (0.00-0.02); Immature Granulocytes % (auto) 0.6 %; Lymphocytes # (auto) 0.57 K/uL (1.2-3.4); Lymphocytes % (auto) 2.7 %; Mean Corpuscular Hemoglobin 31.1 pg (25-34); Mean Corpuscular Hgb Conc 33.6 g/dL (32-36); Mean Corpuscular Volume 92.6 fL (80-100); Mean Platelet Volume 10.7 fL (7.4-10.4); Monocytes # (auto) 0.43 K/uL (0.11-0.59); Neutrophils # (auto) 19.85 K/uL (1.4-6.5); Neutrophils % (auto) 94.7 %; Platelet Count 365 K/uL (130-400); RDW Coefficient of Variation 17.3 % (11.5-14.5); RDW Standard Deviation 58.5 fL (36.4-46.3); Red Blood Count 2.99 M/uL (4.7-6.1); White Blood Count 20.98 K/uL (4.8-10.8)
[2020-01-19 08:38] LABS: Albumin Level 1.9 gm/dl (3.4-5.0); BUN Creatinine Ratio 18.8 (10-20); Calcium 7.9 mg/dl (8.5-10.1); Creatinine Clr Calc Pharmacy 15.8 ml/min; Est GFR (African American) 14.5; Est GFR (Non-African American) 12.5; Potassium 5.2 mmol/L (3.5-5.1)
[2020-01-19 08:44] LABS: Albumin Globulin Ratio 0.4 (0.9-2); Bilirubin,Total 2.1 mg/dl (0.2-1); Globulin 4.3 gm/dl (2.5-4.0); Total Protein 6.2 gm/dl (6.4-8.2)
[2020-01-19] MEDS ORDERED: SODIUM POLYSTYRENE SULFONATE 15G/60ML SUSP PO STA (09:44)
[2020-01-19] MEDS ORDERED: SODIUM CHLORIDE 0.45 % 1,000 ML IV SCH (09:45)
--- NOTE | 2020-01-19 11:34 | Surgery Progress Note ---
Date of Service pt is s/p ERCP, stable, ERCP finding - perforated gallbladder, worse renal function, pt denies abdominal pain January 19, 2020 Assessment & Plan (1) Hemoperitoneum: pt is a 79 year-old male who was admitted to hospital for abdominal pain, (T) bilirubin 4.6, LFTs abnormal, IMP: Cholangitis, cholelithiasis, subcapsular hematoma of liver Re: consult GI doctor for ERCP, D/W pt and his ex- and hospitalist who agree with the plan, will F/U 01/19/2020 11:40 am base on pt's co- morbidity, recommend to transfer pt to higher level care[place] [facility] [place] [facility], D/W pt about cholecystectomy, benefits, risks and alternatives of the surgery, pt refuses any surgery treatment, I called pt's daughter ( Jazmin) update information about ERCP finding and pt's worse renal function and surgery treatment option. she understood, she will come in today. [employer] consult for dialysis, (2) Cholangitis: (3) Cholelithiasis: Subjective Patient was seen with his family in the room he was able to be awake and conversant. He understands the gravity of the situation he has significant abdominal pain particularly in the right upper quadrant Review of Systems Constitutional: as per Subjective / HPI Eyes: as per Subjective / HPI Ear, Nose, Mouth, Throat: as per Subjective / HPI Respiratory: as per Subjective / HPI Cardiovascular: as per Subjective / HPI Additional Comments: A-fib Gastrointestinal: as per Subjective / HPI Genitourinary: + as per Subjective / HPI and + problem reported (renal mass) Musculoskeletal: as per Subjective / HPI Neurologic: as per Subjective / HPI CVA Psychiatric: as per Subjective / HPI Endocrine: as per Subjective / HPI Hematologic / Lymphatic: as per Subjective / HPI Allergy / Immunological: as per Subjective / HPI Physical Exam Constitutional: WD/WN, vitals as above well developed and well nourished Eyes: PERRL, conjunctivae normal, anicteric sclerae ENMT: external ear and nose normal, oropharynx normal Neck: trachea midline, no thyromegaly Respiratory: normal respiratory effort, lungs clear to auscultation Gastrointestinal (Abdomen): normal bowel sounds, soft, nontender, no hepatosplenomegaly Percussion/Palpation: abdomen soft no tenderness, no distend, BS + Skin: + jaundice Neurologic: patellar DTR's 2+ bilat, sensation intact Psychiatric: Orientation: alert Results & Data Vital Signs (Past 12 Hours) Vital Signs Temp Pulse Pulse Resp BP Pulse Ox 01/19/20 07:27 36.9 C 106 H 18 105/63 95 01/19/20 07:05 81 18 98 01/19/20 03:23 36.7 C 91 H 19 119/69 94 01/19/20 02:37 94 H
[2020-01-19] MEDS ORDERED: Nursing to Pharmacy Communication ONE (12:19)
[2020-01-19] MEDS ORDERED: MoRPHine SULFATE 4 MG/ML 1 ML CARP\\VIAL IV PRN (14:15)
[2020-01-19] MEDS ORDERED: LORazepam 0.5 MG/1 ML VIAL IV PRN (14:15)
--- NOTE | 2020-01-19 14:25 | Hospitalist Progress Note ---
Date of Service January 19, 2020 Assessment & Plan (1) Hypotension: Patient admitted with sepsis due to cholecystitis and cholangitis. Patient was on Eliquis anticoagulation for chronic AF. He was administered KCentra for partial reversal, transfused 1u PRBCs. Surgery evaluate the patient for surgery however the patient did not wish to proceed with surgical intervention or aggressive treatments at this time. Imaging showed concern for common bile duct stone recommending urgent GI consu ltation. Urgent endoscopy and ERCP was performed the morning of 01/17. During that procedure it was felt the patient had a perforated gallbladder. The common bile duct was with stent placement with the hopes that draining the infection possibly could encourage the perforated gallbladder to heal without surgical intervention although there is still a significant risk to this patient at this time Since 24 hours of now passed from the procedure and stenting of the common bile duct with sphincterotomy. The patient's condition has declined with regard to his renal function has worsened and his urine output has been poor patient has now become more resistant to care such as blood draw and administration of medications. The patient phoned his daughter, Jazmin, and voiced his request for comfort measures. I spoke personally to Jazmin and she is going to be driving here from out of town reinforcing the fact that her father does not want a pursue aggressive care never wanted to be on any type of life support and wishes to pursue comfort care measures understanding that he will probably pass away from his perforated gallbladder (2) Hemoperitoneum: hemoperitoneum. Secondary to sepsis from cholangitis Patient did have his anticoagulation reversed and was transfused 1 unit packed red blood cells CT abdomen/Pelvis 01/17/20 IMPRESSION:. The liver is cirrhotic in morphology. There is trace subcapsular fluid which is new from 01/07/2020, and likely represents subcapsular hematoma. Free fluid in the abdomen and pelvis has increased from 01/07/2020. Fluid around the liver and spleen is complex and this is consistent with hemoperitoneum. The liver is the most likely source given associated subcapsular hemorrhage. No definite laceration is identified but this is not well evaluated. The gallbladder is distended and contains layering hyperdense intraluminal material. This has increased from 01/07/2020 and may represent hemobilia and/or gallstones. If there is clinical concern for acute cholecystitis a right upper quadrant ultrasound or hepatobiliary scan should be considered. Fractures of the left acetabulum and the left inferior pubic ring are again noted. Moderate colonic diverticulosis without CT evidence of acute diverticulitis. ERCP performed 01/17. Impressionlikely a bile leak from a spontaneous perforated gallbladder was found, given hemoperitoneum and use of anticoagulants, likely has hemorrhagic cholecystitis. A biliary sphincterotomy was performed and 1 plastic biliary stent was placed into the common bile duct. (3) Abnormal LFTs: ?Acute cholecystitis/cholangitis -Repeat LFTs are all worsening as well as worsening acute renal failure. General surgery feels that without aggressive care this patient's mortality is certain Dr. Avila spoke to the family this morning and transition to palliative comfort care measures will be undertaken a palliative care consult be placed if the patient survives the night (4) Asthma: This patient will be offered as needed nebulized medications t (5) Atrial fibrillation: Chronic. Rate controlled -Hold Eliquis in setting of intraabdominal bleeding -Hold Diltiazem in setting of hypotension -KCentra given (6) Coronary artery disease: Chronic. All medications and anticoagulation are held (7) Diabetes: Transitioning to comfort care measures will stop checking blood glucoses and administering insulin (8) Hypertension: Patient presently hypotensive as above. Sepsis vs hemorrhagic shock -Hold antihypertensive agents (9) TABATHA (acute kidney injury): TABATHA on CKD in setting of critical illness. 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 Patient does not wish to have aggressive therapies or surgery for his underlying medical conditions. He is aware that he may without more aggressive treatment. Patient is AA&O x 4 and is capable of making his own decisions at this time. As patient is clinically improved at the moment will admit to medical floor with telemetry monitoring. Will continue to treat conservatively with IVF, transfusions, antibiotics. Pain and nausea control. If patient's clinical condition declines despite these medical interventions will proceed to comfort care only. Plan discussed with patient and family and all are in agreement. Should patient decompensate will notify patient's son, David and his friend, Pushpa (12) Need for comfort care: As of the afternoon of the all medications except those directed at comfort will be discontinued as well as IV fluids. Family is in route from a trip about 4 hours away palliative care consult will be placed with expectations if he makes it through the night continue to help manage his comfort needs and also counseled the family Admission and Anticipated Discharge Date Admission Date: January 17, 2020 Subjective This patient has significant decline overnight. He is still awake enough to say it is a 1 anything done want to be left alone. He is a doubling of his creatinine and reduction of his renal output with decreased p.o. intake. The patient's daughter, Jazmin, called and was markedly distraught she says her father called and reinforced the fact that he does not wish for anything to be done and knows he is dying and is accepting of this. This is in agreement with the plan brought on by the family upon presentation. To this and we will pursue comfort measures as per the patient's request patient's family will arrive from out of town to spend some time with him in his last few days Review of Systems Review of Systems: Moderate distress and moderate fatigue no chest pain, pressure or palpitations having some increased shortness of breath, but no cough Diffuse abdominal pain, no nausea or vomiting, no dysuria, decreased urine output no focal joint pain or swelling no back pain, CVA tenderness or radicular pain no bruising, bleeding or rashes no focal signs of weakness or numbness Physical Exam Physical Exam: The patient appeared in significant distress Vital signs as documented. Lungs are diminished at the bases Cardiac exam, Rhythm is regular.. No murmurs, rubs or gallops. Abdominal exam reveals hypoactive bowel sounds distended and tympanitic intense markedly tender to examination Extremities are 1+ edematous. Neurologic exam is alert and oriented x2, no focal loss of strength or sensation Results & Data Results & Data ([facility]) Vital Signs (Past 12 Hours) Vital Signs Temp Pulse Pulse Resp BP BP Pulse Ox 01/19/20 11:33 97.9 F 87 18 102/65 94 01/19/20 07:27 98.4 F 106 H 18 105/63 95 04/26/20 07:05 81 18 98 01/19/20 03:23 98.1 F 91 H 19 119/69 94 01/19/20 02:37 94 H PG Care Time/CCT Total # of Minutes Spent Total Time Spent with Patient: Total time spent is greater than 50% in coordination of care (as documented) at patient's floor/unit and/or counseling patient: Coding Level of Care Code 70856 Subseq Hosp Care Lvl 3 Diagnoses Hypotension I95.9 Hypotension type: unspecified hypotension type Hemoperitoneum K66.1 Abnormal LFTs R94.5 Asthma J45.909 Asthma severity: unspecified severity Asthma persistence: unspecified Asthma complication type: uncomplicated Atrial fibrillation I48.21 Atrial fibrillation type: permanent Coronary artery disease I25.10 Coronary Disease-Associated Artery/Lesion type: [place] artery [place] vs. transplanted heart: [place] heart Associated angina: without angina Diabetes E11.9 Diabetes mellitus type: type 2 Diabetes mellitus intermediate insulin use: without termite exterminator use Diabetes mellitus complication status: without complication Hypertension I10 Hypertension type: essential hypertension TABATHA (acute kidney injury) N17.9 Stroke I63.9 CVA mechanism: unspecified Depression with anxiety F41.8 Need for comfort care (1) Hypotension Hypotension type: unspecified hypotension type Qualified Code(s): I95.9 - Hypotension, unspecified (2) Asthma Asthma severity: unspecified severity Asthma persistence: unspecified Asthma complication type: uncomplicated Qualified Code(s): J45.909 - Unspecified asthma, uncomplicated (3) Atrial fibrillation Atrial fibrillation type: permanent Qualified Code(s): I48.21 - Permanent a trial fibrillation (4) Coronary artery disease Coronary Disease-Associated Artery/Lesion type: [place] artery [place] vs. transplanted heart: [place] heart Associated angina: without angina Qualified Code(s): I25.10 - Atherosclerotic heart disease of [place] coronary artery without angina pectoris (5) Diabetes Diabetes mellitus type: type 2 Diabetes mellitus termite exterminator insulin use: without termite exterminator use Diabetes mellitus complication status: without complication Qualified Code(s): E11.9 - Type 2 diabetes mellitus without complications (6) Hypertension Hypertension type: essential hypertension Qualified Code(s): I10 - Essential (primary) hypertension (7) Stroke CVA mechanism: unspecified Qualified Code(s): I63.9 - Cerebral infarction, unspecified
--- NOTE | 2020-01-19 15:16 | Nephrology Consultation ---
Date of Consultation January 19, 2020 Assessment & Plan (1) Acute renal failure: Patient with acute renal failure likely due to ischemic ATN in setting of cholangitis. He also has recent E. coli bacteremia and it appears he had ATN which was just starting to improve before again this episode of cholangitis. Patient has hyperkalemia and metabolic acidosis. He clearly stated that he does not want to do dialysis or any aggressive treatments. I also discussed with the daughter Jazmin Dunn who also agrees that no need for aggressive treatments and no dialysis. Patient does not even want needlesticks of IV fluids. -Avoid high potassium foods -Renal will sign off. Please call if CODE STATUS changes and patient wants aggressive care (2) Need for comfort care: Patient is requesting comfort measures only. Recommend hospice consult. History of Present Illness Reason for Consultation: Acute renal failure Requesting Physician: Austin Peterson MD Attending Physician: Mehrdad Walters MD History of Present Illness This is 79-year-old male with a complicated past medical history including hypertension, type 2 diabetes, A. fib on Eliquis, coronary heart disease, asthma, recent CVA in September 2019 when he was hospitalized at [facility] between 10 04- 10 07 and again recent hospitalization at [facility] about a week ago for E. coli bacteremia and fall. He was admitted on 01/17/2020 with abdominal pain found to have elevated liver enzymes and suspected cholangitis. CT abdomen showed hemoperitoneum, subcapsular hematoma of the liver and a complex renal cyst. He is status post ERCP and placement of biliary stent on 01/18/2020. They suspected perforated gallbladder. Transfer to tertiary care center was suggested but patient declined. On admission his creatinine was 2.2 and this has increased to 4.2 with a BUN of 80 today. Patient had creatinine of 1.6 in September 2019 but over the past 1 month his creatinine has been between 2-3 in setting of recent E. coli bacteremia. Today patient is complaining of shortness of breath abdominal pain and nausea with vomiting. He denied diarrhea. Patient clearly stated that he does not want any aggressive treatments including dialysis. He would like to be made comfortable. He does not even want needle sticks for blood transfusion or any painful procedures. I also spoke with the daughter Jazmin on the phone and involved her in the conversation together with the patient. Jazmin is on her way to the hospital from [place]. Allergies Allergy/AdvReac Type Severity Reaction Status Date / Time Penicillins Allergy Unknown RASH Verified 01/17/20 18:31 Home Medications Home Medications Medication Instructions Recorded Confirmed Type Combivent Respimat 1 puff INHALATION QID 10/01/19 01/17/20 History allopurinol [Zyloprim] 100 mg PO Q12H 10/01/19 01/17/20 History diltiazem HCl [Cardizem CD] 240 mg PO DAILY 10/01/19 01/17/20 History escitalopram oxalate [Lexapro] 10 mg PO DAILY 10/01/19 01/17/20 History lisinopril [Zestril] 10 mg PO DAILY 10/01/19 01/17/20 History loperamide [Imodium A-D] 2 mg PO QID PRN 10/01/19 01/17/20 History Eliquis 5 mg PO Q12H 01/07/20 01/17/20 History atorvastatin [Lipitor] 40 mg PO DAILY 01/07/20 01/17/20 History acetaminophen [Tylenol] 650 mg PO Q4H PRN 01/17/20 01/17/20 History bisacodyl [Dulcolax (bisacodyl)] 10 mg OR DAILY PRN 01/17/20 01/17/20 History ciprofloxacin HCl [Cipro] 500 mg PO HS 01/17/20 01/17/20 History oxycodone [Roxicodone] 5 mg PO Q4H PRN 01/17/20 01/17/20 History pantoprazole [Protonix] 40 mg PO DAILYBB 01/17/20 01/17/20 History polyethylene glycol 3350 [Miralax] 17 g PO QDL PRN 01/17/20 01/17/20 History sodium phosphates [Enema] 133 ml OR DAILY PRN 01/17/20 01/17/20 History Patient History Medical History TABATHA (acute kidney injury) (Inactive) Asthma (Chronic) Atrial fibrillation (Chronic) Cholangitis Cholelithiasis Cognitive impairment (Inactive) Coronary artery disease (Chronic) Patient with elevated troponin in setting of acute illness, hypotension and worsening renal function. No EKG evidence of acute ischemia per primary team. 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: No Beliefs That Will Affect Care: None Current Living Situation: Rehab Current Living Situation Comment: originally from home but was recently DC'd from here to [facility] Feels Safe at Home: Yes Smoking Status: Former smoker Tobacco Type: cigarettes ; Cigarettes Per Day: 8 ; Hx Alcohol Use: Yes Alcohol type: beer Hx Substance Use: No Review of Systems Review of Systems: All systems reviewed & are unremarkable except as noted in HPI & below Physical Exam Physical Exam: General exam: Patient in mild respiratory distress on nasal cannula oxygen HEENT: Pupils are equal and reactive to light Neck: No JVD, neck is supple trachea is midline Respiratory system: Wheezing bilaterally. Gastrointestinal: Abdomen is distended and tender. CVS: Regular rate and rhythm. No murmurs, rubs or gallops Musculoskeletal: No joint or muscle tenderness Extremities: Non tender, no edema, peripheral pulses are present Neuro: Oriented, no tremors, no focal neurological deficits Skin: No rashes Results & Data Vital Signs (Past 12 Hours) Vital Signs Temp Pulse Resp BP BP Pulse Ox 01/19/20 11:33 36.6 C 87 18 102/65 94 01/19/20 07:27 36.9 C 106 H 18 105/63 95 01/19/20 07:05 81 18 98 01/19/20 03:23 36.7 C 91 H 19 119/69 94 Laboratory Results 01/19/20 07:41 01/19/20 01/19/20 07:41 07:41 WBC 20.98 H RBC 2.99 L MCV 92.6 MCH 31.1 MCHC 33.6 RDW Std Deviation 58.5 H RDW Coeff of Dwain 17.3 H Plt Count 365 MPV 10.7 H Albumin 1.9 L
[2020-01-19] MEDS ORDERED: CALCIUM CARBONATE 500 MG CHEWABLE TAB PO PRN (15:51)
[2020-01-19] MEDS ORDERED: ALUMINUM/MAGNESIUM SUSP 30 ML UDC PO PRN (15:51)
[2020-01-19] MEDS ORDERED: INSULIN ASPART 100 UNITS/ML 3 ML PEN SC SCH (16:30)
[2020-01-19] MEDS ORDERED: PIPERACILLIN/TAZOBACTAM 3.375 GM in DEXTROSE 5% 100 ML IV SCH (18:00)
[2020-01-19] MEDS: ATROPINE SULFATE 1% OP SOLN 2 ML BTL PO PRN ×2 (19:55→21:29)
[2020-01-19] MEDS: MoRPHine SULFATE 2 MG/ML CARP IV PRN (21:46)
[2020-01-20] MEDS: LORazepam 1 MG/2 ML VIAL IV PRN (04:07)
[2020-01-20] MEDS ORDERED: STAT IV Infusion **Titration per Protocol STA (04:25)
[2020-01-20] MEDS ORDERED: MoRPHine SULFATE 2 MG/ML CARP IV STA (04:44)
[2020-01-20] MEDS: MoRPHine SULFATE 2 MG/ML CARP IV PRN (04:49)
[2020-01-20] MEDS: MoRPHine SULF/NSS 250 MG/250 ML BTL IV SCH (05:25)
[2020-01-20 07:06] LABS: Hematocrit (blood only) 30.1 % (42-52); Mean Corpuscular Hemoglobin 31.1 pg (25-34); Mean Corpuscular Hgb Conc 33.2 g/dL (32-36); Mean Corpuscular Volume 93.5 fL (80-100); Mean Platelet Volume 10.7 fL (7.4-10.4); Platelet Count 381 K/uL (130-400); RDW Coefficient of Variation 17.3 % (11.5-14.5); RDW Standard Deviation 59.3 fL (36.4-46.3); Red Blood Count 3.22 M/uL (4.7-6.1); White Blood Count 23.47 K/uL (4.8-10.8)
[2020-01-20] MEDS: IPRATROPIUM BROMIDE HFA INHALER INH SCH (07:21)
[2020-01-20] MEDS: ALBUTEROL HFA 8 GM INHALER INH SCH (07:22)
[2020-01-20 07:36] LABS: Basophils # (auto) 0.01 K/uL (0-0.2); Echinocytes 1+; Eosinophils # (auto) 0.01 K/uL (0-0.5); Immature Granulocytes # (auto) 0.12 K/uL (0.00-0.02); Immature Granulocytes % (auto) 0.5 %; Lymphocytes # (auto) 0.65 K/uL (1.2-3.4); Lymphocytes % (auto) 2.8 %; Monocytes # (auto) 0.66 K/uL (0.11-0.59); Monocytes % (auto) 2.8 %; Neutrophils # (auto) 22.02 K/uL (1.4-6.5); Neutrophils % (auto) 93.9 %
[2020-01-20 07:53] LABS: Albumin Globulin Ratio 0.3 (0.9-2); Albumin Level 1.7 gm/dl (3.4-5.0); BUN Creatinine Ratio 16.4 (10-20); Bilirubin,Total 1.4 mg/dl (0.2-1); Calcium 8.3 mg/dl (8.5-10.1); Creatinine Clr Calc Pharmacy 12.4 ml/min; Est GFR (African American) 10.8; Est GFR (Non-African American) 9.3; Globulin 4.9 gm/dl (2.5-4.0); Potassium 5.5 mmol/L (3.5-5.1); Total Protein 6.6 gm/dl (6.4-8.2)
[2020-01-20] MEDS: ATROPINE SULFATE 1% OP SOLN 2 ML BTL PO PRN (10:54)
--- NOTE | 2020-01-20 13:33 | Palliative Care Consultation ---
Date of Consultation January 20, 2020 Assessment & Plan (1) Comfort measures only status: -79 year old male patient with PMH atrial fibrillation on Eliquis, prior CVA with left sided deficit, DM, HTN, CAD, recent non-displaced left acetabular and pelvic fractures after mechanical fall earlier this month- treated conservatively and sent to [facility] on 01/13 for rehab, and others, presented to the hospital with severe abdominal pain and nausea/vomiting. Patient went for CT abd/pelvis, then became less responsive. He improved somewhat with IVF and blood transfusion. Per H&P, "CT Abdomen without contrast revealed cirrhotic liver, subcapsular fluid new from 01/07/20 which may represent subcapsular hematoma. Free fluid in the abdomen and pelvis increased from 01/06 with complex fluid around the liver and spleen consistent with hemoperitoneum. No definite laceration identified. Gallbladder is distended possibly hemobilia and/or gallstones." Surgery consulted who recommended transfer to tertiary care center for surgery due to medical comorbidities. Patient declined transfer to critical access hospital, verbalizing understanding of the risks. GI was then consulted-- ERCP performed showing perforated gall bladder and cholangitis. Over night, patient had significant decline-- worsening renal function and refusing blood draws, etc. Patient verbalized his wishes to stop all aggressive measures and transition to comfort measures only. Patient's family was contacted by physician-- they agreed with patient's decision. Patient is now on morphine gtt for comfort. Palliative care consulted. -Patient seen by palliative MD this afternoon. Patient on morphine infusion at 1mg/hr. He is responsive but increasingly lethargic per the daughter and ex- at bedside. Family reports that patient is talking about things that do not make sense. -Urine output is dropping off. His creatinine doubled overnight on 01/18, and likely is worsened further by this point. This indicates a very poor prognosis and patient is expected to in days. -Doubt patient will be stable for transfer out of facility given his rapid decline. We will continue to follow to provide support and comfort. -PPS 20%. (2) Perforated gallbladder: (3) Acute renal failure: (4) Cholangitis: Supervising Physician Co-Signing Physician Notes Chart reviewed, patient seen and examined. Patient's ex- and daughter at bedside. Collaborated with JOHN Ashraf Patient known to me from [facility] during his 10/08-11/01/2019 admission for rehab after sustaining a CVA with left-sided weakness. At the time of discharge patient was able ambulate 200 feet with a cane. Patient's stroke was felt to be due to his A. fib as he was on no anticoagulation due to recurrent gingival bleeding. Patient was started on Eliquis after his stroke. Patient had another fall after returning home and sustained a left inferior pubic ramus fracture. Patient returned to [facility] on 01/13 and was doing well until the afternoon of 01/16 when he developed acute onset of abdominal pain and was sent to the ER. Details of this admission as listed above. Patient is currently on comfort measures-his creatinine has more than doubled since admission, poor urine output. Patient's ex- and daughter at bedside- both understand patient's current condition as well as support his wishes for no aggressive intervention. Patient's grandson is deployed-patient's daughter has been successful in obtaining permission for grandson to come visit patient. Patient arouse briefly and open his eyes-unable to respond to simple questions or ROS. PE: Patient minimally responsive, appears comfortable HEENT: EOMI, hearing within normal limits Respirations unlabored CV regular rate Abdomen: Not distended Neuro: Minimally responsive Skin: Warm to touch Agree with above note, assessment and plan as per JOHN Ashraf-we will continue to follow and provide support to patient's family. History of Present Illness Attending Physician: Cash Cronin DO History of Present Illness This 79 year old male patient with PMH atrial fibrillation on Eliquis, prior CVA with left sided deficit, DM, HTN, CAD, recent non-displaced left acetabular and pelvic fractures after mechanical fall earlier this month- [facility] on [facility] for rehab, and others, presented to the hospital with severe abdominal pain and nausea/vomiting. Patient went for CT abd/pelvis, then became less responsive. He improved somewhat with IVF and blood transfusion. Per H&P, "CT Abdomen without contrast revealed cirrhotic liver, subcapsular fluid new from 01/07/20 which may represent subcapsular hematoma. Fr ee fluid in the abdomen and pelvis increased from 01/06 with complex fluid around the liver and spleen consistent with hemoperitoneum. No definite laceration identified. Gallbladder is distended possibly hemobilia and/or gallstones." Surgery consulted who recommended transfer to tertiary care center for surgery due to medical comorbidities. Patient declined transfer to tertiary care, verbalizing understanding of the risks. GI was then consulted-- ERCP performed showing perforated gall bladder and cholangitis. Over night, patient had significant decline-- worsening renal function and refusing blood draws, etc. Patient verbalized his wishes to stop all aggressive measures and transition to comfort measures only. Patient's family was contacted by physician-- they agreed with patient's decision. Patient is now on morphine gtt for comfort. Palliative care consulted. Thank you kindly for this consult. Palliative care team will follow as needed. Allergies Allergy/AdvReac Type Severity Reaction Status Date / Time Penicillins Allergy Unknown RASH Verified 01/17/20 18:31 Home Medications Home Medications Medication Instructions Recorded Confirmed Type Combivent Respimat 1 puff INHALATION QID 10/01/19 01/17/20 History allopurinol [Zyloprim] 100 mg PO Q12H 10/01/19 01/17/20 History diltiazem HCl [Cardizem CD] 240 mg PO DAILY 10/01/19 01/17/20 History escitalopram oxalate [Lexapro] 10 mg PO DAILY 10/01/19 01/17/20 History lisinopril [Zestril] 10 mg PO DAILY 10/01/19 01/17/20 History loperamide [Imodium A-D] 2 mg PO QID PRN 10/01/19 01/17/20 History Eliquis 5 mg PO Q12H 01/07/20 01/17/20 History atorvastatin [Lipitor] 40 mg PO DAILY 01/07/20 01/17/20 History acetaminophen [Tylenol] 650 mg PO Q4H PRN 01/17/20 01/17/20 History bisacodyl [Dulcolax (bisacodyl)] 10 mg [place] DAILY PRN 01/17/20 01/17/20 History ciprofloxacin HCl [Cipro] 500 mg PO HS 01/17/20 01/17/20 History oxycodone [Roxicodone] 5 mg PO Q4H PRN 01/17/20 01/17/20 History pantoprazole [Protonix] 40 mg PO DAILYBB 01/17/20 01/17/20 History polyethylene glycol 3350 [Miralax] 17 g PO QDL PRN 01/17/20 01/17/20 History sodium phosphates [Enema] 133 ml [place] DAILY PRN 01/17/20 01/17/20 History Patient History Medical History TABATHA (acute kidney injury) (Inactive) Asthma (Chronic) Atrial fibrillation (Chronic) Cholangitis Cholelithiasis Cognitive impairment (Inactive) Coronary artery disease (Chronic) Patient with elevated troponin in setting of acute illness, hypotension and worsening renal function. No EKG evidence of acute ischemia per primary team. 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 Required: No Beliefs That Will Affect Care: None marital status: Current Living Situation: Rehab Current Living Situation Comment: originally from home but was recently DC'd from here to [facility] Feels Safe at Home: Yes Smoking Status: Former smoker Tobacco Type: cigarettes ; Cigarettes Per Day: 8 ; Hx Alcohol Use: Yes Alcohol type: beer Hx Substance Use: No Results & Data Vital Signs (Past 12 Hours) Vital Signs Pulse Pulse Ox 01/20/20 07:22 77 93 Coding Level of Care Code 16909 Inpt Consult Level 3 Diagnoses Comfort measures only status Z51.5 Perforated gallbladder K82.2 Acute renal failure N17.9 Cholangitis K83.09 Time Spent (min) 75 Time Spent Midlevel A total of 30 minutes spent by this FORM BUILDING SUPERVISOR in reviewing chart, speaking with IDT and palliative MD regarding comfort measures and plan of care. Attending Spent 45 minutes in addition to the 30 minutes spent by JOHN Ashraf for a total of 75 minutes with greater than 50% of the time at bedside assessing patient's comfort level as well as discussing end-of-life issues. Answered family's questions and provided support at bedside.
--- NOTE | 2020-01-20 15:28 | Hospitalist Progress Note ---
Date of Service January 20, 2020 Assessment & Plan (1) Sepsis: due to cholangitis, cholecystitis, perforated gall bladder no further treatment, patient clearly expressed wishes for comfort measures no further labs, no antibiotics, no fluids Morphine PRN for pain family at the bedside (2) Cholangitis: worsening condition, WBC going up, LFT going up no further antibiotics (3) Acute renal failure: Cr up to >5 today, BUN climbing, K is 5.5 no further lab draws, patient wants comfort, no hemodialysis (4) Perforated gallbladder: no surgery desired (5) Hypotension: see above (6) Hemoperitoneum: hemoperitoneum. Secondary to sepsis from cholangitis Patient did have his anticoagulation reversed and was transfused 1 unit packed red blood cells CT abdomen/Pelvis 01/17/20 IMPRESSION:. The liver is cirrhotic in morphology. There is trace subcapsular fluid which is new from 01/07/2020, and likely represents subcapsular hematoma. Free fluid in the abdomen and pelvis has increased from 01/07/2020. Fluid around the liver and spleen is complex and this is consistent with hemoperitoneum. The liver is the most likely source given associated subcapsular hemorrhage. No definite laceration is identified but this is not well evaluated. The gallbladder is distended and contains layering hyperdense intraluminal material. This has increased from 01/07/2020 and may represent hemobilia and/or gallstones. If there is clinical concern for acute cholecystitis a right upper quadrant ultrasound or hepatobiliary scan should be considered. Fractures of the left acetabulum and the left inferior pubic ring are again noted. Moderate colonic diverticulosis without CT evidence of acute diverticulitis. ERCP performed 01/17. Impressionlikely a bile leak from a spontaneous perforated gallbladder was found, given hemoperitoneum and use of anticoagulants, likely has hemorrhagic cholecystitis. A biliary sphincterotomy was performed and 1 plastic biliary stent was placed into the common bile duct. (7) Abnormal LFTs: ?Acute cholecystitis/cholangitis -Repeat LFTs are all worsening as well as worsening acute renal failure. (8) Asthma: This patient will be offered as needed nebulized medications t (9) Atrial fibrillation: Chronic. Rate controlled -Hold Eliquis in setting of intraabdominal bleeding -Hold Diltiazem in setting of hypotension -KCentra given (10) Coronary artery disease: Chronic. All medications and anticoagulation are held (11) Diabetes: Transitioning to comfort care measures will stop checking blood glucoses and administering insulin (12) Hypertension: Patient presently hypotensive as above. Sepsis vs hemorrhagic shock -Hold antihypertensive agents (13) Stroke: Remote history of CVA, left sided deficit. Has persistent left hand hemiplegia (14) Depression with anxiety: Chronic -Continue Escitalopram F/E/N - NSS at 100mL/hr, monitor electrolytes and correct as needed, NPO for now Ppx - SCDs Code - DNR/DNI per discussion with patient Disposition - Admit to medical floor with telemetry monitoring. Patient does not wish to have aggressive therapies or surgery for his underlying medical cond itions. He is aware that he may without more aggressive treatment. Patient is AA&O x 4 and is capable of making his own decisions at this time. As patient is clinically improved at the moment will admit to medical floor with telemetry monitoring. Will continue to treat conservatively with IVF, transfusions, antibiotics. Pain and nausea control. If patient's clinical condition declines despite these medical interventions will proceed to comfort care only. Plan discussed with patient and family and all are in agreement. Should patient decompensate will notify patient's son, David and his friend, Pushpa (15) Need for comfort care: As of the afternoon of the all medications except those directed at comfort will be discontinued as well as IV fluids. Family is in route from a trip about 4 hours away palliative care consult will be placed with expectations if he makes it through the night continue to help manage his comfort needs and also counseled the family Admission and Anticipated Discharge Date Admission Date: January 17, 2020 Subjective patient resting comfortably slightly obtunded, not requiring very much morphine updated his daughter at the bedside, very tearful discussed that he does not have much time as his renal function is deteriorating her son is on his way home from [facility] Review of Systems Review of Systems: Unobtainable due to cognitive status Physical Exam Constitutional: well developed, well nourished and + ill appearing; no acute distress Eyes: PERRL, conjunctivae normal, anicteric sclerae ENMT: external ear and nose normal, oropharynx normal Neck: trachea midline, no thyromegaly Respiratory: normal respiratory effort, lungs clear to auscultation Cardiovascular: RRR, no murmur, no edema Gastrointestinal (Abdomen): Inspection/Auscultation: + abdomen distended and + hypoactive bowel sounds Percussion/Palpation: + abdomen tender, abdomen soft and + tympanic to percussion; no guarding, abdomen not rigid and no ascites Musculoskeletal: Head/Neck/Chest: normocephalic and head atraumatic Extremities: extremities normal to inspection and + abnormal strength (moving all extremities but generalized weakness) Skin: no rashes, warm and dry Neurologic: moves all extremities and + obtunded; no focal motor deficits Psychiatric: Orientation: + not alert and + not oriented x 3 Lymphatic: no cervical or axillary lymphadenopathy Results & Data Results & Data ([facility]) Vital Signs (Past 12 Hours) Vital Signs Pulse Pulse Ox 01/20/20 07:22 77 93 Laboratory Results Laboratory Results - last 24 hr 01/19/20 01/20/20 01/20/20 16:22 06:46 06:46 WBC RBC Hgb Hct MCV MCH MCHC RDW Std Deviation RDW Coeff of Dwain Plt Count MPV Immature Gran % (Auto) Neut % (Auto) Lymph % (Auto) [place] % (Auto) Eos % (Auto) Baso % (Auto) Immature Gran # (Auto) Neut # (Auto) Lymph # (Auto) [place] # (Auto) Eos # (Auto) Baso # (Auto) Echinocytes Sodium 135 L Potassium 5.5 H Chloride 106 Carbon Dioxide 17 L Anion Gap 13.0 H BUN 90 H Creatinine 5.46 H* D Est Cr Clr Drug Dosing 12.4 Est GFR ( Amer) 10.8 Est GFR (Non-Af Amer) 9.3 BUN/Creatinine Ratio 16.4 Glucose 103 H POC Glucose 147 H Calcium 8.3 L Total Bilirubin 1.4 H AST 280 H ALT 188 H Alkaline Phosphatase 577 H Total Protein 6.6 Total Protein (PEP) Pending Albumin 1.7 L Albumin (PEP) Pending Globulin 4.9 H Albumin/Globulin Ratio 0.3 L Iekuw-4-Afaqlxgdn Pending Yfyno-7-Bcegiyxfi Pending Awls-7-Xsrwggdg Pending Lvnz-0-Jlekbpir Pending Gamma Globulins Pending Monoclonal Peak 3 Pending Ser Monoclonl Protein Pending Ser Monoclonal Prot 2 Pending PEP Interpretation Pending Free [place] LC, Quant Pending Free Lambda LC, Quant Pending Free [place]/Lambda Ratio Pending 01/20/20 06:46 WBC 23.47 H RBC 3.22 L Hgb 10.0 L Hct 30.1 L MCV 93.5 MCH 31.1 MCHC 33.2 RDW Std Deviation 59.3 H RDW Coeff of Dwain 17.3 H Plt Count 381 MPV 10.7 H Immature Gran % (Auto) 0.5 Neut % (Auto) 93.9 Lymph % (Auto) 2.8 [place] % (Auto) 2.8 Eos % (Auto) 0.0 Baso % (Auto) 0.0 Immature Gran # (Auto) 0.12 H Neut # (Auto) 22.02 H Lymph # (Auto) 0.65 L [place] # (Auto) 0.66 H Eos # (Auto) 0.01 Baso # (Auto) 0.01 Echinocytes 1+ Sodium Potassium Chloride Carbon Dioxide Anion Gap BUN Creatinine Est Cr Clr Drug Dosing Est GFR ( Amer) Est GFR (Non-Af Amer) BUN/Creatinine Ratio Glucose POC Glucose Calcium Total Bilirubin AST ALT Alkaline Phosphatase Total Protein Total Protein (PEP) Albumin Albumin (PEP) Globulin Albumin/Globulin Ratio Wwdoe-0-Oglgiazzu Iibjq-0-Iabastjjp Zztv-7-Kqjhbown Fllk-6-Coszxamg Gamma Globulins Monoclonal Peak 3 Ser Monoclonl Protein Ser Monoclonal Prot 2 PEP Interpretation Free [place] LC, Quant Free Lambda LC, Quant Free [place]/Lambda Ratio Medications Administered Current Inpatient Medications Acetaminophen (Tylenol) 650 mg PO Q4H PRN PRN Reason: Pain Stop: 02/16/20 22:53 Al Hydrox/Mg Hydrox/Simethicone (Maalox) 30 ml PO Q6H PRN PRN Reason: Indigestion Stop: 02/18/20 15:50 Allopurinol (Zyloprim) 100 mg PO BID [facility] Stop: 02/16/20 22:53 Last Admin: 01/19/20 09:42 Dose: Not Given Documented by: Atorvastatin Calcium (Lipitor) 40 mg PO DAILY [facility] Stop: 02/17/20 08:59 Last Admin: 01/19/20 09:42 Dose: Not Given Documented by: Atropine Sulfate (Atropine Sulfate 1% Oph Soln) 6 drops PO Q1H PRN PRN Reason: oral secretions Stop: 02/18/20 19:14 Last Admin: 01/20/20 10:54 Dose: 6 drops Documented by: Calcium Carbonate (Tums) 1,000 mg PO Q4H PRN PRN Reason: Indigestion Stop: 02/18/20 15:50 Last Admin: 01/19/20 16:32 Dose: 1,000 mg Documented by: Dextrose (Dextrose 50%) 25 - 50 ml IV UD PRN; Protocol PRN Reason: Hypoglycemia Protocol Stop: 02/16/20 22:53 Escitalopram Oxalate (Lexapro Tab) 10 mg PO DAILY [facility] D Stop: 02/17/20 08:59 Last Admin: 01/19/20 09:41 Dose: Not Given Documented by: Glucagon (Glucagen) 1 mg SQ UD PRN; Protocol PRN Reason: Hypoglycemia Protocol Stop: 02/16/20 22:53 Glucose (Dex4 Glucose) 4 - 8 tabs PO UD PRN; Protocol PRN Reason: Hypoglycemia Protocol Stop: 02/16/20 22:53 Glucose (Glucose 40%) 15 - 30 gm PO UD PRN; Protocol PRN Reason: Hypoglycemia Protocol Stop: 02/16/20 22:53 Lorazepam (Ativan) 0.5 mg in 1 mls @ 1 mls/min IV Q4H PRN PRN Reason: Agitation Stop: 02/18/20 14:14 Lorazepam (Ativan) 1 mg in 2 mls @ 1 mls/min IV Q4H PRN PRN Reason: Agitation Stop: 02/18/20 14:14 Last Admin: 01/20/20 04:07 Dose: 1 mls/min Documented by: Morphine Sulfate (Morphine Sulf/Nss) 250 mg in 250 mls @ 1 mls/hr IV .Q24H MARIA D; Protocol Stop: 02/03/20 04:29 Last Admin: 01/20/20 05:25 Dose: 1 mg/hr, 1 mls/hr Documented by: Miscellaneous (Carbohydrates For Hypoglycemia) 15 - 30 gm PO UD PRN PRN Reason: Hypoglycemia Protocol Stop: 02/16/20 22:53 Morphine Sulfate (Morphine Sulfate) 2 mg IV Q2H PRN PRN Reason: Pain Stop: 01/31/20 22:53 Last Admin: 01/20/20 04:49 Dose: 2 mg Documented by: Morphine Sulfate (Morphine Sulfate) 4 mg IV Q3H PRN PRN Reason: Pain Stop: 02/02/20 14:14 Last Admin: 01/20/20 03:57 Dose: 4 mg Documented by: Ondansetron HCl (Zofran) 4 mg IV Q6H PRN PRN Reason: Nausea Stop: 02/16/20 22:53 Last Admin: 01/20/20 11:01 Dose: 4 mg Documented by: Polyethylene Glycol (Miralax Powder Packet) 17 gm PO QDL PRN PRN Reason: Constipation Stop: 02/16/20 22:53 PG Care Time/CCT Total # of Minutes Spent Total Time Spent with Patient: Total time spent is greater than 50% in coordination of care (as documented) at patient's floor/unit and/or counseling patient: Coding Level of Care Code 64868 Subseq Hosp Care Lvl 2 Diagnoses Sepsis A41.9 Cholangitis K83.09 Acute renal failure N17.9 Perforated gallbladder K82.2 Hypotension I95.9 Hypotension type: unspecified hypotension type Hemoperitoneum K66.1 Abnormal LFTs R94.5 Asthma J45.909 Asthma complication type: uncomplicated Asthma persistence: unspecified Asthma severity: unspecified severity Atrial fibrillation I48.21 Atrial fibrillation type: permanent Coronary artery disease I25.10 Associated angina: without angina Coronary Disease-Associated Artery/Lesion type: [place] artery [place] vs. transplanted heart: [place] heart Diabetes E11.9 Diabetes mellitus complication status: without complication Diabetes mellitus termite inspector insulin use: without termite inspector use Diabetes mellitus type: type 2 Hypertension I10 Hypertension type: essential hypertension Stroke I63.9 CVA mechanism: unspecified Depression with anxiety F41.8 Need for comfort care (1) Diabetes Diabetes mellitus complication status: without complication Diabetes mellitus termite inspector insulin use: without senior living use Diabetes mellitus type: type 2 Qualified Code(s): E11.9 - Type 2 diabetes mellitus without complications (2) Coronary artery disease Associated angina: without angina Coronary Disease-Associated Artery/Lesion type: [place] artery [place] vs. transplanted heart: [place] heart Qualified Code(s): I25.10 - Atherosclerotic heart disease of [place] coronary artery without angina pectoris (3) Atrial fibrillation Atrial fibrillation type: permanent Qualified Code(s): I48.21 - Permanent atrial fibrillation (4) Hypertension Hypertension type: essential hypertension Qualified Code(s): I10 - Essential (primary) hypertension (5) Hypotension Hypotension type: unspecified hypotension type Qualified Code(s): I95.9 - Hypotension, unspecified (6) Stroke CVA mechanism: unspecified Qualified Code(s): I63.9 - Cerebral infarction, unspecified (7) Asthma Asthma complication type: uncomplicated Asthma persistence: unspecified Asthma severity: unspecified severity Qualified Code(s): J45.909 - Unspecified asthma, uncomplicated
[2020-01-21] MEDS: MoRPHine SULF/NSS 250 MG/250 ML BTL IV SCH (06:57)
--- NOTE | 2020-01-21 15:58 | Hospitalist Progress Note ---
Date of Service January 21, 2020 Assessment & Plan (1) Sepsis: due to cholangitis, cholecystitis, perforated gall bladder no further treatment, patient clearly expressed wishes for comfort measures no further labs, no antibiotics, no fluids Morphine PRN for pain family at the bedside, daughter updated (2) Cholangitis: worsening condition, WBC going up, LFT going up no further antibiotics (3) Acute renal failure: Cr up to >5 on 01/19, BUN climbing, K is 5.5 no further lab draws, patient wants comfort, no hemodialysis (4) Perforated gallbladder: no surgery desired (5) Hypotension: see above (6) Hemoperitoneum: hemoperitoneum. Secondary to sepsis from cholangitis Patient did have his anticoagulation reversed and was transfused 1 unit packed red blood cells CT abdomen/Pelvis 01/17/20 IMPRESSION:. The liver is cirrhotic in morphology. There is trace subcapsular fluid which is new from 01/07/2020, and likely represents subcapsular hematoma. Free fluid in the abdomen and pelvis has increased from 01/07/2020. Fluid around the liver and spleen is complex and this is consistent with hemoperitoneum. The liver is the most likely source given associated subcapsular hemorrhage. No definite laceration is identified but this is not well evaluated. The gallbladder is distended and contains layering hyperdense intraluminal material. This has increased from 01/07/2020 and may represent hemobilia and/or gallstones. If there is clinical concern for acute cholecystitis a right upper quadrant ultrasound or hepatobiliary scan should be considered. Fractures of the left acetabulum and the left inferior pubic ring are again noted. Moderate colonic diverticulosis without CT evidence of acute diverticulitis. ERCP performed 01/17. Impressionlikely a bile leak from a spontaneous perforated gallbladder was found, given hemoperitoneum and use of anticoagulants, likely has hemorrhagic cholecystitis. A biliary sphincterotomy was performed and 1 plastic biliary stent was placed into the common bile duct. (7) Abnormal LFTs: ?Acute cholecystitis/cholangitis -Repeat LFTs are all worsening as well as worsening acute renal failure. (8) Asthma: no respiratory distress, use Morphine PRN (9) Atrial fibrillation: Chronic. Rate controlled -Hold Eliquis in setting of intraabdominal bleeding -Hold Diltiazem in setting of hypotension -KCentra given on admission (10) Coronary artery disease: Chronic. All medications and anticoagulation are held (11) Diabetes: Transitioning to comfort care measures will stop checking blood glucoses and administering insulin (12) Hypertension: Patient presently hypotensive as above. Sepsis vs hemorrhagic shock -Hold antihypertensive agents (13) Stroke: Remote history of CVA, left sided deficit. Has persistent left hand hemiplegia (14) Depression with anxiety: Chronic -Continue Escitalopram F/E/N - NSS at 100mL/hr, monitor electrolytes and correct as needed, NPO for now Ppx - SCDs Code - DNR/DNI per discussion with patient Disposition - stay inpatient for comfort care currently there is no good outpatient option, difficult family situation David and his friend, Pushpa (15) Need for comfort care: resting comfortably today Admission and Anticipated Discharge Date Admission Date: January 17, 2020 Subjective patient resting comfortably updated daughter at the bedside Review of Systems Review of Systems: Unobtainable due to cognitive status Physical Exam Constitutional: well developed, well nourished and + ill appearing; no acute distress Neck: trachea midline, no thyromegaly Respiratory: normal respiratory effort, lungs clear to auscultation Cardiovascular: RRR, no murmur, no edema Gastrointestinal (Abdomen): Inspection/Auscultation: + abdomen distended and + hypoactive bowel sounds Percussion/Palpation: abdomen soft and + tympanic to percussion; no guarding, abdomen not rigid and no ascites Musculoskeletal: Head/Neck/Chest: normocephalic and head atraumatic Extremities: extremities normal to inspection and + abnormal strength (moving all extremities but generalized weakness) Skin: no rashes, warm and dry Neurologic: moves all extremities and + obtunded; no focal motor deficits Psychiatric: Orientation: + not alert and + not oriented x 3 Lymphatic: no cervical or axillary lymphadenopathy Results & Data Results & Data ([facility]) Medications Administered Current Inpatient Medications Acetaminophen (Tylenol) 650 mg PO Q4H PRN PRN Reason: Pain Stop: 02/16/20 22:53 Al Hydrox/Mg Hydrox/Simethicone (Maalox) 30 ml PO Q6H PRN PRN Reason: Indigestion Stop: 02/18/20 15:50 Allopurinol (Zyloprim) 100 mg PO BID [facility] D Stop: 02/16/20 22:53 Last Admin: 01/19/20 09:42 Dose: Not Given Documented by: Atorvastatin Calcium (Lipitor) 40 mg PO DAILY [facility] D Stop: 02/17/20 08:59 Last Admin: 01/19/20 09:42 Dose: Not Given Documented by: Atropine Sulfate (Atropine Sulfate 1% Oph Soln) 6 drops PO Q1H PRN PRN Reason: oral secretions Stop: 02/18/20 19:14 Last Admin: 01/20/20 10:54 Dose: 6 drops Documented by: Calcium Carbonate (Tums) 1,000 mg PO Q4H PRN PRN Reason: Indigestion Stop: 02/18/20 15:50 Last Admin: 01/19/20 16:32 Dose: 1,000 mg Documented by: Dextrose (Dextrose 50%) 25 - 50 ml IV UD PRN; Protocol PRN Reason: Hypoglycemia Protocol Stop: 02/16/20 22:53 Escitalopram Oxalate (Lexapro Tab) 10 mg PO DAILY [facility] D Stop: 02/17/20 08:59 Last Admin: 01/19/20 09:41 Dose: Not Given Documented by: Glucagon (Glucagen) 1 mg SQ UD PRN; Protocol PRN Reason: Hypoglycemia Protocol Stop: 02/16/20 22:53 Glucose (Dex4 Glucose) 4 - 8 tabs PO UD PRN; Protocol PRN Reason: Hypoglycemia Protocol Stop: 02/16/20 22:53 Glucose (Glucose 40%) 15 - 30 gm PO UD PRN; Protocol PRN Reason: Hypoglycemia Protocol Stop: 02/16/20 22:53 Lorazepam (Ativan) 0.5 mg in 1 mls @ 1 mls/min IV Q4H PRN PRN Reason: Agitation Stop: 02/18/20 14:14 Lorazepam (Ativan) 1 mg in 2 mls @ 1 mls/min IV Q4H PRN PRN Reason: Agitation Stop: 02/18/20 14:14 Last Admin: 01/20/20 04:07 Dose: 1 mls/min Documented by: Morphine Sulfate (Morphine Sulf/Nss) 250 mg in 250 mls @ 1 mls/hr IV .Q24H MARIA D; Protocol Stop: 02/03/20 04:29 Last Admin: 01/21/20 06:57 Dose: Not Given Documented by: Miscellaneous (Carbohydrates For Hypoglycemia) 15 - 30 gm PO UD PRN PRN Reason: Hypoglycemia Protocol Stop: 02/16/20 22:53 Morphine Sulfate (Morphine Sulfate) 2 mg IV Q2H PRN PRN Reason: Pain Stop: 01/31/20 22:53 Last Admin: 01/20/20 04:49 Dose: 2 mg Documented by: Morphine Sulfate (Morphine Sulfate) 4 mg IV Q3H PRN PRN Reason: Pain Stop: 02/02/20 14:14 Last Admin: 01/20/20 03:57 Dose: 4 mg Documented by: Ondansetron HCl (Zofran) 4 mg IV Q6H PRN PRN Reason: Nausea Stop: 02/16/20 22:53 Last Admin: 01/20/20 11:01 Dose: 4 mg Documented by: Polyethylene Glycol (Miralax Powder Packet) 17 gm PO QDL PRN PRN Reason: Constipation Stop: 02/16/20 22:53 PG Care Time/CCT Total # of Minutes Spent Total Time Spent with Patient: Total time spent is greater than 50% in coordination of care (as documented) at patient's floor/unit and/or counseling patient: Coding Level of Care Code 53282 Subseq Hosp Care Lvl 1 Diagnoses Sepsis A41.9 Cholangitis K83.09 Acute renal failure N17.9 Perforated gallbladder K82.2 Hypotension I95.9 Hypotension type: unspecified hypotension type Hemoperitoneum K66.1 Abnormal LFTs R94.5 Asthma J45.909 Asthma complication type: uncomplicated Asthma persistence: unspecified Asthma severity: unspecified severity Atrial fibrillation I48.21 Atrial fibrillation type: permanent Coronary artery disease I25.10 Associated angina: without angina Coronary Disease-Associated Artery/Lesion type: [place] artery [place] vs. transplanted heart: [place] heart Diabetes E11.9 Diabetes mellitus complication status: without complication Diabetes mellitus detention insulin use: without mend worker use Diabetes mellitus type: type 2 Hypertension I10 Hypertension type: essential hypertension Stroke I63.9 CVA mechanism: unspecified Depression with anxiety F41.8 Need for comfort care (1) Diabetes Diabetes mellitus complication status: without complication Diabetes mellitus mend worker insulin use: without detention use Diabetes mellitus type: type 2 Qualified Code(s): E11.9 - Type 2 diabetes mellitus without complications (2) Coronary artery disease Associated angina: without angina Coronary Disease-Associated Artery/Lesion type: [place] artery [place] vs. transplanted heart: [place] heart Qualified Code(s): I25.10 - Atherosclerotic heart disease of [place] coronary artery without angina pectoris (3) Atrial fibrillation Atrial fibrillation type: permanent Qualified Code(s): I48.21 - Permanent atrial fibrillation (4) Hypertension Hypertension type: essential hypertension Qualified Code(s): I10 - Essential (primary) hypertension (5) Hypotension Hypotension type: unspecified hypotension type Qualified Code(s): I95.9 - Hypotension, unspecified (6) Stroke CVA mechanism: unspecified Qualified Code(s): I63.9 - Cerebral infarction, unspecified (7) Asthma Asthma complication type: uncomplicated Asthma persistence: unspecified Asthma severity: unspecified severity Qualified Code(s): J45.909 - Unspecified asthma, uncomplicated
--- NOTE | 2020-01-21 16:23 | Palliative Care Progress Note ---
Date of Service January 21, 2020 Assessment & Plan (1) Comfort measures only status: -79 year old male patient with PMH atrial fibrillation on Eliquis, prior CVA with left sided deficit, DM, HTN, CAD, recent non-displaced left acetabular and pelvic fractures after mechanical fall earlier this month- treated conservatively and sent to [facility] on 01/13 for rehab, and others, presented to the hospital with severe abdominal pain and nausea/vomiting. Patient went for CT abd/pelvis, then became less responsive. He improved somewhat with IVF and blood transfusion. Per H&P, "CT Abdomen without contrast revealed cirrhotic liver, subcapsular fluid new from 01/07/20 which may represent subcapsular hematoma. Free fluid in the abdomen and pelvis increased from 01/06 with complex fluid around the liver and spleen consistent with hemoperitoneum. No definite laceration identified. Gallbladder is distended possibly hemobilia and/or gallstones." Surgery consulted who recommended transfer to tertiary care center for surgery due to medical comorbidities. Patient declined transfer to tertiary care, verbalizing understanding of the risks. GI was then consulted-- ERCP performed showing perforated gall bladder and cholangitis. Over night, patient had significant decline-- worsening renal function and refusing blood draws, etc. Patient verbalized his wishes to stop all aggressive measures and transition to comfort measures only. Patient's family agreed with patient's decision. Patient is now on morphine gtt for comfort. Palliative care consulted. -Patient seen this afternoon. Patient on morphine drip. He is responsive for short periods of time, increased confusion. -Urine output is dropping off. His creatinine doubled overnight on 01/18,This indicates a very poor prognosis and patient is expected to in days. -Doubt patient will be stable for transfer out of facility given his rapid decline. We will continue to follow to provide support and comfort. -PPS 20%. (2) Perforated gallbladder: (3) Acute renal failure: (4) Cholangitis: Subjective Patient seen and examined, patient's daughter at bedside. Patient appears comfortable on morphine drip, is arousable for short periods of time Patient's grandson is hoping to be released from his deployment so he can come and see patient. Patient had no recorded urine output yesterday, 10 cc so far today. Patient with increasing lower extremity edema as well as increased confusion. Review of Systems Review of Systems: Unobtainable due to cognitive status Physical Exam Physical Exam: PE: Appears comfortable HEENT: EOMI, hearing within normal limits Respirations: Unlabored CV: Regular rate, increased lower extremity edema Abdomen: Nontender to palpation Neuro: Minimally responsive PG Care Time/CCT Total # of Minutes Spent Total Time Spent with Patient: Total time spent 45 minutes with greater than 50% of the time spent at bedside assessing patient's comfort level as well as providing active listening to patient's daughter at bedside. Coding Level of Care Code 08748 Subseq Hosp Care Lvl 3 Diagnoses Comfort measures only status Z51.5 Perforated gallbladder K82.2 Acute renal failure N17.9 Cholangitis K83.09 Time Spent (min) 45
[2020-01-22] MEDS: MoRPHine SULF/NSS 250 MG/250 ML BTL IV SCH (06:12)
[2020-01-22 07:15] LABS: Albumin 2.1 g/dL (3.8-4.8); Alpha 1 Globulin 0.6 g/dL (0.2-0.3); Beta-1-Globulin 0.3 g/dL (0.4-0.6); Beta-2-Globulin 0.5 g/dL (0.2-0.5); Free Kappa 241.9 mg/L (3.3-19.4); Free Kappa/Lambda Ratio 1.34 (0.26-1.65); Free Lambda 181.1 mg/L (5.7-26.3); Gamma Globulin 1.3 g/dL (0.8-1.7); Monoclonal Protein Band 1 DNR g/dL (NONE DETECTED); Monoclonal Protein Band 2 DNR g/dL (NONE DETECTED); Monoclonal Protein Band 3 DNR g/dL (NONE DETECTED); Total Protein 5.8 g/dL (6.1-8.1)
--- NOTE | 2020-01-22 14:18 | Hospitalist Progress Note ---
Date of Service January 22, 2020 Assessment & Plan (1) Perforated gallbladder: No surgery desired. - On comfort measures: - Continue morphine gtt, acetaminophen PRN, lorazepam PRN (2) Cholangitis: Worsening condition, WBC going up, LFT going up. - No further antibiotics (3) Hemoperitoneum: Hemoperitoneum. Secondary to sepsis from ruptured gallbladder & cholangitis. (4) Sepsis: Due to cholangitis, cholecystitis, perforated gall bladder. - No further treatment, patient clearly expressed wishes for comfort measures (5) Need for comfort care: Resting comfortably today Admission and Anticipated Discharge Date Admission Date: January 17, 2020 Subjective Unresponsive. Review of Systems Review of Systems: Unobtainable due to cognitive status and Unobtainable due to reduced consciousness Physical Exam Constitutional: + frail appearing and + lethargic Eyes: no conjunctival abnormality ENMT: external ear and nose normal, oropharynx normal Neck: trachea midline, no thyromegaly normal visual inspection Respiratory: + labored breathing; no respiratory distress Cardiovascular: RRR, no murmur, no edema Gastrointestinal (Abdomen): Inspection/Auscultation: abdomen normal to inspection; abdomen not distended Musculoskeletal: no cyanosis or clubbing, extremities motor strength 5/5 Skin: no rashes, warm and dry Neurologic: + does not move all extremities and + not awake Psychiatric: Orientation: + not alert, + not oriented to person and + uncooperative PG Care Time/CCT Total # of Minutes Spent Total Time Spent with Patient: Total time spent is greater than 50% in coordination of care (as documented) at patient's floor/unit and/or counseling patient: Coding Level of Care Code 49091 Subs Hosp Care [facility] 1 Diagnoses Perforated gallbladder K82.2 Cholangitis K83.09 Hemoperitoneum K66.1 Sepsis A41.9 Need for comfort care
--- NOTE | 2020-01-22 14:19 | Billing Data ---
Date of Service January 22, 2020 Coding Level of Care Code 82058 Prolonged Care (int'l) Comment I was in the room from 9:15 to 9:35am.
[2020-01-23] MEDS: LORazepam 1 MG/2 ML VIAL IV PRN ×2 (01:34→09:01)
[2020-01-23] MEDS: ATROPINE SULFATE 1% OP SOLN 2 ML BTL PO PRN ×5 (02:35→10:12)
[2020-01-23] MEDS ORDERED: LORazepam 1 MG/2 ML VIAL IV STA (02:54)
[2020-01-23] MEDS ORDERED: SCOPOLAMINE 1.5 MG TDSY TD SCH (08:15)
[2020-01-23] MEDS ORDERED: Nursing to Pharmacy Communication ONE (13:35)
[2020-01-23] MEDS: MoRPHine SULF/NSS 250 MG/250 ML BTL IV SCH (13:57)
[2020-01-23] MEDS: SODIUM CHLORIDE 0.9% 1000ML 1,000 ML IV SCH (13:57)
[2020-01-23] MEDS: CHECK SCOPOLAMINE PATCH PLACEMENT SCH ×2 (15:54→23:54)
--- NOTE | 2020-01-23 16:12 | Hospitalist Progress Note ---
Date of Service January 23, 2020 Assessment & Plan (1) Perforated gallbladder: No surgery desired. - On comfort measures: - Continue morphine gtt, acetaminophen PRN, lorazepam PRN -> Morphine gtt going up. - Added scopolamine patch per RN request for secretions. (2) Cholangitis: Worsening condition, WBC going up, LFT going up. - No further antibiotics (3) Hemoperitoneum: Hemoperitoneum. Secondary to sepsis from ruptured gallbladder & cholangitis. (4) Sepsis: Due to cholangitis, cholecystitis, perforated gall bladder. - No further treatment, patient clearly expressed wishes for comfort measures (5) Need for comfort care: Resting comfortably today Admission and Anticipated Discharge Date Admission Date: January 17, 2020 Subjective Patient more agitated and uncomfortable overnight per RN reporting. Morphine gtt increasing. Review of Systems Review of Systems: Unobtainable due to cognitive status Physical Exam Constitutional: + frail appearing and + lethargic Eyes: no conjunctival abnormality ENMT: external ear and nose normal, oropharynx normal Neck: trachea midline, no thyromegaly normal visual inspection Respiratory: + labored breathing; no respiratory distress Cardiovascular: RRR, no murmur, no edema Gastrointestinal (Abdomen): Inspection/Auscultation: abdomen normal to inspection; abdomen not distended Musculoskeletal: no cyanosis or clubbing, extremities motor strength 5/5 Skin: no rashes, warm and dry Neurologic: + does not move all extremities and + not awake Psychiatric: Orientation: + not alert, + not oriented to person and + uncooperative PG Care Time/CCT Total # of Minutes Spent Total Time Spent with Patient: Total time spent is greater than 50% in coordination of care (as documented) at patient's floor/unit and/or counseling patient: Coding Level of Care Code 64105 Subseq Hosp Care Lv 2 Diagnoses Perforated gallbladder K82.2 Cholangitis K83.09 Hemoperitoneum K66.1 Sepsis A41.9 Need for comfort care
--- NOTE | 2020-01-23 16:53 | Palliative Care Progress Note ---
Date of Service January 23, 2020 Assessment & Plan (1) Comfort measures only status: - patient is a 79 year old male patient with PMH atrial fibrillation on Eliquis, prior CVA with left sided deficit, DM, HTN, CAD, recent non-displaced left acetabular and pelvic fractures after mechanical fall earlier this month- treated conservatively and sent to [facility] on 01/13 for rehab, and others, presented to the hospital with severe abdominal pain and nausea/vomiting. Patient went for CT abd/pelvis, then became less responsive. He improved somewhat with IVF and blood transfusion. Per H&P, "CT Abdomen without contrast revealed cirrhotic liver, subcapsular fluid new from 01/07/20 which may represent subcapsular hematoma. Free fluid in the abdomen and pelvis increased from 01/06 with complex fluid around the liver and spleen consistent with hemoperitoneum. No definite laceration identified. Gallbladder is distended possibly hemobilia and/or gallstones." Surgery consulted who recommended transfer to tertiary care center for surgery due to medical comorbidities. Patient declined transfer to tertiary care, verbalizing understanding of the risks. GI was then consulted-- ERCP performed showing perforated gall bladder and cholangitis. Postop, patient had significant decline-- worsening renal function and refusing blood draws, etc. Patient verbalized his wishes to stop all aggressive measures and transition to comfort measures only. Patient's family agreed with patient's decision. Patient is now on morphine gtt for comfort. -Patient seen this afternoon. Patient on morphine drip. He unresponsive to voice or touch, appears comfortable, nearing end-of-life -Discussed end-of-life issues and provided support to patient's daughter at bedside -Urine output = scant -Doubt patient will be stable for transfer out of facility given his rapid decline. We will continue to follow to provide support and comfort. -PPS 10%. (2) Perforated gallbladder: (3) Acute renal failure: (4) Cholangitis: Subjective Patient seen and examined, patient's ex- and daughter at bedside. Patient's daughter reports that she does not feel that her son will be able to get here in time to see patient-he was able to speak to patient by cell phone. Daughter also reported a 45-minute rally last evening-he then was very restless, morphine drip was titrated-patient has been unresponsive since then. Patient Appears comfortable-on a morphine drip at 7 mg/h Review of Systems Review of Systems: Unobtainable due to cognitive status Physical Exam Physical Exam: PE: Patient appears comfortable, unresponsive to voice or touch HEENT: Dry mucous membranes, neck hyperextended Respirations unlabored, periods of apnea for approximately 20 seconds. CV: Tachycardic Abdomen: Soft, no grimace on palpation Extremities: Decreased lower extremity edema, continues to have pitting edema in the thighs. Skin: Warm to touch, no mottling Neuro: Unresponsive to voice or touch PG Care Time/CCT Total # of Minutes Spent Total Time Spent with Patient: Total time spent 45 minutes with greater than 50% of the time spent at bedside assessing patient's current comfort level as well as engaged and active listening with patient's daughter, Coding Level of Care Code 64029 Subseq Hosp Care Lvl 3 Diagnoses Comfort measures only status Z51.5 Perforated gallbladder K82.2 Acute renal failure N17.9 Cholangitis K83.09 Time Spent (min) 45
[2020-01-24] MEDS: CHECK SCOPOLAMINE PATCH PLACEMENT SCH (08:18)
[2020-01-24] MEDS: MoRPHine SULF/NSS 250 MG/250 ML BTL IV SCH (13:41)
[2020-01-24] MEDS: SODIUM CHLORIDE 0.9% 1000ML 1,000 ML IV SCH (13:42)
--- NOTE | 2020-01-24 14:02 | Hospitalist Progress Note ---
Date of Service January 24, 2020 Assessment & Plan (1) Perforated gallbladder: No surgery desired. - On comfort measures: - Continue morphine gtt, acetaminophen PRN, lorazepam PRN -> Morphine gtt stable today. No urine output. No major changes in demeanor. Extremities still warm. - Added scopolamine patch per RN request for secretions. (2) Cholangitis: Worsening condition, WBC going up, LFT going up. - No further antibiotics (3) Hemoperitoneum: Hemoperitoneum. Secondary to sepsis from ruptured gallbladder & cholangitis. (4) Sepsis: Due to cholangitis, cholecystitis, perforated gall bladder. - No further treatment, patient clearly expressed wishes for comfort measures (5) Need for comfort care: Resting comfortably today Admission and Anticipated Discharge Date Admission Date: January 17, 2020 Subjective Unresponsive. Physical Exam Constitutional: + frail appearing and + lethargic Eyes: no conjunctival abnormality ENMT: external ear and nose normal, oropharynx normal Neck: trachea midline, no thyromegaly normal visual inspection Respiratory: + labored breathing; no respiratory distress Cardiovascular: RRR, no murmur, no edema Gastrointestinal (Abdomen): Inspection/Auscultation: abdomen normal to inspection; abdomen not distended Musculoskeletal: no cyanosis or clubbing, extremities motor strength 5/5 Skin: no rashes, warm and dry Neurologic: + does not move all extremities and + not awake Psychiatric: Orientation: + not alert and + not oriented to person PG Care Time/CCT Total # of Minutes Spent Total Time Spent with Patient: Total time spent is greater than 50% in coordination of care (as documented) at patient's floor/unit and/or counseling patient: Coding Level of Care Code 55697 Subseq Hosp Care Lvl 2 Diagnoses Perforated gallbladder K82.2 Cholangitis K83.09 Hemoperitoneum K66.1 Sepsis A41.9 Need for comfort care
--- NOTE | 2020-01-24 15:24 | Death Pronouncement Note ---
Date of Service January 24, 2020 Pronouncement Note Admission Date Admission Date: January 17, 2020 Date and Time of Date of : 01/24/20 Time of : 14:00 PCOD Preliminary cause of : Gallbladder Problem Contributing Factors (1) Perforated gallbladder: (2) Cholangitis: (3) Hemoperitoneum: (4) Sepsis: (5) Need for comfort care: Hospital Course Hospital Course: at 2:00pm. Additional Data Confirmation of : no pulse, no respirations, no heart sounds and pupils fixed and dilated Family: at bedside Attending/PCP notified?: Yes Attending physician: Chris Huber MD Was code activated?: No Autopsy requested?: No certified driver examiner notified?: No Organ bank notified?: No Coding Level of Care Code D/C Day Management >30 mins Diagnoses Perforated gallbladder K82.2 Cholangitis K83.09 Hemoperitoneum K66.1 Sepsis A41.9 Need for comfort care
--- NOTE | 2020-01-24 15:25 | Discharge Summary ---
Date of Service January 24, 2020 Admission HPI Per Admitting Provider Nathaniel Dunn is a 79yo C male with multiple medical problems to include AF on Eliquis anticoagulation, prior CVA with left sided deficit, DM/HTN/CAD. Patient was recently admitted to the hospital from 01/06 - 01/13 with an acute non- displaced fracture of the left acetabulum and left inferior pubic ramus pelvic fracture after a mechanical fall at home on 01/02. Patient was managed conservatively and discharged to [facility] for rehabilitation on 01/14/20. He returns to the ER today with complaint of acute severe abdominal pain with nausea and vomiting. No additional complaints. Specifically no mention of fe kar/chills/cough/SOB/diarrhea ER Course: On arrival patient found to be afebrile, HD stable. Noted to have a hard, distended and tender abdomen. After he returned from CT he became minimally responsive and hypotensive with SBP in the 60's. He was administered IVF with improvement in BP and was transfused with 1 unit of uncrossed blood with two additional units on hold. CT Abdomen without contrast revealed cirrhotic liver, subcapsular fluid new from 01/07/20 which may represent subcapsular hematoma. Free fluid in the abdomen and pelvis increased from 01/06 with complex fluid around the liver and spleen consistent with hemoperitoneum. No definite laceration identified. Gallbladder is distended possibly hemobilia and/or gallstones. Dr. Dobbs (ER attending) contacted Dr. Avila re: results of CT. Due to the patient's multiple medical comorbidities and tenuous status Dr. Avila recommended transfer to a tertiary care facility. Dr. Dobbs discussed this with the patient who was adamantly against transfer. ER Medications Administered: KCentra, 1uPRBCs, Acetaminophen 1gm, Ceftriaxone 2gm, Famotidine, Morphine 2mg, 2mg, 6mg, Protonix 40mg, Prochlorperazine During my evaluation the patient was somnolent but arousable. He is answering questions and following commands. He is alert and oriented to self, location, day of the week and situation. He is acutely aware of his severity of illness as well as the possibility of if he does not undergo surgical intervention. Patient voices understanding of the situation. He again states that he does not wish to transfer to a tertiary care facility. He states that he does not wish to have surgery or aggressive treatments. He is aware that he may without it and says that he is ok with that. Family is at bedside to include patient's son, David and [id number] as well as patient's ex- and decision maker Pushpa and her daughter. Family voices understanding of the situation as well. They understand that patient may if not treated surgically and are in agreement with respecting his wishes. Principal Diagnosis Ruptured gallbladder Discharge Exam Constitutional + frail appearing and + lethargic Eyes no conjunctival abnormality ENMT external ear and nose normal, oropharynx normal Neck trachea midline, no thyromegaly normal visual inspection Respiratory + labored breathing; no respiratory distress Cardiovascular RRR, no murmur, no edema Gastrointestinal (Abdomen) Inspection/Auscultation: abdomen normal to inspection; abdomen not distended Musculoskeletal no cyanosis or clubbing, extremities motor strength 5/5 Skin no rashes, warm and dry Neurologic + does not move all extremities and + not awake Psychiatric Orientation: + not alert and + not oriented to person Discharge Data Allergies Allergy/AdvReac Type Severity Reaction Status Date / Time Penicillins Allergy Unknown RASH Verified 01/17/20 18:31 Consultations 01/17/20 20:06 ED Decision to Admit Stat 01/17/20 22:54 Consult General Surgery Routine 01/18/20 07:31 Consult Gastroenterology Routine 01/18/20 08:09 Consult Gastroenterology Routine 01/19/20 12:12 Consult Nephrology Routine 01/19/20 14:25 Consult Palliative Care Routine Procedures Performed Operation Date: 01/18/20 09:30 Actual Procedures p Endoscopic Retrograde Cholangiopancreatography, Sphincterotomy, Stent Placement(Not Applicable) - Jeni Nuñez MD Ordered Studies 01/17/20 17:31 CT abd pelvis wo con Stat 01/17/20 22:54 US liver Stat 01/18/20 [place] ERCP biliary ductal Routine Hospital Course (1) Perforated gallbladder: No surgery desired. - On comfort measures: Patient at 2:00pm today. (2) Cholangitis: Worsening condition, WBC going up, LFT going up. - No further antibiotics (3) Hemoperitoneum: Hemoperitoneum. Secondary to sepsis from ruptured gallbladder & cholangitis. (4) Sepsis: Due to cholangitis, cholecystitis, perforated gall bladder. - No further treatment, patient clearly expressed wishes for comfort measures (5) Need for comfort care: Resting comfortably today Total Time Total Time Spent Total Time Spent (In Minutes): 35 Discharge Plan Discharge Items Patient Disposition: Reason For Visit: ABDOMINAL PAIN Discharge Diagnosis: Ruptured gallbladder Follow-up/Referrals: Julia Peña MD [Primary Care Provider] - Addtl Attending Provider Instructions: Stand-Alone Forms: [facility] Admission Data Admit Date/Time: 01/17/20 20:58 Coding Level of Care Code D/C Day Management >30 mins Diagnoses Perforated gallbladder K82.2 Cholangitis K83.09 Hemoperitoneum K66.1 Sepsis A41.9 Need for comfort care
== END 2020-01-24 14:00 | disposition expired | DRG 871 ==
LOC: ED 17:13 → 2W 20:58 → SUATTDRO 20:58 → 2W 21:56